=== PATIENT | female | born 1975 | race Two or more races ===

== ENCOUNTER → 2021-05-19 10:06 | Outpatient (BNVA) | payer OTHER, SELFPAY | PROVIDERS: PCP Internal Medicine; Visit Provider Internal Medicine Gastroenterology | DX: K31.84 Gastroparesis (principal) | CPT/HCPCS: 99202 ==

== ENCOUNTER → 2021-05-22 08:07 | Outpatient (REF) | payer OTHER, SELFPAY ==
--- NOTE | ~2021-05-22 | NM_ITS ---
EXAMINATION: WI RADIONUCLIDE SOLID FOOD GASTRIC EMPTYING 4-HOUR STUDY CLINICAL INFORMATION: Early satiety. History of gastric bypass. Abdominal pain and nausea and vomiting. COMPARISON: None TECHNIQUE: A standard meal consisting of 4 oz of Egg Beaters brand tagged with 0.899 mCi Tc-99m Sulfur Colloid, 8 oz water and 2 slices of toast with jelly was administered orally to the patient. Images were obtained using a dual head gamma camera in the anterior and posterior projections over of the stomach immediately post ingestion and at hourly intervals up to 4 hours post ingestion. The anterior and posterior counts at each time interval were averaged using the geometric mean and expressed as percentage of the immediate post ingestion counts. FINDINGS: There is good visualization of activity in the stomach immediately post ingestion. As the study progresses, there is good clearance of activity from the stomach and visualization of progressively increasing small bowel activity. By the end of the study, there is almost no retention noted in the stomach. Retention in the stomach at each time interval was: 1 hour 55% (normal 37%-90%) 2 hours 39% (normal 30%-60%) 3 hours 13% 4 hours 3% (normal 0%-10%) WI/WI gastric emptying study IMPRESSION: Normal 4-hour solid food gastric emptying study.
== END ==
LOC: HO.NUCMED 08:07
PROVIDERS: PCP Internal Medicine; Visit Provider Internal Medicine Gastroenterology
DX: R68.81 Early satiety (principal)
CPT/HCPCS: 78264; A9541

== ENCOUNTER 2021-07-19 09:21 | Day surgery (SDC) | payer OTHER, SELFPAY ==
--- NOTE | 2021-07-18 11:36 | P.CONAN_ITS ---
Documented by User: Billie Stewart NP 07/18/21 11:39 HPI - Anesthesia Eval Consult details Narrative: 45yo F for Upper Endoscopy PMFSH Active Problems Active Problems: All Active Problems (Updated 05/19/21 @ 10:43 by Zeinab Melendez MD) Gastroparesis (Acute) Past Medical History Medical History Diabetes Fatty liver History of kidney cancer HTN (hypertension) Family History Family History (Updated 05/19/21 @ 10:15 by NISREEN Mckeon) Father Septic shock Maternal Uncle Liver cancer Stomach cancer Hepatitis C Maternal Aunt Lupus Mother HTN (hypertension) Diabetes Heart problem Surgical History Surgical History History of esophagogastroduodenoscopy (EGD) History of sleeve gastrectomy Hx laparoscopic cholecystectomy Hx of vaginal surgery Social History Social History (Updated 05/19/21 @ 10:16 by NISREEN Mckeon) Household Members: Spouse and Children Alcohol intake: never Patient Tobacco Use Status: Never used Tobacco Advance Directives: No Advance Directives Information Provided: Yes Meds Allergies Allergy/AdvReac Type Severity Reaction Status Date / Time acetaminophen [From Percocet] Allergy Mild unknown Verified 05/19/21 10:08 oxycodone [From Percocet] Allergy Mild unknown Verified 05/19/21 10:08 tylenol with Codeine Allergy Mild unknown Uncoded 05/19/21 10:08 Home Medications Medication Instructions Recorded Confirmed Last Taken Type amitriptyline 25 mg tablet 25 mg PO BEDTIME 05/19/21 Unknown History blood sugar diagnostic (CallumStyle #10 ea 05/19/21 Unknown History Lite Strips) clotrimazole-betamethasone 1 appl TOPICAL 05/19/21 Unknown History %-0.05 % topical cream estradiol g VAGINAL 05/19/21 Unknown History fluconazole 150 mg tablet 150 mg PO Q3D 05/19/21 Unknown History glipizide 5 mg tablet, extended 5 mg PO DAILY 05/19/21 Unknown History release 24 hr lamotrigine 100 mg tablet 200 mg PO DAILY tab 05/19/21 Unknown History lancets 28 gauge (FreeStyle #100 ea 05/19/21 Unknown History Lancets) lisinopril 2.5 mg tablet 2.5 mg PO DAILY 05/19/21 Unknown History lorazepam 1 mg tablet 1 mg PO QID PRN 05/19/21 Unknown History meclizine 25 mg tablet mg PO 05/19/21 Unknown History nabumetone 500 mg tablet 500 mg PO BID 05/19/21 Unknown History ondansetron 4 mg disintegrating 0 mg PO BEDTIME 05/19/21 Unknown History tablet pantoprazole 40 mg tablet,delayed 40 mg PO BID 05/19/21 Unknown History release perphenazine 16 mg tablet mg PO 05/19/21 Unknown History prazosin 5 mg capsule 0 mg PO 05/19/21 Unknown History simethicone 80 mg chewable tablet 0 mg PO 05/19/21 Unknown History (Mi-Acid Gas Relief (simethicone)) sucralfate 100 mg/mL oral PO 05/19/21 Unknown History suspension terconazole 0.4 % vaginal cream 1 appful VAGINAL BEDTIME 05/19/21 Unknown History tramadol 100 mg capsule 100 mg PO DAILY 05/19/21 Unknown History 24h,extended release(25-75) venlafaxine 150 mg 150 mg PO DAILY 05/19/21 Unknown History capsule,extended release 24 hr venlafaxine 75 mg capsule,extended 75 mg PO DAILY 05/19/21 Unknown History release 24 hr zolpidem 5 mg tablet 5 mg PO BEDTIME PRN 05/19/21 Unknown History Exam Exam Date and Time: July 18, 2021 1136 Assessment and Plan Assessment Anesthesia Assessment: Chart Reviewed Documented by User: Wen Patricio MD 07/19/21 10:34 [facility] Past Medical History Medical History Diabetes Fatty liver History of kidney cancer HTN (hypertension) Functional capacity: independent ambulation Patient : No Family History Family History (Updated 05/19/21 @ 10:15 by NISREEN Mckeon) Father Septic shock Maternal Uncle Liver cancer Stomach cancer Hepatitis C Maternal Aunt Lupus Mother HTN (hypertension) Diabetes Heart problem Family history of problems with anesthesia: No Surgical History Surgical History History of esophagogastroduodenoscopy (EGD) History of sleeve gastrectomy Hx laparoscopic cholecystectomy Hx of vaginal surgery History of Problems with Anesthesia: No Social History Social History (Updated 05/19/21 @ 10:16 by NISREEN Mckeon) Household Members: Spouse and Children Alcohol intake: never Patient Tobacco Use Status: Never used Tobacco Advance Directives: No Advance Directives Information Provided: Yes Meds Allergies Allergy/AdvReac Type Severity Reaction Status Date / Time acetaminophen [From Percocet] Allergy Mild unknown Verified 05/19/21 10:08 oxycodone [From Percocet] Allergy Mild unknown Verified 05/19/21 10:08 tylenol with Codeine Allergy Mild unknown Uncoded 05/19/21 10:08 Home Medications Medication Instructions Recorded Confirmed Last Taken Type amitriptyline 25 mg tablet 25 mg PO BEDTIME 05/19/21 Unknown History blood sugar diagnostic (FreeStyle #10 ea 05/19/21 Unknown History Lite Strips) clotrimazole-betamethasone 1 appl TOPICAL 05/19/21 Unknown History %-0.05 % topical cream estradiol g VAGINAL 05/19/21 Unknown History fluconazole 150 mg tablet 150 mg PO Q3D 05/19/21 Unknown History glipizide 5 mg tablet, extended 5 mg PO DAILY 05/19/21 Unknown History release 24 hr lamotrigine 100 mg tablet 200 mg PO DAILY tab 05/19/21 Unknown History lancets 28 gauge (FreeStyle #100 ea 05/19/21 Unknown History Lancets) lisinopril 2.5 mg tablet 2.5 mg PO DAILY 05/19/21 Unknown History lorazepam 1 mg tablet 1 mg PO QID PRN 05/19/21 Unknown History meclizine 25 mg tablet mg PO 05/19/21 Unknown History nabumetone 500 mg tablet 500 mg PO BID 05/19/21 Unknown History ondansetron 4 mg disintegrating 0 mg PO BEDTIME 05/19/21 Unknown History tablet pantoprazole 40 mg tablet,delayed 40 mg PO BID 05/19/21 Unknown History release perphenazine 16 mg tablet mg PO 05/19/21 Unknown History prazosin 5 mg capsule 0 mg PO 05/19/21 Unknown History simethicone 80 mg chewable tablet 0 mg PO 05/19/21 Unknown History (Mi-Acid Gas Relief (simethicone)) sucralfate 100 mg/mL oral PO 05/19/21 Unknown History suspension terconazole 0.4 % vaginal cream 1 appful VAGINAL BEDTIME 05/19/21 Unknown History tramadol 100 mg capsule 100 mg PO DAILY 05/19/21 Unknown History 24h,extended release(25-75) venlafaxine 150 mg 150 mg PO DAILY 05/19/21 Unknown History capsule,extended release 24 hr venlafaxine 75 mg capsule,extended 75 mg PO DAILY 05/19/21 Unknown History release 24 hr zolpidem 5 mg tablet 5 mg PO BEDTIME PRN 05/19/21 Unknown History Exam Airway Mallampati Class: II TM Dist: >3cm Neck ROM: Full Heart: RRR Lungs: RRR Assessment and Plan Final Anesthetic Review Family History of Problems with Anesthesia: No History of Problems with Anesthesia: No ASA Class: II Final Preanesthetic Review: No Changes in Pt Med Stat, Meds/Allgs Chart Reviewed, Consent Obtained/Reviewed and Anes Risks/Benef Reviewed Patient Risk: Low Procedure Risk: Low Anesthetic Plan Anesthetic Plan: MAC: Disposition: Standard PACU
[2021-07-19 09:56] VITALS: BMI 27.4
--- NOTE | 2021-07-19 10:19 | MHC.SHP ---
Pre-Procedural Eval Section A Date of Service: 07/19/21 Section B Chief Complaint: Epigastric Pain Relevant Family History (Specify if Yes): No Relevant Social History: None Present Medications: see Short Stay Collaborative assessment Medical History: Significant History (Diabetes Fatty liver History of kidney cancer HTN (hypertension)) History of Previous Operations: Relevant previous surgery/procedure and date(s) (History of esophagogastroduodenoscopy (EGD) History of sleeve gastrectomy Hx laparoscopic cholecystectomy Hx of vaginal surgery, nephrectomy) Allergies: Allergies Allergy/AdvReac Type Severity Reaction Status Date / Time acetaminophen [From Percocet] Allergy Mild unknown Verified 05/19/21 10:08 oxycodone [From Percocet] Allergy Mild unknown Verified 05/19/21 10:08 tylenol with Codeine Allergy Mild unknown Uncoded 05/19/21 10:08 Review of Systems Sugical H&P ROS: Negative: Constitution, Cardiovascular, Respiratory, Neurological, Psychiatric, Hem-Onc, Allergic/Immunologic, Gastrointestinal, Genitourinary, Musculoskeletal, Integumentary, Endocrine and Eyes/Ears/Nose/Throat Exam Surgical H&P Exam: Normal: HEENT, Normal: Heart, Normal: Lungs, Normal: Extremities, Normal: Abdomen, Normal: Skin and Normal: Neurological Plan Diagnosis/Plan: Unchanged I have reviewed the history and physical and performed a pertinent physical examination on my patient. No changes have occurred unless specified.
[2021-07-19 10:20] LABS: UPreg QC Valid YES; Urine Pregnancy NEGATIVE (NEGATIVE)
[2021-07-19 10:48] VITALS: BP 120/77; PULSE 85; RESP 15; TEMP 36.3; O2SAT 100; BMI 27.4
[2021-07-19] MEDS: Lactated Ringers 1,000 ML 100 ML IVCONT (10:55)
[2021-07-19] MEDS: ondansetron HCL 4 MG/2 ML VIAL IVPUSH (10:55)
[2021-07-19 11:07] LABS: Glucose, Whole Blood 84 mg/dL (60-115)
[2021-07-19 11:07] LABS: Glucose, Whole Blood 87 mg/dL (60-115)
--- NOTE | 2021-07-19 11:14 | P.BOP_ITS ---
Brief Operative Note Date of Service: 07/19/21 Pre-op diagnosis: epigastric pain Post-op diagnosis: same Procedure: see op note Surgeon: Zeinab Melendez MD Anesthesia: MAC Was an Head Turning Machine Operator used for this Procedure?: No Estimated blood loss (mL): 0 Condition: stable Disposition: PACU
--- NOTE | 2021-07-19 11:14 | W.PM.OPN ---
Operative Note Operative Note Date of Service: 07/19/21 Narrative: Procedure Description: EGD FLEXIBLE TRANSORAL UPPER GASTROINTESTINAL ENDOSCOPY UPPER ENDOSCOPY Consent: Indications for the procedure and potential complications of bleeding, perforation, reaction to medications and missed diagnosis were discussed with the patient and informed consent was obtained. Instrument: Olympus GIF H 190 J mid size upper endoscope Monitoring: Vital signs and clinical assessment, continuous EKG monitoring, Pulse oximetry, Carbon Dioxide monitoring and blood pressure monitoring were done throughout the procedure. Procedure: The patient was placed in the left lateral decubitis position and pre-procedure medications were administered and a bite block was placed. The endoscope was inserted into the mouth and advanced under direct vision to the third part of duodenum. A careful inspection was made as the upper endoscope was withdrawn including a retroflexed examination of the proximal stomach; Findings and interventions are described below. Findings: Larynx:normal Esophagus: GE junction at 34 cm, diaphragm hiatus at 37 cm, small islands of suspected barretts esophagus bx taken from GEJ, 3 cm sliding hiatal hernia noted. Stomach: Normal mucosa, post surgical changes from gastric sleeve noted. Biopsies were obtained. Grade 2 flap valve on retroflexed examination of the cardia. The pylorus was tight and EGD was eventually pushed into the duodenal bulb with pressure. A pyloric balloon was inflated in step richard progression from 15-17 mm-no tears seen. Duodenum: Normal bulb and descending duodenum, bx taken Intervention: Biopsies as noted above, ballon dilation of pylorus Impression/Findings: tight pylorus hiatal hernia possible barretts PLAN: await path assess response to dilation over coming days and weeks, if good response then can repeat with larger balloon at future date if needed
[2021-07-19 11:50] VITALS: BP 91/52; PULSE 76; RESP 16; TEMP 36.1; O2SAT 98
--- NOTE | 2021-07-19 11:59 | HO.POSTANES ---
Post Anesthesia Evaluation Post Anesthesia Evaluation Vital Signs: Vital Signs Temp Pulse Resp BP Pulse Ox 07/19/21 11:50 97.0 F 76 16 91/52 L 98 07/19/21 10:48 97.4 F 85 15 120/77 100 Anesthesia: Monitored Mental Status: Awake Pain Control: Satisfactory Nausea/Vomiting: None Hydration: Adequate Anesthesia-Related Issues: No Anes. Related Issues
[2021-07-19 12:05] VITALS: BP 111/69; PULSE 72; RESP 16; O2SAT 100
[2021-07-19 12:23] VITALS: BP 120/69; PULSE 77; RESP 16; TEMP 36.1; O2SAT 100
== END 2021-07-19 12:47 | disposition home or self-care (01) ==
PROVIDERS: Nurse Practitioner; PCP Internal Medicine; Visit Provider Internal Medicine Gastroenterology
PROC: 0DJ08ZZ Inspection of Upper Intestinal Tract, Via Natural or Artificial Opening Endoscopic (ICD-10-PCS; CPT 43235; principal; 2021-07-19 12:00)
DX: R10.13 Epigastric pain (principal); K31.1 Adult hypertrophic pyloric stenosis; K22.70 Barrett's esophagus without dysplasia; K44.9 Diaphragmatic hernia without obstruction or gangrene; Z98.84 Bariatric surgery status; R68.81 Early satiety; K76.0 Fatty (change of) liver, not elsewhere classified; K31.84 Gastroparesis; I10 Essential (primary) hypertension; C64.2 Malignant neoplasm of left kidney, except renal pelvis; F32.9 Major depressive disorder, single episode, unspecified; E11.9 Type 2 diabetes mellitus without complications; Z79.84 Long term (current) use of oral hypoglycemic drugs; Z79.899 Other long term (current) drug therapy; Z88.8 Allergy status to other drugs, medicaments and biological substances; Z90.49 Acquired absence of other specified parts of digestive tract
CPT/HCPCS: 43245; 43239; 81025; 82947; 88305; 88342; C1726; J2405; J3010

== ENCOUNTER → 2021-08-01 11:06 | Outpatient (BNVA) | payer OTHER, SELFPAY | PROVIDERS: PCP Internal Medicine; Visit Provider Internal Medicine Gastroenterology ==

== ENCOUNTER 2021-08-26 09:54 | Emergency (ER) | payer OTHER, SELFPAY ==
--- NOTE | ~2021-08-26 | CT_ITS ---
EXAMINATION: CT ABDOMEN AND PELVIS WITH CONTRAST CLINICAL INFORMATION: Pain status post partial nephrectomy COMPARISON: None TECHNIQUE: Multidetector volumetric images were obtained from the superior aspect of the liver through the pubic symphysis following administration 85 mL of Omnipaque 350 intravenous contrast. Sagittal and coronal reformatted images were obtained on the technologist's workstation. Oral contrast: No This CT examination was performed using dose optimization techniques as appropriate, variously including the following: *Automated exposure control *Adjustment of mA and/or kV according to patient size (this includes techniques or standardized protocols for targeted exams where dose is matched to indication/reason for exam; i.e. extremities or head) *Use of iterative reconstruction technique FINDINGS: LUNG BASES: The visualized lung bases are unremarkable. LIVER, GALLBLADDER, AND BILIARY TREE: The liver is normal in size, shape, and attenuation. No focal liver lesion seen. Status post cholecystectomy. There is prominence of the common bile duct and intrahepatic bile ducts, not uncommon as chronic sequelae of remote prior cholecystectomy. PANCREAS: Normal. SPLEEN: Spleen is borderline enlarged, measuring 13 cm anterior to posterior but 10.4 cm craniocaudal. No focal splenic lesion seen. ADRENAL GLANDS: Unremarkable. KIDNEYS AND URETERS: There are postoperative changes of the posterior cortex of the left mid kidney consistent with prior left partial nephrectomy. There are some areas of adjacent cortical hypoenhancement, presumably postoperative as well but there are no prior postoperative studies available to assess for subtle differences. No striated nephrogram. No hydronephrosis. 7 mm cyst of the anterior cortex of the upper pole of the left kidney. BLADDER: Unremarkable. GASTROINTESTINAL TRACT: Small hiatal hernia. There is mild circumferential wall thickening of the distal esophagus. There are surgical sutures consistent with prior sleeve gastrectomy. ABDOMINAL WALL: Irregular fluid and fat stranding seen within the left anterior abdominal wall. LYMPH NODES: Normal. VASCULAR: Unremarkable. PELVIC VISCERA: The uterus and adnexa are unremarkable. OSSEOUS STRUCTURES: No acute or suspicious osseous abnormality. CT/CT abdomen pelvis w con IMPRESSION: Postoperative changes consistent with prior left partial nephrectomy. There are some adjacent areas of hypoenhancement which are presumably postoperative. Comparison with prior studies would be helpful to exclude subtle changes. Likely postoperative changes along the left lateral abdominal wall. Again, comparison with priors would be helpful. Small hiatal hernia. Evidence of prior sleeve gastrectomy. Prior right cholecystectomy. Mild wall thickening of the distal esophagus could reflect esophagitis. Fleischner guidelines were followed.
[2021-08-26 10:18] VITALS: BP 99/53; PULSE 82; RESP 19; TEMP 36.6; O2SAT 99; BMI 27.4
--- NOTE | 2021-08-26 12:06 | ED.FEMALEGU ---
HPI - Female Genitourinary General Chief complaint: Urogenital-Female Stated complaint: post kidney surgery 2 months ago pain burning Time Seen by Provider: 08/26/21 10:17 History of Present Illness HPI Narrative: Patient is a 45-year-old female presents today with having left upper quadrant pain. Patient had a nephrectomy done 2 months ago. Having pain localized to that area. There is no fever no chills. No pain on urination. No coughing or congestion or upper respiratory symptoms. No chest pain or diaphoresis. The pain is localized. No change of bowel movement. No nausea no vomiting. No vaginal discharge. Pain is a burning sensation right over the scar. Related Data Home Medications Medication Instructions Recorded Confirmed amitriptyline 25 mg tablet 25 mg PO BEDTIME 05/19/21 08/23/21 blood sugar diagnostic (FreeStyle #10 ea 05/19/21 Lite Strips) clotrimazole-betamethasone 1 1 appl TOPICAL DAILY 05/19/21 08/23/21 %-0.05 % topical cream estradiol 1 appl VAGINAL DAILY 05/19/21 08/23/21 fluconazole 150 mg tablet 150 mg PO Q3D 05/19/21 08/23/21 glipizide 5 mg tablet, extended 5 mg PO DAILY 05/19/21 08/23/21 release 24 hr lamotrigine 100 mg tablet 200 mg PO DAILY tab 05/19/21 08/23/21 lancets 28 gauge (FreeStyle #100 ea 05/19/21 Lancets) lisinopril 2.5 mg tablet 2.5 mg PO DAILY 05/19/21 08/23/21 lorazepam 1 mg tablet 1 mg PO QID PRN 05/19/21 08/23/21 meclizine 25 mg tablet 5 mg PO DAILY PRN 05/19/21 08/23/21 nabumetone 500 mg tablet 500 mg PO BID 05/19/21 08/23/21 ondansetron 4 mg disintegrating 4 mg PO BEDTIME 05/19/21 08/23/21 tablet pantoprazole 40 mg tablet,delayed 40 mg PO BID 05/19/21 08/23/21 release perphenazine 16 mg tablet mg PO 05/19/21 prazosin 5 mg capsule 5 mg PO BEDTIME 05/19/21 08/23/21 simethicone 80 mg chewable tablet 80 mg PO DAILY PRN 05/19/21 08/23/21 (Mi-Acid Gas Relief (simethicone)) sucralfate 100 mg/mL oral 100 mg PO DAILY 05/19/21 08/23/21 suspension terconazole 0.4 % vaginal cream 1 appful VAGINAL BEDTIME 05/19/21 08/23/21 tramadol 100 mg capsule 100 mg PO DAILY 05/19/21 08/23/21 24h,extended release(25-75) venlafaxine 150 mg 150 mg PO DAILY 05/19/21 08/23/21 capsule,extended release 24 hr venlafaxine 75 mg capsule,extended 75 mg PO DAILY 05/19/21 08/23/21 release 24 hr zolpidem 5 mg tablet 5 mg PO BEDTIME PRN 05/19/21 08/23/21 gabapentin 100 mg capsule 300 mg PO TID 08/01/21 08/23/21 Previous Rx's Medication Instructions Recorded hyoscyamine sulfate 0.125 mg 0.125 mg PO QID #90 tab 08/01/21 sublingual tablet (Levsin/SL) ondansetron 4 mg disintegrating 4 mg PO TID PRN 5 Days #10 tab 08/26/21 tablet sulfamethoxazole 800 1 tab PO BID 3 Days #6 tab 08/26/21 mg-trimethoprim 160 mg tablet (Bactrim DS) Allergies Allergy/AdvReac Type Severity Reaction Status Date / Time codeine Allergy Mild Rash Verified 08/23/21 10:59 oxycodone [From Percocet] Allergy Mild Rash Verified 08/23/21 10:59 Review of Systems Review of Systems: Positive left upper quadrant pain No fever no chills no cough no congestion or respiratory symptoms Immunized for COVID All system reviewed otherwise negative [facility] Past Medical History Attestation statement: The following information was validated with the patient. Medical History COVID-19 vaccine series completed Diabetes Fatty liver HTN (hypertension) Renal cancer Surgical History History of esophagogastroduodenoscopy (EGD) History of left nephrectomy History of left oophorectomy History of sleeve gastrectomy Hx laparoscopic cholecystectomy Hx of vaginal surgery Family History Family History Father Septic shock Maternal Uncle Liver cancer Stomach cancer Hepatitis C Maternal Aunt Lupus Mother HTN (hypertension) Diabetes Heart problem Social History Social History Household Members: Spouse and Children Alcohol intake: never Patient Tobacco Use Status: Never used Tobacco Use of substances other than those prescribed or required for medical reasons: No Advance Directives: No Advance Directives Information Provided: No Patient : No Physical Exam Vital Signs: Vital Signs: Last Vital Signs Temp 97.7 F 08/26/21 15:23 Pulse 71 08/26/21 15:23 Resp 18 08/26/21 15:23 BP 153/80 H 08/26/21 15: Pulse Ox 98 08/26/21 15:23 BMI result Body Mass Index 27.4 Appearance: Alert. Oriented X3. No acute distress. Eyes: Pupils equal, round and reactive to light. ENT: Pharynx normal. Neck: Normal inspection. Neck supple. No lymph nodes noted. No crepitus CVS: Normal heart rate and rhythm. Pulses normal. Normal S1 and S2 Respiratory: No respiratory distress. Breath sounds normal. No Wheezing. No rales Abdomen: Soft and nontender. No rigidity. No distention. good BS x4 Skin: Skin warm and dry. Normal skin color. Normal skin turgor. Extremities: No lower extremity edema. Neurovascular intact to all extremities. No Lacerations. No Rash Neuro: Oriented X 3. No motor deficit. No sensory deficit. Moving all extermities. No slurred speech MDM - Female Genitourinary MDM Narrative Medical decision making narrative: Patient is status post gastric sleeve. Status post left partial nephrectomy. Patient's creatinine is normal. CT scan of the abdomen showed no evidence of obstruction, abscess, perforation. Finding consistent with postoperative changes. Unfortunately patient's surgery was done at [facility]. Patient's Arb abdomen is soft nontender. Will discharge patient home. Currently in stable condition. Patient's urine showed a questionable UTI versus contamination will give 3 days of antibiotic as well. Lab Data Attestation: I reviewed the patient's lab results. Result diagrams: 08/26/21 12:54 08/26/21 14:26 Labs: Lab Results 08/26/21 08/26/21 08/26/21 Range/Units 12:18 12:18 12:54 WBC 3.9 L (4.8-10.8) X10*3/uL RBC 4.71 (4.20-5.50) X10*6/uL Hgb 11.4 L (12.0-16.0) g/dl Hct 35.8 L (37.0-47.0) % MCV 76.0 L (80.0-98.0) fL MCH 24.2 L (27.0-33.0) pg MCHC 31.8 (31.0-35.0) g/dl RDW 12.8 (11.0-16.0) % Plt Count 227 (160-400) X10*3/uL MPV 10.7 (9.4-12.3) fL Immature Gran % (Auto) 0.3 (0.0-0.4) % Neut % (Auto) 53.5 (45-73) % Lymph % (Auto) 39.2 (20-40) % Grayson % (Auto) 4.4 (2-11) % Eos % (Auto) 2.1 (0-4) % Baso % (Auto) 0.5 (0-2) % Lymph # (Auto) 1.5 (1.2-4.9) X10*3/uL Grayson # (Auto) 0.2 (0.1-1.2) X10*3/uL Eos # (Auto) 0.1 (0.0-0.4) X10*3/uL Baso # (Auto) 0.0 (0.0-0.2) X10*3/uL Abs Immat Gran (auto) 0.01 (0.00-0.03) X10*3/uL Absolute Neuts (auto) 2.1 (2.0-8.3) x10*3/uL Absolute Nucleated RBC 0.000 (0.0-0.012) X10*3/uL Nucleated RBC % (auto) 0.0 (0.0-0.2) /100WBC Smear Tech's Comments VERIFIED Sodium (135-145) mmol/L Potassium (3.3-5.1) mmol/L Chloride (96-108) mmol/L Carbon Dioxide (22-29) mmol/L Anion Gap (12-20) BUN (9-16) mg/dL Creatinine (0.5-1.4) mg/dL Estim Creat Clear Calc Estimated GFR Random Glucose (60-115) mg/dL Calcium (8.4-10.2) mg/dL Total Bilirubin (0.0-1.0) mg/dL AST (5-31) U/L ALT (0-31) U/L Alkaline Phosphatase (39-117) U/L Total Protein (6.5-8.0) g/dL Albumin (3.5-5.0) g/dL Lipase (8-78) U/L Urine Color YELLOW Urine Appearance CLEAR Urine pH 7.5 (5.0-8.0) Ur Specific Grover 1.015 (1.005-1.025) Urine Protein NEG (NEG-TRACE) MG/DL Urine Glucose (UA) NEG (NEG) MG/DL Urine Ketones NEG (NEG) MG/DL Urine Blood TRACE (NEG) Urine Nitrite NEG (NEG) Ur Leukocyte Esterase 2+ H (NEG) Urine RBC 0-2 (0) /HPF Urine WBC 30-49 H (0-4) /HPF Ur Squamous Epith Cells 3+ /LPF Urine Bacteria TRACE /LPF Urine Test NEGATIVE (NEGATIVE) 08/26/21 Range/Units 14:26 WBC (4.8-10.8) X10*3/uL RBC (4.20-5.50) X10*6/uL Hgb (12.0-16.0) g/dl Hct (37.0-47.0) % MCV (80.0-98.0) fL MCH (27.0-33.0) pg MCHC (31.0-35.0) g/dl RDW (11.0-16.0) % Plt Count (160-400) X10*3/uL MPV (9.4-12.3) fL Immature Gran % (Auto) (0.0-0.4) % Neut % (Auto) (45-73) % Lymph % (Auto) (20-40) % Grayson % (Auto) (2-11) % Eos % (Auto) (0-4) % Baso % (Auto) (0-2) % Lymph # (Auto) (1.2-4.9) X10*3/uL Grayson # (Auto) (0.1-1.2) X10*3/uL Eos # (Auto) (0.0-0.4) X10*3/uL Baso # (Auto) (0.0-0.2) X10*3/uL Abs Immat Gran (auto) (0.00-0.03) X10*3/uL Absolute Neuts (auto) (2.0-8.3) x10*3/uL Absolute Nucleated RBC (0.0-0.012) X10*3/uL Nucleated RBC % (auto) (0.0-0.2) /100WBC Smear Tech's Comments Sodium 138 (135-145) mmol/L Potassium 3.6 (3.3-5.1) mmol/L Chloride 105 (96-108) mmol/L Carbon Dioxide 26 (22-29) mmol/L Anion Gap 11 L (12-20) BUN 9 (9-16) mg/dL Creatinine 0.68 (0.5-1.4) mg/dL Estim Creat Clear Calc 92.4 Estimated GFR > 60 Random Glucose 102 (60-115) mg/dL Calcium 9.1 (8.4-10.2) mg/dL Total Bilirubin 1.4 H (0.0-1.0) mg/dL AST 54 H (5-31) U/L ALT 15 (0-31) U/L Alkaline Phosphatase 109 (39-117) U/L Total Protein 7.4 (6.5-8.0) g/dL Albumin 4.1 (3.5-5.0) g/dL Lipase 33 (8-78) U/L Urine Color Urine Appearance Urine pH (5.0-8.0) Ur Specific Grover (1.005-1.025) Urine Protein (NEG-TRACE) MG/DL Urine Glucose (UA) (NEG) MG/DL Urine Ketones (NEG) MG/DL Urine Blood (NEG) Urine Nitrite (NEG) Ur Leukocyte Esterase (NEG) Urine RBC (0) /HPF Urine WBC (0-4) /HPF Ur Squamous Epith Cells /LPF Urine Bacteria /LPF Urine Test (NEGATIVE) Discharge Plan Discharge Clinical Impression: Abdominal pain, Urinary tract infection Patient Disposition: Home, Self-Care Instructions: Urinary Tract Infection in Women (DC), Abdominal Pain (ED) Prescriptions: New ondansetron 4 mg tablet,disintegrating 4 mg PO TID PRN (Reason: nausea and vomiting) 5 Days Qty: 10 0RF sulfamethoxazole-trimethoprim [Bactrim DS] 800-160 mg tablet 1 tab PO BID 3 Days Qty: 6 0RF No Action ondansetron 4 mg tablet,disintegrating 4 mg PO BEDTIME 0RF meclizine 25 mg tablet 5 mg PO DAILY PRN (Reason: Vertigo) 0RF nabumetone 500 mg tablet 500 mg PO BID 0RF glipizide 5 mg tablet extended release 24hr 5 mg PO DAILY 0RF lamotrigine 100 mg tablet 200 mg PO DAILY 0RF lisinopril 2.5 mg tablet 2.5 mg PO DAILY 0RF clotrimazole-betamethasone 1-0.05 % cream 1 appl topical DAILY 0RF (DME) lancets [FreeStyle Lancets] 28 gauge misc See Rx Instructions ea topical TID Qty: 100 0RF Rx Instructions: As directed (DME) FreeStyle Lite Strips Strip See Rx Instructions strip Not Applicable BID Qty: 10 0RF Rx Instructions: As directed pantoprazole 40 mg tablet,delayed release (DR/EC) 40 mg PO BID 0RF sucralfate 100 mg/mL suspension 100 mg PO DAILY 0RF fluconazole 150 mg tablet 150 mg PO Q3D 0RF terconazole 0.4 % cream 1 appful vaginal BEDTIME 0RF perphenazine 16 mg tablet PO 0RF simethicone [Mi-Acid Gas Relief(simethicon)] 80 mg tablet,chewable 80 mg PO DAILY PRN (Reason: Acid Reflux) 0RF lorazepam 1 mg tablet 1 mg PO QID PRN (Reason: Anxiety) 0RF zolpidem 5 mg tablet 5 mg PO BEDTIME PRN (Reason: Insomnia) 0RF prazosin 5 mg capsule 5 mg PO BEDTIME 0RF venlafaxine 150 mg capsule,extended release 24hr 150 mg PO DAILY 0RF venlafaxine 75 mg capsule,extended release 24hr 75 mg PO DAILY 0RF amitriptyline 25 mg tablet 25 mg PO BEDTIME 0RF estradiol 0.01 % (0.1 mg/gram) cream 1 appl vaginal DAILY 0RF tramadol 100 mg capsule,ER biphase 24 hr 25-75 100 mg PO DAILY 0RF gabapentin 100 mg capsule 300 mg PO TID 0RF hyoscyamine sulfate [Levsin/SL] 0.125 mg tablet, sublingual 0.125 mg PO QID Qty: 90 1RF Referrals: Izabela Ellison MD [Primary Care Provider] - 2 days (Please follow-up with your surgeon as well)
[2021-08-26 12:30] LABS: Appearance Urine CLEAR; Color Urine YELLOW; Glucose Urine UA NEG (NEG); Leukocyte Esterase Urine 2+ (NEG); Nitrite Urine NEG (NEG); PH 7.5 (5.0-8.0); Specific Gravity - Urine 1.015 (1.005-1.025); UACC Culture Trigger YES; Urine Blood TRACE (NEG); Urine Ketones NEG (NEG); Urine Protein NEG (NEG-TRACE)
[2021-08-26 12:31] LABS: UPreg QC Valid YES; Urine Pregnancy NEGATIVE (NEGATIVE)
[2021-08-26 12:44] LABS: WBC Urine 30-49 /HPF (0-4)
[2021-08-26 12:45] LABS: Bacteria Urine TRACE /LPF; RBC Urine 0-2 /HPF (0); Squamous Epithelial Cell Urine 3+ /LPF
--- NOTE | 2021-08-26 12:50 | PC.NURSE ---
patient a&ox3, attempted to obtain iv access, patient difficult stick, additional nurse attempted without success, US trained nurse is now attempting to gain access, will notify provider if no access is obtained.
[2021-08-26] MEDS: 0.9 % Sodium Chloride 1,000 ML 999 ML IV (13:06)
[2021-08-26] MEDS: ondansetron HCL 4 MG/2 ML VIAL IVPUSH ×2 (13:09→15:42)
[2021-08-26] MEDS: HYDROmorphone HCl 0.5 MG/0.5 ML SYRINGE IVPUSH ×2 (13:09→14:00)
--- NOTE | 2021-08-26 13:09 | PC.NURSE ---
iv inserted by us, pt medicated for pain per order, will continue to monitor
[2021-08-26 13:29] LABS: Basophils Percent Auto 0.5 % (0-2); Hematocrit 35.8 % (37.0-47.0); Hemoglobin 11.4 g/dl (12.0-16.0); Mean Corpuscular HGB Conc 31.8 g/dl (31.0-35.0); Mean Corpuscular Hemoglobin 24.2 pg (27.0-33.0); Monocytes Absolute Auto 0.2 X10*3/uL (0.1-1.2); PLT CLUMP 1; Red Blood Count 4.71 X10*6/uL (4.20-5.50); SCAN SMEAR FLAG 1
[2021-08-26 13:30] LABS: Eosinophils Absolute Auto 0.1 X10*3/uL (0.0-0.4); Eosinophils Percent Auto 2.1 % (0-4); Imm Gran Abs Auto 0.01 X10*3/uL (0.00-0.03); Imm Gran Pct Auto 0.3 % (0.0-0.4); Lymphocytes Absolute Auto 1.5 X10*3/uL (1.2-4.9); Lymphocytes Percent Auto 39.2 % (20-40); MANUAL DIFF FLAG SCAN; Mean Platelet Volume 10.7 fL (9.4-12.3); Monocytes Percent Auto 4.4 % (2-11); Neutrophils Absolute Auto 2.1 x10*3/uL (2.0-8.3); Neutrophils Percent Auto 53.5 % (45-73); Red Cell Distribution Width 12.8 % (11.0-16.0)
[2021-08-26 13:42] VITALS: BP 169/87; PULSE 80; RESP 18; TEMP 37.2; O2SAT 100
--- NOTE | 2021-08-26 13:47 | PC.NURSE ---
pt a&ox3, vss, now reporting increased pain on the right side (03/24), provider notified, waiting for lab results/medication orders.
[2021-08-26 13:54] LABS: White Blood Count 3.9 X10*3/uL (4.8-10.8)
[2021-08-26 13:55] LABS: Platelet Count 227 X10*3/uL (160-400); SLIDE REVIEW VERIFIED
--- NOTE | 2021-08-26 14:02 | PC.NURSE ---
additional labs drawn per order, patient medicated for continued 9/10 rt abd pain, ivf running per order, vss, will continue to monitor.
--- NOTE | 2021-08-26 14:26 | PC.NURSE ---
ivf continue to run slowly
[2021-08-26 14:50] LABS: Alanine Aminotransferase 15 U/L (0-31); Albumin Level 4.1 g/dL (3.5-5.0); Alkaline Phosphatase 109 U/L (39-117); Anion Gap 11 (12-20); Aspartate Amino Transferase 54 U/L (5-31); Bilirubin Total 1.4 mg/dL (0.0-1.0); Blood Urea Nitrogen 9 mg/dL (9-16); Calcium 9.1 mg/dL (8.4-10.2); Carbon Dioxide 26 mmol/L (22-29); Chloride 105 mmol/L (96-108); Creatinine Clr Calc Pharmacy 92.4; Estimated Glomerular Filt Rate > 60; Glucose Random 102 mg/dL (60-115); Lipase 33 U/L (8-78); Potassium 3.6 mmol/L (3.3-5.1); Sodium 138 mmol/L (135-145); Total Protein 7.4 g/dL (6.5-8.0)
[2021-08-26] MEDS: iohexoL 350 MG/ML 100 ML INFUS..BTL IV (15:11)
--- NOTE | 2021-08-26 15:20 | PC.NURSE ---
patient c/o ongoing nausea will notify provider and continue to monitor.
[2021-08-26 15:23] VITALS: BP 153/80; PULSE 71; RESP 18; TEMP 36.5; O2SAT 98
--- NOTE | 2021-08-26 15:43 | PC.NURSE ---
patient medicated for nausea per order, pt ivf continues to run
[2021-08-26 16:00] VITALS: BP 137/79; PULSE 84; RESP 18; O2SAT 100
[2021-08-26] MEDS: Sulfamethox/Trimeth 800/160 TABLET 1 TAB PO (16:23)
== END 2021-08-26 16:29 | disposition home or self-care (01) ==
PROVIDERS: Emergency Provider Emergency Medicine Emergency Medical Services; PCP Family Medicine
DX: R10.12 Left upper quadrant pain (principal); N39.0 Urinary tract infection, site not specified; E11.9 Type 2 diabetes mellitus without complications; I10 Essential (primary) hypertension; Z90.5 Acquired absence of kidney; Z90.49 Acquired absence of other specified parts of digestive tract; Z90.721 Acquired absence of ovaries, unilateral; Z98.84 Bariatric surgery status; Z85.53 Personal history of malignant neoplasm of renal pelvis
CPT/HCPCS: 36415; 74177; 80053; 81001; 81025; 83690; 85025; 87086; 87186; 96361; 96374; 96375; 96376; 99284; J1170; J2405; Q9967

== ENCOUNTER 2021-08-29 07:44 | Day surgery (SDC) | payer OTHER, SELFPAY ==
[2021-08-23 11:01] VITALS: BMI 27.4
--- NOTE | 2021-08-28 10:05 | HO.ANESPROP2 ---
Documented by User: Billie Stewart NP 08/28/21 10:06 HPI - Anesthesia Eval Consult details Narrative: 45yo F for Upper Endoscopy with 100 Units Botox and Pyloric Dilation s/p EGD 07/2021 with [facility] PMF[facility] Active Problems Active Problems: All Active Problems (Updated 08/27/21 @ 00:01 by Guillermo Nielsen) Gastroparesis (Acute) Past Medical History Medical History COVID-19 vaccine series completed Diabetes Fatty liver HTN (hypertension) Renal cancer Family History Family History Father Septic shock Maternal Uncle Liver cancer Stomach cancer Hepatitis C Maternal Aunt Lupus Mother HTN (hypertension) Diabetes Heart problem Family history of problems with anesthesia: No Surgical History Surgical History History of esophagogastroduodenoscopy (EGD) History of left nephrectomy History of left oophorectomy History of sleeve gastrectomy Hx laparoscopic cholecystectomy Hx of vaginal surgery History of Problems with Anesthesia: No Social History Social History Household Members: Spouse and Children Alcohol intake: never Patient Tobacco Use Status: Never used Tobacco Use of substances other than those prescribed or required for medical reasons: No Have you been hit, kicked, punched, or otherwise hurt by someone within the past year? If so, by whom?: No Are you DNR?: No Advance Directives: No Advance Directives Information Provided: Yes Advance Directives on File: No Recently lost weight without trying: No Eating poorly because of decreased appetite: No Nutrition Risks: No Nutritional Risk Patient : No Meds Allergies Allergy/AdvReac Type Severity Reaction Status Date / Time codeine Allergy Mild Rash Verified 08/23/21 10:59 oxycodone [From Percocet] Allergy Mild Rash Verified 08/23/21 10:59 Home Medications Medication Instructions Recorded Confirmed Last Taken Type amitriptyline 25 mg tablet 25 mg PO BEDTIME 05/19/21 08/23/21 Unknown History blood sugar diagnostic (FreeStyle #10 ea 05/19/21 Unknown History Lite Strips) clotrimazole-betamethasone 1 1 appl TOPICAL DAILY 05/19/21 08/23/21 Unknown History %-0.05 % topical cream estradiol 1 appl VAGINAL DAILY 05/19/21 08/23/21 Unknown History fluconazole 150 mg tablet 150 mg PO Q3D 05/19/21 08/23/21 Unknown History glipizide 5 mg tablet, extended 5 mg PO DAILY 05/19/21 08/23/21 Unknown History release 24 hr lamotrigine 100 mg tablet 200 mg PO DAILY tab 05/19/21 08/23/21 Unknown History lancets 28 gauge (FreeStyle #100 ea 05/19/21 Unknown History Lancets) lisinopril 2.5 mg tablet 2.5 mg PO DAILY 05/19/21 08/23/21 Unknown History lorazepam 1 mg tablet 1 mg PO QID PRN 05/19/21 08/23/21 Unknown History meclizine 25 mg tablet 5 mg PO DAILY PRN 05/19/21 08/23/21 Unknown History nabumetone 500 mg tablet 500 mg PO BID 05/19/21 08/23/21 Unknown History ondansetron 4 mg disintegrating 4 mg PO BEDTIME 05/19/21 08/23/21 Unknown History tablet pantoprazole 40 mg tablet,delayed 40 mg PO BID 05/19/21 08/23/21 Unknown History release perphenazine 16 mg tablet mg PO 05/19/21 Unknown History prazosin 5 mg capsule 5 mg PO BEDTIME 05/19/21 08/23/21 Unknown History simethicone 80 mg chewable tablet 80 mg PO DAILY PRN 05/19/21 08/23/21 Unknown History (Mi-Acid Gas Relief (simethicone)) sucralfate 100 mg/mL oral 100 mg PO DAILY 05/19/21 08/23/21 Unknown History suspension terconazole 0.4 % vaginal cream 1 appful VAGINAL BEDTIME 05/19/21 08/23/21 Unknown History tramadol 100 mg capsule 100 mg PO DAILY 05/19/21 08/23/21 Unknown History 24h,extended release(25-75) venlafaxine 150 mg 150 mg PO DAILY 05/19/21 08/23/21 Unknown History capsule,extended release 24 hr venlafaxine 75 mg capsule,extended 75 mg PO DAILY 05/19/21 08/23/21 Unknown History release 24 hr zolpidem 5 mg tablet 5 mg PO BEDTIME PRN 05/19/21 08/23/21 Unknown History gabapentin 100 mg capsule 300 mg PO TID 08/01/21 08/23/21 Unknown History Exam Exam Date and Time: August 28, 2021 1005 Height,Weight and Vital Signs: Height 5 ft 2 in Weight 68.039 kg Pertinent Lab Results Pertinent Lab Results: Laboratory Tests 08/26/21 08/26/21 12:54 14:26 WBC 3.9 L Hgb 11.4 L Hct 35.8 L Plt Count 227 Sodium 138 Potassium 3.6 Chloride 105 Carbon Dioxide 26 BUN 9 Creatinine 0.68 Assessment and Plan Assessment Anesthesia Assessment: Chart Reviewed Final Anesthetic Review Family History of Problems with Anesthesia: No History of Problems with Anesthesia: No Documented by User: Jessica Patricio MD 08/29/21 08:12 [facility] Past Medical History Medical History COVID-19 vaccine series completed Diabetes Fatty liver HTN (hypertension) Renal cancer Family History Family History Father Septic shock Maternal Uncle Liver cancer Stomach cancer Hepatitis C Maternal Aunt Lupus Mother HTN (hypertension) Diabetes Heart problem Surgical History Surgical History History of esophagogastroduodenoscopy (EGD) History of left nephrectomy History of left oophorectomy History of sleeve gastrectomy Hx laparoscopic cholecystectomy Hx of vaginal surgery Social History Social History Household Members: Spouse and Children Alcohol intake: never Patient Tobacco Use Status: Never used Tobacco Use of substances other than those prescribed or required for medical reasons: No Have you been hit, kicked, punched, or otherwise hurt by someone within the past year? If so, by whom?: No Are you DNR?: No Advance Directives: No Advance Directives Information Provided: Yes Advance Directives on File: No Recently lost weight without trying: No Eating poorly because of decreased appetite: No Nutrition Risks: No Nutritional Risk Patient : No Meds Allergies Allergy/AdvReac Type Severity Reaction Status Date / Time codeine Allergy Mild Rash Verified 08/23/21 10:59 oxycodone [From Percocet] Allergy Mild Rash Verified 08/23/21 10:59 Home Medications Medication Instructions Recorded Confirmed Last Taken Type amitriptyline 25 mg tablet 25 mg PO BEDTIME 05/19/21 08/23/21 Unknown History blood sugar diagnostic (FreeStyle #10 ea 05/19/21 Unknown History Lite Strips) clotrimazole-betamethasone 1 1 appl TOPICAL DAILY 05/19/21 08/23/21 Unknown History %-0.05 % topical cream estradiol 1 appl VAGINAL DAILY 05/19/21 08/23/21 Unknown History fluconazole 150 mg tablet 150 mg PO Q3D 05/19/21 08/23/21 Unknown History glipizide 5 mg tablet, extended 5 mg PO DAILY 05/19/21 08/23/21 Unknown History release 24 hr lamotrigine 100 mg tablet 200 mg PO DAILY tab 05/19/21 08/23/21 Unknown History lancets 28 gauge (FreeStyle #100 ea 05/19/21 Unknown History Lancets) lisinopril 2.5 mg tablet 2.5 mg PO DAILY 05/19/21 08/23/21 Unknown History lorazepam 1 mg tablet 1 mg PO QID PRN 05/19/21 08/23/21 Unknown History meclizine 25 mg tablet 5 mg PO DAILY PRN 05/19/21 08/23/21 Unknown History nabumetone 500 mg tablet 500 mg PO BID 05/19/21 08/23/21 Unknown History ondansetron 4 mg disintegrating 4 mg PO BEDTIME 05/19/21 08/23/21 Unknown History tablet pantoprazole 40 mg tablet,delayed 40 mg PO BID 05/19/21 08/23/21 Unknown History release perphenazine 16 mg tablet mg PO 05/19/21 Unknown History prazosin 5 mg capsule 5 mg PO BEDTIME 05/19/21 08/23/21 Unknown History simethicone 80 mg chewable tablet 80 mg PO DAILY PRN 05/19/21 08/23/21 Unknown History (Mi-Acid Gas Relief (simethicone)) sucralfate 100 mg/mL oral 100 mg PO DAILY 05/19/21 08/23/21 Unknown History suspension terconazole 0.4 % vaginal cream 1 appful VAGINAL BEDTIME 05/19/21 08/23/21 Unknown History tramadol 100 mg capsule 100 mg PO DAILY 05/19/21 08/23/21 Unknown History 24h,extended release(25-75) venlafaxine 150 mg 150 mg PO DAILY 05/19/21 08/23/21 Unknown History capsule,extended release 24 hr venlafaxine 75 mg capsule,extended 75 mg PO DAILY 05/19/21 08/23/21 Unknown History release 24 hr zolpidem 5 mg tablet 5 mg PO BEDTIME PRN 05/19/21 08/23/21 Unknown History gabapentin 100 mg capsule 300 mg PO TID 08/01/21 08/23/21 Unknown History Exam Airway Mallampati Class: II TM Dist: >3cm Neck ROM: Full Assessment and Plan Assessment Anesthesia Assessment: Anesthesia Plan Discussed Final Anesthetic Review NPO: Yes ASA Class: III Final Preanesthetic Review: No Changes in Pt Med Stat, Meds/Allgs Chart Reviewed, Consent Obtained/Reviewed and Anes Risks/Benef Reviewed Patient Risk: Intermediate Procedure Risk: Low Anesthetic Plan Anesthetic Plan: MAC: Disposition: Standard PACU
[2021-08-29 08:23] VITALS: BP 131/80; PULSE 87; RESP 16; TEMP 36.3; O2SAT 100
[2021-08-29 08:29] LABS: UPreg QC Valid YES; Urine Pregnancy NEGATIVE (NEGATIVE)
[2021-08-29 08:35] LABS: Glucose, Whole Blood 90 mg/dL (60-115)
[2021-08-29] MEDS: Lactated Ringers 1,000 ML 100 ML IVCONT (08:43)
--- NOTE | 2021-08-29 09:02 | MHC.SHP ---
Pre-Procedural Eval Section A Date of Service: 08/29/21 Section B Chief Complaint: Epigastric Pain Details of Present Illness: gastroparesis Relevant Family History (Specify if Yes): No Relevant Social History: None Present Medications: see Short Stay Collaborative assessment Medical History: Significant History (Diabetes Fatty liver HTN (hypertension) Renal cancer) History of Previous Operations: Relevant previous surgery/procedure and date(s) (History of esophagogastroduodenoscopy (EGD) History of left nephrectomy History of left oophorectomy History of sleeve gastrectomy Hx laparoscopic cholecystectomy Hx of vaginal surgery) Allergies: Allergies Allergy/AdvReac Type Severity Reaction Status Date / Time codeine Allergy Mild Anaphylaxis Verified 08/29/21 08:14 oxycodone [From Percocet] Allergy Mild Rash Verified 08/23/21 10:59 Review of Systems Sugical H&P ROS: Negative: Constitution, Cardiovascular, Respiratory, Neurological, Psychiatric, Hem-Onc, Allergic/Immunologic, Gastrointestinal, Genitourinary, Musculoskeletal, Integumentary, Endocrine and Eyes/Ears/Nose/Throat Exam Surgical H&P Exam: Normal: HEENT, Normal: Heart, Normal: Lungs, Normal: Extremities, Normal: Abdomen, Normal: Skin and Normal: Neurological Plan Diagnosis/Plan: Unchanged I have reviewed the history and physical and performed a pertinent physical examination on my patient. No changes have occurred unless specified.
--- NOTE | 2021-08-29 09:04 | PM.OP ---
Brief Operative Note Date of Service: 08/29/21 Pre-op diagnosis: gastroparesis Post-op diagnosis: same Procedure: see op note Surgeon: Zeinab Melendez MD Anesthesia: MAC Was an Newspaper Columnist used for this Procedure?: No Estimated blood loss (mL): 0 Condition: stable Disposition: PACU
--- NOTE | 2021-08-29 09:05 | W.PM.OPN ---
Operative Note Operative Note Date of Service: 08/29/21 Narrative: Procedure Description: EGD FLEXIBLE TRANSORAL UPPER GASTROINTESTINAL ENDOSCOPY UPPER ENDOSCOPY Consent: Indications for the procedure and potential complications of bleeding, perforation, reaction to medications and missed diagnosis were discussed with the patient and informed consent was obtained. Instrument: Olympus GIF H 190 J mid size upper endoscope Monitoring: Vital signs and clinical assessment, continuous EKG monitoring, Pulse oximetry, Carbon Dioxide monitoring and blood pressure monitoring were done throughout the procedure. Procedure: The patient was placed in the left lateral decubitis position and pre-procedure medications were administered and a bite block was placed. The endoscope was inserted into the mouth and advanced under direct vision to the third part of duodenum. A careful inspection was made as the upper endoscope was withdrawn including a retroflexed examination of the proximal stomach; Findings and interventions are described below. Findings: Larynx:normal Esophagus: GE junction at 34? cm, diaphragm hiatus at 37 cm, mild esophagitis, 3 cm sliding hiatal hernia noted. Stomach: Normal mucosa, post surgical changes from gastric sleeve noted. Grade 2 flap valve on retroflexed examination of the cardia. The pylorus did not appear tight. A pyloric balloon was inflated to 18 mm-no tears seen. 100 units of botox was injected around the pylorus Duodenum: Normal bulb and descending duodenum, Intervention: ballon dilation of pylorus and botox injection Impression/Findings: hiatal hernia esophagitis PLAN: assess response to dilation and botox if ongoing sx then may repeat GES and look for other causes incl pancreas evaluation
[2021-08-29 09:42] VITALS: BP 101/62; PULSE 76; RESP 18; TEMP 36.2; O2SAT 100
[2021-08-29 09:57] VITALS: BP 115/76; PULSE 81; RESP 18; TEMP 36.2; O2SAT 100
== END 2021-08-29 10:19 | disposition home or self-care (01) ==
PROVIDERS: Nurse Practitioner; PCP Internal Medicine; Visit Provider Internal Medicine Gastroenterology
PROC: (CPT 43245; principal; 2021-08-29 09:10)
DX: R10.13 Epigastric pain (principal); R11.0 Nausea; Z98.84 Bariatric surgery status; K44.9 Diaphragmatic hernia without obstruction or gangrene; K20.80 Other esophagitis without bleeding; K76.0 Fatty (change of) liver, not elsewhere classified; K31.84 Gastroparesis; I10 Essential (primary) hypertension; E11.9 Type 2 diabetes mellitus without complications; K59.00 Constipation, unspecified; Z79.84 Long term (current) use of oral hypoglycemic drugs; Z79.899 Other long term (current) drug therapy; Z88.8 Allergy status to other drugs, medicaments and biological substances; Z85.528 Personal history of other malignant neoplasm of kidney; Z90.5 Acquired absence of kidney; Z90.49 Acquired absence of other specified parts of digestive tract
CPT/HCPCS: 43245; 43236; 81025; 82947; C1726; J0585; J2405; J2765

== ENCOUNTER → 2021-10-06 11:22 | Outpatient (BNVA) | payer OTHER, SELFPAY | PROVIDERS: PCP Internal Medicine; Visit Provider Internal Medicine Gastroenterology | DX: R10.13 Epigastric pain (principal) | CPT/HCPCS: 99212 ==

== ENCOUNTER → 2021-10-12 12:37 | Outpatient (BNVA) | payer OTHER, SELFPAY | PROVIDERS: Visit Provider Physician Assistant | DX: R10.13 Epigastric pain (principal); E11.9 Type 2 diabetes mellitus without complications; I10 Essential (primary) hypertension; F20.9 Schizophrenia, unspecified; Z98.84 Bariatric surgery status; Z98.890 Other specified postprocedural states; Z87.19 Personal history of other diseases of the digestive system; Z71.3 Dietary counseling and surveillance | CPT/HCPCS: 99202; 99212 ==

== ENCOUNTER 2021-10-26 12:31 | Outpatient (REF) | payer OTHER, SELFPAY ==
[2021-10-26 13:02] LABS: MANUAL DIFF FLAG NO
[2021-10-26 13:25] LABS: Basophils Percent Auto 0.4 % (0-2); Eosinophils Absolute Auto 0.1 X10*3/uL (0.0-0.4); Eosinophils Percent Auto 1.2 % (0-4); Hematocrit 33.9 % (37.0-47.0); Hemoglobin 10.8 g/dl (12.0-16.0); Imm Gran Abs Auto 0.01 X10*3/uL (0.00-0.03); Imm Gran Pct Auto 0.2 % (0.0-0.4); Lymphocytes Absolute Auto 1.7 X10*3/uL (1.2-4.9); Lymphocytes Percent Auto 35.1 % (20-40); Mean Corpuscular HGB Conc 31.9 g/dl (31.0-35.0); Mean Corpuscular Hemoglobin 23.6 pg (27.0-33.0); Mean Platelet Volume 9.5 fL (9.4-12.3); Monocytes Absolute Auto 0.2 X10*3/uL (0.1-1.2); Monocytes Percent Auto 3.9 % (2-11); Neutrophils Absolute Auto 2.9 x10*3/uL (2.0-8.3); Neutrophils Percent Auto 59.2 % (45-73); Platelet Count 282 X10*3/uL (160-400); Red Blood Count 4.58 X10*6/uL (4.20-5.50); Red Cell Distribution Width 14.2 % (11.0-16.0); White Blood Count 4.8 X10*3/uL (4.8-10.8)
[2021-10-26 13:29] LABS: Estimated Average Glucose 114 mg/dL; Hemoglobin A1c % 5.6 %
[2021-10-26 13:54] LABS: Appearance Urine CLOUDY; Color Urine YELLOW; Glucose Urine UA NEG (NEG); Leukocyte Esterase Urine 1+ (NEG); Nitrite Urine NEG (NEG); UACC Culture Trigger YES; Urine Blood TRACE (NEG); Urine Ketones NEG (NEG); Urine Protein NEG (NEG-TRACE)
[2021-10-26 14:02] LABS: Alanine Aminotransferase 9 U/L (0-31); Albumin Level 4.2 g/dL (3.5-5.0); Alkaline Phosphatase 72 U/L (39-117); Anion Gap 15 (12-20); Aspartate Amino Transferase 14 U/L (5-31); Bilirubin Total 1.3 mg/dL (0.0-1.0); Blood Urea Nitrogen 10 mg/dL (9-16); C Reactive Protein 0.33 mg/dL (< or = 0.50); Calcium 9.4 mg/dL (8.4-10.2); Carbon Dioxide 22 mmol/L (22-29); Chloride 107 mmol/L (96-108); Cholesterol 186 mg/dL; Estimated Glomerular Filt Rate > 60; Glucose Random 137 mg/dL (60-115); HDL Cholesterol 44 mg/dL; Iron 36 mcg/dL (30-160); LDL Cholesterol Calculated 118 mg/dl; Lipase 23 U/L (8-78); Percent Iron Saturation 10 % (15-50); Potassium 3.9 mmol/L (3.3-5.1); Sodium 140 mmol/L (135-145); Total Iron Binding Capacity 344 mcg/dL (228-428); Total Protein 7.3 g/dL (6.5-8.0); Triglycerides 124 mg/dL; Unsaturated Iron Binding 308 ug/dL
[2021-10-26 14:16] LABS: Ferritin 12 ng/mL (10-250); Insulin 37 uU/mL (2-29); TSH reflex Free T4 0.45 uIU/mL (0.32-4.0); Vitamin D 25-OH Total 9.4 ng/mL (>30)
[2021-10-26 14:20] LABS: Folate 6.5 ng/mL (> or = 4.0); Vitamin B12 264 pg/mL (200-900)
[2021-10-26 14:39] LABS: Bacteria Urine 1+ /LPF; Squamous Epithelial Cell Urine 4+ /LPF
[2021-10-26 14:40] LABS: Calcium Oxalate Crystals Urine 2+ /LPF
[2021-10-26 14:41] LABS: RBC Urine 0 /HPF (0)
[2021-10-27 14:37] LABS: Calcium (PTHI) 9.2 mg/dL (8.6-10.2); PTHI 65 pg/mL (16-77)
[2021-10-31 06:31] LABS: Zinc 90 mcg/dL (60-130)
[2021-10-31 17:22] LABS: Vitamin B1 11 nmol/L (8-30)
== END 2021-10-26 12:32 | disposition home or self-care (01) ==
LOC: HO.LAB 12:31
PROVIDERS: Absent Provider Physician Assistant; PCP Family Medicine; Visit Provider Internal Medicine Gastroenterology
DX: R10.13 Epigastric pain (principal); E66.3 Overweight; D64.9 Anemia, unspecified; K31.84 Gastroparesis; K75.81 Nonalcoholic steatohepatitis (NASH); Z98.84 Bariatric surgery status
CPT/HCPCS: 36415; 80053; 80061; 81001; 81003; 82306; 82607; 82728; 82746; 83036; 83525; 83540; 83690; 83970; 84425; 84443; 84630; 85025; 86140; 87086

== ENCOUNTER → 2021-11-09 08:21 | Outpatient (BNVA) | payer OTHER, SELFPAY | PROVIDERS: Visit Provider Physician Assistant | DX: R10.13 Epigastric pain (principal); Z87.19 Personal history of other diseases of the digestive system; Z98.84 Bariatric surgery status | CPT/HCPCS: 99212 ==

== ENCOUNTER 2021-11-13 08:01 | Outpatient (REF) | payer OTHER, SELFPAY ==
--- NOTE | ~2021-11-13 | FL_ITS ---
EXAMINATION: XR GI SERIES CLINICAL INFORMATION: Epigastric pain. Preop gastric sleeve procedure and previous esophageal dilatation. COMPARISON: Previous CT of the abdomen and pelvis August 2021. TECHNIQUE: Upper GI was performed using thin and thick barium and effervescent granules. Barium tablet was also administered. Exam is limited as the patient could not tolerate the exam and became nauseous and vomited. FINDINGS: Esophageal motility is normal. There is a small hiatal hernia. There is mild gastroesophageal reflux. There is mucosal irregularity questionable for esophagitis. There is particular irregularity of the left side of the distal thoracic esophagus for example image 11 and 12. Alternatively this could represent changes from previous esophageal dilatation. There are postsurgical changes to the stomach following gastric sleeve procedure. The stomach is otherwise normal appearing. No fold thickening, mass, stricture or ulcer is seen. The barium tablet got stock in the distal thoracic esophagus. FLUOROSCOPY TIME: 1.6 minutes. DOSE AREA PRODUCT: 6.5 hinkle per centimeter squared. SAVED IMAGES: 30 saved fluoroscopic images. FL/FL upper GI series IMPRESSION: Limited exam. Small esophageal hernia and mild gastroesophageal reflux. Mild esophagitis. Irregularity of the left distal thoracic esophagus just proximal to the hernia. It is uncertain whether this represents postprocedural changes following esophageal dilatation. Postsurgical changes to the stomach following gastric sleeve procedure.
== END 2021-11-13 08:02 | disposition home or self-care (01) ==
LOC: HO.XRAY 08:01
PROVIDERS: Visit Provider Internal Medicine Gastroenterology
DX: R10.13 Epigastric pain (principal)
CPT/HCPCS: 74240

== ENCOUNTER → 2021-11-20 08:39 | Outpatient (BNVA) | payer OTHER, SELFPAY | PROVIDERS: Visit Provider Internal Medicine Gastroenterology | DX: Z13.89 Encounter for screening for other disorder (principal) ==

== ENCOUNTER → 2021-12-26 14:05 | Outpatient (BNVA) | payer OTHER, SELFPAY | PROVIDERS: Visit Provider Physician Assistant | DX: R10.13 Epigastric pain (principal); R13.10 Dysphagia, unspecified; I10 Essential (primary) hypertension; E11.9 Type 2 diabetes mellitus without complications; F20.9 Schizophrenia, unspecified; Z87.19 Personal history of other diseases of the digestive system; Z98.84 Bariatric surgery status; Z98.890 Other specified postprocedural states | CPT/HCPCS: 99212 ==

== ENCOUNTER 2022-01-08 06:09 | Day surgery (SDC) | payer OTHER, SELFPAY ==
--- NOTE | 2022-01-05 12:37 | HO.ANESPROP2 ---
Documented by User: Billie Stewart NP 01/05/22 12:40 HPI - Anesthesia Eval Consult details Narrative: 46yo F for Upper Endoscopy s/p EGD 08/2021 with MAC [facility] Active Problems Active Problems: All Active Problems (Updated 11/20/21 @ 09:04 by Zeinab Melendez MD) Dysphagia (Acute) Hiatal hernia (Acute) History of repair of hiatal hernia (Acute) Pituitary adenoma (Acute) Vertigo (Acute) Schizophrenia (Acute) HTN (hypertension), benign (Acute) Diabetes (Acute) Anemia (Acute) Overweight (BMI 25.0-29.9) (Acute) Epigastric abdominal pain (Acute) S/P laparoscopic sleeve gastrectomy (Acute) Epigastric abdominal pain (Acute) Gastroparesis (Acute) Past Medical History Medical History COVID-19 vaccine series completed Fatty liver HTN (hypertension) Renal cancer Family History Family History Father Septic shock Maternal Uncle Liver cancer Stomach cancer Hepatitis C Maternal Aunt Lupus Mother HTN (hypertension) Diabetes Heart problem Son Asthma Acute anxiety Son Autism ADHD (attention deficit hyperactivity disorder) Son No problems noted. Son No problems noted. Son No problems noted. Daughter GERD (gastroesophageal reflux disease) Daughter No problems noted. Daughter No problems noted. Family history of problems with anesthesia: No Surgical History Surgical History History of esophagogastroduodenoscopy (EGD) History of left nephrectomy History of left oophorectomy History of pubovaginal sling History of sleeve gastrectomy Hx laparoscopic cholecystectomy Hx of vaginal surgery History of Problems with Anesthesia: No Social History Social History Household Members: Spouse and Children Alcohol intake: never Patient Tobacco Use Status: Never used Tobacco Are you DNR?: No Advance Directives: No Advance Directives Information Provided: Yes Patient : No Meds Allergies Allergy/AdvReac Type Severity Reaction Status Date / Time codeine Allergy Mild Anaphylaxis Verified 12/26/21 14:22 oxycodone [From Percocet] Allergy Mild Rash Verified 12/26/21 14:22 Home Medications Medication Instructions Recorded Confirmed Last Taken Type blood sugar diagnostic (FreeStyle #10 ea 05/19/21 12/26/21 Unknown History Lite Strips) clotrimazole-betamethasone 1 1 appl topical DAILY 05/19/21 12/26/21 Unknown History %-0.05 % topical cream estradiol 1 appl vaginal DAILY 05/19/21 12/26/21 Unknown History lamotrigine 100 mg tablet 200 mg PO DAILY 05/19/21 12/26/21 Unknown History lancets 28 gauge (FreeStyle #100 ea 05/19/21 12/26/21 Unknown History Lancets) lisinopril 2.5 mg tablet 2.5 mg PO DAILY 05/19/21 12/26/21 Unknown History lorazepam 1 mg tablet 1 mg PO QID PRN Anxiety 05/19/21 12/26/21 Unknown History meclizine 25 mg tablet 5 mg PO DAILY PRN Vertigo 05/19/21 12/26/21 Unknown History nabumetone 500 mg tablet 500 mg PO BID 05/19/21 12/26/21 Unknown History ondansetron 4 mg disintegrating 4 mg PO BEDTIME 05/19/21 12/26/21 Unknown History tablet perphenazine 16 mg tablet mg PO 05/19/21 12/26/21 Unknown History prazosin 5 mg capsule 5 mg PO BEDTIME 05/19/21 12/26/21 Unknown History simethicone 80 mg chewable tablet 80 mg PO DAILY PRN Acid Reflux 05/19/21 12/26/21 Unknown History (Mi-Acid Gas Relief (simethicone)) sucralfate 100 mg/mL oral 100 mg PO DAILY 05/19/21 12/26/21 Unknown History suspension terconazole 0.4 % vaginal cream 1 appful vaginal BEDTIME 05/19/21 12/26/21 Unknown History tramadol 100 mg capsule 100 mg PO DAILY 05/19/21 12/26/21 Unknown History 24h,extended release(25-75) venlafaxine 150 mg 150 mg PO DAILY 05/19/21 12/26/21 Unknown History capsule,extended release 24 hr venlafaxine 75 mg capsule,extended 75 mg PO DAILY 05/19/21 12/26/21 Unknown History release 24 hr zolpidem 5 mg tablet 5 mg PO BEDTIME PRN Insomnia 05/19/21 12/26/21 Unknown History gabapentin 100 mg capsule 300 mg PO TID 08/01/21 12/26/21 Unknown History glipizide 2.5 mg tablet, extended 2.5 mg PO DAILY 10/06/21 12/26/21 Unknown History release 24 hr trazodone 50 mg tablet mg PO 10/06/21 12/26/21 Unknown History Exam Exam Date and Time: January 05, 2022 1237 Pertinent Lab Results Pertinent Lab Results: Laboratory Tests 10/26/21 10/26/21 13:00 13:00 WBC 4.8 Hgb 10.8 L Hct 33.9 L Plt Count 282 Sodium 140 Potassium 3.9 Chloride 107 Carbon Dioxide 22 BUN 10 Creatinine 0.71 Assessment and Plan Assessment Anesthesia Assessment: Chart Reviewed Final Anesthetic Review Family History of Problems with Anesthesia: No History of Problems with Anesthesia: No Documented by User: Micaela Mata MD 01/08/22 07:37 [facility] Past Medical History Medical History COVID-19 vaccine series completed Fatty liver HTN (hypertension) Renal cancer Family History Family History Father Septic shock Maternal Uncle Liver cancer Stomach cancer Hepatitis C Maternal Aunt Lupus Mother HTN (hypertension) Diabetes Heart problem Son Asthma Acute anxiety Son Autism ADHD (attention deficit hyperactivity disorder) Son No problems noted. Son No problems noted. Son No problems noted. Daughter GERD (gastroesophageal reflux disease) Daughter No problems noted. Daughter No problems noted. Surgical History Surgical History History of esophagogastroduodenoscopy (EGD) History of left nephrectomy History of left oophorectomy History of pubovaginal sling History of sleeve gastrectomy Hx laparoscopic cholecystectomy Hx of vaginal surgery Social History Social History Household Members: Spouse and Children Alcohol intake: never Patient Tobacco Use Status: Never used Tobacco Are you DNR?: No Advance Directives: No Advance Directives Information Provided: Yes Patient : No Meds Allergies Allergy/AdvReac Type Severity Reaction Status Date / Time codeine Allergy Mild Anaphylaxis Verified 12/26/21 14:22 oxycodone [From Percocet] Allergy Mild Rash Verified 12/26/21 14:22 Home Medications Medication Instructions Recorded Confirmed Last Taken Type blood sugar diagnostic (FreeStyle #10 ea 05/19/21 12/26/21 Unknown History Lite Strips) clotrimazole-betamethasone 1 1 appl topical DAILY 05/19/21 12/26/21 Unknown History %-0.05 % topical cream estradiol 1 appl vaginal DAILY 05/19/21 12/26/21 Unknown History lamotrigine 100 mg tablet 200 mg PO DAILY 05/19/21 12/26/21 Unknown History lancets 28 gauge (FreeStyle #100 ea 05/19/21 12/26/21 Unknown History Lancets) lisinopril 2.5 mg tablet 2.5 mg PO DAILY 05/19/21 12/26/21 Unknown History lorazepam 1 mg tablet 1 mg PO QID PRN Anxiety 05/19/21 12/26/21 Unknown History meclizine 25 mg tablet 5 mg PO DAILY PRN Vertigo 05/19/21 12/26/21 Unknown History nabumetone 500 mg tablet 500 mg PO BID 05/19/21 12/26/21 Unknown History ondansetron 4 mg disintegrating 4 mg PO BEDTIME 05/19/21 12/26/21 Unknown History tablet perphenazine 16 mg tablet mg PO 05/19/21 12/26/21 Unknown History prazosin 5 mg capsule 5 mg PO BEDTIME 05/19/21 12/26/21 Unknown History simethicone 80 mg chewable tablet 80 mg PO DAILY PRN Acid Reflux 05/19/21 12/26/21 Unknown History (Mi-Acid Gas Relief (simethicone)) sucralfate 100 mg/mL oral 100 mg PO DAILY 05/19/21 12/26/21 Unknown History suspension terconazole 0.4 % vaginal cream 1 appful vaginal BEDTIME 05/19/21 12/26/21 Unknown History tramadol 100 mg capsule 100 mg PO DAILY 05/19/21 12/26/21 Unknown History 24h,extended release(25-75) venlafaxine 150 mg 150 mg PO DAILY 05/19/21 12/26/21 Unknown History capsule,extended release 24 hr venlafaxine 75 mg capsule,extended 75 mg PO DAILY 05/19/21 12/26/21 Unknown History release 24 hr zolpidem 5 mg tablet 5 mg PO BEDTIME PRN Insomnia 05/19/21 12/26/21 Unknown History gabapentin 100 mg capsule 300 mg PO TID 08/01/21 12/26/21 Unknown History glipizide 2.5 mg tablet, extended 2.5 mg PO DAILY 10/06/21 12/26/21 Unknown History release 24 hr trazodone 50 mg tablet mg PO 10/06/21 12/26/21 Unknown History Exam Height,Weight and Vital Signs: Height 5 ft 2 in Weight 68.039 kg Vital Signs Temp Pulse Resp BP Pulse Ox O2 Del Method 01/08/22 06:52 97 F 77 17 138/84 99 Room Air Pertinent Lab Results Pertinent Lab Results: Laboratory Tests 10/26/21 10/26/21 13:00 13:00 WBC 4.8 Hgb 10.8 L Hct 33.9 L Plt Count 282 Sodium 140 Potassium 3.9 Chloride 107 Carbon Dioxide 22 BUN 10 Creatinine 0.71 POC 99 Airway Mallampati Class: II TM Dist: >3cm Neck ROM: Full Loose/Missing/Broken Teeth: No Heart: RRR Lungs: CTAB Assessment and Plan Assessment Anesthesia Assessment: Anesthesia Plan Discussed Final Anesthetic Review NPO: Yes ASA Class: III Final Preanesthetic Review: No Changes in Pt Med Stat, Meds/Allgs Chart Reviewed, Consent Obtained/Reviewed and Anes Risks/Benef Reviewed Patient Risk: Intermediate Procedure Risk: Low Assessment/Block/Sedation in SS: Assess/Block/Sedation-SS Anesthetic Plan Anesthetic Plan: MAC: Disposition: Standard PACU
--- NOTE | 2022-01-06 23:15 | MHC.SHP ---
Pre-Procedural Eval Section A Date of Service: 01/06/22 The patient is an INPATIENT: No The History & Physical has been completed within 30 days and I have reviewed it.: Yes Section B Chief Complaint: Bariatric surgery status,Epigastric pain Relevant Family History (Specify if Yes): No Relevant Social History: None Present Medications: None Medical History: No relevant PMH History of Previous Operations: Relevant previous surgery/procedure and date(s) (sleeve gastrectomy) Allergies: Allergies Allergy/AdvReac Type Severity Reaction Status Date / Time codeine Allergy Mild Anaphylaxis Verified 12/26/21 14:22 oxycodone [From Percocet] Allergy Mild Rash Verified 12/26/21 14:22 Review of Systems Sugical H&P ROS: Negative: Constitution, Cardiovascular, Respiratory, Neurological, Psychiatric, Hem-Onc, Allergic/Immunologic, Gastrointestinal, Genitourinary, Musculoskeletal, Integumentary, Endocrine and Eyes/Ears/Nose/Throat Exam Surgical H&P Exam: Normal: HEENT, Normal: Heart, Normal: Lungs, Normal: Extremities, Normal: Abdomen, Normal: Skin and Normal: Neurological Plan Diagnosis/Plan: Unchanged (EGD to assess for esophagitis and causes of reflux. Risks of bleeding and perforation were discussed. The patient is in agreement with the plan.) I have reviewed the history and physical and performed a pertinent physical examination on my patient. No changes have occurred unless specified.
[2022-01-08 06:52] VITALS: BP 138/84; PULSE 77; RESP 17; TEMP 36.1; O2SAT 99; BMI 27.4
[2022-01-08 06:54] LABS: UPreg QC Valid YES; Urine Pregnancy NEGATIVE (NEGATIVE)
[2022-01-08 06:59] LABS: Glucose, Whole Blood 99 mg/dL (60-115)
[2022-01-08] MEDS: Lactated Ringers 1,000 ML 80 ML IVCONT (07:03)
--- NOTE | 2022-01-08 07:42 | PM.OP ---
Brief Operative Note Date of Service: 01/08/22 Pre-op diagnosis: GERD, s/p sleeve gastrectomy Post-op diagnosis: same (1) small hiatal hernia, 2) bile reflux, 3) redundant proximal sleeve) Procedure: PROCEDURE DATE: 01/08/2022 PREOPERATIVE DIAGNOSIS: GERD, s/p sleeve gastrectomy POSTOPERATIVE DIAGNOSIS: ?Same as above. 1) small hiatal hernia, 2) bile reflux, 3) redundant proximal sleeve PROCEDURE: [id number] with biopsies Surgeon: ?Yuriy Martins M.D.. Ph.D. Back Hoe Machine Operator: None ? Anesthesia: IV sedation Estimated blood loss: ?Minimal FINDINGS AND PROCEDURE: ? OPERATIVE INDICATIONS: ?The patient is a 46 year old female known to me who underwent a laparoscopic sleeve gastrectomy by Dr. Proctor.? The patient has been complaining of GERD. Based on this information I recommended an upper endoscopy to evaluate the patient's symptoms. Risks and complications of the surgery were discussed with the patient in advance particularly the possibility of perforation or bleeding that may require surgical intervention. The patient understood the risks and was in agreement with the plan. ? PROCEDURE: After informed consent was obtained by the patient, the patient was ?transferred to the Operating Room and was placed in the supine position.? After successful induction of IV sedation, a mouth block was inserted and the patient was placed in the left lateral decubitus position. An upper endoscopy was performed next, the oropharynx and esophagus appeared within the normal limits. There was a small hiatal hernia. The z-line was smooth. Two biopsies were obtained from the distal esohagus 2-3 cm proximal to the GE junction and two additional biopsies from the GE junction. The sleeve was entered. There was mild to moderate redundancy to the proximal sleeve which was within the hiatal hernia. The remaining of the sleeve was even in caliber but of large caliber. Biopsies were obtained from the proximal sleeve and antrum. There was no gastritis. There was no stricture or ulcer. Biopsies were obtained from the proximal sleeve as well as the distal antrum. No significant bleeding was noted from any of the biopsy sites. The scope was then advanced into the duodenum which appeared to be normal as well. At that point the duodenum ?and the sleeve were decompressed and the scope was withdrawn from the patient's mouth. The patient extubated and was transferred in stable condition to the Recovery Room for further care. I was present and performed all steps of the procedure. There were no residents to assist with this case. Yuriy Martins M.D., Ph.D. Surgeon: Orestes Martins MD Anesthesia: MAC Was an Back Hoe Machine Operator used for this Procedure?: No Estimated blood loss (mL): 0 IV fluids (mL): 400 Urine output (mL): 0 (No Marcus to record) Pathology: other (1) GEJ x2, distal esophagus x2, antrum x1, proximal sleeve x1) Condition: stable Disposition: PACU
[2022-01-08 08:10] VITALS: BP 108/68; PULSE 81; RESP 18; TEMP 36.8; O2SAT 95
[2022-01-08 08:25] VITALS: BP 113/74; PULSE 73; RESP 14; TEMP 36.6; O2SAT 100
== END 2022-01-08 08:59 | disposition home or self-care (01) ==
PROVIDERS: Nurse Practitioner; PCP Family Medicine; Visit Provider Surgery
PROC: 0DJ08ZZ Inspection of Upper Intestinal Tract, Via Natural or Artificial Opening Endoscopic (ICD-10-PCS; CPT 43235; principal; 2022-01-08 07:30)
DX: K95.89 Other complications of other bariatric procedure (principal); K21.9 Gastro-esophageal reflux disease without esophagitis; Z98.84 Bariatric surgery status; Z90.3 Acquired absence of stomach [part of]; K29.60 Other gastritis without bleeding; K44.9 Diaphragmatic hernia without obstruction or gangrene; K76.0 Fatty (change of) liver, not elsewhere classified; I10 Essential (primary) hypertension; E11.9 Type 2 diabetes mellitus without complications; F20.9 Schizophrenia, unspecified; Z79.84 Long term (current) use of oral hypoglycemic drugs; Z79.899 Other long term (current) drug therapy; Z88.8 Allergy status to other drugs, medicaments and biological substances; Z87.19 Personal history of other diseases of the digestive system; Z85.528 Personal history of other malignant neoplasm of kidney; Z90.5 Acquired absence of kidney
CPT/HCPCS: 43239; 81025; 82947; 88305; 88342; J2405

== ENCOUNTER → 2022-01-10 09:39 | Outpatient (BNVA) | payer OTHER, SELFPAY | PROVIDERS: PCP Family Medicine; Visit Provider Anesthesiology | DX: C64.9 Malignant neoplasm of unspecified kidney, except renal pelvis (principal); R10.9 Unspecified abdominal pain | CPT/HCPCS: 99202 ==

== ENCOUNTER → 2022-01-12 14:28 | Outpatient (BNVA) | payer OTHER, SELFPAY | PROVIDERS: PCP Family Medicine; Referring Provider Family Medicine; Visit Provider Physician Assistant | DX: K21.9 Gastro-esophageal reflux disease without esophagitis (principal); K44.9 Diaphragmatic hernia without obstruction or gangrene; Z85.528 Personal history of other malignant neoplasm of kidney; Z98.84 Bariatric surgery status; Z90.5 Acquired absence of kidney | CPT/HCPCS: 99212 ==

== ENCOUNTER 2022-01-22 12:10 | Outpatient (REF) | payer OTHER, SELFPAY ==
[2022-01-22 14:11] LABS: Appearance Urine CLOUDY; Glucose Urine UA NEG (NEG); Leukocyte Esterase Urine NEG (NEG); Nitrite Urine NEG (NEG); PH 7.5 (5.0-8.0); Urine Blood 3+ (NEG); Urine Ketones NEG (NEG); Urine Protein TRACE MG/DL (NEG-TRACE)
[2022-01-22 14:19] LABS: Color Urine LIGHT RED
[2022-01-22 14:30] LABS: Squamous Epithelial Cell Urine 1+ /LPF
[2022-01-22 14:32] LABS: Bacteria Urine TRACE /LPF
[2022-01-23 03:46] LABS: Alanine Aminotransferase 7 U/L (0-31); Alkaline Phosphatase 72 U/L (39-117); Anion Gap 17 (12-20); Aspartate Amino Transferase 14 U/L (5-31); Bilirubin Total 0.7 mg/dL (0.0-1.0); Blood Urea Nitrogen 7 mg/dL (9-16); Calcium 8.6 mg/dL (8.4-10.2); Carbon Dioxide 17 mmol/L (22-29); Chloride 109 mmol/L (96-108); Estimated Glomerular Filt Rate > 60; Glucose Random 87 mg/dL (60-115); Potassium 4.1 mmol/L (3.3-5.1); Sodium 139 mmol/L (135-145); Total Protein 7.4 g/dL (6.5-8.0)
[2022-01-27 17:02] LABS: Vitamin A 25 mcg/dL (38-98)
== END 2022-01-22 12:11 | disposition home or self-care (01) ==
LOC: HO.LAB 12:10
PROVIDERS: Visit Provider Physician Assistant
DX: R10.13 Epigastric pain (principal); D64.9 Anemia, unspecified; E66.3 Overweight; Z98.84 Bariatric surgery status
CPT/HCPCS: 36415; 80053; 81001; 84590

== ENCOUNTER 2022-01-23 07:39 | Outpatient (REF) | payer OTHER, SELFPAY ==
--- NOTE | ~2022-01-23 | FL_ITS ---
EXAMINATION: XR FLUOROSCOPY WITH IMAGES CLINICAL INFORMATION: Pain COMPARISON: Upper GI series 11/13/2021, CT abdomen and pelvis 08/26/2021 TECHNIQUE: Fluoroscopy performed by Dr. Gonzales Bejarano. Fluoroscopy time: 0.2 minutes. Cumulative Dose: 4.17 mGy. DAP: 0.958 Gycm2. Images: 2. FINDINGS: There is a spinal needle with tip at the L3 interlaminar space. FL/FL guidance in treatment room IMPRESSION: Fluoroscopy for pain management procedure.
== END 2022-01-23 07:40 | disposition home or self-care (01) ==
LOC: HO.RADIR 07:39
PROVIDERS: Visit Provider Anesthesiology
DX: C64.9 Malignant neoplasm of unspecified kidney, except renal pelvis (principal); R10.9 Unspecified abdominal pain
CPT/HCPCS: 62323; J2270

== ENCOUNTER 2022-01-23 21:05 | Emergency (ER) | payer OTHER, SELFPAY | END 2022-01-23 22:20 | disposition left against medical advice (07) | PROVIDERS: Emergency Provider Emergency Medicine; PCP Family Medicine | DX: R11.10 Vomiting, unspecified (principal) ==

== ENCOUNTER 2022-01-29 11:23 | Outpatient (REF) | payer OTHER, SELFPAY ==
--- NOTE | ~2022-01-29 | XR_ITS ---
EXAMINATION: XR CHEST CLINICAL INFORMATION: Gastroesophageal reflux disease. COMPARISON: None TECHNIQUE: 2 views of the chest were obtained. FINDINGS: No significant abnormality is noted involving the heart, lungs, mediastinum, bony thorax or soft tissues. XR/XR chest 2V IMPRESSION: No acute disease.
--- NOTE | 2022-01-29 11:29 | ECG_ITS ---
Test Reason : gerd Blood Pressure : / mmHG Vent. Rate : 075 BPM Atrial Rate : 075 BPM P-R Int : 156 ms QRS Dur : 088 ms QT Int : 390 ms P-R-T Axes : 058 043 062 degrees QTc Int : 435 ms Normal sinus rhythm Normal ECG No previous ECGs available Referred By: Mindy Bauer Electronically Signed By:Abner Pena
== END 2022-01-29 11:24 | disposition home or self-care (01) ==
LOC: HO.MDS 11:23
PROVIDERS: Absent Provider Physician Assistant; PCP Family Medicine; Visit Provider Internal Medicine
DX: D50.9 Iron deficiency anemia, unspecified (principal); C64.9 Malignant neoplasm of unspecified kidney, except renal pelvis; K21.9 Gastro-esophageal reflux disease without esophagitis; Z98.84 Bariatric surgery status
CPT/HCPCS: 71046; 93005; 96365; J1756

== ENCOUNTER 2022-02-09 07:57 | Outpatient (REF) | payer OTHER, SELFPAY | END 2022-02-09 07:58 | disposition home or self-care (01) | LOC: HO.MDS 07:57 | PROVIDERS: Visit Provider Internal Medicine | DX: D50.9 Iron deficiency anemia, unspecified (principal); K44.9 Diaphragmatic hernia without obstruction or gangrene; D64.9 Anemia, unspecified; K31.84 Gastroparesis; E11.9 Type 2 diabetes mellitus without complications; I10 Essential (primary) hypertension; K76.0 Fatty (change of) liver, not elsewhere classified; C64.9 Malignant neoplasm of unspecified kidney, except renal pelvis; Z11.0 Encounter for screening for intestinal infectious diseases; Z98.84 Bariatric surgery status; Z90.5 Acquired absence of kidney; Z90.3 Acquired absence of stomach [part of]; Z90.49 Acquired absence of other specified parts of digestive tract; Z79.84 Long term (current) use of oral hypoglycemic drugs | CPT/HCPCS: 96365; 99211; 99212; J1756 ==

== ENCOUNTER 2022-02-09 16:34 | Outpatient (REF) | payer OTHER, SELFPAY ==
[2022-02-10 13:45] LABS: H Pylori Breath Test Negative (Negative)
== END 2022-02-09 16:35 | disposition home or self-care (01) ==
LOC: HO.LNP 16:34
PROVIDERS: Visit Provider Physician Assistant
DX: K44.9 Diaphragmatic hernia without obstruction or gangrene (principal); K31.84 Gastroparesis; Z98.84 Bariatric surgery status
CPT/HCPCS: 83013

== ENCOUNTER 2022-02-13 07:51 | Outpatient (REF) | payer OTHER, SELFPAY | END 2022-02-13 07:52 | disposition home or self-care (01) | LOC: HO.MDS 07:51 | PROVIDERS: Visit Provider Internal Medicine | DX: D50.9 Iron deficiency anemia, unspecified (principal) | CPT/HCPCS: 96365; J1756 ==

== ENCOUNTER → 2022-02-19 13:30 | Outpatient (BNVA) | payer OTHER, SELFPAY | PROVIDERS: PCP Family Medicine; Referring Provider Physician Assistant; Visit Provider Dietitian, Registered | DX: E66.3 Overweight (principal) | CPT/HCPCS: 97802 ==

== ENCOUNTER 2022-02-21 07:08 | Outpatient (REF) | payer OTHER, SELFPAY | END 2022-02-21 07:09 | disposition home or self-care (01) | LOC: HO.MDS 07:08 | PROVIDERS: Visit Provider Internal Medicine | DX: D50.9 Iron deficiency anemia, unspecified (principal) | CPT/HCPCS: 96365; J1756 ==

== ENCOUNTER 2022-03-02 09:55 | Outpatient (REF) | payer OTHER, SELFPAY ==
--- NOTE | ~2022-03-02 | US_ITS ---
EXAMINATION: US COMPLETE ABDOMEN WITH LIVER ELASTOGRAPHY CLINICAL INFORMATION: Fatty liver COMPARISON: Previous CT of the abdomen and pelvis August 2021 TECHNIQUE: Real-time imaging of the abdominal viscera. Noninvasive ultrasound liver fibrosis assessment is performed using Diane ElastPQ point quantification shear wave elastography (2D-SWE) with a C5-2 MHz transducer. Multiple elastography samples are obtained. FINDINGS: PANCREAS: The visualized pancreatic head and body are normal in appearance. The remainder of the pancreas is obscured from visualization by the overlying bowel gas. ABDOMINAL AORTA: The proximal, middle, and distal aortic segments are normal in caliber. INFERIOR VENA CAVA: Visualized portions are normal. LIVER: Normal. The liver demonstrates normal size, contour and echogenicity. No focal lesion or intrahepatic biliary duct dilatation. The right lobe measures 16.5 cm in length. The left lobe measures 10.4 cm in length. Portal flow is normal/hepatopedal Shear wave liver elastography median stiffness is 1.6 m/s (reference: normal median stiffness is 1.3 m/s or less). IQR/median stiffness to assess sampling precision is 0.11 (reference: good quality data set is IQR/median stiffness of 0.15 or less). GALLBLADDER: Surgically removed COMMON BILE DUCT: Normal in caliber measuring 0.4 cm in diameter. RIGHT KIDNEY: Normal. No hydronephrosis. No renal calculi or focal parenchymal lesions. The kidney measures 10 cm in maximum dimension. LEFT KIDNEY: Normal. No hydronephrosis. No renal calculi or focal parenchymal lesions. The kidney measures 10.6 cm in maximum dimension. SPLEEN: Normal. The spleen measures 10.6 cm in maximum dimension. FREE FLUID: None. US/US abdomen comp w elastography IMPRESSION: 1. Impression: Limited visualization of the tail the pancreas otherwise unremarkable abdominal ultrasound. 2. Liver elastography: Adequate liver sampling. In the absence of other known clinical signs, rules out compensated advanced chronic liver disease. REFERENCE: Society of Radiologists in Ultrasound Liver Stiffness Thresholds (2020): LIVER STIFFNESS THRESHOLDS: *Liver Stiffness equal or less than 1.3 m/s: High probability of being normal. *Liver Stiffness less than 1.7 m/s: In the absence of other known clinical signs, rules out compensated advanced chronic liver disease. *Liver Stiffness 1.7-2.1 m/s: Suggestive of compensated advanced chronic liver disease but need further test for confirmation. *Liver Stiffness over 2.1 m/s: Rules in compensated advanced chronic liver disease. *Liver Stiffness over 2.4 m/s: Suggestive of clinically significant portal hypertension. QUALITY OF DATA SET: *IQR/Median value equal or less than 0.15 implies a quality data set. *IQR/Median value over 0.15 implies a poor quality data set. SIGNIFICANT CHANGE FROM PRIOR EXAM: Significant change if liver stiffness measurement is 10% or greater from prior exam. OTHER CONSIDERATIONS: The stage of liver fibrosis may be overestimated in the setting of acute hepatitis, liver inflammation, elevated liver function tests, hepatic vascular congestion, obstructive cholestasis, non-fasting state, and infiltrative diseases such as amyloidosis and lymphoma. In some patients with NAFLD, the liver stiffness thresholds for compensated advanced chronic liver disease may be lower. In causes other than viral hepatitis and NAFLD, liver stiffness thresholds are not well established.
== END 2022-03-02 09:56 | disposition home or self-care (01) ==
LOC: HO.US 09:55
PROVIDERS: Visit Provider Surgery
DX: Z01.818 Encounter for other preprocedural examination (principal); E66.9 Obesity, unspecified; K21.9 Gastro-esophageal reflux disease without esophagitis; K44.9 Diaphragmatic hernia without obstruction or gangrene; R13.10 Dysphagia, unspecified; C64.9 Malignant neoplasm of unspecified kidney, except renal pelvis; D64.9 Anemia, unspecified; Z98.84 Bariatric surgery status
CPT/HCPCS: 76705; 76981

== ENCOUNTER 2022-03-02 12:04 | Outpatient (REF) | payer OTHER, SELFPAY | END 2022-03-02 12:05 | disposition home or self-care (01) | LOC: HO.MDS 12:04 | PROVIDERS: Visit Provider Internal Medicine | DX: D50.9 Iron deficiency anemia, unspecified (principal) | CPT/HCPCS: 96365; J1756 ==

== ENCOUNTER 2022-03-08 09:14 | Outpatient (REF) | payer OTHER, SELFPAY ==
[2022-03-08 10:40] LABS: MANUAL DIFF FLAG NO
[2022-03-08 11:35] LABS: Basophils Percent Auto 0.5 % (0-2); Eosinophils Absolute Auto 0.1 X10*3/uL (0.0-0.4); Eosinophils Percent Auto 2.5 % (0-4); Hemoglobin 11.3 g/dl (12.0-16.0); Imm Gran Abs Auto 0.01 X10*3/uL (0.00-0.03); Imm Gran Pct Auto 0.3 % (0.0-0.4); Lymphocytes Absolute Auto 1.2 X10*3/uL (1.2-4.9); Lymphocytes Percent Auto 34.1 % (20-40); Mean Corpuscular HGB Conc 32.3 g/dl (31.0-35.0); Mean Corpuscular Hemoglobin 24.6 pg (27.0-33.0); Mean Corpuscular Volume 76.3 fL (80.0-98.0); Mean Platelet Volume 9.4 fL (9.4-12.3); Monocytes Absolute Auto 0.2 X10*3/uL (0.1-1.2); Monocytes Percent Auto 5.5 % (2-11); Neutrophils Absolute Auto 2.1 x10*3/uL (2.0-8.3); Neutrophils Percent Auto 57.1 % (45-73); Platelet Count 224 X10*3/uL (160-400); Red Blood Count 4.59 X10*6/uL (4.20-5.50); Red Cell Distribution Width 17.7 % (11.0-16.0); White Blood Count 3.6 X10*3/uL (4.8-10.8)
[2022-03-08 12:40] LABS: Vitamin B12 258 pg/mL (200-900)
[2022-03-08 16:22] LABS: Appearance Urine Turbid; Color Urine Dark Yellow; Glucose Urine UA Negative (Negative); Leukocyte Esterase Urine Small (1+) (Negative); Nitrite Urine Negative (Negative); PH 5.5 (5.0-8.0); Specific Gravity - Urine 1.025 (1.005-1.025); Urine Blood Negative (Negative); Urine Ketones Trace mg/dL (Negative); Urine Protein Trace mg/dL (Neg-Trace)
[2022-03-08 16:39] LABS: Bacteria Urine 4+ (None Seen); Calcium Oxalate Crystals Urine Present; Hyaline Casts Urine 0-2 /LPF (0-2); Squamous Epithelial Cell Urine >20 /HPF (0-2); UACC Culture Trigger YES
[2022-03-13 19:02] LABS: Vitamin A 32 mcg/dL (38-98)
== END 2022-03-08 09:15 | disposition home or self-care (01) ==
LOC: HO.LAB 09:14
PROVIDERS: PCP Family Medicine; Visit Provider Physician Assistant
DX: K21.9 Gastro-esophageal reflux disease without esophagitis (principal); K44.9 Diaphragmatic hernia without obstruction or gangrene; Z98.890 Other specified postprocedural states; Z87.19 Personal history of other diseases of the digestive system; Z98.84 Bariatric surgery status; Z90.3 Acquired absence of stomach [part of]; Z71.3 Dietary counseling and surveillance
CPT/HCPCS: 36415; 81001; 81003; 82607; 82746; 84590; 85025; 87086; 90791; 99212

== ENCOUNTER 2022-03-13 11:35 | Day surgery (SDC) | payer OTHER, SELFPAY ==
[2022-03-13 11:58] LABS: UPreg QC Valid YES; Urine Pregnancy NEGATIVE (NEGATIVE)
[2022-03-13 12:01] VITALS: BMI 27.4
--- NOTE | 2022-03-13 12:03 | MHC.SHP ---
Pre-Procedural Eval Section A Date of Service: 03/13/22 Section B Chief Complaint: epigastric pain,dysphagia Relevant Family History (Specify if Yes): No Relevant Social History: None Present Medications: see Short Stay Collaborative assessment Medical History: Significant History (Diabetes Fatty liver HTN (hypertension) Renal cancer) History of Previous Operations: Relevant previous surgery/procedure and date(s) (History of esophagogastroduodenoscopy (EGD) History of left nephrectomy History of left oophorectomy History of pubovaginal sling History of sleeve gastrectomy Hx laparoscopic cholecystectomy Hx of vaginal surgery) Allergies: Allergies Allergy/AdvReac Type Severity Reaction Status Date / Time codeine Allergy Mild Anaphylaxis Verified 03/08/22 09:30 oxycodone [From Percocet] Allergy Mild Rash Verified 03/08/22 09:30 morphine AdvReac vomiting Verified 03/08/22 09:30 Review of Systems Sugical H&P ROS: Negative: Constitution, Cardiovascular, Respiratory, Neurological, Psychiatric, Hem-Onc, Allergic/Immunologic, Gastrointestinal, Genitourinary, Musculoskeletal, Integumentary, Endocrine and Eyes/Ears/Nose/Throat Exam Surgical H&P Exam: Normal: HEENT, Normal: Heart, Normal: Lungs, Normal: Extremities, Normal: Abdomen, Normal: Skin and Normal: Neurological Plan Diagnosis/Plan: Unchanged I have reviewed the history and physical and performed a pertinent physical examination on my patient. No changes have occurred unless specified.
[2022-03-13] MEDS: Lactated Ringers 1,000 ML 50 ML IVCONT (12:04)
--- NOTE | 2022-03-13 12:05 | HO.ANESPROP2 ---
HPI - Anesthesia Eval Consult details Narrative: IBS [facility] Active Problems Active Problems: All Active Problems (Updated 03/08/22 @ 13:56 by Hermelinda Sullivan) Unspecified mood [affective] disorder (Acute) Generalized anxiety disorder (Acute) Renal cancer (Acute) GERD (gastroesophageal reflux disease) (Acute) Abdominal pain (Acute) Renal cell carcinoma (Acute) Dysphagia (Acute) Hiatal hernia (Acute) History of repair of hiatal hernia (Acute) Pituitary adenoma (Acute) Vertigo (Acute) Schizophrenia (Acute) HTN (hypertension), benign (Acute) Diabetes (Acute) Anemia (Chronic) Overweight (BMI 25.0-29.9) (Acute) Epigastric abdominal pain (Acute) S/P laparoscopic sleeve gastrectomy (Acute) Epigastric abdominal pain (Acute) Gastroparesis (Acute) Past Medical History Medical History COVID-19 vaccine series completed Diabetes Fatty liver HTN (hypertension) Renal cancer Family History Family History Father Septic shock Maternal Uncle Liver cancer Stomach cancer Hepatitis C Maternal Aunt Lupus Mother HTN (hypertension) Diabetes Heart problem Son Asthma Acute anxiety Son Autism ADHD (attention deficit hyperactivity disorder) Son No problems noted. Son No problems noted. Son No problems noted. Daughter GERD (gastroesophageal reflux disease) Daughter No problems noted. Daughter No problems noted. Family history of problems with anesthesia: No Surgical History Surgical History History of esophagogastroduodenoscopy (EGD) History of left nephrectomy History of left oophorectomy History of pubovaginal sling History of sleeve gastrectomy Hx laparoscopic cholecystectomy Hx of vaginal surgery History of Problems with Anesthesia: No Social History Social History Household Members: Spouse and Children Housing: House Alcohol intake: never Patient Tobacco Use Status: Never used Tobacco Are you DNR?: No Advance Directives: No Advance Directives Information Provided: Yes Advance Directives on File: No Nutrition Risks: No Nutritional Risk FDLMP: 01/30/22 service: No Current occupational status: disabled Meds Allergies Allergy/AdvReac Type Severity Reaction Status Date / Time codeine Allergy Mild Anaphylaxis Verified 03/08/22 09:30 oxycodone [From Percocet] Allergy Mild Rash Verified 03/08/22 09:30 morphine AdvReac vomiting Verified 03/08/22 09:30 Active Medications: Current Medications Lactated Ringer's (Lr) 1,000 mls @ 50 mls/hr IVCONT .Q20H DARRYL Last Admin: 03/13/22 12:04 Dose: 50 mls/hr Scopolamine (Scopolamine 1.5 Mg Patch.Td.3) 1.5 mg EAR-BEHIND ONCE ONE Stop: 03/13/22 12:05 Home Medications Medication Instructions Recorded Confirmed Last Taken Type blood sugar diagnostic (FreeStyle #10 ea 05/19/21 12/26/21 Unknown History Lite Strips) clotrimazole-betamethasone 1 1 appl topical DAILY 05/19/21 12/26/21 Unknown History %-0.05 % topical cream estradiol 0.01% (0.1 mg/gram) 1 appl vaginal DAILY 05/19/21 12/26/21 Unknown History vaginal cream lamotrigine 100 mg tablet 200 mg PO DAILY 05/19/21 12/26/21 Unknown History lancets 28 gauge (FreeStyle #100 ea 05/19/21 12/26/21 Unknown History Lancets) lisinopril 2.5 mg tablet 2.5 mg PO DAILY 05/19/21 12/26/21 Unknown History lorazepam 1 mg tablet 1 mg PO QID PRN Anxiety 05/19/21 12/26/21 Unknown History meclizine 25 mg tablet 5 mg PO DAILY PRN Vertigo 05/19/21 12/26/21 Unknown History nabumetone 500 mg tablet 500 mg PO BID 05/19/21 12/26/21 Unknown History ondansetron 4 mg disintegrating 4 mg PO BEDTIME 05/19/21 12/26/21 Unknown History tablet perphenazine 16 mg tablet mg PO 05/19/21 12/26/21 Unknown History prazosin 5 mg capsule 5 mg PO BEDTIME 05/19/21 12/26/21 Unknown History simethicone 80 mg chewable tablet 80 mg PO DAILY PRN Acid Reflux 05/19/21 12/26/21 Unknown History (Mi-Acid Gas Relief (simethicone)) sucralfate 100 mg/mL oral 100 mg PO DAILY 05/19/21 12/26/21 Unknown History suspension terconazole 0.4 % vaginal cream 1 appful vaginal BEDTIME 05/19/21 12/26/21 Unknown History tramadol 100 mg capsule 100 mg PO DAILY 05/19/21 12/26/21 Unknown History 24h,extended release(25-75) venlafaxine 150 mg 150 mg PO DAILY 05/19/21 12/26/21 Unknown History capsule,extended release 24 hr venlafaxine 75 mg capsule,extended 75 mg PO DAILY 05/19/21 12/26/21 Unknown History release 24 hr zolpidem 5 mg tablet 5 mg PO BEDTIME PRN Insomnia 05/19/21 12/26/21 Unknown History gabapentin 100 mg capsule 300 mg PO TID 08/01/21 12/26/21 Unknown History glipizide 2.5 mg tablet, extended 2.5 mg PO DAILY 10/06/21 12/26/21 Unknown History release 24 hr trazodone 50 mg tablet mg PO 10/06/21 12/26/21 Unknown History aripiprazole 5 mg tablet 5 mg PO DAILY 01/23/22 Unknown History perphenazine 8 mg tablet 8 mg PO BEDTIME 01/23/22 Unknown History Exam Exam Date and Time: March 13, 2022 1205 Height,Weight and Vital Signs: Height 5 ft 2 in Weight 68.039 kg Pertinent Lab Results Pertinent Lab Results: Laboratory Tests 03/13/22 11:48 Urine Test NEGATIVE Airway Mallampati Class: II TM Dist: >3cm Neck ROM: Full Loose/Missing/Broken Teeth: No Heart: [id number] Lungs: cta b/l Assessment and Plan Assessment Anesthesia Assessment: Anesthesia Plan Discussed and Chart Reviewed Final Anesthetic Review Family History of Problems with Anesthesia: No History of Problems with Anesthesia: No NPO: Yes ASA Class: III Final Preanesthetic Review: No Changes in Pt Med Stat, Meds/Allgs Chart Reviewed, Consent Obtained/Reviewed and Anes Risks/Benef Reviewed Patient Risk: Intermediate Procedure Risk: Intermediate Assessment/Block/Sedation in SS: Assess/Block/Sedation-SS Anesthetic Plan Anesthetic Plan: MAC: and Agree w/ Assess. and Plan Disposition: Standard PACU
[2022-03-13] MEDS: Scopolamine 1.5 MG PATCH.TD.3 EAR-BEHIND (12:13)
[2022-03-13 12:24] VITALS: BP 124/76; PULSE 75; RESP 18; TEMP 36.6; O2SAT 99
--- NOTE | 2022-03-13 12:28 | PC.NURSE ---
dr. acse aware of blood sugar of 76 at bedside during bs check. pt states becomes symptomatic in the 50's
[2022-03-13 12:30] LABS: Glucose, Whole Blood 76 mg/dL (60-115)
--- NOTE | 2022-03-13 12:37 | W.PM.OPN ---
Operative Note Operative Note Date of Service: 03/13/22 Narrative: Procedure Description: EGD Indication: dysphagia, abdominal pain Anesthesia: MAC FLEXIBLE TRANSORAL UPPER GASTROINTESTINAL ENDOSCOPY UPPER ENDOSCOPY Consent: Indications for the procedure and potential complications of bleeding, perforation, reaction to medications and missed diagnosis were discussed with the patient and informed consent was obtained. Instrument: Olympus GIF H 190 J mid size upper endoscope Monitoring: Vital signs and clinical assessment, continuous EKG monitoring, Pulse oximetry, Carbon Dioxide monitoring and blood pressure monitoring were done throughout the procedure. Procedure: The patient was placed in the left lateral decubitis position and pre-procedure medications were administered and a bite block was placed. The endoscope was inserted into the mouth and advanced under direct vision to the third part of duodenum. A careful inspection was made as the upper endoscope was withdrawn including a retroflexed examination of the proximal stomach; Findings and interventions are described below. Findings: Larynx:normal Esophagus: GE junction at 33 cm, diaphragm hiatus at 36 cm, consistent with 3 cm hiatal hernia, bx taken from GEJ, distal esophagus and proximal esophagus. Balloon dilation doen to 18 mm UES and LES with resistance noted, but no tears Stomach: Patchy gastric erythema. Biopsies were obtained. Grade 2 flap valve on retroflexed examination of the cardia. In the mid stomach there was a stricture noted, dilated with 20 mm balloon, no tear seen, changes from prior gastric sleeve noted. Duodenum: Normal bulb and descending duodenum, bx taken Intervention: Biopsies as noted above, balloon dilation Impression/Findings: apparent gastric stricture hiatal hernia PLAN: suspect her sx are due to post sleeve gastrectomy stricture, shoudl eat small meals and chew thoroughly, drink fluids with food if sx persist can consider dilation with pneumatic balloon after getting an upper GI series with tablet
[2022-03-13 13:05] VITALS: BP 91/47; PULSE 67; RESP 16; TEMP 36.1; O2SAT 97
[2022-03-13 13:37] VITALS: BP 112/72; PULSE 71; RESP 18; TEMP 36.7; O2SAT 99
[2022-03-13 13:46] VITALS: BP 112/72; PULSE 71; RESP 18; TEMP 36.7; O2SAT 97
[2022-03-13 15:57] LABS: Glucose, Whole Blood 71 mg/dL (60-115)
== END 2022-03-13 14:15 ==
LOC: HO.SSS 11:35
PROVIDERS: Anesthesiology; PCP Family Medicine; Visit Provider Internal Medicine Gastroenterology
PROC: 0DJ08ZZ Inspection of Upper Intestinal Tract, Via Natural or Artificial Opening Endoscopic (ICD-10-PCS; CPT 43235; principal; 2022-03-13 13:10)
DX: R10.13 Epigastric pain (principal); R13.10 Dysphagia, unspecified; K31.89 Other diseases of stomach and duodenum; K44.9 Diaphragmatic hernia without obstruction or gangrene; K76.0 Fatty (change of) liver, not elsewhere classified; I10 Essential (primary) hypertension; Z90.5 Acquired absence of kidney; E11.9 Type 2 diabetes mellitus without complications; Z79.84 Long term (current) use of oral hypoglycemic drugs; Z88.8 Allergy status to other drugs, medicaments and biological substances; Z98.84 Bariatric surgery status; Z90.49 Acquired absence of other specified parts of digestive tract
CPT/HCPCS: 43249; 43245; 43239; 81025; 82947; 88305; 88342; C1726

== ENCOUNTER 2022-03-20 06:20 | Outpatient (REF) | payer OTHER, SELFPAY | END 2022-03-20 06:21 | disposition home or self-care (01) | LOC: HO.RADIR 06:20 | PROVIDERS: Visit Provider Anesthesiology | DX: Z13.89 Encounter for screening for other disorder (principal) | CPT/HCPCS: J3010 ==

== ENCOUNTER → 2022-03-22 12:13 | Outpatient (BNVA) | payer OTHER, SELFPAY | PROVIDERS: PCP Family Medicine; Referring Provider Physician Assistant; Visit Provider Dietitian, Registered | DX: E66.3 Overweight (principal) | CPT/HCPCS: 97803 ==

== ENCOUNTER 2022-04-02 14:48 | Outpatient (REF) | payer OTHER, SELFPAY ==
[2022-04-02 16:08] LABS: Estimated Average Glucose 103 mg/dL; Hemoglobin A1c % 5.2 %
[2022-04-02 16:42] LABS: Vitamin D 25-OH Total 20.7 ng/mL (>30)
[2022-04-05 18:37] LABS: Vitamin A 30 mcg/dL (38-98)
[2022-04-06 03:56] LABS: Zinc 62 mcg/dL (60-130)
[2022-04-06 12:47] LABS: Vitamin B1 16 nmol/L (8-30)
== END 2022-04-02 14:49 | disposition home or self-care (01) ==
LOC: HO.LAB 14:48
PROVIDERS: Physician Assistant; PCP Family Medicine; Visit Provider Psychiatry & Neurology Neurology with Special Qualifications in Child Neurology
DX: Z01.818 Encounter for other preprocedural examination (principal)
CPT/HCPCS: 36415; 82306; 83036; 84425; 84590; 84630

== ENCOUNTER → 2022-04-19 12:30 | Outpatient (BNVA) | payer OTHER, SELFPAY | PROVIDERS: Visit Provider Counselor Mental Health | DX: F41.1 Generalized anxiety disorder (principal); F39 Unspecified mood [affective] disorder | CPT/HCPCS: 90834 ==

== ENCOUNTER 2022-05-08 06:06 | Outpatient (REF) | payer OTHER, SELFPAY | END 2022-05-08 06:07 | disposition home or self-care (01) | LOC: CF 06:06 | PROVIDERS: Visit Provider Anesthesiology | DX: Z13.89 Encounter for screening for other disorder (principal) ==

== ENCOUNTER → 2022-05-29 07:46 | Outpatient (REF) | payer OTHER, SELFPAY ==
--- NOTE | ~2022-05-29 | NM_ITS ---
EXAMINATION: RADIONUCLIDE SOLID FOOD GASTRIC EMPTYING 4-HOUR STUDY CLINICAL INFORMATION: Evaluate for vagal nerve damage and pylorus dysfunction. COMPARISON: A previous gastric emptying study dated 05/22/2021 is available for comparison. TECHNIQUE: A standard meal consisting of 4 oz of Egg Beaters brand tagged with 1.0 microcuries Tc-99m Sulfur Colloid, 8 oz water and 2 slices of toast with jelly was administered orally to the patient. Images were obtained using a dual head gamma camera in the anterior and posterior projections over of the stomach immediately post ingestion and at hourly intervals up to 3 hours post ingestion. Images were not obtained at 4 hours due to the minimal retention at 3 hours. The anterior and posterior counts at each time interval were averaged using the geometric mean and expressed as percentage of the immediate post ingestion counts. FINDINGS: There is good visualization of activity in the stomach immediately post ingestion. As the study progresses, there is good clearance of activity from the stomach and visualization of progressively increasing small bowel activity. By the end of the study, there is almost no retention noted in the stomach. Retention in the stomach at each time interval was: 1 hour 44% (normal 37%-90%) 2 hours 36% (normal 30%-60%) 3 hours 8% 4 hours (Not Obtained) (normal 0%-10%) Compared to the previous study dated 05/22/2021, there has not been a significant change. AL/AL gastric emptying study IMPRESSION: Normal solid food gastric emptying study.
== END ==
LOC: HO.NUCMED 07:46
PROVIDERS: PCP Family Medicine; Visit Provider Surgery
DX: R10.9 Unspecified abdominal pain (principal); Z98.84 Bariatric surgery status
CPT/HCPCS: 78264; A9541

== ENCOUNTER 2022-06-25 11:27 | Outpatient (REF) | payer OTHER, SELFPAY ==
--- NOTE | ~2022-06-25 | XR_ITS ---
EXAMINATION: XR FOOT, LEFT CLINICAL INFORMATION: Fall, trauma, pain COMPARISON: None TECHNIQUE: AP, lateral, and oblique views of the left foot. FINDINGS: No visible fracture or dislocation or arthropathy. Normal bony mineralization. Small spur distal anterior tibia. No visible ankle capsular effusion. The retrocalcaneal recess is preserved. There are borderline calcaneal spurs. XR/XR foot LT min 3V IMPRESSION: 1. No fracture or dislocation. 2. Borderline calcaneal spurs.
== END 2022-06-25 11:28 | disposition home or self-care (01) ==
LOC: HO.XRAY 11:27
PROVIDERS: Visit Provider Emergency Medicine
DX: M79.672 Pain in left foot (principal); Z91.81 History of falling
CPT/HCPCS: 73630

== ENCOUNTER 2022-08-17 10:48 | Day surgery (SDC) | payer OTHER, SELFPAY ==
[2022-08-10 10:29] VITALS: BMI 27.4
--- NOTE | ~2022-08-17 | FL_ITS ---
EXAMINATION: XR FLUOROSCOPY WITH IMAGES CLINICAL INFORMATION: Upper abdominal pain. COMPARISON: None. TECHNIQUE: Fluoroscopy Supervised By: Dr. Melendez. Fluoroscopy Time: 0.3 minutes. Cumulative Dose: 9.03 mGy. DAP: 0.156 Gycm2. Images: 4. FINDINGS: There are 4 digital images obtained. There is an endoscopy device seen in the left upper quadrant with inflated balloon attached catheter extending into the left upper quadrant. No contrast is visualized. FL/FL guidance in OR IMPRESSION: Fluoroscopy was provided to referring physician during endoscopy.
[2022-08-17 11:01] VITALS: BP 135/92; PULSE 69; RESP 16; TEMP 36.1; O2SAT 100
[2022-08-17] MEDS: Lactated Ringers 1,000 ML 50 ML IVCONT (11:21)
[2022-08-17 11:25] LABS: Glucose, Whole Blood 93 mg/dL (60-115)
[2022-08-17 11:25] LABS: UPreg QC Valid YES; Urine Pregnancy NEGATIVE (NEGATIVE)
--- NOTE | 2022-08-17 11:32 | P.CONAN_ITS ---
[facility] Active Problems Active Problems: All Active Problems (Updated 03/30/22 @ 09:44 by Mindy Bauer PA-C) Gastroparesis (Acute) Epigastric abdominal pain (Acute) S/P laparoscopic sleeve gastrectomy (Acute) Epigastric abdominal pain (Acute) Overweight (BMI 25.0-29.9) (Acute) Anemia (Chronic) HTN (hypertension), benign (Acute) Schizophrenia (Acute) Vertigo (Acute) Pituitary adenoma (Acute) History of repair of hiatal hernia (Acute) Hiatal hernia (Acute) Dysphagia (Acute) Renal cell carcinoma (Acute) Abdominal pain (Acute) GERD (gastroesophageal reflux disease) (Acute) Generalized anxiety disorder (Acute) Unspecified mood [affective] disorder (Acute) Pre-op evaluation (Acute) Renal cancer (Acute) Diabetes (Acute) Past Medical History Medical History (Updated 03/30/22 @ 09:44 by Mindy Bauer PA-C) COVID-19 vaccine series completed Diabetes Fatty liver HTN (hypertension) Renal cancer Family History Family History Father Septic shock Maternal Uncle Liver cancer Stomach cancer Hepatitis C Maternal Aunt Lupus Mother HTN (hypertension) Diabetes Heart problem Son Asthma Acute anxiety Son Autism ADHD (attention deficit hyperactivity disorder) Son No problems noted. Son No problems noted. Son No problems noted. Daughter GERD (gastroesophageal reflux disease) Daughter No problems noted. Daughter No problems noted. Family history of problems with anesthesia: No Surgical History Surgical History (Updated 08/10/22 @ 10:17 by Aileen Tilley RN) History of esophagogastroduodenoscopy (EGD) History of left nephrectomy History of left oophorectomy History of pubovaginal sling History of sleeve gastrectomy Hx laparoscopic cholecystectomy Hx of vaginal surgery History of Problems with Anesthesia: No Social History Social History Household Members: Spouse and Children Housing: House Are you a primary career development manager to a significant other at home: No Do you presently have visiting nurse or other home services: No Alcohol intake: never Patient Tobacco Use Status: Never used Tobacco Use of substances other than those prescribed or required for medical reasons: No Have you been hit, kicked, punched, or otherwise hurt by someone within the past year? If so, by whom?: No Are you DNR?: No Advance Directives: No Advance Directives on File: No Recently lost weight without trying: No Eating poorly because of decreased appetite: No Nutrition Risks: No Nutritional Risk service: No Current occupational status: disabled Meds Allergies Allergy/AdvReac Type Severity Reaction Status Date / Time codeine Allergy Mild Anaphylaxis Verified 04/18/22 08:49 oxycodone [From Percocet] Allergy Mild Rash Verified 04/18/22 08:49 morphine AdvReac vomiting Verified 04/18/22 08:49 Active Medications: Current Medications Lactated Ringer's (Lr) 1,000 mls @ 50 mls/hr IVCONT .Q20H DARRYL Lactated Ringer's (Lr) 1,000 mls @ 50 mls/hr IVCONT .Q20H DARRYL Last Admin: 08/17/22 11:21 Dose: 50 mls/hr Home Medications Medication Instructions Recorded Confirmed Last Taken Type blood sugar diagnostic (FreeStyle #10 ea 05/19/21 04/18/22 Unknown History Lite Strips) clotrimazole-betamethasone 1 1 appl topical DAILY 05/19/21 08/10/22 Unknown History %-0.05 % topical cream estradiol 0.01% (0.1 mg/gram) 1 appl vaginal DAILY 05/19/21 08/10/22 Unknown History vaginal cream lamotrigine 100 mg tablet 200 mg PO DAILY 05/19/21 08/10/22 Unknown History lancets 28 gauge (FreeStyle #100 ea 05/19/21 04/18/22 Unknown History Lancets) lisinopril 2.5 mg tablet 2.5 mg PO DAILY 05/19/21 08/10/22 Unknown History lorazepam 1 mg tablet 1 mg PO QID PRN Anxiety 05/19/21 08/10/22 Unknown History meclizine 25 mg tablet 5 mg PO DAILY PRN Vertigo 05/19/21 08/10/22 Unknown History nabumetone 500 mg tablet 500 mg PO BID 05/19/21 08/10/22 Unknown History ondansetron 4 mg disintegrating 4 mg PO BEDTIME 05/19/21 08/10/22 Unknown History tablet perphenazine 16 mg tablet mg PO 05/19/21 04/18/22 Unknown History prazosin 5 mg capsule 5 mg PO BEDTIME 05/19/21 08/10/22 Unknown History simethicone 80 mg chewable tablet 80 mg PO DAILY PRN Acid Reflux 05/19/21 08/10/22 Unknown History (Mi-Acid Gas Relief (simethicone)) sucralfate 100 mg/mL oral 100 mg PO DAILY 05/19/21 08/10/22 Unknown History suspension terconazole 0.4 % vaginal cream 1 appful vaginal BEDTIME 05/19/21 08/10/22 Unknown History tramadol 100 mg capsule 100 mg PO DAILY 05/19/21 08/10/22 Unknown History 24h,extended release(25-75) venlafaxine 150 mg 150 mg PO DAILY 05/19/21 08/10/22 Unknown History capsule,extended release 24 hr venlafaxine 75 mg capsule,extended 75 mg PO DAILY 05/19/21 08/10/22 Unknown History release 24 hr zolpidem 5 mg tablet 5 mg PO BEDTIME PRN Insomnia 05/19/21 08/10/22 Unknown History gabapentin 100 mg capsule 300 mg PO TID 08/01/21 08/10/22 Unknown History glipizide 2.5 mg tablet, extended 2.5 mg PO DAILY 10/06/21 08/10/22 Unknown History release 24 hr trazodone 50 mg tablet 50 mg PO BEDTIME 10/06/21 08/10/22 Unknown History aripiprazole 5 mg tablet 5 mg PO DAILY 01/23/22 08/10/22 Unknown History perphenazine 8 mg tablet 8 mg PO BEDTIME 01/23/22 08/10/22 Unknown History Exam Exam Date and Time: August 17, 2022 1132 Height,Weight and Vital Signs: Height 5 ft 2 in Weight 68.039 kg Last Vital Signs Temp 97.0 F 08/17/22 11:01 Pulse 69 08/17/22 11:01 Resp 16 08/17/22 11:01 BP 135/92 H 08/17/22 11:01 Pulse Ox 100 08/17/22 11:01 O2 Del Method 08/17/22 11:01 Pertinent Lab Results Pertinent Lab Results: Laboratory Tests 08/17/22 08/17/22 10:59 11:20 POC Glucose 93 Urine Test NEGATIVE Airway Mallampati Class: II TM Dist: >3cm Neck ROM: Limited Loose/Missing/Broken Teeth: No Heart: RRR Lungs: CTA Assessment and Plan Final Anesthetic Review Family History of Problems with Anesthesia: No History of Problems with Anesthesia: No NPO: Yes ASA Class: III Final Preanesthetic Review: No Changes in Pt Med Stat, Meds/Allgs Chart Reviewed, Consent Obtained/Reviewed and Anes Risks/Benef Reviewed Patient Risk: Intermediate Procedure Risk: Intermediate Anesthetic Plan Anesthetic Plan: MAC: and Agree w/ Assess. and Plan Disposition: Standard PACU
[2022-08-17] MEDS: Scopolamine 1.5 MG PATCH.TD.3 TRANSDERMA (11:43)
--- NOTE | 2022-08-17 12:09 | MHC.SHP ---
Pre-Procedural Eval Section A Date of Service: 08/17/22 Section B Chief Complaint: Bariatric surgery status,epigastric pain,dysphagia Relevant Family History (Specify if Yes): No Relevant Social History: None Present Medications: see Short Stay Collaborative assessment Medical History: Significant History (Diabetes Fatty liver HTN (hypertension) Renal cancer) History of Previous Operations: Relevant previous surgery/procedure and date(s) (History of esophagogastroduodenoscopy (EGD) History of left nephrectomy History of left oophorectomy History of pubovaginal sling History of sleeve gastrectomy Hx laparoscopic cholecystectomy Hx of vaginal surgery) Allergies: Allergies Allergy/AdvReac Type Severity Reaction Status Date / Time codeine Allergy Mild Anaphylaxis Verified 04/18/22 08:49 oxycodone [From Percocet] Allergy Mild Rash Verified 04/18/22 08:49 morphine AdvReac vomiting Verified 04/18/22 08:49 Review of Systems Sugical H&P ROS: Negative: Constitution, Cardiovascular, Respiratory, Neurological, Psychiatric, Hem-Onc, Allergic/Immunologic, Gastrointestinal, Genitourinary, Musculoskeletal, Integumentary, Endocrine and Eyes/Ears/Nose/Throat Exam Surgical H&P Exam: Normal: HEENT, Normal: Heart, Normal: Lungs, Normal: Extremities, Normal: Abdomen, Normal: Skin and Normal: Neurological Plan Diagnosis/Plan: Unchanged I have reviewed the history and physical and performed a pertinent physical examination on my patient. No changes have occurred unless specified. Time Spent With Patient Time: Total time managing care of this patient today ____ minutes.
--- NOTE | 2022-08-17 12:10 | W.PM.OPN ---
Operative Note Operative Note Date of Service: 08/17/22 Narrative: Procedure Description: EGD Indication: abdo pain and dysphagia Anesthesia: MAC FLEXIBLE TRANSORAL UPPER GASTROINTESTINAL ENDOSCOPY UPPER ENDOSCOPY Consent: Indications for the procedure and potential complications of bleeding, perforation, reaction to medications and missed diagnosis were discussed with the patient and informed consent was obtained. Instrument: Olympus GIF H 190 J mid size upper endoscope Monitoring: Vital signs and clinical assessment, continuous EKG monitoring, Pulse oximetry, Carbon Dioxide monitoring and blood pressure monitoring were done throughout the procedure. Procedure: The patient was placed in the left lateral decubitis position and pre-procedure medications were administered and a bite block was placed. The endoscope was inserted into the mouth and advanced under direct vision to the third part of duodenum. A careful inspection was made as the upper endoscope was withdrawn including a retroflexed examination of the proximal stomach; Findings and interventions are described below. Findings: Larynx:normal Esophagus: GE junction at 33? cm, diaphragm hiatus at 36 cm, consistent with 3 cm hiatal hernia, bx taken from GEJ, distal esophagus and proximal esophagus. Stomach: Granular mucosa. Biopsies were obtained. Grade 2 flap valve on retroflexed examination of the cardia. In the mid stomach there was a stricture noted, dilated with 30 mm pneumatic balloon to 15 psi, no tear seen, changes from prior gastric sleeve noted. Duodenum: Normal bulb and descending duodenum, Intervention: pneumatic balloon dilation Impression/Findings: apparent gastric stricture hiatal hernia PLAN: suspect her sx are due to post sleeve gastrectomy stricture, shoudl eat small meals and chew thoroughly, drink fluids with food if sx persist can consider repeat dilation with pneumatic balloon, or investigate other causes as appropriate
[2022-08-17 13:02] VITALS: BP 102/60; PULSE 51; RESP 16; TEMP 36.3; O2SAT 96
[2022-08-17 13:17] VITALS: BP 119/69; PULSE 85; RESP 18; O2SAT 100
[2022-08-17] MEDS: ondansetron HCL 4 MG/2 ML VIAL IVPUSH (13:26)
[2022-08-17 13:32] VITALS: BP 145/97; PULSE 76; RESP 17; O2SAT 99
[2022-08-17] MEDS: Mag&Al/Sim/Diphenhyd/Lidocaine 10 ML ORAL.SUSP PO (13:34)
[2022-08-17 13:47] VITALS: BP 132/92; PULSE 67; RESP 17; O2SAT 100
[2022-08-17 13:58] VITALS: BP 141/79; PULSE 74; RESP 18; TEMP 36.1; O2SAT 100
== END 2022-08-17 14:02 | disposition home or self-care (01) ==
PROVIDERS: Anesthesiology; PCP Internal Medicine; Visit Provider Internal Medicine Gastroenterology
PROC: 0DJ08ZZ Inspection of Upper Intestinal Tract, Via Natural or Artificial Opening Endoscopic (ICD-10-PCS; CPT 43235; principal; 2022-08-17 12:00)
DX: R10.13 Epigastric pain (principal); K31.89 Other diseases of stomach and duodenum; R13.10 Dysphagia, unspecified; K44.9 Diaphragmatic hernia without obstruction or gangrene; K21.9 Gastro-esophageal reflux disease without esophagitis; I10 Essential (primary) hypertension; E11.9 Type 2 diabetes mellitus without complications; Z98.84 Bariatric surgery status; Z79.899 Other long term (current) drug therapy; Z88.8 Allergy status to other drugs, medicaments and biological substances
CPT/HCPCS: 43245; 81025; 82947; C1726; J2405; Q9967

== ENCOUNTER → 2022-08-31 10:44 | Outpatient (BNVA) | payer OTHER, SELFPAY | PROVIDERS: PCP Internal Medicine; Visit Provider Internal Medicine Gastroenterology | DX: Z13.89 Encounter for screening for other disorder (principal) ==

== ENCOUNTER 2022-10-15 08:25 | Outpatient (REF) | payer OTHER, SELFPAY ==
--- NOTE | ~2022-10-15 | CT_ITS ---
EXAMINATION: CT ABDOMEN AND PELVIS WITH CONTRAST CLINICAL INFORMATION: Epigastric pain. COMPARISON: CT abdomen and pelvis 08/26/2021. TECHNIQUE: Multidetector volumetric images were obtained from the superior aspect of the liver through the pubic symphysis following administration 85 mL of Omnipaque 350 intravenous contrast. Sagittal and coronal reformatted images were obtained on the technologist's workstation. Oral contrast: Gastrografin and juice. Patient cannot tolerate barium drink. This CT examination was performed using dose optimization techniques as appropriate, variously including the following: *Automated exposure control *Adjustment of mA and/or kV according to patient size (this includes techniques or standardized protocols for targeted exams where dose is matched to indication/reason for exam; i.e. extremities or head) *Use of iterative reconstruction technique DLP: 413 mGy-cm FINDINGS: LUNG BASES: The visualized lung bases are unremarkable. There is a small hiatal hernia. LIVER, GALLBLADDER, AND BILIARY TREE: The liver is normal in size, shape, and attenuation. No focal hepatic lesion or biliary ductal dilatation is present. The gallbladder has been surgically removed. PANCREAS: Unremarkable. SPLEEN: The spleen measures 13 cm in AP dimension, borderline size. ADRENAL GLANDS: Unremarkable. KIDNEYS AND URETERS: The kidneys are normal in size, shape, and attenuation. No hydronephrosis, hydroureter, or calculi seen. No perinephric stranding. Postsurgical changes are seen along posterior cortex midpole left kidney. Previous visualized cyst upper pole left kidney is not seen at this time. BLADDER: Unremarkable. GASTROINTESTINAL TRACT: There is a small hiatal hernia with gastric sleeve surgery changes. Contrast-opacified small bowel loops are normal caliber, nondilated. There is scattered stool and gas seen in the colon without distention. Appendix is normal caliber. ABDOMINAL WALL: No significant hernia is appreciated. LYMPH NODES: Normal. VASCULAR: Unremarkable. PELVIC VISCERA: The uterus is anteverted and appears unremarkable. There is no adnexal mass or free fluid. No abnormal inguinal or iliac lymph nodes. A few scattered diverticula in the sigmoid colon without diverticulitis. OSSEOUS STRUCTURES: No aggressive lytic or sclerotic process seen. CT/CT abdomen pelvis w IV con IMPRESSION: Scattered sigmoid diverticulosis without diverticulitis. Evidence of previous gastric sleeve surgery, small hiatal hernia and cholecystectomy. Mild constipation. Fleischner guidelines were followed.
[2022-10-15] MEDS: Diatrizoate Meglumine, Sodium 30 ML SOLUTION PO (10:58)
[2022-10-15] MEDS: iohexoL 350 MG/ML 100 ML INFUS..BTL 85 ML IV (10:59)
== END 2022-10-15 08:26 | disposition home or self-care (01) ==
LOC: HO.CT 08:25
PROVIDERS: Visit Provider Internal Medicine Gastroenterology
DX: R10.13 Epigastric pain (principal)
CPT/HCPCS: 74177; Q9967

== ENCOUNTER 2022-11-01 05:54 | Day surgery (SDC) | payer OTHER, SELFPAY ==
[2022-11-01] VITALS (9 sets, daily range): BP systolic 120–147; BP diastolic 72–96; PULSE 64–83; RESP 16–20; TEMP 36.3–36.7; O2SAT 96–100; BMI 27.4
--- NOTE | ~2022-11-01 | FL_ITS ---
EXAMINATION: XR FLUOROSCOPY WITH IMAGES CLINICAL INFORMATION: Stomach dilation COMPARISON: CT abdomen and pelvis 10/15/2022. TECHNIQUE: Fluoroscopy Supervised By: Dr. Zeinab Melendez. Fluoroscopy Time: 1 minute 7 seconds. Cumulative Dose: 16.4 mGy. Images: 5. FINDINGS: Distal end endoscopy tube is seen overlying mid stomach. There is intraluminal wire is seen within the region of the stomach. A paperclip overlies the mid epigastrium. Bowel gas unremarkable. FL/FL guidance in OR IMPRESSION: Fluoroscopy for GI procedure.
--- NOTE | 2022-11-01 05:59 | P.HPSUR_ITS ---
Pre-Procedural Eval Section A Date of Service: 11/01/22 Section B Chief Complaint: Epigastric pain Relevant Family History (Specify if Yes): No Relevant Social History: None Present Medications: see Short Stay Collaborative assessment Medical History: Significant History (Diabetes Fatty liver HTN (hypertension) Renal cancer) History of Previous Operations: Relevant previous surgery/procedure and date(s) (History of esophagogastroduodenoscopy (EGD) History of left nephrectomy History of left oophorectomy History of pubovaginal sling History of sleeve gastrectomy Hx laparoscopic cholecystectomy Hx of vaginal surgery) Allergies: Allergies Allergy/AdvReac Type Severity Reaction Status Date / Time codeine Allergy Mild Anaphylaxis Verified 08/31/22 10:44 oxycodone [From Percocet] Allergy Mild Rash Verified 08/31/22 10:44 morphine AdvReac vomiting Verified 08/31/22 10:44 Review of Systems Sugical H&P ROS: Negative: Constitution, Cardiovascular, Respiratory, Neurological, Psychiatric, Hem-Onc, Allergic/Immunologic, Gastrointestinal, Genitourinary, Musculoskeletal, Integumentary, Endocrine and Eyes/Ears/Nose/Throat Exam Surgical H&P Exam: Normal: HEENT, Normal: Heart, Normal: Lungs, Normal: Extrem ities, Normal: Abdomen, Normal: Skin and Normal: Neurological Plan I have reviewed the history and physical and performed a pertinent physical examination on my patient. No changes have occurred unless specified. EGD with rigid balloon dilation Time Spent With Patient Time: Total time managing care of this patient today ____ minutes.
[2022-11-01 06:18] LABS: UPreg QC Valid YES; Urine Pregnancy NEGATIVE (NEGATIVE)
[2022-11-01] MEDS: Lactated Ringers 1,000 ML 100 ML IVCONT (06:28)
[2022-11-01 06:40] LABS: Glucose, Whole Blood 119 mg/dL (60-115)
--- NOTE | 2022-11-01 07:29 | P.CONAN_ITS ---
Documented by User: Billie Stewart NP 10/31/22 10:10 HPI - Anesthesia Eval Consult details Narrative: 47yo F for Upper Endoscopy s/p EGD 08/2022 with [facility] Active Problems Active Problems: All Active Problems (Updated 08/21/22 @ 22:11 by Zeinab Melendez MD) SOB (shortness of breath) (Acute) Gastroparesis (Acute) Epigastric abdominal pain (Acute) S/P laparoscopic sleeve gastrectomy (Acute) Epigastric abdominal pain (Acute) Overweight (BMI 25.0-29.9) (Acute) Anemia (Chronic) HTN (hypertension), benign (Acute) Schizophrenia (Acute) Vertigo (Acute) Pituitary adenoma (Acute) History of repair of hiatal hernia (Acute) Hiatal hernia (Acute) Dysphagia (Acute) Renal cell carcinoma (Acute) Abdominal pain (Acute) GERD (gastroesophageal reflux disease) (Acute) Generalized anxiety disorder (Acute) Unspecified mood [affective] disorder (Acute) Pre-op evaluation (Acute) Renal cancer (Acute) Diabetes (Acute) Past Medical History Medical History COVID-19 vaccine series completed Diabetes Fatty liver HTN (hypertension) Renal cancer Family History Family History Father Septic shock Maternal Uncle Liver cancer Stomach cancer Hepatitis C Maternal Aunt Lupus Mother HTN (hypertension) Diabetes Heart problem Son Asthma Acute anxiety Son Autism ADHD (attention deficit hyperactivity disorder) Son No problems noted. Son No problems noted. Son No problems noted. Daughter GERD (gastroesophageal reflux disease) Daughter No problems noted. Daughter No problems noted. Family history of problems with anesthesia: No Surgical History Surgical History History of esophagogastroduodenoscopy (EGD) History of left nephrectomy History of left oophorectomy History of pubovaginal sling History of sleeve gastrectomy Hx laparoscopic cholecystectomy Hx of vaginal surgery History of Problems with Anesthesia: No Social History Social History Household Members: Spouse and Children Housing: House Are you a primary med care manager to a significant other at home: No Do you presently have visiting nurse or other home services: No Alcohol intake: never Patient Tobacco Use Status: Never used Tobacco Are you DNR?: No Advance Directives: No Advance Directives Information Provided: Yes Nutrition Risks: No Nutritional Risk service: No Current occupational status: disabled Meds Allergies Allergy/AdvReac Type Severity Reaction Status Date / Time codeine Allergy Mild Anaphylaxis Verified 11/01/22 06:41 oxycodone [From Percocet] Allergy Mild Rash Verified 11/01/22 06:41 morphine AdvReac vomiting Verified 11/01/22 06:41 Home Medications Medication Instructions Recorded Confirmed Last Taken Type blood sugar diagnostic (FreeStyle #10 ea 05/19/21 04/18/22 Unknown History Lite Strips) clotrimazole-betamethasone 1 1 appl topical DAILY 05/19/21 11/01/22 Unknown History %-0.05 % topical cream estradiol 0.01% (0.1 mg/gram) 1 appl vaginal DAILY 05/19/21 11/01/22 Unknown History vaginal cream lamotrigine 100 mg tablet 200 mg PO DAILY 05/19/21 11/01/22 Unknown History lancets 28 gauge (FreeStyle #100 ea 05/19/21 04/18/22 Unknown History Lancets) lisinopril 2.5 mg tablet 2.5 mg PO DAILY 05/19/21 11/01/22 Unknown History lorazepam 1 mg tablet 1 mg PO QID PRN Anxiety 05/19/21 11/01/22 Unknown History meclizine 25 mg tablet 5 mg PO DAILY PRN Vertigo 05/19/21 11/01/22 Unknown History nabumetone 500 mg tablet 500 mg PO BID 05/19/21 11/01/22 Unknown History ondansetron 4 mg disintegrating 4 mg PO BEDTIME 05/19/21 11/01/22 Unknown History tablet perphenazine 16 mg tablet mg PO 05/19/21 04/18/22 Unknown History prazosin 5 mg capsule 5 mg PO BEDTIME 05/19/21 11/01/22 Unknown History simethicone 80 mg chewable tablet 80 mg PO DAILY PRN Acid Reflux 05/19/21 11/01/22 Unknown History (Mi-Acid Gas Relief (simethicone)) sucralfate 100 mg/mL oral 100 mg PO DAILY 05/19/21 11/01/22 Unknown History suspension terconazole 0.4 % vaginal cream 1 appful vaginal BEDTIME 05/19/21 11/01/22 Unknown History tramadol 100 mg capsule 100 mg PO DAILY 05/19/21 11/01/22 Unknown History 24h,extended release(25-75) venlafaxine 150 mg 150 mg PO DAILY 05/19/21 11/01/22 Unknown History capsule,extended release 24 hr venlafaxine 75 mg capsule,extended 75 mg PO DAILY 05/19/21 11/01/22 Unknown History release 24 hr zolpidem 5 mg tablet 5 mg PO BEDTIME PRN Insomnia 05/19/21 11/01/22 Unknown History gabapentin 100 mg capsule 300 mg PO TID 08/01/21 11/01/22 Unknown History glipizide 2.5 mg tablet, extended 2.5 mg PO DAILY 10/06/21 11/01/22 Unknown History release 24 hr trazodone 50 mg tablet 50 mg PO BEDTIME 10/06/21 11/01/22 Unknown History perphenazine 8 mg tablet 8 mg PO BEDTIME 01/23/22 11/01/22 Unknown History aripiprazole 10 mg tablet 10 mg PO DAILY 08/31/22 11/01/22 Unknown History Exam Exam Date and Time: October 31, 2022 1008 Assessment and Plan Assessment Anesthesia Assessment: Chart Reviewed Final Anesthetic Review Family History of Problems with Anesthesia: No History of Problems with Anesthesia: No Documented by User: Librado Baires MD 11/01/22 07:30 [facility] Past Medical History Medical History COVID-19 vaccine series completed Diabetes Fatty liver HTN (hypertension) Renal cancer Family History Family History Father Septic shock Maternal Uncle Liver cancer Stomach cancer Hepatitis C Maternal Aunt Lupus Mother HTN (hypertension) Diabetes Heart problem Son Asthma Acute anxiety Son Autism ADHD (attention deficit hyperactivity disorder) Son No problems noted. Son No problems noted. Son No problems noted. Daughter GERD (gastroesophageal reflux disease) Daughter No problems noted. Daughter No problems noted. Surgical History Surgical History History of esophagogastroduodenoscopy (EGD) History of left nephrectomy History of left oophorectomy History of pubovaginal sling History of sleeve gastrectomy Hx laparoscopic cholecystectomy Hx of vaginal surgery Social History Social History Household Members: Spouse and Children Housing: House Are you a primary med care manager to a significant other at home: No Do you presently have visiting nurse or other home services: No Alcohol intake: never Patient Tobacco Use Status: Never used Tobacco Are you DNR?: No Advance Directives: No Advance Directives Information Provided: Yes Nutrition Risks: No Nutritional Risk service: No Current occupational status: disabled Meds Allergies Allergy/AdvReac Type Severity Reaction Status Date / Time codeine Allergy Mild Anaphylaxis Verified 11/01/22 06:41 oxycodone [From Percocet] Allergy Mild Rash Verified 11/01/22 06:41 morphine AdvReac vomiting Verified 11/01/22 06:41 Home Medications Medication Instructions Recorded Confirmed Last Taken Type blood sugar diagnostic (FreeStyle #10 ea 05/19/21 04/18/22 Unknown History Lite Strips) clotrimazole-betamethasone 1 1 appl topical DAILY 05/19/21 11/01/22 Unknown History %-0.05 % topical cream estradiol 0.01% (0.1 mg/gram) 1 appl vaginal DAILY 05/19/21 11/01/22 Unknown History vaginal cream lamotrigine 100 mg tablet 200 mg PO DAILY 05/19/21 11/01/22 Unknown History lancets 28 gauge (FreeStyle #100 ea 05/19/21 04/18/22 Unknown History Lancets) lisinopril 2.5 mg tablet 2.5 mg PO DAILY 05/19/21 11/01/22 Unknown History lorazepam 1 mg tablet 1 mg PO QID PRN Anxiety 05/19/21 11/01/22 Unknown History meclizine 25 mg tablet 5 mg PO DAILY PRN Vertigo 05/19/21 11/01/22 Unknown History nabumetone 500 mg tablet 500 mg PO BID 05/19/21 11/01/22 Unknown History ondansetron 4 mg disintegrating 4 mg PO BEDTIME 05/19/21 11/01/22 Unknown History tablet perphenazine 16 mg tablet mg PO 05/19/21 04/18/22 Unknown History prazosin 5 mg capsule 5 mg PO BEDTIME 05/19/21 11/01/22 Unknown History simethicone 80 mg chewable tablet 80 mg PO DAILY PRN Acid Reflux 05/19/21 11/01/22 Unknown History (Mi-Acid Gas Relief (simethicone)) sucralfate 100 mg/mL oral 100 mg PO DAILY 05/19/21 11/01/22 Unknown History suspension terconazole 0.4 % vaginal cream 1 appful vaginal BEDTIME 05/19/21 11/01/22 Unknown History tramadol 100 mg capsule 100 mg PO DAILY 05/19/21 11/01/22 Unknown History 24h,extended release(25-75) venlafaxine 150 mg 150 mg PO DAILY 05/19/21 11/01/22 Unknown History capsule,extended release 24 hr venlafaxine 75 mg capsule,extended 75 mg PO DAILY 05/19/21 11/01/22 Unknown History release 24 hr zolpidem 5 mg tablet 5 mg PO BEDTIME PRN Insomnia 05/19/21 11/01/22 Unknown History gabapentin 100 mg capsule 300 mg PO TID 08/01/21 11/01/22 Unknown History glipizide 2.5 mg tablet, extended 2.5 mg PO DAILY 10/06/21 11/01/22 Unknown History release 24 hr trazodone 50 mg tablet 50 mg PO BEDTIME 10/06/21 11/01/22 Unknown History perphenazine 8 mg tablet 8 mg PO BEDTIME 01/23/22 11/01/22 Unknown History aripiprazole 10 mg tablet 10 mg PO DAILY 08/31/22 11/01/22 Unknown History Exam Airway Mallampati Class: I TM Dist: >3cm Neck ROM: Full Loose/Missing/Broken Teeth: No (rrr) Lungs: clear Assessment and Plan Final Anesthetic Review NPO: Yes ASA Class: III Final Preanesthetic Review: No Changes in Pt Med Stat, Meds/Allgs Chart Reviewed, Consent Obtained/Reviewed and Anes Risks/Benef Reviewed Patient Risk: Intermediate Procedure Risk: Low Anesthetic Plan Anesthetic Plan: MAC: Disposition: Standard PACU
[2022-11-01] MEDS: Scopolamine 1.5 MG PATCH.TD.3 TRANSDERMA (07:39)
--- NOTE | 2022-11-01 07:48 | W.PM.OPN ---
Operative Note Operative Note Date of Service: 11/01/22 Narrative: Procedure Description: EGD Indication: Suspected sleeve stricture (prior dilation helped her for about 3 days) Anesthesia: General anesthesia FLEXIBLE TRANSORAL UPPER GASTROINTESTINAL ENDOSCOPY UPPER ENDOSCOPY Consent: Indications for the procedure and potential complications of bleeding, perforation, reaction to medications and missed diagnosis were discussed with the patient and informed consent was obtained. Instrument: Olympus GIF H 190 J mid size upper endoscope Monitoring: Vital signs and clinical assessment, continuous EKG monitoring, Pulse oximetry, Carbon Dioxide monitoring and blood pressure monitoring were done throughout the procedure. Procedure: The patient was placed in the supine position and pre-procedure medications were administered and a bite block was placed. The endoscope was inserted into the mouth and advanced under direct vision to the third part of duodenum. A careful inspection was made as the upper endoscope was withdrawn including a retroflexed examination of the proximal stomach; Findings and interventions are described below. Findings: Larynx:normal Esophagus: GE junction at 33? cm, diaphragm hiatus at 36 cm, consistent with 3 cm hiatal hernia, Stomach: Granular mucosa. Grade 2 flap valve on retroflexed examination of the cardia. In the mid stomach there was a narrowing noted. This was externally marked using fluoroscopy with a paperclip. A wire was then passed and over the wire a 35 mm pneumatic balloon was passed both with radiologic and endoscopic visualization. The balloon was then inflated to around 10-12 psi with resistance felt and held there for 10 mins. No tears were seen. Duodenum: Normal bulb and descending duodenum, Intervention: pneumatic balloon dilation using fluoroscopy and endoscopic visualization Impression/Findings: apparent gastric stricture hiatal hernia PLAN: suspect her sx are due to post sleeve gastrectomy stricture, shoudl eat small meals and chew thoroughly, drink fluids with food if sx persist can consider repeat dilation with pneumatic balloon, or investigate other causes as appropriate will send her opiate medication for 1 week for expected post procedure pain and discomfort, has carafate at home.
[2022-11-01] MEDS: fentaNYL citrate/PF 100 MCG/2 ML VIAL 25 MCG IVPUSH ×2 (09:14→09:22)
[2022-11-01] MEDS: Acetaminophen 1,000 MG/100 ML PIGGYBACK 400 MG IV (09:15)
[2022-11-01] MEDS: oxyCODONE HCl Immed Release 5 MG TABLET PO (09:47)
== END 2022-11-01 10:22 | disposition home or self-care (01) ==
PROVIDERS: Nurse Practitioner; PCP Family Medicine; Visit Provider Internal Medicine Gastroenterology
PROC: 0DJ08ZZ Inspection of Upper Intestinal Tract, Via Natural or Artificial Opening Endoscopic (ICD-10-PCS; CPT 43235; principal; 2022-11-01 07:30)
DX: R10.13 Epigastric pain (principal); K31.89 Other diseases of stomach and duodenum; Z98.84 Bariatric surgery status; K44.9 Diaphragmatic hernia without obstruction or gangrene; E11.9 Type 2 diabetes mellitus without complications; K76.0 Fatty (change of) liver, not elsewhere classified; I10 Essential (primary) hypertension; Z85.528 Personal history of other malignant neoplasm of kidney; Z90.5 Acquired absence of kidney; Z90.49 Acquired absence of other specified parts of digestive tract; Z79.84 Long term (current) use of oral hypoglycemic drugs; Z79.899 Other long term (current) drug therapy; Z88.8 Allergy status to other drugs, medicaments and biological substances
CPT/HCPCS: 43245; 81025; 82947; C1726; J0131; J0330; J1100; J2250; J2405; J3010; Q9967

== ENCOUNTER 2022-11-30 09:18 | Outpatient (REF) | payer OTHER, SELFPAY ==
--- NOTE | ~2022-11-30 | XR_ITS ---
EXAMINATION: XR ABDOMEN KUB CLINICAL INDICATION: Gastroparesis. COMPARISON: 10/15/2022 TECHNIQUE: 2 views of the abdomen. FINDINGS: Imaged lung bases are clear. Surgical clips project over the right upper quadrant. The bowel gas pattern is nonobstructive. No abnormally dilated loops of small or large bowel are appreciated. Moderate gas and stool throughout the colon and in the rectum. Regional osseous structures intact. XR/XR KUB IMPRESSION: No radiographic evidence of bowel obstruction.
--- NOTE | ~2022-11-30 | XR_ITS ---
EXAMINATION: XR CHEST CLINICAL INFORMATION: Shortness of breath after EGD. COMPARISON: 01/29/2022 TECHNIQUE: 2 views of the chest were obtained. FINDINGS: The lungs are well expanded. No focal consolidation. No pleural effusion. Cardiac silhouette is within normal limits. XR/XR chest 2V IMPRESSION: No acute abnormality.
== END 2022-11-30 09:19 | disposition home or self-care (01) ==
LOC: HO.XRAY 09:18
PROVIDERS: PCP Family Medicine; Visit Provider Internal Medicine Gastroenterology
DX: R10.13 Epigastric pain (principal); K31.84 Gastroparesis; R10.9 Unspecified abdominal pain; R06.02 Shortness of breath
CPT/HCPCS: 71046; 74018

== ENCOUNTER 2022-12-05 09:14 | Outpatient (REF) | payer OTHER, SELFPAY | END 2022-12-05 09:15 | disposition home or self-care (01) | LOC: HO.US 09:14 | PROVIDERS: Visit Provider Internal Medicine Gastroenterology | DX: Z13.89 Encounter for screening for other disorder (principal) ==

== ENCOUNTER 2022-12-07 09:56 | Outpatient (REF) | payer OTHER, SELFPAY ==
[2022-12-07 10:39] LABS: Mean Corpuscular Hemoglobin 27.4 pg (27.0-33.0); Mean Corpuscular Volume 81.5 fL (80.0-98.0); Monocytes Absolute Auto 0.2 X10*3/uL (0.1-1.2); PLT CLUMP 1; SCAN SMEAR FLAG 1
[2022-12-07 10:41] LABS: Basophils Percent Auto 0.9 % (0-2); Eosinophils Absolute Auto 0.1 X10*3/uL (0.0-0.4); Eosinophils Percent Auto 2.1 % (0-4); Hemoglobin 13.8 g/dl (12.0-16.0); Imm Gran Abs Auto 0.01 X10*3/uL (0.00-0.03); Imm Gran Pct Auto 0.3 % (0.0-0.4); Lymphocytes Absolute Auto 1.3 X10*3/uL (1.2-4.9); Lymphocytes Percent Auto 39.6 % (20-40); Mean Corpuscular HGB Conc 33.7 g/dl (31.0-35.0); Mean Platelet Volume 8.9 fL (9.4-12.3); Monocytes Percent Auto 4.5 % (2-11); Neutrophils Absolute Auto 1.8 x10*3/uL (2.0-8.3); Neutrophils Percent Auto 52.6 % (45-73); Red Blood Count 5.03 X10*6/uL (4.20-5.50); Red Cell Distribution Width 12.5 % (11.0-16.0)
[2022-12-07 10:43] LABS: MANUAL DIFF FLAG NO; Platelet Count 246 X10*3/uL (160-400); White Blood Count 3.3 X10*3/uL (4.8-10.8)
[2022-12-07 11:31] LABS: Erythrocyte Sedimentation Rate 14 MM/HR (0-20)
[2022-12-07 11:37] LABS: Alanine Aminotransferase 15 U/L (0-31); Albumin Level 4.1 g/dL (3.5-5.0); Alkaline Phosphatase 93 U/L (39-117); Anion Gap 13 (12-20); Aspartate Amino Transferase 14 U/L (5-31); Bilirubin Total 1.4 mg/dL (0.0-1.0); Blood Urea Nitrogen 13 mg/dL (9-16); C Reactive Protein 0.26 mg/dL (< or = 0.50); Calcium 9.6 mg/dL (8.4-10.2); Carbon Dioxide 26 mmol/L (22-29); Chloride 108 mmol/L (96-108); Estimated Glomerular Filt Rate > 60; Glucose Random 92 mg/dL (60-115); Lipase 27 U/L (8-78); Magnesium 2.2 mg/dL (1.6-2.6); Potassium 4.7 mmol/L (3.3-5.1); Sodium 142 mmol/L (135-145); Total Protein 7.3 g/dL (6.5-8.0)
[2022-12-07 12:10] LABS: Ferritin 84 ng/mL (10-250); Folate 6.3 ng/mL (> or = 4.0); TSH reflex Free T4 0.74 uIU/mL (0.32-4.0); Vitamin B12 314 pg/mL (200-900)
[2022-12-07 12:32] LABS: Appearance Urine Cloudy; Color Urine Yellow; Glucose Urine UA Negative (Negative); Leukocyte Esterase Urine Moderate (2+) (Negative); Nitrite Urine Negative (Negative); PH 6.5 (5.0-9.0); Specific Gravity - Urine 1.025 (1.005-1.025); UMIC TRIGGER UACC YES; Urine Blood Negative (Negative); Urine Ketones Negative (Negative); Urine Protein Negative (Neg-Trace)
[2022-12-07 12:43] LABS: Bacteria Urine 1+ (None Seen); Hyaline Casts Urine 0-2 /LPF (0-2); RBC Urine 0-2 /HPF (0-2); Squamous Epithelial Cell Urine >20 /HPF (0-2); UACC Culture Trigger YES
[2022-12-14 04:14] LABS: Vitamin A 44 mcg/dL (38-98)
[2022-12-14 04:53] LABS: Aldolase 3.9 U/L (<=8.1)
[2022-12-14 12:28] LABS: Metanephrine, Free 41 pg/mL (<=57); Normetanephrines, Free 65 pg/mL (<=148); Total Metanephrine, Free 106 pg/mL (<=205)
[2022-12-14 12:52] LABS: Centromere Protein A Ab <11 SI (<11); Centromere Protein B Ab <11 SI (<11); Fibrillarin Ab <11 SI (<11); PM SCL 100 Ab <11 SI (<11); PM SCL 75 Ab <11 SI (<11); RNA Polymerase III RP11 Ab <11 SI (<11); RNA Polymerase III RP155 Ab <11 SI (<11); SCL-70 Extractable Nuclear Ab <11 SI (<11); Th-To Ab <11 SI (<11); U1 SNRNP RNP 70KD <11 SI (<11); U1 SNRNP RNP A <11 SI (<11); U1 SNRNP RNP C <11 SI (<11)
[2022-12-14 16:14] LABS: Porphyrins, Total Plasma 0.6 mcg/L (1.0-5.6)
[2022-12-14 17:58] LABS: Vitamin B1 10 nmol/L (8-30)
[2022-12-14 18:33] LABS: Histamine Plasma <1.5 ng/mL (< OR = 1.8)
[2022-12-15 12:58] LABS: Anti Nuclear Antibody Screen NEGATIVE (NEGATIVE)
== END 2022-12-07 09:57 | disposition home or self-care (01) ==
LOC: HO.LAB 09:56
PROVIDERS: Physician Assistant; Visit Provider Internal Medicine Gastroenterology
DX: C64.9 Malignant neoplasm of unspecified kidney, except renal pelvis (principal); D64.9 Anemia, unspecified; R79.82 Elevated C-reactive protein (CRP); K31.84 Gastroparesis; R10.13 Epigastric pain; R19.7 Diarrhea, unspecified; K75.81 Nonalcoholic steatohepatitis (NASH); K44.9 Diaphragmatic hernia without obstruction or gangrene; R30.0 Dysuria; Z98.84 Bariatric surgery status
CPT/HCPCS: 36415; 80053; 81001; 82085; 82542; 82550; 82607; 82728; 82746; 83088; 83520; 83690; 83735; 83835; 84182; 84425; 84443; 84590; 85025; 85652; 86038; 86140; 86235; 87086

== ENCOUNTER → 2023-02-06 10:52 | Outpatient (BNVA) | payer OTHER, SELFPAY | PROVIDERS: PCP Family Medicine; Visit Provider Physician Assistant Surgical ==

== ENCOUNTER 2023-02-28 09:28 | Day surgery (SDC) | payer OTHER, SELFPAY ==
[2023-02-26 13:30] VITALS: BMI 27.4
[2023-02-28] VITALS (11 sets, daily range): BP systolic 124–158; BP diastolic 64–81; PULSE 55–65; RESP 15–20; TEMP 36.1–36.3; O2SAT 97–100
--- NOTE | ~2023-02-28 | FL_ITS ---
EXAMINATION: XR FLUOROSCOPY WITH IMAGES CLINICAL INFORMATION: Balloon dilatation with fluoroscopy. COMPARISON: None available. TECHNIQUE: Fluoroscopy Supervised By: Dr. Zeinab Melendez. Fluoroscopy Time: 28.7 seconds. Cumulative Dose: 8.29 mGy. DAP: Not available. Images: 3. FINDINGS: Images demonstrate an endoscopy scope projecting over the distal thoracic esophagus. There is a wire in the distal thoracic esophagus and stomach. There is balloon dilatation in this region. There is an overlying paper clip. FL/FL guidance in OR IMPRESSION: Fluoroscopy guidance for endoscopy procedure
[2023-02-28] MEDS: Lactated Ringers 1,000 ML 100 ML IVCONT (10:17)
[2023-02-28 10:18] LABS: Glucose, Whole Blood 94 mg/dL (60-115)
--- NOTE | 2023-02-28 10:19 | MHC.SHP ---
Pre-Procedural Eval Section A Date of Service: 02/28/23 Section B Chief Complaint: Bariatric surgery status,abdominal pain Relevant Family History (Specify if Yes): No Relevant Social History: None Present Medications: see Short Stay Collaborative assessment Medical History: Significant History (Diabetes Fatty liver HTN (hypertension) Renal cancer) History of Previous Operations: Relevant previous surgery/procedure and date(s) (History of esophagogastroduodenoscopy (EGD) History of left nephrectomy History of left oophorectomy History of pubovaginal sling History of sleeve gastrectomy Hx laparoscopic cholecystectomy Hx of vaginal surgery) Allergies: Allergies Allergy/AdvReac Type Severity Reaction Status Date / Time codeine Allergy Mild Anaphylaxis Verified 02/06/23 10:56 oxycodone [From Percocet] Allergy Mild Rash Verified 02/06/23 10:56 morphine AdvReac vomiting Verified 02/06/23 10:56 Review of Systems Sugical H&P ROS: Negative: Constitution, Cardiovascular, Respiratory, Neurological, Psychiatric, Hem-Onc, Allergic/Immunologic, Gastrointestinal, Genitourinary, Musculoskeletal, Integumentary, Endocrine and Eyes/Ears/Nose/Throat Exam Surgical H&P Exam: Normal: HEENT, Normal: Heart, Normal: Lungs, Normal: Extremities, Normal: Abdomen, Normal: Skin and Normal: Neurological Plan Diagnosis/Plan: Unchanged I have reviewed the history and physical and performed a pertinent physical examination on my patient. No changes have occurred unless specified. EGD with pneumatic dilation of sleeve gastrectomy Time Spent With Patient Time: Total time managing care of this patient today ____ minutes.
[2023-02-28 10:24] LABS: UPreg QC Valid YES; Urine Pregnancy NEGATIVE (NEGATIVE)
--- NOTE | 2023-02-28 10:30 | P.CONAN_ITS ---
Documented by User: Billie Stewart NP 02/27/23 10:33 HPI - Anesthesia Eval Consult details Narrative: 47yo F for Upper Endoscopy with Balloon Dilitation with fluroscopy s/p EGD with dilation 10/2022 with GA-ETT 7.5 Hx renal CA s/p L nephrectomy PMFSH Active Problems Active Problems: All Active Problems (Updated 12/07/22 @ 09:41 by Berna Rodriguez MD) Gastroparesis (Acute) Epigastric abdominal pain (Acute) S/P laparoscopic sleeve gastrectomy (Acute) Epigastric abdominal pain (Acute) Overweight (BMI 25.0-29.9) (Acute) Anemia (Chronic) HTN (hypertension), benign (Acute) Schizophrenia (Acute) Vertigo (Acute) Pituitary adenoma (Acute) History of repair of hiatal hernia (Acute) Hiatal hernia (Acute) Dysphagia (Acute) Renal cell carcinoma (Acute) Abdominal pain (Acute) GERD (gastroesophageal reflux disease) (Acute) Generalized anxiety disorder (Acute) Unspecified mood [affective] disorder (Acute) Pre-op evaluation (Acute) SOB (shortness of breath) (Acute) Renal cancer (Acute) Diabetes (Acute) Past Medical History Medical History COVID-19 vaccine series completed Diabetes Fatty liver HTN (hypertension) Renal cancer Sleep apnea Family History Family History Father Septic shock Maternal Uncle Liver cancer Stomach cancer Hepatitis C Maternal Aunt Lupus Mother HTN (hypertension) Diabetes Heart problem Son Asthma Acute anxiety Son Autism ADHD (attention deficit hyperactivity disorder) Son No problems noted. Son No problems noted. Son No problems noted. Daughter GERD (gastroesophageal reflux disease) Daughter No problems noted. Daughter No problems noted. Family history of problems with anesthesia: No Surgical History Surgical History History of esophagogastroduodenoscopy (EGD) History of left nephrectomy History of left oophorectomy History of pubovaginal sling History of sleeve gastrectomy Hx laparoscopic cholecystectomy Hx of vaginal surgery History of Problems with Anesthesia: No Social History Social History Household Members: Spouse and Children Housing: House Are you a primary healthcare social worker to a significant other at home: No Do you presently have visiting nurse or other home services: No Alcohol intake: never Patient Tobacco Use Status: Never used Tobacco Use of substances other than those prescribed or required for medical reasons: No Are you DNR?: No Advance Directives: No Advance Directives Information Provided: Yes service: No Current occupational status: disabled Meds Allergies Allergy/AdvReac Type Severity Reaction Status Date / Time codeine Allergy Mild Anaphylaxis Verified 02/06/23 10:56 oxycodone [From Percocet] Allergy Mild Rash Verified 02/06/23 10:56 morphine AdvReac vomiting Verified 02/06/23 10:56 Home Medications Medication Instructions Recorded Confirmed Last Taken Type blood sugar diagnostic (FreeStyle #10 ea 05/19/21 12/07/22 Unknown History Lite Strips) clotrimazole-betamethasone 1 1 appl topical DAILY 05/19/21 02/26/23 Unknown History %-0.05 % topical cream estradiol 0.01% (0.1 mg/gram) 1 appl vaginal DAILY 05/19/21 02/26/23 Unknown History vaginal cream lamotrigine 100 mg tablet 200 mg PO DAILY 05/19/21 02/26/23 Unknown History lancets 28 gauge (FreeStyle #100 ea 05/19/21 12/07/22 Unknown History Lancets) lisinopril 2.5 mg tablet 2.5 mg PO DAILY 05/19/21 02/26/23 Unknown History lorazepam 1 mg tablet 1 mg PO QID PRN Anxiety 05/19/21 02/26/23 Unknown History meclizine 25 mg tablet 5 mg PO DAILY PRN Vertigo 05/19/21 02/26/23 Unknown History nabumetone 500 mg tablet 500 mg PO BID 05/19/21 02/26/23 Unknown History ondansetron 4 mg disintegrating 4 mg PO BEDTIME 05/19/21 02/26/23 Unknown History tablet perphenazine 16 mg tablet 16 mg PO BID 05/19/21 02/26/23 Unknown History prazosin 5 mg capsule 5 mg PO BEDTIME 05/19/21 02/26/23 Unknown History simethicone 80 mg chewable tablet 80 mg PO DAILY PRN Acid Reflux 05/19/21 02/26/23 Unknown History (Mi-Acid Gas Relief (simethicone)) sucralfate 100 mg/mL oral 100 mg PO DAILY 05/19/21 02/26/23 Unknown History suspension terconazole 0.4 % vaginal cream 1 appful vaginal BEDTIME 05/19/21 02/26/23 Unknown History tramadol 100 mg capsule 100 mg PO DAILY 05/19/21 02/26/23 Unknown History 24h,extended release(25-75) venlafaxine 150 mg 150 mg PO DAILY 05/19/21 02/26/23 Unknown History capsule,extended release 24 hr venlafaxine 75 mg capsule,extended 75 mg PO DAILY 05/19/21 02/26/23 Unknown History release 24 hr zolpidem 5 mg tablet 5 mg PO BEDTIME PRN Insomnia 05/19/21 02/26/23 Unknown History gabapentin 100 mg capsule 300 mg PO TID 08/01/21 02/26/23 Unknown History glipizide 2.5 mg tablet, extended 2.5 mg PO DAILY 10/06/21 02/26/23 Unknown History release 24 hr trazodone 50 mg tablet 50 mg PO BEDTIME 10/06/21 02/26/23 Unknown History perphenazine 8 mg tablet 8 mg PO BEDTIME 01/23/22 02/26/23 Unknown History aripiprazole 10 mg tablet 10 mg PO DAILY 08/31/22 02/26/23 Unknown History polyethylene glycol 3350 17 17 g PO Q10M PRN Constipation 02/28/23 Unknown History gram/dose oral powder (Miralax) Exam Exam Date and Time: February 27, 2023 1024 Height,Weight and Vital Signs: Height 5 ft 2 in Weight 68.039 kg Pertinent Lab Results Pertinent Lab Results: Laboratory Tests 01/22/22 12/07/22 12/07/22 12:06 10:27 10:27 WBC 3.3 L Hgb 13.8 Hct 41.0 Plt Count 246 Sodium 139 142 Potassium 4.1 4.7 Chloride 108 Carbon Dioxide 26 BUN 13 Creatinine 0.69 Assessment and Plan Assessment Anesthesia Assessment: Chart Reviewed Final Anesthetic Review Family History of Problems with Anesthesia: No History of Problems with Anesthesia: No Documented by User: Charley Kohler DO 02/28/23 10:41 PMF Past Medical History Medical History COVID-19 vaccine series completed Diabetes Fatty liver HTN (hypertension) Renal cancer Sleep apnea Functional capacity: independent ambulation Family History Family History Father Septic shock Maternal Uncle Liver cancer Stomach cancer Hepatitis C Maternal Aunt Lupus Mother HTN (hypertension) Diabetes Heart problem Son Asthma Acute anxiety Son Autism ADHD (attention deficit hyperactivity disorder) Son No problems noted. Son No problems noted. Son No problems noted. Daughter GERD (gastroesophageal reflux disease) Daughter No problems noted. Daughter No problems noted. Family history of problems with anesthesia: No Surgical History Surgical History History of esophagogastroduodenoscopy (EGD) History of left nephrectomy History of left oophorectomy History of pubovaginal sling History of sleeve gastrectomy Hx laparoscopic cholecystectomy Hx of vaginal surgery History of Problems with Anesthesia: Yes (PONV) Social History Social History Household Members: Spouse and Children Housing: House Are you a primary healthcare social worker to a significant other at home: No Do you presently have visiting nurse or other home services: No Alcohol intake: never Patient Tobacco Use Status: Never used Tobacco Use of substances other than those prescribed or required for medical reasons: No Are you DNR?: No Advance Directives: No Advance Directives Information Provided: Yes service: No Current occupational status: disabled Meds Allergies Allergy/AdvReac Type Severity Reaction Status Date / Time codeine Allergy Mild Anaphylaxis Verified 02/06/23 10:56 oxycodone [From Percocet] Allergy Mild Rash Verified 02/06/23 10:56 morphine AdvReac vomiting Verified 02/06/23 10:56 Home Medications Medication Instructions Recorded Confirmed Last Taken Type blood sugar diagnostic (Freeyle #10 ea 05/19/21 12/07/22 Unknown History Lite Strips) clotrimazole-betamethasone 1 1 appl topical DAILY 05/19/21 02/26/23 Unknown History %-0.05 % topical cream estradiol 0.01% (0.1 mg/gram) 1 appl vaginal DAILY 05/19/21 02/26/23 Unknown History vaginal cream lamotrigine 100 mg tablet 200 mg PO DAILY 05/19/21 02/26/23 Unknown History lancets 28 gauge (FreeStyle #100 ea 05/19/21 12/07/22 Unknown History Lancets) lisinopril 2.5 mg tablet 2.5 mg PO DAILY 05/19/21 02/26/23 Unknown History lorazepam 1 mg tablet 1 mg PO QID PRN Anxiety 05/19/21 02/26/23 Unknown History meclizine 25 mg tablet 5 mg PO DAILY PRN Vertigo 05/19/21 02/26/23 Unknown History nabumetone 500 mg tablet 500 mg PO BID 05/19/21 02/26/23 Unknown History ondansetron 4 mg disintegrating 4 mg PO BEDTIME 05/19/21 02/26/23 Unknown History tablet perphenazine 16 mg tablet 16 mg PO BID 05/19/21 02/26/23 Unknown History prazosin 5 mg capsule 5 mg PO BEDTIME 05/19/21 02/26/23 Unknown History simethicone 80 mg chewable tablet 80 mg PO DAILY PRN Acid Reflux 05/19/21 02/26/23 Unknown History (Mi-Acid Gas Relief (simethicone)) sucralfate 100 mg/mL oral 100 mg PO DAILY 05/19/21 02/26/23 Unknown History suspension terconazole 0.4 % vaginal cream 1 appful vaginal BEDTIME 05/19/21 02/26/23 Unkno wn History tramadol 100 mg capsule 100 mg PO DAILY 05/19/21 02/26/23 Unknown History 24h,extended release(25-75) venlafaxine 150 mg 150 mg PO DAILY 05/19/21 02/26/23 Unknown History capsule,extended release 24 hr venlafaxine 75 mg capsule,extended 75 mg PO DAILY 05/19/21 02/26/23 Unknown History release 24 hr zolpidem 5 mg tablet 5 mg PO BEDTIME PRN Insomnia 05/19/21 02/26/23 Unknown History gabapentin 100 mg capsule 300 mg PO TID 08/01/21 02/26/23 Unknown History glipizide 2.5 mg tablet, extended 2.5 mg PO DAILY 10/06/21 02/26/23 Unknown History release 24 hr trazodone 50 mg tablet 50 mg PO BEDTIME 10/06/21 02/26/23 Unknown History perphenazine 8 mg tablet 8 mg PO BEDTIME 01/23/22 02/26/23 Unknown History aripiprazole 10 mg tablet 10 mg PO DAILY 08/31/22 02/26/23 Unknown History polyethylene glycol 3350 17 17 g PO Q10M PRN Constipation 02/28/23 Unknown History gram/dose oral powder (Miralax) Exam Exam Date and Time: February 28, 2023 1030 Height,Weight and Vital Signs: Height 5 ft 2 in Weight 68.039 kg Vital Signs Respiratory Rate 02/28/23 09:48 Oxygen Delivery Method Room Air 02/28/23 09:48 Respiratory Rate 02/28/23 09:48 Oxygen Delivery Method Room Air 02/28/23 09:48 Airway Mallampati Class: II TM Dist: >3cm Neck ROM: Full Loose/Missing/Broken Teeth: No Heart: S1S2 Lungs: CTAB Assessment and Plan Assessment Anesthesia Assessment: Anesthesia Plan Discussed and Chart Reviewed Final Anesthetic Review Family History of Problems with Anesthesia: No History of Problems with Anesthesia: Yes (PONV) NPO: No ASA Class: III Final Preanesthetic Review: No Changes in Pt Med Stat, Meds/Allgs Chart Reviewed, Consent Obtained/Reviewed and Anes Risks/Benef Reviewed Patient Risk: Intermediate Procedure Risk: Low Anesthetic Plan Anesthetic Plan: GA and Agree w/ Assess. and Plan Disposition: Standard PACU
--- NOTE | 2023-02-28 11:41 | W.PM.OPN ---
Operative Note Operative Note Date of Service: 02/28/23 Narrative: Procedure Description: EGD Indication: epigastric pain, prior dilation helped her for 3 weeks Anesthesia: MAC FLEXIBLE TRANSORAL UPPER GASTROINTESTINAL ENDOSCOPY UPPER ENDOSCOPY Consent: Indications for the procedure and potential complications of bleeding, perforation, reaction to medications and missed diagnosis were discussed with the patient and informed consent was obtained. Instrument: Olympus GIF H 190 J mid size upper endoscope Monitoring: Vital signs and clinical assessment, continuous EKG monitoring, Pulse oximetry, Carbon Dioxide monitoring and blood pressure monitoring were done throughout the procedure. Procedure: The patient was placed in the supine position and pre-procedure medications were administered and a bite block was placed. The endoscope was inserted into the mouth and advanced under direct vision to the third part of duodenum. A careful inspection was made as the upper endoscope was withdrawn including a retroflexed examination of the proximal stomach; Findings and interventions are described below. Findings: Larynx:normal Esophagus: GE junction at 33? cm, diaphragm hiatus at 36 cm, consistent with 3 cm hiatal hernia, Stomach: Granular mucosa. Grade 2 flap valve on retroflexed examination of the cardia. In the mid stomach there was a narrowing noted. This was externally marked using fluoroscopy with a paperclip. A wire was then passed and over the wire a 35 mm pneumatic balloon was passed both with radiologic and endoscopic visualization. The balloon was then inflated to around 10-12 psi with resistance felt and held there for 15 mins. No tears were seen. Duodenum: Normal bulb and descending duodenum, Intervention: pneumatic balloon dilation using fluoroscopy and endoscopic visualization Impression/Findings: apparent gastric stricture, may have external adhesions as well hiatal hernia PLAN: suspect her sx are due to post sleeve gastrectomy stricture, should eat small meals and chew thoroughly, drink fluids with food will send her opiate medication for 1 week for expected post procedure pain and discomfort, has carafate at home. referral to [facility] for more definitive management
[2023-02-28] MEDS: fentaNYL citrate/PF 100 MCG/2 ML VIAL 25 MCG IVPUSH ×4 (12:11→12:40)
== END 2023-02-28 13:15 | disposition home or self-care (01) ==
PROVIDERS: Nurse Practitioner; PCP Family Medicine; Visit Provider Internal Medicine Gastroenterology
PROC: (CPT 43249; principal; 2023-02-28 11:00)
DX: K31.2 Hourglass stricture and stenosis of stomach (principal); K44.9 Diaphragmatic hernia without obstruction or gangrene; K76.0 Fatty (change of) liver, not elsewhere classified; E11.9 Type 2 diabetes mellitus without complications; I10 Essential (primary) hypertension; D64.9 Anemia, unspecified; D35.2 Benign neoplasm of pituitary gland; C64.9 Malignant neoplasm of unspecified kidney, except renal pelvis; Z90.49 Acquired absence of other specified parts of digestive tract; Z98.84 Bariatric surgery status; Z79.899 Other long term (current) drug therapy
CPT/HCPCS: 43249; 81025; 82947; C1726; J0330; J1100; J2405; J3010; Q9967

== ENCOUNTER → 2023-02-28 09:28 | Outpatient (BNV) | payer OTHER, SELFPAY | PROVIDERS: PCP Family Medicine; Visit Provider Internal Medicine Gastroenterology | DX: R10.13 Epigastric pain (principal); K44.9 Diaphragmatic hernia without obstruction or gangrene | CPT/HCPCS: 43249 ==

== ENCOUNTER 2023-03-11 09:10 | Outpatient (AMB) | payer OTHER, SELFPAY ==
--- NOTE | 2023-03-11 09:10 | MHC.OFFVIS ---
Intake Intake Visit Reasons: S/p egd dil w/fluoroscopy Allergies codeine Allergy (Mild, Verified 02/06/23 10:56) Anaphylaxis oxycodone [From Percocet] Allergy (Mild, Verified 02/06/23 10:56) Rash morphine Adverse Reaction (Verified 02/06/23 10:56) vomiting HPI S/p egd dil w/fluoroscopy HPI Details 47 yr old f called for f/u for abdominal pain RECAP she had Gastric sleeve 08/2020-- since then she had epigastric pain, every time she eats or drinks she had EGD with stensois and dilation of stomach by Aline she felt better for few weeks sx recurred and she has had several similar endoscopies with stretching with short term relief she had Ct scan at [facility] and found to have left kidney cancer and had left sided nephrectomy, she has nausea, occ vomiting, no blood she has mild constipation denies melena, no rectal bleeding no dysphagia but food can hurt when travelling down her esophagus she does have early satiety as well I ordered GES which was normal Due to ongoing sx I repeated EGD 07/2021 and dilated pylorus to 17 mm, seemed tight at time of EGD UGI series was done, no stenosis of stomahc but tablet got stuck in thoracic esophgaus, refluc noted and small HH Referred to bariatrics at [facility] for second opinion and plan for revision of sleeve and repair of hiatal hernia but this was then determined not to be needed EGD: 02/2022 apparent gastric stricture--dilated, 20 mm, no tear seen hiatal hernia repeat EGD 08/2022--dilation of mid body of stomach with rigid balloon 30 mm further repeat dilation with rigid balloon, 35 mm for 15 mins, using GA INTERIM: she had pain for 1 week after the procedure she feels good, adamant that the stretching is the only thing helping, last for about 4 weeks she has asked for referral to [facility] which has been done, she did not want to see Dr Hoang here for f/u, explained we need a more definitive treatment, perhaps she has adhesions and the stretching is giving relief by temporarily disrupting these? video exam:relaxed, good color A/P: 1/ Epigastric pain, fullness, suspected 2/2 gastric sleeve-possible adhesions- plan was for rigid balloon dilation which seems to have helped some what PLAN: 1/ repeat Ballon dilation with GA q 4 weeks for x3 until she shes the specilaist in [facility] Medical History COVID-19 vaccine series completed Diabetes Fatty liver HTN (hypertension) Renal cancer Sleep apnea Surgical History History of esophagogastroduodenoscopy (EGD) History of left nephrectomy History of left oophorectomy History of pubovaginal sling History of sleeve gastrectomy Hx laparoscopic cholecystectomy Hx of vaginal surgery Family History Father Septic shock Maternal Uncle Liver cancer Stomach cancer Hepatitis C Maternal Aunt Lupus Mother HTN (hypertension) Diabetes Heart problem Son Asthma Acute anxiety Son Autism ADHD (attention deficit hyperactivity disorder) Son No problems noted. Son No problems noted. Son No problems noted. Daughter GERD (gastroesophageal reflux disease) Daughter No problems noted. Daughter No problems noted. Social History Household Members: Spouse and Children Housing: House Are you a primary critical care nurse practitioner to a significant other at home: No Do you presently have visiting nurse or other home services: No Alcohol intake: never Patient Tobacco Use Status: Never used Tobacco service: No Current occupational status: disabled Assessment & Plan Assessment & Plan Medications: Discontinued polyethylene glycol 3350 17 grams PO Q10M 510 grams 0RF Telehealth Telehealth Location of provider rendering services: practice address Location of patient: address on file Patient Identification confirmed using: Name, : Yes Telehealth method: video Patient verbally consented to treatment: Yes Patient verbally consented to billing insurance company: Yes Patient informed of any privacy concerns related to visit: Yes Minutes spent on Phone/Video with Pt.: 9 Coding Level of Care Code Tele Est Pt Level 3 (42563) Diagnoses
== END 2023-03-11 11:07 | disposition home or self-care (01) ==
LOC: HO.HGI 09:10
PROVIDERS: PCP Family Medicine; Visit Provider Internal Medicine Gastroenterology
DX: R10.13 Epigastric pain (principal)
CPT/HCPCS: 99213

== ENCOUNTER → 2023-03-11 09:10 | Outpatient (BNVA) | payer OTHER, SELFPAY | PROVIDERS: PCP Family Medicine; Visit Provider Internal Medicine Gastroenterology ==

== ENCOUNTER 2023-04-16 05:59 | Day surgery (SDC) | payer OTHER, SELFPAY ==
[2023-04-05 11:07] VITALS: BMI 27.4
[2023-04-16] VITALS (11 sets, daily range): BP systolic 104–146; BP diastolic 70–93; PULSE 60–82; RESP 14–16; TEMP 36.3–36.5; O2SAT 96–100
--- NOTE | 2023-04-16 06:47 | MHC.SHP ---
Pre-Procedural Eval Section A Date of Service: 04/16/23 Section B Chief Complaint: Epigastric pain Relevant Family History (Specify if Yes): No Relevant Social History: None Present Medications: see Short Stay Collaborative assessment Medical History: Significant History (Vertigo Depression Anxiety GERD (gastroesophageal reflux disease) Sleep apnea COVID-19 vaccine series completed Renal cancer Fatty liver Diabetes HTN (hypertension)) History of Previous Operations: Relevant previous surgery/procedure and date(s) (History of pubovaginal sling History of left oophorectomy History of left nephrectomy History of esophagogastroduodenoscopy (EGD) Hx of vaginal surgery History of sleeve gastrectomy Hx laparoscopic cholecystectomy) Allergies: Allergies Allergy/AdvReac Type Severity Reaction Status Date / Time codeine Allergy Mild Anaphylaxis Verified 02/06/23 10:56 oxycodone [From Percocet] Allergy Mild Rash Verified 02/06/23 10:56 morphine AdvReac vomiting Verified 02/06/23 10:56 Review of Systems Sugical H&P ROS: Negative: Constitution, Cardiovascular, Respiratory, Neurological, Psychiatric, Hem-Onc, Allergic/Immunologic, Gastrointestinal, Genitourinary, Musculoskeletal, Integumentary, Endocrine and Eyes/Ears/Nose/Throat Exam Surgical H&P Exam: Normal: HEENT, Normal: Heart, Normal: Lungs, Normal: Extremities, Normal: Abdomen, Normal: Skin and Normal: Neurological Plan Diagnosis/Plan: Unchanged I have reviewed the history and physical and performed a pertinent physical examination on my patient. No changes have occurred unless specified. Time Spent With Patient Time: Total time managing care of this patient today ____ minutes.
[2023-04-16 06:54] LABS: UPreg QC Valid YES; Urine Pregnancy NEGATIVE (NEGATIVE)
[2023-04-16] MEDS: Lactated Ringers 1,000 ML 100 ML IVCONT (07:08)
[2023-04-16 07:19] LABS: Glucose, Whole Blood 99 mg/dL (60-115)
--- NOTE | 2023-04-16 07:20 | HO.ANESPROP2 ---
Documented by User: Billie Stewart NP 04/08/23 10:50 HPI - Anesthesia Eval Consult details Narrative: 47yo F for Upper Endoscopy rigiflex Balloon w/fluoro s/p EGD with Dil 02/2023 with GA-ETT 7 s/p L nephrectomy r/t renal ca PMFSH Active Problems Active Problems: All Active Problems (Updated 02/28/23 @ 09:45 by Charley Ontiveros, RN) SOB (shortness of breath) (Acute) Pre-op evaluation (Acute) Unspecified mood [affective] disorder (Acute) Generalized anxiety disorder (Acute) GERD (gastroesophageal reflux disease) (Acute) Abdominal pain (Acute) Renal cell carcinoma (Acute) Dysphagia (Acute) Hiatal hernia (Acute) History of repair of hiatal hernia (Acute) Pituitary adenoma (Acute) Vertigo (Acute) Schizophrenia (Acute) HTN (hypertension), benign (Acute) Anemia (Chronic) Overweight (BMI 25.0-29.9) (Acute) Epigastric abdominal pain (Acute) S/P laparoscopic sleeve gastrectomy (Acute) Epigastric abdominal pain (Acute) Gastroparesis (Acute) Renal cancer (Acute) Diabetes (Acute) Past Medical History Medical History Vertigo Depression Anxiety GERD (gastroesophageal reflux disease) Sleep apnea COVID-19 vaccine series completed Renal cancer Fatty liver Diabetes HTN (hypertension) Family History Family History Father Septic shock Maternal Uncle Liver cancer Stomach cancer Hepatitis C Maternal Aunt Lupus Mother HTN (hypertension) Diabetes Heart problem Son Asthma Acute anxiety Son Autism ADHD (attention deficit hyperactivity disorder) Son No problems noted. Son No problems noted. Son No problems noted. Daughter GERD (gastroesophageal reflux disease) Daughter No problems noted. Daughter No problems noted. Family history of problems with anesthesia: No Surgical History Surgical History History of pubovaginal sling History of left oophorectomy History of left nephrectomy History of esophagogastroduodenoscopy (EGD) Hx of vaginal surgery History of sleeve gastrectomy Hx laparoscopic cholecystectomy History of Problems with Anesthesia: Yes (PONV) Social History Social History Household Members: Spouse and Children Housing: House Are you a primary home health care physician to a significant other at home: No Do you presently have visiting nurse or other home services: No Alcohol intake: never Patient Tobacco Use Status: Never used Tobacco Use of substances other than those prescribed or required for medical reasons: No Are you DNR?: No Advance Directives: No Advance Directives Information Provided: Yes service: No Current occupational status: disabled Meds Allergies Allergy/AdvReac Type Severity Reaction Status Date / Time codeine Allergy Mild Anaphylaxis Verified 02/06/23 10:56 morphine AdvReac vomiting Verified 02/06/23 10:56 Home Medications Medication Instructions Recorded Confirmed Last Taken Type blood sugar diagnostic (FreeStyle #10 ea 05/19/21 12/07/22 Unknown History Lite Strips) clotrimazole-betamethasone 1 1 appl topical DAILY 05/19/21 04/05/23 Unknown History %-0.05 % topical cream estradiol 0.01% (0.1 mg/gram) 1 appl vaginal DAILY 05/19/21 04/05/23 Unknown History vaginal cream lamotrigine 100 mg tablet 200 mg PO DAILY 05/19/21 04/05/23 Unknown History lancets 28 gauge (FreeStyle #100 ea 05/19/21 12/07/22 Unknown History Lancets) lisinopril 2.5 mg tablet 2.5 mg PO DAILY 05/19/21 04/05/23 Unknown History lorazepam 1 mg tablet 1 mg PO QID PRN Anxiety 05/19/21 04/05/23 Unknown History meclizine 25 mg tablet 5 mg PO DAILY PRN Vertigo 05/19/21 04/05/23 Unknown History nabumetone 500 mg tablet 500 mg PO BID 05/19/21 04/05/23 Unknown History perphenazine 16 mg tablet 16 mg PO BID 05/19/21 04/05/23 Unknown History prazosin 5 mg capsule 5 mg PO BEDTIME 05/19/21 04/05/23 Unknown History simethicone 80 mg chewable tablet 80 mg PO DAILY PRN Acid Reflux 05/19/21 04/05/23 Unknown History (Mi-Acid Gas Relief (simethicone)) sucralfate 100 mg/mL oral 100 mg PO DAILY 05/19/21 04/05/23 Unknown History suspension terconazole 0.4 % vaginal cream 1 appful vaginal BEDTIME 05/19/21 04/05/23 Unknown History tramadol 100 mg capsule 100 mg PO DAILY 05/19/21 04/05/23 Unknown History 24h,extended release(25-75) venlafaxine 150 mg 150 mg PO DAILY 05/19/21 04/05/23 Unknown History capsule,extended release 24 hr venlafaxine 75 mg capsule,extended 75 mg PO DAILY 05/19/21 04/05/23 Unknown History release 24 hr zolpidem 5 mg tablet 5 mg PO BEDTIME PRN Insomnia 05/19/21 04/05/23 Unknown History glipizide 2.5 mg tablet, extended 2.5 mg PO DAILY 10/06/21 04/05/23 Unknown History release 24 hr trazodone 50 mg tablet 50 mg PO BEDTIME 10/06/21 04/05/23 Unknown History perphenazine 8 mg tablet 8 mg PO BEDTIME 01/23/22 04/05/23 Unknown History aripiprazole 10 mg tablet 10 mg PO DAILY 08/31/22 04/05/23 Unknown History polyethylene glycol 3350 17 17 g PO Q10M PRN Constipation 02/28/23 Unknown History gram/dose oral powder (Miralax) albuterol sulfate 90 mcg/actuation 2 puff inhalation Q4H PRN wheezing 03/11/23 Unknown History aerosol inhaler (Ventolin HFA) gabapentin 100 mg capsule 500 mg PO TID 03/11/23 Unknown History ibuprofen 800 mg tablet 800 mg PO Q8H PRN pain 03/11/23 Unknown History lamotrigine 200 mg tablet 200 mg PO DAILY 03/11/23 Unknown History pantoprazole 40 mg tablet,delayed 40 mg PO BID 03/11/23 Unknown History release Exam Height,Weight and Vital Signs: Pertinent Lab Results Pertinent Lab Results: Laboratory Tests 01/22/22 12/07/22 12/07/22 12:06 10:27 10:27 WBC 3.3 L Hgb 13.8 Hct 41.0 Plt Count 246 Sodium 139 142 Potassium 4.1 4.7 Chloride 108 Carbon Dioxide 26 BUN 13 Creatinine 0.69 Assessment and Plan Assessment Anesthesia Assessment: Chart Reviewed Final Anesthetic Review Family History of Problems with Anesthesia: No History of Problems with Anesthesia: Yes (PONV) Documented by User: Charley Kohler DO 04/16/23 07:24 [facility] Past Medical History Medical History Vertigo Depression Anxiety GERD (gastroesophageal reflux disease) Sleep apnea COVID-19 vaccine series completed Renal cancer Fatty liver Diabetes HTN (hypertension) Family History Family History Father Septic shock Maternal Uncle Liver cancer Stomach cancer Hepatitis C Maternal Aunt Lupus Mother HTN (hypertension) Diabetes Heart problem Son Asthma Acute anxiety Son Autism ADHD (attention deficit hyperactivity disorder) Son No problems noted. Son No problems noted. Son No problems noted. Daughter GERD (gastroesophageal reflux disease) Daughter No problems noted. Daughter No problems noted. Family history of problems with anesthesia: No Surgical History Surgical History History of pubovaginal sling History of left oophorectomy History of left nephrectomy History of esophagogastroduodenoscopy (EGD) Hx of vaginal surgery History of sleeve gastrectomy Hx laparoscopic cholecystectomy History of Problems with Anesthesia: Yes (PONV) Social History Social History Household Members: Spouse and Children Housing: House Are you a primary home health care physician to a significant other at home: No Do you presently have visiting nurse or other home services: No Alcohol intake: never Patient Tobacco Use Status: Never used Tobacco Use of substances other than those prescribed or required for medical reasons: No Are you DNR?: No Advance Directives: No Advance Directives Information Provided: Yes service: No Current occupational status: disabled Meds Allergies Allergy/AdvReac Type Severity Reaction Status Date / Time codeine Allergy Mild Anaphylaxis Verified 02/06/23 10:56 morphine AdvReac vomiting Verified 02/06/23 10:56 Home Medications Medication Instructions Recorded Confirmed Last Taken Type blood sugar diagnostic (FreeStyle #10 ea 05/19/21 12/07/22 Unknown History Lite Strips) clotrimazole-betamethasone 1 1 appl topical DAILY 05/19/21 04/05/23 Unknown History %-0.05 % topical cream estradiol 0.01% (0.1 mg/gram) 1 appl vaginal DAILY 05/19/21 04/05/23 Unknown History vaginal cream lamotrigine 100 mg tablet 200 mg PO DAILY 05/19/21 04/05/23 Unknown History lancets 28 gauge (FreeStyle #100 ea 05/19/21 12/07/22 Unknown History Lancets) lisinopril 2.5 mg tablet 2.5 mg PO DAILY 05/19/21 04/05/23 Unknown History lorazepam 1 mg tablet 1 mg PO QID PRN Anxiety 05/19/21 04/05/23 Unknown History meclizine 25 mg tablet 5 mg PO DAILY PRN Vertigo 05/19/21 04/05/23 Unknown History nabumetone 500 mg tablet 500 mg PO BID 05/19/21 04/05/23 Unknown History perphenazine 16 mg tablet 16 mg PO BID 05/19/21 04/05/23 Unknown History prazosin 5 mg capsule 5 mg PO BEDTIME 05/19/21 04/05/23 Unknown History simethicone 80 mg chewable tablet 80 mg PO DAILY PRN Acid Reflux 05/19/21 04/05/23 Unknown History (Mi-Acid Gas Relief (simethicone)) sucralfate 100 mg/mL oral 100 mg PO DAILY 05/19/21 04/05/23 Unknown History suspension terconazole 0.4 % vaginal cream 1 appful vaginal BEDTIME 05/19/21 04/05/23 Unknown History tramadol 100 mg capsule 100 mg PO DAILY 05/19/21 04/05/23 Unknown History 24h,extended release(25-75) venlafaxine 150 mg 150 mg PO DAILY 05/19/21 04/05/23 Unknown History capsule,extended release 24 hr venlafaxine 75 mg capsule,extended 75 mg PO DAILY 05/19/21 04/05/23 Unknown History release 24 hr zolpidem 5 mg tablet 5 mg PO BEDTIME PRN Insomnia 05/19/21 04/05/23 Unknown History glipizide 2.5 mg tablet, extended 2.5 mg PO DAILY 10/06/21 04/05/23 Unknown History release 24 hr trazodone 50 mg tablet 50 mg PO BEDTIME 10/06/21 04/05/23 Unknown History perphenazine 8 mg tablet 8 mg PO BEDTIME 01/23/22 04/05/23 Unknown History aripiprazole 10 mg tablet 10 mg PO DAILY 08/31/22 04/05/23 Unknown History polyethylene glycol 3350 17 17 g PO Q10M PRN Constipation 02/28/23 Unknown History gram/dose oral powder (Miralax) albuterol sulfate 90 mcg/actuation 2 puff inhalation Q4H PRN wheezing 03/11/23 Unknown History aerosol inhaler (Ventolin HFA) gabapentin 100 mg capsule 500 mg PO TID 03/11/23 Unknown History ibuprofen 800 mg tablet 800 mg PO Q8H PRN pain 03/11/23 Unknown History lamotrigine 200 mg tablet 200 mg PO DAILY 03/11/23 Unknown History pantoprazole 40 mg tablet,delayed 40 mg PO BID 03/11/23 Unknown History release Exam Exam Date and Time: April 16, 2023 0715 Height,Weight and Vital Signs: Vital Signs Temperature 97.7 F 04/16/23 06:54 Pulse Rate 75 04/16/23 06:54 Respiratory Rate 15 04/16/23 06:54 Blood Pressure 104/72 04/16/23 06:54 Pulse Oximetry 99 04/16/23 06:54 Oxygen Delivery Method Room Air 04/16/23 06:54 Temperature 97.7 F 04/16/23 06:54 Pulse Rate 75 04/16/23 06:54 Respiratory Rate 15 04/16/23 06:54 Blood Pressure 104/72 04/16/23 06:54 Pulse Oximetry 99 04/16/23 06:54 Oxygen Delivery Method Room Air 04/16/23 06:54 Height 5 ft 2 in Weight 68.039 kg Airway Mallampati Class: II TM Dist: >3cm Neck ROM: Full Loose/Missing/Broken Teeth: No Heart: S1S2 Lungs: CTAB Assessment and Plan Assessment Anesthesia Assessment: Anesthesia Plan Discussed and Chart Reviewed Final Anesthetic Review Family History of Problems with Anesthesia: No History of Problems with Anesthesia: Yes (PONV) NPO: Yes ASA Class: III Final Preanesthetic Review: No Changes in Pt Med Stat, Meds/Allgs Chart Reviewed, Consent Obtained/Reviewed and Anes Risks/Benef Reviewed Patient Risk: Intermediate Procedure Risk: Low Anesthetic Plan Anesthetic Plan: GA and Agree w/ Assess. and Plan Disposition: Standard PACU
--- NOTE | 2023-04-16 08:46 | P.OP_ITS ---
Operative Note Operative Note Date of Service: 04/16/23 Narrative: Procedure Description: EGD Indication: epigastric pain, Anesthesia: MAC FLEXIBLE TRANSORAL UPPER GASTROINTESTINAL ENDOSCOPY UPPER ENDOSCOPY Consent: Indications for the procedure and potential complications of bleeding, perforation, reaction to medications and missed diagnosis were discussed with the patient and informed consent was obtained. Instrument: Olympus GIF H 190 J mid size upper endoscope Monitoring: Vital signs and clinical assessment, continuous EKG monitoring, Pulse oximetry, Carbon Dioxide monitoring and blood pressure monitoring were done throughout the procedure. Procedure: The patient was placed in the left lateral decubitis position and pre-procedure medications were administered and a bite block was placed. The endoscope was inserted into the mouth and advanced under direct vision to the third part of duodenum. A careful inspection was made as the upper endoscope was withdrawn including a retroflexed examination of the proximal stomach; Findings and interventions are described below. Findings: Larynx:normal Esophagus: GE junction at 33? cm, diaphragm hiatus at 36 cm, consistent with 3 cm hiatal hernia, Stomach: Granular mucosa. Grade 2 flap valve on retroflexed examination of the cardia. In the mid stomach angulation noted which can be seen s/p sleeve gastrectomy. This was externally marked using fluoroscopy with a marker. A wire was then passed and over the wire a 35 mm pneumatic balloon was passed both with radiologic and endoscopic visualization. The balloon was then inflated to around 10-12 psi with resistance felt and held there for 15 mins. No tears were seen. Duodenum: Normal bulb and descending duodenum, Intervention: pneumatic balloon dilation using fluoroscopy and endoscopic visualization Impression/Findings: sleeve gastrectomy s/p rigid balloon dilation mid stomach, may have external adhesions as well hiatal hernia PLAN: suspect her sx are due to post sleeve gastrectomy external adhesions, should eat small meals and chew thoroughly, drink fluids with food will send her opiate medication for 1 week for expected post procedure pain and discomfort, has carafate at home. she is waiting to see a specialist in [place] for more definitive management
[2023-04-16] MEDS: fentaNYL citrate/PF 100 MCG/2 ML VIAL 25 MCG IVPUSH ×2 (09:05→09:15)
[2023-04-16] MEDS: Mag&Al/Sim/Diphenhyd/Lidocaine 10 ML ORAL.SUSP PO (09:18)
== END 2023-04-16 10:46 | disposition home or self-care (01) ==
PROVIDERS: Nurse Practitioner; PCP Family Medicine; Visit Provider Internal Medicine Gastroenterology
PROC: (CPT 43245; principal; 2023-04-16 07:30)
DX: R10.13 Epigastric pain (principal); K44.9 Diaphragmatic hernia without obstruction or gangrene; Z90.3 Acquired absence of stomach [part of]; Z90.5 Acquired absence of kidney; Z85.528 Personal history of other malignant neoplasm of kidney; Z90.49 Acquired absence of other specified parts of digestive tract; K76.0 Fatty (change of) liver, not elsewhere classified; E11.9 Type 2 diabetes mellitus without complications; G47.33 Obstructive sleep apnea (adult) (pediatric); Z79.84 Long term (current) use of oral hypoglycemic drugs; Z79.1 Long term (current) use of non-steroidal anti-inflammatories (NSAID); Z79.899 Other long term (current) drug therapy; Z88.5 Allergy status to narcotic agent; Z98.890 Other specified postprocedural states
CPT/HCPCS: 43245; 81025; 82947; C1726; J0330; J1100; J2405; J2550; J3010

== ENCOUNTER → 2023-04-16 05:59 | Outpatient (BNV) | payer OTHER, SELFPAY | PROVIDERS: PCP Family Medicine; Visit Provider Internal Medicine Gastroenterology | DX: R10.13 Epigastric pain (principal) | CPT/HCPCS: 43249 ==

== ENCOUNTER 2023-05-23 10:12 | Day surgery (SDC) | payer OTHER, SELFPAY ==
[2023-05-21 14:54] VITALS: BMI 27.4
--- NOTE | 2023-05-22 08:54 | P.CONAN_ITS ---
Documented by User: Billie Stewart NP 05/22/23 09:02 HPI - Anesthesia Eval Consult details Narrative: 47yo F for Upper Endoscopy with Balloon Dilitation with fluoroscopy with riged balloon PMFSH Active Problems Active Problems: All Active Problems (Updated 04/16/23 @ 06:49 by Charley Ontiveros RN) SOB (shortness of breath) (Acute) Pre-op evaluation (Acute) Unspecified mood [affective] disorder (Acute) Generalized anxiety disorder (Acute) GERD (gastroesophageal reflux disease) (Acute) Abdominal pain (Acute) Renal cell carcinoma (Acute) Dysphagia (Acute) Hiatal hernia (Acute) History of repair of hiatal hernia (Acute) Pituitary adenoma (Acute) Vertigo (Acute) Schizophrenia (Acute) HTN (hypertension), benign (Acute) Anemia (Chronic) Overweight (BMI 25.0-29.9) (Acute) Epigastric abdominal pain (Acute) S/P laparoscopic sleeve gastrectomy (Acute) Epigastric abdominal pain (Acute) Gastroparesis (Acute) Renal cancer (Acute) Diabetes (Acute) Past Medical History Medical History Vertigo Depression Anxiety GERD (gastroesophageal reflux disease) Sleep apnea COVID-19 vaccine series completed Renal cancer Fatty liver Diabetes HTN (hypertension) Family History Family History Father Septic shock Maternal Uncle Liver cancer Stomach cancer Hepatitis C Maternal Aunt Lupus Mother HTN (hypertension) Diabetes Heart problem Son Asthma Acute anxiety Son Autism ADHD (attention deficit hyperactivity disorder) Son No problems noted. Son No problems noted. Son No problems noted. Daughter GERD (gastroesophageal reflux disease) Daughter No problems noted. Daughter No problems noted. Family history of problems with anesthesia: No Surgical History Surgical History (Updated 05/21/23 @ 14:47 by Aileen Tilley RN) History of pubovaginal sling History of left oophorectomy History of left nephrectomy History of esophagogastroduodenoscopy (EGD) Hx of vaginal surgery History of sleeve gastrectomy Hx laparoscopic cholecystectomy History of Problems with Anesthesia: Yes (PONV) Social History Social History Household Members: Spouse and Children Housing: House Are you a primary nursing care partner to a significant other at home: No Do you presently have visiting nurse or other home services: No Alcohol intake: never Patient Tobacco Use Status: Never used Tobacco Second Hand Smoke Exposure: No Use of substances other than those prescribed or required for medical reasons: No Are you DNR?: No Advance Directives: No Advance Directives Information Provided: Yes Advance Directives on File: No service: No Current occupational status: disabled Meds Allergies Allergy/AdvReac Type Severity Reaction Status Date / Time codeine Allergy Mild Anaphylaxis Verified 02/06/23 10:56 morphine AdvReac vomiting Verified 02/06/23 10:56 Home Medications Medication Instructions Recorded Confirmed Last Taken Type blood sugar diagnostic (FreeStyle #10 ea 05/19/21 12/07/22 Unknown History Lite Strips) clotrimazole-betamethasone 1 1 appl topical DAILY 05/19/21 05/21/23 Unknown History %-0.05 % topical cream estradiol 0.01% (0.1 mg/gram) 1 appl vaginal DAILY 05/19/21 05/21/23 Unknown History vaginal cream lamotrigine 100 mg tablet 200 mg PO DAILY 05/19/21 04/05/23 Unknown History lancets 28 gauge (FreeStyle #100 ea 05/19/21 12/07/22 Unknown History Lancets) lisinopril 2.5 mg tablet 2.5 mg PO DAILY 05/19/21 05/21/23 Unknown History lorazepam 1 mg tablet 1 mg PO QID PRN Anxiety 05/19/21 05/21/23 Unknown History meclizine 25 mg tablet 5 mg PO DAILY PRN Vertigo 05/19/21 05/21/23 Unknown History nabumetone 500 mg tablet 500 mg PO BID 05/19/21 05/21/23 Unknown History perphenazine 16 mg tablet 16 mg PO BID 05/19/21 04/05/23 Unknown History prazosin 5 mg capsule 5 mg PO BEDTIME 05/19/21 05/21/23 Unknown History simethicone 80 mg chewable tablet 80 mg PO DAILY PRN Acid Reflux 05/19/21 05/21/23 Unknown History (Mi-Acid Gas Relief (simethicone)) sucralfate 100 mg/mL oral 100 mg PO DAILY 05/19/21 05/21/23 Unknown History suspension terconazole 0.4 % vaginal cream 1 appful vaginal BEDTIME 05/19/21 05/21/23 Unknown History tramadol 100 mg capsule 100 mg PO DAILY 05/19/21 05/21/23 Unknown History 24h,extended release(25-75) venlafaxine 150 mg 150 mg PO DAILY 05/19/21 05/21/23 Unknown History capsule,extended release 24 hr venlafaxine 75 mg capsule,extended 75 mg PO DAILY 05/19/21 05/21/23 Unknown History release 24 hr zolpidem 5 mg tablet 5 mg PO BEDTIME PRN Insomnia 05/19/21 05/21/23 Unknown History glipizide 2.5 mg tablet, extended 2.5 mg PO DAILY 10/06/21 05/21/23 Unknown History release 24 hr trazodone 50 mg tablet 50 mg PO BEDTIME 10/06/21 05/21/23 Unknown History perphenazine 8 mg tablet 8 mg PO BEDTIME 01/23/22 05/21/23 Unknown History aripiprazole 10 mg tablet 10 mg PO DAILY 08/31/22 05/21/23 Unknown History polyethylene glycol 3350 17 17 g PO Q10M PRN Constipation 02/28/23 Unknown History gram/dose oral powder (Miralax) albuterol sulfate 90 mcg/actuation 2 puff inhalation Q4H PRN wheezing 03/11/23 Unknown History aerosol inhaler (Ventolin HFA) gabapentin 100 mg capsule 500 mg PO TID 03/11/23 Unknown History ibuprofen 800 mg tablet 800 mg PO Q8H PRN pain 03/11/23 Unknown History lamotrigine 200 mg tablet 200 mg PO DAILY 03/11/23 05/21/23 Unknown History pantoprazole 40 mg tablet,delayed 40 mg PO BID 03/11/23 Unknown History release Exam Exam Date and Time: May 22, 2023 0854 Height,Weight and Vital Signs: Height 5 ft 2 in Weight 68.039 kg Pertinent Lab Results Pertinent Lab Results: Laboratory Tests 12/07/22 10:27 WBC 3.3 L Hgb 13.8 Hct 41.0 Plt Count 246 Sodium 142 Potassium 4.7 Chloride 108 Carbon Dioxide 26 BUN 13 Creatinine 0.69 Assessment and Plan Assessment Anesthesia Assessment: Chart Reviewed Final Anesthetic Review Family History of Problems with Anesthesia: No History of Problems with Anesthesia: Yes (PONV) Documented by User: Hoang Oneil MD 05/23/23 11:13 [facility] Past Medical History Medical History Vertigo Depression Anxiety GERD (gastroesophageal reflux disease) Sleep apnea COVID-19 vaccine series completed Renal cancer Fatty liver Diabetes HTN (hypertension) Family History Family History Father Septic shock Maternal Uncle Liver cancer Stomach cancer Hepatitis C Maternal Aunt Lupus Mother HTN (hypertension) Diabetes Heart problem Son Asthma Acute anxiety Son Autism ADHD (attention deficit hyperactivity disorder) Son No problems noted. Son No problems noted. Son No problems noted. Daughter GERD (gastroesophageal reflux disease) Daughter No problems noted. Daughter No problems noted. Surgical History Surgical History (Updated 05/21/23 @ 14:47 by Aileen Tilley RN) History of pubovaginal sling History of left oophorectomy History of left nephrectomy History of esophagogastroduodenoscopy (EGD) Hx of vaginal surgery History of sleeve gastrectomy Hx laparoscopic cholecystectomy Social History Social History Household Members: Spouse and Children Housing: House Are you a primary nursing care partner to a significant other at home: No Do you presently have visiting nurse or other home services: No Alcohol intake: never Patient Tobacco Use Status: Never used Tobacco Second Hand Smoke Exposure: No Use of substances other than those prescribed or required for medical reasons: No Are you DNR?: No Advance Directives: No Advance Directives Information Provided: Yes Advance Directives on File: No service: No Current occupational status: disabled Meds Allergies Allergy/AdvReac Type Severity Reaction Status Date / Time codeine Allergy Mild Anaphylaxis Verified 02/06/23 10:56 morphine AdvReac vomiting Verified 02/06/23 10:56 Home Medications Medication Instructions Recorded Confirmed Last Taken Type blood sugar diagnostic (FreeStyle #10 ea 05/19/21 12/07/22 Unknown History Lite Strips) clotrimazole-betamethasone 1 1 appl topical DAILY 05/19/21 05/21/23 Unknown History %-0.05 % topical cream estradiol 0.01% (0.1 mg/gram) 1 appl vaginal DAILY 05/19/21 05/21/23 Unknown History vaginal cream lamotrigine 100 mg tablet 200 mg PO DAILY 05/19/21 04/05/23 Unknown History lancets 28 gauge (FreeStyle #100 ea 05/19/21 12/07/22 Unknown History Lancets) lisinopril 2.5 mg tablet 2.5 mg PO DAILY 05/19/21 05/21/23 Unknown History lorazepam 1 mg tablet 1 mg PO QID PRN Anxiety 05/19/21 05/21/23 Unknown History meclizine 25 mg tablet 5 mg PO DAILY PRN Vertigo 05/19/21 05/21/23 Unknown History nabumetone 500 mg tablet 500 mg PO BID 05/19/21 05/21/23 Unknown History perphenazine 16 mg tablet 16 mg PO BID 05/19/21 04/05/23 Unknown History prazosin 5 mg capsule 5 mg PO BEDTIME 05/19/21 05/21/23 Unknown History simethicone 80 mg chewable tablet 80 mg PO DAILY PRN Acid Reflux 05/19/21 05/21/23 Unknown History (Mi-Acid Gas Relief (simethicone)) sucralfate 100 mg/mL oral 100 mg PO DAILY 05/19/21 05/21/23 Unknown History suspension terconazole 0.4 % vaginal cream 1 appful vaginal BEDTIME 05/19/21 05/21/23 Unknown History tramadol 100 mg capsule 100 mg PO DAILY 05/19/21 05/21/23 Unknown History 24h,extended release(25-75) venlafaxine 150 mg 150 mg PO DAILY 05/19/21 05/21/23 Unknown History capsule,extended release 24 hr venlafaxine 75 mg capsule,extended 75 mg PO DAILY 05/19/21 05/21/23 Unknown History release 24 hr zolpidem 5 mg tablet 5 mg PO BEDTIME PRN Insomnia 05/19/21 05/21/23 Unknown History glipizide 2.5 mg tablet, extended 2.5 mg PO DAILY 10/06/21 05/21/23 Unknown History release 24 hr trazodone 50 mg tablet 50 mg PO BEDTIME 10/06/21 05/21/23 Unknown History perphenazine 8 mg tablet 8 mg PO BEDTIME 01/23/22 05/21/23 Unknown History aripiprazole 10 mg tablet 10 mg PO DAILY 08/31/22 05/21/23 Unknown History polyethylene glycol 3350 17 17 g PO Q10M PRN Constipation 02/28/23 Unknown History gram/dose oral powder (Miralax) albuterol sulfate 90 mcg/actuation 2 puff inhalation Q4H PRN wheezing 03/11/23 Unknown History aerosol inhaler (Ventolin HFA) gabapentin 100 mg capsule 500 mg PO TID 03/11/23 Unknown History ibuprofen 800 mg tablet 800 mg PO Q8H PRN pain 03/11/23 Unknown History lamotrigine 200 mg tablet 200 mg PO DAILY 03/11/23 05/21/23 Unknown History pantoprazole 40 mg tablet,delayed 40 mg PO BID 03/11/23 Unknown History release Exam Airway Mallampati Class: II TM Dist: >3cm Neck ROM: Limited Heart: rrr Lungs: cta Assessment and Plan Final Anesthetic Review NPO: Yes ASA Class: III Final Preanesthetic Review: No Changes in Pt Med Stat, Meds/Allgs Chart Reviewed, Consent Obtained/Reviewed and Anes Risks/Benef Reviewed Patient Risk: Intermediate Procedure Risk: Intermediate Anesthetic Plan Anesthetic Plan: MAC: and Agree w/ Assess. and Plan Disposition: Standard PACU
--- NOTE | ~2023-05-23 | FL_ITS ---
EXAMINATION: XR FLUOROSCOPY WITH IMAGES CLINICAL INFORMATION: Upper endoscopy with rigid balloon dilatation. COMPARISON: None available. TECHNIQUE: Fluoroscopy Supervised By: Dr. Zeinab Melendez. Fluoroscopy Time: 28.2 seconds. Cumulative Dose: 10.36 mGy. DAP: Gycm2. Images: 6. FINDINGS: Initial images demonstrate an endoscope in the distal esophagus and stomach. Later images demonstrate a wire and catheter in the distal esophagus and stomach. FL/FL guidance in OR IMPRESSION: Fluoroscopy guidance for esophageal procedure.
[2023-05-23 10:33] VITALS: BP 114/78; PULSE 81; RESP 16; TEMP 36.3; O2SAT 100
--- NOTE | 2023-05-23 10:48 | MHC.SHP ---
Pre-Procedural Eval Section A Date of Service: 05/23/23 Section B Chief Complaint: Dysphagia, unspecified, Bariatric surgery status Relevant Family History (Specify if Yes): No Relevant Social History: None Present Medications: see Short Stay Collaborative assessment Medical History: Significant History (Vertigo Depression Anxiety GERD (gastroesophageal reflux disease) Sleep apnea COVID-19 vaccine series completed Renal cancer Fatty liver Diabetes HTN (hypertension)) History of Previous Operations: Relevant previous surgery/procedure and date(s) (History of pubovaginal sling History of left oophorectomy History of left nephrectomy History of esophagogastroduodenoscopy (EGD) Hx of vaginal surgery History of sleeve gastrectomy Hx laparoscopic cholecystectomy) Allergies: Allergies Allergy/AdvReac Type Severity Reaction Status Date / Time codeine Allergy Mild Anaphylaxis Verified 02/06/23 10:56 morphine AdvReac vomiting Verified 02/06/23 10:56 Review of Systems Sugical H&P ROS: Negative: Constitution, Cardiovascular, Respiratory, Neurological, Psychiatric, Hem-Onc, Allergic/Immunologic, Gastrointestinal, Genitourinary, Musculoskeletal, Integumentary, Endocrine and Eyes/Ears/Nose/Throat Exam Surgical H&P Exam: Normal: HEENT, Normal: Heart, Normal: Lungs, Normal: Extremities, Normal: Abdomen, Normal: Skin and Normal: Neurological Plan Diagnosis/Plan: Unchanged I have reviewed the history and physical and performed a pertinent physical examination on my patient. No changes have occurred unless specified. Time Spent With Patient Time: Total time managing care of this patient today ____ minutes.
[2023-05-23 11:01] LABS: Glucose, Whole Blood 90 mg/dL (60-115)
--- NOTE | 2023-05-23 11:44 | P.OP_ITS ---
Operative Note Operative Note Date of Service: 05/23/23 Narrative: Procedure Description: EGD Indication: epigastric pain Anesthesia: MAC FLEXIBLE TRANSORAL UPPER GASTROINTESTINAL ENDOSCOPY UPPER ENDOSCOPY Consent: Indications for the procedure and potential complications of bleeding, perforation, reaction to medications and missed diagnosis were discussed with the patient and informed consent was obtained. Instrument: Olympus GIF H 190 J mid size upper endoscope Monitoring: Vital signs and clinical assessment, continuous EKG monitoring, Pulse oximetry, Carbon Dioxide monitoring and blood pressure monitoring were done throughout the procedure. Procedure: The patient was placed in the left lateral decubitis position and pre-procedure medications were administered and a bite block was placed. The endoscope was inserted into the mouth and advanced under direct vision to the third part of duodenum. A careful inspection was made as the upper endoscope was withdrawn including a retroflexed examination of the proximal stomach; Findings and interventions are described below. Findings: Larynx:normal Esophagus: GE junction at 33? cm, diaphragm hiatus at 36 cm, consistent with 3 cm hiatal hernia, Stomach: Granular mucosa. Grade 2 flap valve on retroflexed examination of the cardia. In the mid stomach angulation noted which can be seen s/p sleeve gastrectomy. This was externally marked using fluoroscopy with a marker. A wire was then passed and over the wire a 35 mm pneumatic balloon was passed both with radiologic and endoscopic visualization as well as assistance with alligator forceps. The balloon was then inflated to around 10-12 psi with resistance felt and held there for 15 mins. No tears were seen. Duodenum: Normal bulb and descending duodenum, Intervention: pneumatic balloon dilation using fluoroscopy and endoscopic visualization Impression/Findings: sleeve gastrectomy s/p rigid balloon dilation mid stomach, may have external adhesions as well hiatal hernia PLAN: suspect her sx are due to post sleeve gastrectomy external adhesions, should eat small meals and chew thoroughly, drink fluids with food will send her tramadol for 1 week for expected post procedure pain and discomf ort, has carafate at home. she is waiting to see a specialist in [place] for more definitive management - bariatric surgeon
[2023-05-23 11:52] LABS: UPreg QC Valid YES; Urine Pregnancy NEGATIVE (NEGATIVE)
[2023-05-23 12:50] VITALS: BP 105/65; PULSE 84; RESP 16; TEMP 36.4; O2SAT 100
[2023-05-23 13:05] VITALS: BP 121/83; PULSE 70; RESP 14; O2SAT 100
[2023-05-23 13:20] VITALS: BP 125/79; PULSE 76; RESP 16; O2SAT 99
[2023-05-23 13:35] VITALS: BP 129/76; PULSE 69; RESP 17; TEMP 36.2; O2SAT 100
[2023-05-23] MEDS: Mag&Al/Sim/Diphenhyd/Lidocaine 10 ML ORAL.SUSP PO (13:45)
== END 2023-05-23 14:10 | disposition home or self-care (01) ==
PROVIDERS: Nurse Practitioner; PCP Family Medicine; Visit Provider Internal Medicine Gastroenterology
PROC: (CPT 43245; principal; 2023-05-23 11:20)
DX: R10.13 Epigastric pain (principal); R13.10 Dysphagia, unspecified; Z98.84 Bariatric surgery status; K44.9 Diaphragmatic hernia without obstruction or gangrene; K21.9 Gastro-esophageal reflux disease without esophagitis; K76.0 Fatty (change of) liver, not elsewhere classified; I10 Essential (primary) hypertension; E11.9 Type 2 diabetes mellitus without complications; G47.33 Obstructive sleep apnea (adult) (pediatric); F41.8 Other specified anxiety disorders; R42 Dizziness and giddiness; Z85.528 Personal history of other malignant neoplasm of kidney; Z90.5 Acquired absence of kidney; Z79.84 Long term (current) use of oral hypoglycemic drugs; Z79.899 Other long term (current) drug therapy; Z88.5 Allergy status to narcotic agent; Z90.49 Acquired absence of other specified parts of digestive tract; Z98.890 Other specified postprocedural states
CPT/HCPCS: 43245; 81025; 82947; C1726; J2704

== ENCOUNTER → 2023-05-23 10:12 | Outpatient (BNV) | payer OTHER, SELFPAY | PROVIDERS: PCP Family Medicine; Visit Provider Internal Medicine Gastroenterology | DX: R10.13 Epigastric pain (principal) | CPT/HCPCS: 43249 ==

== ENCOUNTER 2023-07-23 10:01 | Day surgery (SDC) | payer OTHER, SELFPAY ==
--- NOTE | 2023-07-22 10:22 | HO.ANESPROP2 ---
Documented by User: Billie Stewart NP 08/01/23 15:00 HPI - Anesthesia Eval Consult details Narrative: 47yo F for Upper Endoscopy rigiflex ballon s/p same 05/2023 s/p L nephrectomy r/t renal ca PMFSH Active Problems Active Problems: All Active Problems (Updated 04/16/23 @ 06:49 by Charley Ontiveros, RN) SOB (shortness of breath) (Acute) Pre-op evaluation (Acute) Unspecified mood [affective] disorder (Acute) Generalized anxiety disorder (Acute) GERD (gastroesophageal reflux disease) (Acute) Abdominal pain (Acute) Renal cell carcinoma (Acute) Dysphagia (Acute) Hiatal hernia (Acute) History of repair of hiatal hernia (Acute) Pituitary adenoma (Acute) Vertigo (Acute) Schizophrenia (Acute) HTN (hypertension), benign (Acute) Anemia (Chronic) Overweight (BMI 25.0-29.9) (Acute) Epigastric abdominal pain (Acute) S/P laparoscopic sleeve gastrectomy (Acute) Epigastric abdominal pain (Acute) Gastroparesis (Acute) Renal cancer (Acute) Diabetes (Acute) Past Medical History Medical History (Updated 07/23/23 @ 11:14 by Beatriz Trevino RN) Menopause History of menopause Vertigo Depression Anxiety GERD (gastroesophageal reflux disease) Sleep apnea COVID-19 vaccine series completed Renal cancer Fatty liver Diabetes HTN (hypertension) Family History Family History Father Septic shock Maternal Uncle Liver cancer Stomach cancer Hepatitis C Maternal Aunt Lupus Mother HTN (hypertension) Diabetes Heart problem Son Asthma Acute anxiety Son Autism ADHD (attention deficit hyperactivity disorder) Son No problems noted. Son No problems noted. Son No problems noted. Daughter GERD (gastroesophageal reflux disease) Daughter No problems noted. Daughter No problems noted. Family history of problems with anesthesia: No Surgical History Surgical History (Updated 05/21/23 @ 14:47 by Aileen Tilley RN) History of pubovaginal sling History of left oophorectomy History of left nephrectomy History of esophagogastroduodenoscopy (EGD) Hx of vaginal surgery History of sleeve gastrectomy Hx laparoscopic cholecystectomy History of Problems with Anesthesia: Yes (PONV) Social History Social History Household Members: Spouse and Children Housing: House Are you a primary wound care specialist to a significant other at home: No Do you presently have visiting nurse or other home services: No Alcohol intake: never Patient Tobacco Use Status: Never used Tobacco Second Hand Smoke Exposure: No service: No Current occupational status: disabled Meds Allergies Allergy/AdvReac Type Severity Reaction Status Date / Time codeine Allergy Mild Anaphylaxis Verified 02/06/23 10:56 morphine AdvReac vomiting Verified 02/06/23 10:56 Home Medications Medication Instructions Recorded Confirmed Last Taken Type blood sugar diagnostic (FreeStyle #10 ea 05/19/21 12/07/22 Unknown History Lite Strips) clotrimazole-betamethasone 1 1 appl topical DAILY 05/19/21 05/21/23 Unknown History %-0.05 % topical cream estradiol 0.01% (0.1 mg/gram) 1 appl vaginal DAILY 05/19/21 05/21/23 Unknown History vaginal cream lamotrigine 100 mg tablet 200 mg PO DAILY 05/19/21 04/05/23 Unknown History lancets 28 gauge (FreeStyle #100 ea 05/19/21 12/07/22 Unknown History Lancets) lisinopril 2.5 mg tablet 2.5 mg PO DAILY 05/19/21 05/21/23 Unknown History lorazepam 1 mg tablet 1 mg PO QID PRN Anxiety 05/19/21 05/21/23 Unknown History meclizine 25 mg tablet 5 mg PO DAILY PRN Vertigo 05/19/21 05/21/23 Unknown History nabumetone 500 mg tablet 500 mg PO BID 05/19/21 05/21/23 Unknown History perphenazine 16 mg tablet 16 mg PO BID 05/19/21 04/05/23 Unknown History prazosin 5 mg capsule 5 mg PO BEDTIME 05/19/21 05/21/23 Unknown History simethicone 80 mg chewable tablet 80 mg PO DAILY PRN Acid Reflux 05/19/21 05/21/23 Unknown History (Mi-Acid Gas Relief (simethicone)) sucralfate 100 mg/mL oral 100 mg PO DAILY 05/19/21 05/21/23 Unknown History suspension terconazole 0.4 % vaginal cream 1 appful vaginal BEDTIME 05/19/21 05/21/23 Unknown History tramadol 100 mg capsule 100 mg PO DAILY 05/19/21 05/21/23 Unknown History 24h,extended release(25-75) venlafaxine 150 mg 150 mg PO DAILY 05/19/21 05/21/23 Unknown History capsule,extended release 24 hr venlafaxine 75 mg capsule,extended 75 mg PO DAILY 05/19/21 05/21/23 Unknown History release 24 hr zolpidem 5 mg tablet 5 mg PO BEDTIME PRN Insomnia 05/19/21 05/21/23 Unknown History glipizide 2.5 mg tablet, extended 2.5 mg PO DAILY 10/06/21 05/21/23 Unknown History release 24 hr trazodone 50 mg tablet 50 mg PO BEDTIME 10/06/21 05/21/23 Unknown History perphenazine 8 mg tablet 8 mg PO BEDTIME 01/23/22 05/21/23 Unknown History aripiprazole 10 mg tablet 10 mg PO DAILY 08/31/22 05/21/23 Unknown History polyethylene glycol 3350 17 17 g PO Q10M PRN Constipation 02/28/23 Unknown History gram/dose oral powder (Miralax) albuterol sulfate 90 mcg/actuation 2 puff inhalation Q4H PRN wheezing 03/11/23 Unknown History aerosol inhaler (Ventolin HFA) gabapentin 100 mg capsule 500 mg PO TID 03/11/23 Unknown History ibuprofen 800 mg tablet 800 mg PO Q8H PRN pain 03/11/23 Unknown History lamotrigine 200 mg tablet 200 mg PO DAILY 03/11/23 05/21/23 Unknown History pantoprazole 40 mg tablet,delayed 40 mg PO BID 03/11/23 Unknown History release Assessment and Plan Assessment Anesthesia Assessment: Chart Reviewed Final Anesthetic Review Family History of Problems with Anesthesia: No History of Problems with Anesthesia: Yes (PONV) Documented by User: Boni Ibrahim MD 08/01/23 15:14 COUNT INCLUDES THE [facility] Past Medical History Medical History (Updated 07/23/23 @ 11:14 by Beatriz Trevino RN) Menopause History of menopause Vertigo Depression Anxiety GERD (gastroesophageal reflux disease) Sleep apnea COVID-19 vaccine series completed Renal cancer Fatty liver Diabetes HTN (hypertension) Family History Family History Father Septic shock Maternal Uncle Liver cancer Stomach cancer Hepatitis C Maternal Aunt Lupus Mother HTN (hypertension) Diabetes Heart problem Son Asthma Acute anxiety Son Autism ADHD (attention deficit hyperactivity disorder) Son No problems noted. Son No problems noted. Son No problems noted. Daughter GERD (gastroesophageal reflux disease) Daughter No problems noted. Daughter No problems noted. Surgical History Surgical History (Updated 05/21/23 @ 14:47 by Aileen Tilley RN) History of pubovaginal sling History of left oophorectomy History of left nephrectomy History of esophagogastroduodenoscopy (EGD) Hx of vaginal surgery History of sleeve gastrectomy Hx laparoscopic cholecystectomy Social History Social History Household Members: Spouse and Children Housing: House Are you a primary wound care specialist to a significant other at home: No Do you presently have visiting nurse or other home services: No Alcohol intake: never Patient Tobacco Use Status: Never used Tobacco Second Hand Smoke Exposure: No service: No Current occupational status: disabled Meds Allergies Allergy/AdvReac Type Severity Reaction Status Date / Time codeine Allergy Mild Anaphylaxis Verified 02/06/23 10:56 morphine AdvReac vomiting Verified 02/06/23 10:56 Home Medications Medication Instructions Recorded Confirmed Last Taken Type blood sugar diagnostic (FreeStyle #10 ea 05/19/21 12/07/22 Unknown History Lite Strips) clotrimazole-betamethasone 1 1 appl topical DAILY 05/19/21 05/21/23 Unknown History %-0.05 % topical cream estradiol 0.01% (0.1 mg/gram) 1 appl vaginal DAILY 05/19/21 05/21/23 Unknown History vaginal cream lamotrigine 100 mg tablet 200 mg PO DAILY 05/19/21 04/05/23 Unknown History lancets 28 gauge (FreeStyle #100 ea 05/19/21 12/07/22 Unknown History Lancets) lisinopril 2.5 mg tablet 2.5 mg PO DAILY 05/19/21 05/21/23 Unknown History lorazepam 1 mg tablet 1 mg PO QID PRN Anxiety 05/19/21 05/21/23 Unknown History meclizine 25 mg tablet 5 mg PO DAILY PRN Vertigo 05/19/21 05/21/23 Unknown History nabumetone 500 mg tablet 500 mg PO BID 05/19/21 05/21/23 Unknown History perphenazine 16 mg tablet 16 mg PO BID 05/19/21 04/05/23 Unknown History prazosin 5 mg capsule 5 mg PO BEDTIME 05/19/21 05/21/23 Unknown History simethicone 80 mg chewable tablet 80 mg PO DAILY PRN Acid Reflux 05/19/21 05/21/23 Unknown History (Mi-Acid Gas Relief (simethicone)) sucralfate 100 mg/mL oral 100 mg PO DAILY 05/19/21 05/21/23 Unknown History suspension terconazole 0.4 % vaginal cream 1 appful vaginal BEDTIME 05/19/21 05/21/23 Unknown History tramadol 100 mg capsule 100 mg PO DAILY 05/19/21 05/21/23 Unknown History 24h,extended release(25-75) venlafaxine 150 mg 150 mg PO DAILY 05/19/21 05/21/23 Unknown History capsule,extended release 24 hr venlafaxine 75 mg capsule,extended 75 mg PO DAILY 05/19/21 05/21/23 Unknown History release 24 hr zolpidem 5 mg tablet 5 mg PO BEDTIME PRN Insomnia 05/19/21 05/21/23 Unknown History glipizide 2.5 mg tablet, extended 2.5 mg PO DAILY 10/06/21 05/21/23 Unknown History release 24 hr trazodone 50 mg tablet 50 mg PO BEDTIME 10/06/21 05/21/23 Unknown History perphenazine 8 mg tablet 8 mg PO BEDTIME 01/23/22 05/21/23 Unknown History aripiprazole 10 mg tablet 10 mg PO DAILY 08/31/22 05/21/23 Unknown History polyethylene glycol 3350 17 17 g PO Q10M PRN Constipation 02/28/23 Unknown History gram/dose oral powder (Miralax) albuterol sulfate 90 mcg/actuation 2 puff inhalation Q4H PRN wheezing 03/11/23 Unknown History aerosol inhaler (Ventolin HFA) gabapentin 100 mg capsule 500 mg PO TID 03/11/23 Unknown History ibuprofen 800 mg tablet 800 mg PO Q8H PRN pain 03/11/23 Unknown History lamotrigine 200 mg tablet 200 mg PO DAILY 03/11/23 05/21/23 Unknown History pantoprazole 40 mg tablet,delayed 40 mg PO BID 03/11/23 Unknown History release Exam Airway Mallampati Class: III TM Dist: >3cm Neck ROM: Full Assessment and Plan Assessment Anesthesia Assessment: Anesthesia Plan Discussed Final Anesthetic Review NPO: Yes ASA Class: III Final Preanesthetic Review: No Changes in Pt Med Stat, Meds/Allgs Chart Reviewed, Consent Obtained/Reviewed and Anes Risks/Benef Reviewed Patient Risk: Intermediate Procedure Risk: Low Anesthetic Plan Anesthetic Plan: GA Disposition: Standard PACU
[2023-07-23] VITALS (8 sets, daily range): BP systolic 116–141; BP diastolic 76–86; PULSE 70–80; RESP 14–20; TEMP 36.4–36.6; O2SAT 99–100; BMI 26.7
--- NOTE | ~2023-07-23 | FL_ITS ---
EXAMINATION: XR FLUOROSCOPY WITH IMAGES CLINICAL INFORMATION: Upper endoscopy COMPARISON: None available. TECHNIQUE: Fluoroscopy Supervised By: Dr. Zeinab Melendez. Fluoroscopy Time: 1.0 minutes. Cumulative Dose: 11.9 mGy. DAP: 0.207 Gycm2. Images: 2. FINDINGS: Technical assistance and equipment were provided by the Department of Radiology during intraoperative fluoroscopy. A total of 2 limited fluoroscopic spot images are submitted for archival purposes. A radiologist was not present during the procedure. The images are available for review on PACS. FL/FL guidance in OR IMPRESSION: Technical assistance and equipment provided by the Department of Radiology during procedural fluoroscopy, as above. Please see procedure report for further details.
[2023-07-23] MEDS: Lactated Ringers 1,000 ML 100 ML IVCONT (10:25)
[2023-07-23 10:46] LABS: Glucose, Whole Blood 89 mg/dL (60-115)
--- NOTE | 2023-07-23 10:52 | MHC.SHP ---
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 Relevant Family History (Specify if Yes): No Relevant Social History: None Present Medications: see Short Stay Collaborative assessment Medical History: Significant History (Vertigo Depression Anxiety GERD (gastroesophageal reflux disease) Sleep apnea COVID-19 vaccine series completed Renal cancer Fatty liver Diabetes HTN (hypertension)) History of Previous Operations: Relevant previous surgery/procedure and date(s) (History of pubovaginal sling History of left oophorectomy History of left nephrectomy History of esophagogastroduodenoscopy (EGD) Hx of vaginal surgery History of sleeve gastrectomy Hx laparoscopic cholecystectomy) Allergies: Allergies Allergy/AdvReac Type Severity Reaction Status Date / Time codeine Allergy Mild Anaphylaxis Verified 02/06/23 10:56 morphine AdvReac vomiting Verified 02/06/23 10:56 Review of Systems Sugical H&P ROS: Negative: Constitution, Cardiovascular, Respiratory, Neurological, Psychiatric, Hem-Onc, Allergic/Immunologic, Gastrointestinal, Genitourinary, Musculoskeletal, Integumentary, Endocrine and Eyes/Ears/Nose/Throat Exam Surgical H&P Exam: Normal: HEENT, Normal: Heart, Normal: Lungs, Normal: Extremities, Normal: Abdomen, Normal: Skin and Normal: Neurological Plan Diagnosis/Plan: Unchanged I have reviewed the history and physical and performed a pertinent physical examination on my patient. No changes have occurred unless specified. Time Spent With Patient Time: Total time managing care of this patient today ____ minutes.
[2023-07-23] MEDS: Scopolamine 1.5 MG PATCH.TD.3 1 MG EAR-BEHIND (11:53)
--- NOTE | 2023-07-23 13:10 | W.PM.OPN ---
Operative Note Operative Note Date of Service: 07/23/23 Narrative: Procedure Description: EGD Indication: [] Anesthesia: MAC FLEXIBLE TRANSORAL UPPER GASTROINTESTINAL ENDOSCOPY UPPER ENDOSCOPY Consent: Indications for the procedure and potential complications of bleeding, perforation, reaction to medications and missed diagnosis were discussed with the patient and informed consent was obtained. Instrument: Olympus GIF H 190 J mid size upper endoscope Monitoring: Vital signs and clinical assessment, continuous EKG monitoring, Pulse oximetry, Carbon Dioxide monitoring and blood pressure monitoring were done throughout the procedure. Procedure: The patient was placed in the left lateral decubitis position and pre-procedure medications were administered and a bite block was placed. The endoscope was inserted into the mouth and advanced under direct vision to the third part of duodenum. A careful inspection was made as the upper endoscope was withdrawn including a retroflexed examination of the proximal stomach; Findings and interventions are described below. Findings: Findings: Larynx:normal Esophagus: GE junction at 33? cm, diaphragm hiatus at 36 cm, consistent with 3 cm hiatal hernia, Stomach: Granular mucosa and erythema in the antrum, bx taken. Grade 2 flap valve on retroflexed examination of the cardia. In the mid stomach angulation noted which can be seen s/p sleeve gastrectomy. This was externally marked using fluoroscopy with a marker. A wire was then passed and over the wire a 35 mm pneumatic balloon was passed both with radiologic and endoscopic visualization. The balloon was then inflated but the sphygomanometer was not pickign up the pressure although the balloon was inflating. The balloon was then injected with contrast and reinflated for 10 mins. No tears were seen. Duodenum: Normal bulb and descending duodenum, Intervention: pneumatic balloon dilation using fluoroscopy and endoscopic visualization Impression/Findings: sleeve gastrectomy s/p rigid balloon dilation mid stomach, may have external adhesions as well hiatal hernia gastritis PLAN: suspect her sx are due to post sleeve gastrectomy external adhesions, should eat small meals and chew thoroughly, drink fluids with food will send her percocet for few days and magic mouthwash for expected post procedure pain and discomfort, has carafate at home. she is waiting to see a specialist in [place] for more definitive management -bariatric surgeon end of Jul 2023
[2023-07-23] MEDS: Mag&Al/Sim/Diphenhyd/Lidocaine 10 ML ORAL.SUSP PO (13:25)
== END 2023-07-23 14:29 | disposition home or self-care (01) ==
PROVIDERS: PCP Family Medicine; Visit Provider Internal Medicine Gastroenterology
PROC: 0DJ08ZZ Inspection of Upper Intestinal Tract, Via Natural or Artificial Opening Endoscopic (ICD-10-PCS; CPT 43235; principal; 2023-07-23 11:40)
DX: K31.2 Hourglass stricture and stenosis of stomach (principal); K29.50 Unspecified chronic gastritis without bleeding; K44.9 Diaphragmatic hernia without obstruction or gangrene; Z98.84 Bariatric surgery status; R68.81 Early satiety; K59.00 Constipation, unspecified; G47.33 Obstructive sleep apnea (adult) (pediatric); K76.0 Fatty (change of) liver, not elsewhere classified; I10 Essential (primary) hypertension; E11.9 Type 2 diabetes mellitus without complications; Z85.528 Personal history of other malignant neoplasm of kidney; Z90.5 Acquired absence of kidney; Z79.1 Long term (current) use of non-steroidal anti-inflammatories (NSAID); Z79.84 Long term (current) use of oral hypoglycemic drugs; Z79.899 Other long term (current) drug therapy; Z88.5 Allergy status to narcotic agent; Z90.49 Acquired absence of other specified parts of digestive tract; Z98.890 Other specified postprocedural states
CPT/HCPCS: 43245; 43239; 82947; 88305; 88342; C1726; J0330; J1100; J2405; J2704; J3010; Q9967

== ENCOUNTER → 2023-07-23 10:01 | Outpatient (BNV) | payer OTHER, SELFPAY | PROVIDERS: PCP Family Medicine; Visit Provider Internal Medicine Gastroenterology | DX: K31.89 Other diseases of stomach and duodenum (principal); Z90.3 Acquired absence of stomach [part of]; Z98.84 Bariatric surgery status | CPT/HCPCS: 43239; 43245 ==

== ENCOUNTER 2023-08-21 10:38 | Day surgery (SDC) | payer OTHER, SELFPAY ==
[2023-08-19 14:34] VITALS: BMI 26.7
[2023-08-21] VITALS (8 sets, daily range): BP systolic 109–155; BP diastolic 74–98; PULSE 63–81; RESP 14–16; TEMP 36.1–36.7; O2SAT 100; BMI 26.5
--- NOTE | ~2023-08-21 | FL_ITS ---
EXAMINATION: XR FLUOROSCOPY WITH IMAGES CLINICAL INFORMATION: EGD with balloon COMPARISON: None available. TECHNIQUE: Fluoroscopy Supervised By: Zeinab Melendez ([phone]). Fluoroscopy Time: 6.7 seconds. Cumulative Dose air kerma,: 1.55 mGy. Images: 4. FINDINGS: Intraoperative fluoroscopy provided, endoscopy tube and balloon. Surgical clips right upper quadrant likely from prior cholecystectomy. FL/FL guidance in OR IMPRESSION: Intraoperative fluoroscopy provided for endoscopy. Please refer to procedure note for full study description and findings.
[2023-08-21] MEDS: Lactated Ringers 1,000 ML 100 ML IVCONT (11:07)
[2023-08-21 11:09] LABS: Glucose, Whole Blood 83 mg/dL (60-115)
[2023-08-21 11:23] LABS: UPreg QC Valid YES; Urine Pregnancy NEGATIVE (NEGATIVE)
--- NOTE | 2023-08-21 11:55 | HO.ANESPROP2 ---
Documented by User: Billie Stewart NP 08/20/23 10:57 HPI - Anesthesia Eval Consult details Narrative: 47yo F for Upper Endoscopy rigiflex ballon s/p same 07/2023 with GA-ETT 7 PMFSH Active Problems Active Problems: All Active Problems (Updated 07/23/23 @ 11:14 by Beatriz Trevino RN) SOB (shortness of breath) (Acute) Pre-op evaluation (Acute) Unspecified mood [affective] disorder (Acute) Generalized anxiety disorder (Acute) GERD (gastroesophageal reflux disease) (Acute) Abdominal pain (Acute) Renal cell carcinoma (Acute) Dysphagia (Acute) Hiatal hernia (Acute) History of repair of hiatal hernia (Acute) Pituitary adenoma (Acute) Vertigo (Acute) Schizophrenia (Acute) HTN (hypertension), benign (Acute) Anemia (Chronic) Overweight (BMI 25.0-29.9) (Acute) Epigastric abdominal pain (Acute) S/P laparoscopic sleeve gastrectomy (Acute) Epigastric abdominal pain (Acute) Gastroparesis (Acute) Renal cancer (Acute) Diabetes (Acute) Past Medical History Medical History (Updated 07/23/23 @ 11:14 by Beatriz Trevino RN) Menopause History of menopause Vertigo Depression Anxiety GERD (gastroesophageal reflux disease) Sleep apnea COVID-19 vaccine series completed Renal cancer Fatty liver Diabetes HTN (hypertension) Family History Family History Father Septic shock Maternal Uncle Liver cancer Stomach cancer Hepatitis C Maternal Aunt Lupus Mother HTN (hypertension) Diabetes Heart problem Son Asthma Acute anxiety Son Autism ADHD (attention deficit hyperactivity disorder) Son No problems noted. Son No problems noted. Son No problems noted. Daughter GERD (gastroesophageal reflux disease) Daughter No problems noted. Daughter No problems noted. Family history of problems with anesthesia: No Surgical History Surgical History (Updated 08/19/23 @ 14:20 by Aileen Tilley RN) History of pubovaginal sling History of left oophorectomy History of left nephrectomy History of esophagogastroduodenoscopy (EGD) Hx of vaginal surgery History of sleeve gastrectomy Hx laparoscopic cholecystectomy History of Problems with Anesthesia: Yes (PONV) Social History Social History Household Members: Spouse and Children Housing: House Are you a primary home health caregiver to a significant other at home: No Do you presently have visiting nurse or other home services: No Alcohol intake: never Patient Tobacco Use Status: Never used Tobacco Second Hand Smoke Exposure: No Use of substances other than those prescribed or required for medical reasons: No Are you DNR?: No Advance Directives: No Advance Directives Information Provided: Yes service: No Current occupational status: disabled Meds Allergies Allergy/AdvReac Type Severity Reaction Status Date / Time codeine Allergy Mild Anaphylaxis Verified 02/06/23 10:56 morphine AdvReac vomiting Verified 02/06/23 10:56 Home Medications Medication Instructions Recorded Confirmed Last Taken Type blood sugar diagnostic (FreeStyle #10 ea 05/19/21 12/07/22 Unknown History Lite Strips) clotrimazole-betamethasone 1 1 appl topical DAILY 05/19/21 05/21/23 Unknown History %-0.05 % topical cream estradiol 0.01% (0.1 mg/gram) 1 appl vaginal DAILY 05/19/21 05/21/23 Unknown History vaginal cream lamotrigine 100 mg tablet 200 mg PO DAILY 05/19/21 08/19/23 Unknown History lancets 28 gauge (FreeStyle #100 ea 05/19/21 12/07/22 Unknown History Lancets) lisinopril 2.5 mg tablet 2.5 mg PO DAILY 05/19/21 05/21/23 Unknown History lorazepam 1 mg tablet 1 mg PO QID PRN Anxiety 05/19/21 08/19/23 Unknown History meclizine 25 mg tablet 5 mg PO DAILY PRN Vertigo 05/19/21 08/19/23 Unknown History nabumetone 500 mg tablet 500 mg PO BID 05/19/21 05/21/23 Unknown History perphenazine 16 mg tablet 16 mg PO BID 05/19/21 08/19/23 Unknown History prazosin 5 mg capsule 5 mg PO BEDTIME 05/19/21 08/19/23 Unknown History simethicone 80 mg chewable tablet 80 mg PO DAILY PRN Acid Reflux 05/19/21 05/21/23 Unknown History (Mi-Acid Gas Relief (simethicone)) sucralfate 100 mg/mL oral 100 mg PO DAILY 05/19/21 05/21/23 Unknown History suspension terconazole 0.4 % vaginal cream 1 appful vaginal BEDTIME 05/19/21 05/21/23 Unknown History venlafaxine 150 mg 150 mg PO DAILY 05/19/21 08/19/23 Unknown History capsule,extended release 24 hr venlafaxine 75 mg capsule,extended 75 mg PO DAILY 05/19/21 08/19/23 Unknown History release 24 hr zolpidem 5 mg tablet 5 mg PO BEDTIME PRN Insomnia 05/19/21 08/19/23 Unknown History glipizide 2.5 mg tablet, extended 2.5 mg PO DAILY 10/06/21 08/19/23 Unknown History release 24 hr trazodone 50 mg tablet 50 mg PO BEDTIME 10/06/21 08/19/23 Unknown History perphenazine 8 mg tablet 8 mg PO BEDTIME 01/23/22 08/19/23 Unknown History aripiprazole 10 mg tablet 10 mg PO DAILY 08/31/22 08/19/23 Unknown History polyethylene glycol 3350 17 17 g PO Q10M PRN Constipation 02/28/23 Unknown History gram/dose oral powder (Miralax) gabapentin 100 mg capsule 500 mg PO TID 03/11/23 Unknown History ibuprofen 800 mg tablet 800 mg PO Q8H PRN pain 03/11/23 08/19/23 Unknown History lamotrigine 200 mg tablet 200 mg PO DAILY 03/11/23 08/19/23 Unknown History pantoprazole 40 mg tablet,delayed 40 mg PO BID 03/11/23 08/19/23 Unknown History release albuterol sulfate 90 mcg/actuation 2 puff inhalation Q4H PRN wheezing 08/19/23 08/19/23 Unknown History aerosol inhaler (Ventolin HFA) Exam Height,Weight and Vital Signs: Height 5 ft 2 in Weight 66.315 kg Assessment and Plan Assessment Anesthesia Assessment: Chart Reviewed Final Anesthetic Review Family History of Problems with Anesthesia: No History of Problems with Anesthesia: Yes (PONV) Documented by User: Charley Kohler DO 08/21/23 12:05 PMFSH Past Medical History Medical History (Updated 07/23/23 @ 11:14 by Beatriz Trevino RN) Menopause History of menopause Vertigo Depression Anxiety GERD (gastroesophageal reflux disease) Sleep apnea COVID-19 vaccine series completed Renal cancer Fatty liver Diabetes HTN (hypertension) Family History Family History Father Septic shock Maternal Uncle Liver cancer Stomach cancer Hepatitis C Maternal Aunt Lupus Mother HTN (hypertension) Diabetes Heart problem Son Asthma Acute anxiety Son Autism ADHD (attention deficit hyperactivity disorder) Son No problems noted. Son No problems noted. Son No problems noted. Daughter GERD (gastroesophageal reflux disease) Daughter No problems noted. Daughter No problems noted. Family history of problems with anesthesia: No Surgical History Surgical History (Updated 08/19/23 @ 14:20 by Aileen Tilley RN) History of pubovaginal sling History of left oophorectomy History of left nephrectomy History of esophagogastroduodenoscopy (EGD) Hx of vaginal surgery History of sleeve gastrectomy Hx laparoscopic cholecystectomy History of Problems with Anesthesia: Yes (PONV) Social History Social History Household Members: Spouse and Children Housing: House Are you a primary home health caregiver to a significant other at home: No Do you presently have visiting nurse or other home services: No Alcohol intake: never Patient Tobacco Use Status: Never used Tobacco Second Hand Smoke Exposure: No Use of substances other than those prescribed or required for medical reasons: No Are you DNR?: No Advance Directives: No Advance Directives Information Provided: Yes service: No Current occupational status: disabled Meds Allergies Allergy/AdvReac Type Severity Reaction Status Date / Time codeine Allergy Mild Anaphylaxis Verified 02/06/23 10:56 morphine AdvReac vomiting Verified 02/06/23 10:56 Home Medications Medication Instructions Recorded Confirmed Last Taken Type blood sugar diagnostic (FreeStyle #10 ea 05/19/21 12/07/22 Unknown History Lite Strips) clotrimazole-betamethasone 1 1 appl topical DAILY 05/19/21 05/21/23 Unknown History %-0.05 % topical cream estradiol 0.01% (0.1 mg/gram) 1 appl vaginal DAILY 05/19/21 05/21/23 Unknown History vaginal cream lamotrigine 100 mg tablet 200 mg PO DAILY 05/19/21 08/19/23 Unknown History lancets 28 gauge (FreeStyle #100 ea 05/19/21 12/07/22 Unknown History Lancets) lisinopril 2.5 mg tablet 2.5 mg PO DAILY 05/19/21 05/21/23 Unknown History lorazepam 1 mg tablet 1 mg PO QID PRN Anxiety 05/19/21 08/19/23 Unknown History meclizine 25 mg tablet 5 mg PO DAILY PRN Vertigo 05/19/21 08/19/23 Unknown History nabumetone 500 mg tablet 500 mg PO BID 05/19/21 05/21/23 Unknown History perphenazine 16 mg tablet 16 mg PO BID 05/19/21 08/19/23 Unknown History prazosin 5 mg capsule 5 mg PO BEDTIME 05/19/21 08/19/23 Unknown History simethicone 80 mg chewable tablet 80 mg PO DAILY PRN Acid Reflux 05/19/21 05/21/23 Unknown History (Mi-Acid Gas Relief (simethicone)) sucralfate 100 mg/mL oral 100 mg PO DAILY 05/19/21 05/21/23 Unknown History suspension terconazole 0.4 % vaginal cream 1 appful vaginal BEDTIME 05/19/21 05/21/23 Unknown History venlafaxine 150 mg 150 mg PO DAILY 05/19/21 08/19/23 Unknown History capsule,extended release 24 hr venlafaxine 75 mg capsule,extended 75 mg PO DAILY 05/19/21 08/19/23 Unknown History release 24 hr zolpidem 5 mg tablet 5 mg PO BEDTIME PRN Insomnia 05/19/21 08/19/23 Unknown History glipizide 2.5 mg tablet, extended 2.5 mg PO DAILY 10/06/21 08/19/23 Unknown History release 24 hr trazodone 50 mg tablet 50 mg PO BEDTIME 10/06/21 08/19/23 Unknown History perphenazine 8 mg tablet 8 mg PO BEDTIME 01/23/22 08/19/23 Unknown History aripiprazole 10 mg tablet 10 mg PO DAILY 08/31/22 08/19/23 Unknown History polyethylene glycol 3350 17 17 g PO Q10M PRN Constipation 02/28/23 Unknown History gram/dose oral powder (Miralax) gabapentin 100 mg capsule 500 mg PO TID 03/11/23 Unknown History ibuprofen 800 mg tablet 800 mg PO Q8H PRN pain 03/11/23 08/19/23 Unknown History lamotrigine 200 mg tablet 200 mg PO DAILY 03/11/23 08/19/23 Unknown History pantoprazole 40 mg tablet,delayed 40 mg PO BID 03/11/23 08/19/23 Unknown History release albuterol sulfate 90 mcg/actuation 2 puff inhalation Q4H PRN wheezing 08/19/23 08/19/23 Unknown History aerosol inhaler (Ventolin HFA) Exam Exam Date and Time: August 21, 2023 1155 Height,Weight and Vital Signs: Height 5 ft 2 in Weight 66.315 kg Height 5 ft 2 in Weight 65.771 kg Vital Signs Temperature 96.9 F 08/21/23 11:06 Pulse Rate 73 08/21/23 11:06 Respiratory Rate 16 08/21/23 11:06 Blood Pressure 109/74 08/21/23 11:06 Pulse Oximetry 100 08/21/23 11:06 Oxygen Delivery Method Room Air 08/21/23 11:06 Temperature 96.9 F 08/21/23 11:06 Pulse Rate 73 08/21/23 11:06 Respiratory Rate 16 08/21/23 11:06 Blood Pressure 109/74 08/21/23 11:06 Pulse Oximetry 100 08/21/23 11:06 Oxygen Delivery Method Room Air 08/21/23 11:06 Airway Mallampati Class: II TM Dist: >3cm Neck ROM: Full Loose/Missing/Broken Teeth: No Heart: S1S2 Lungs: CTAB Assessment and Plan Assessment Anesthesia Assessment: Anesthesia Plan Discussed and Chart Reviewed Final Anesthetic Review Family History of Problems with Anesthesia: No History of Problems with Anesthesia: Yes (PONV) NPO: Yes ASA Class: III Final Preanesthetic Review: No Changes in Pt Med Stat, Meds/Allgs Chart Reviewed, Consent Obtained/Reviewed and Anes Risks/Benef Reviewed Patient Risk: Low Procedure Risk: Low Anesthetic Plan Anesthetic Plan: GA and Agree w/ Assess. and Plan Disposition: Standard PACU
--- NOTE | 2023-08-21 12:43 | MHC.SHP ---
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 Relevant Family History (Specify if Yes): No Relevant Social History: None Present Medications: see Short Stay Collaborative assessment Medical History: Significant History (Menopause History of menopause Vertigo Depression Anxiety GERD (gastroesophageal reflux disease) Sleep apnea COVID-19 vaccine series completed Renal cancer Fatty liver Diabetes HTN (hypertension)) History of Previous Operations: Relevant previous surgery/procedure and date(s) (History of pubovaginal sling History of left oophorectomy History of left nephrectomy History of esophagogastroduodenoscopy (EGD) Hx of vaginal surgery History of sleeve gastrectomy Hx laparoscopic cholecystectomy) Allergies: Allergies Allergy/AdvReac Type Severity Reaction Status Date / Time codeine Allergy Mild Anaphylaxis Verified 02/06/23 10:56 morphine AdvReac vomiting Verified 02/06/23 10:56 Review of Systems Sugical H&P ROS: Negative: Constitution, Cardiovascular, Respiratory, Neurological, Psychiatric, Hem-Onc, Allergic/Immunologic, Gastrointestinal, Genitourinary, Musculoskeletal, Integumentary, Endocrine and Eyes/Ears/Nose/Throat Exam Surgical H&P Exam: Normal: HEENT, Normal: Heart, Normal: Lungs, Normal: Extremities, Normal: Abdomen, Normal: Skin and Normal: Neurological Plan Diagnosis/Plan: Unchanged I have reviewed the history and physical and performed a pertinent physical examination on my patient. No changes have occurred unless specified. EGD with rigid balloon dilation Time Spent With Patient Time: Total time managing care of this patient today ____ minutes.
--- NOTE | 2023-08-21 12:44 | W.PM.OPN ---
Operative Note Operative Note Date of Service: 08/21/23 Narrative: Procedure Description: EGD Indication: gastric stricture Anesthesia: GA FLEXIBLE TRANSORAL UPPER GASTROINTESTINAL ENDOSCOPY UPPER ENDOSCOPY Consent: Indications for the procedure and potential complications of bleeding, perforation, reaction to medications and missed diagnosis were discussed with the patient and informed consent was obtained. Instrument: Olympus GIF H 190 J mid size upper endoscope Monitoring: Vital signs and clinical assessment, continuous EKG monitoring, Pulse oximetry, Carbon Dioxide monitoring and blood pressure monitoring were done throughout the procedure. Procedure: The patient was placed in the left lateral decubitis position and pre-procedure medications were administered and a bite block was placed. The endoscope was inserted into the mouth and advanced under direct vision to the third part of duodenum. A careful inspection was made as the upper endoscope was withdrawn including a retroflexed examination of the proximal stomach; Findings and interventions are described below. Findings: Larynx:normal Esophagus: GE junction at 33? cm, diaphragm hiatus at 36 cm, consistent with 3 cm hiatal hernia, Stomach: Normal appearing mucosa. Grade 2 flap valve on retroflexed examination of the cardia. In the mid stomach angulation noted which can be seen s/p sleeve gastrectomy. This was externally marked using fluoroscopy with a marker. A wire was then passed and over the wire a 35 mm pneumatic balloon was passed both with radiologic and endoscopic visualization. The balloon was then inflated to 12 psi at which point resistance was felt. Placement confirmed with fluoroscopy. Duodenum: Normal bulb and descending duodenum, Intervention: pneumatic balloon dilation using fluoroscopy and endoscopic visualization Impression/Findings: sleeve gastrectomy s/p rigid balloon dilation mid stomach, may have external adhesions as well hiatal hernia PLAN: suspect her sx are due to post sleeve gastrectomy external adhesions, should eat small meals and chew thoroughly, drink fluids with food will send her percocet for few days and magic mouthwash for expected post procedure pain and discomfort, she saw bariatric surgeon in [place] and plan is for conversion to RYGB
[2023-08-21] MEDS: Mag&Al/Sim/Diphenhyd/Lidocaine 10 ML ORAL.SUSP PO (14:47)
== END 2023-08-21 15:54 | disposition home or self-care (01) ==
PROVIDERS: Nurse Practitioner; PCP Family Medicine; Visit Provider Internal Medicine Gastroenterology
PROC: 0DJ08ZZ Inspection of Upper Intestinal Tract, Via Natural or Artificial Opening Endoscopic (ICD-10-PCS; CPT 43235; principal; 2023-08-21 12:40)
DX: K44.9 Diaphragmatic hernia without obstruction or gangrene (principal); K31.2 Hourglass stricture and stenosis of stomach; Z98.84 Bariatric surgery status; E11.9 Type 2 diabetes mellitus without complications; I10 Essential (primary) hypertension; Z79.4 Long term (current) use of insulin; Z79.899 Other long term (current) drug therapy
CPT/HCPCS: 43245; 81025; 82947; C1726; J0330; J1100; J2405; J2704; J3010; Q9967

== ENCOUNTER → 2023-08-21 10:38 | Outpatient (BNV) | payer OTHER, SELFPAY | PROVIDERS: PCP Family Medicine; Visit Provider Internal Medicine Gastroenterology | DX: K31.89 Other diseases of stomach and duodenum (principal); Z90.3 Acquired absence of stomach [part of]; Z98.84 Bariatric surgery status | CPT/HCPCS: 43245 ==

== ENCOUNTER 2023-10-08 08:40 | Day surgery (SDC) | payer OTHER, SELFPAY ==
[2023-10-04 10:23] VITALS: BMI 26.5
--- NOTE | 2023-10-07 13:04 | HO.ANESPROP2 ---
HPI - Anesthesia Eval Consult details Narrative: 47yo F for Upper Endoscopy with Balloon Dilitation,rigid balloon s/p same 08/2023 with GA-ETT 7 PMFSH Active Problems Active Problems: All Active Problems (Updated 07/23/23 @ 11:14 by Beatriz Trevino RN) SOB (shortness of breath) (Acute) Pre-op evaluation (Acute) Unspecified mood [affective] disorder (Acute) Generalized anxiety disorder (Acute) GERD (gastroesophageal reflux disease) (Acute) Abdominal pain (Acute) Renal cell carcinoma (Acute) Dysphagia (Acute) Hiatal hernia (Acute) History of repair of hiatal hernia (Acute) Pituitary adenoma (Acute) Vertigo (Acute) Schizophrenia (Acute) HTN (hypertension), benign (Acute) Anemia (Chronic) Overweight (BMI 25.0-29.9) (Acute) Epigastric abdominal pain (Acute) S/P laparoscopic sleeve gastrectomy (Acute) Epigastric abdominal pain (Acute) Gastroparesis (Acute) Renal cancer (Acute) Diabetes (Acute) Past Medical History Medical History Menopause History of menopause Vertigo Depression Anxiety GERD (gastroesophageal reflux disease) Sleep apnea COVID-19 vaccine series completed Renal cancer Fatty liver Diabetes HTN (hypertension) Family History Family History Father Septic shock Maternal Uncle Liver cancer Stomach cancer Hepatitis C Maternal Aunt Lupus Mother HTN (hypertension) Diabetes Heart problem Son Asthma Acute anxiety Son Autism ADHD (attention deficit hyperactivity disorder) Son No problems noted. Son No problems noted. Son No problems noted. Daughter GERD (gastroesophageal reflux disease) Daughter No problems noted. Daughter No problems noted. Family history of problems with anesthesia: No Surgical History Surgical History History of pubovaginal sling History of left oophorectomy History of left nephrectomy History of esophagogastroduodenoscopy (EGD) Hx of vaginal surgery History of sleeve gastrectomy Hx laparoscopic cholecystectomy History of Problems with Anesthesia: Yes (PONV) Social History Social History Household Members: Spouse and Children Housing: House Are you a primary child care team lead to a significant other at home: No Do you presently have visiting nurse or other home services: No Alcohol intake: never Patient Tobacco Use Status: Never used Tobacco Second Hand Smoke Exposure: No service: No Current occupational status: disabled Meds Allergies Allergy/AdvReac Type Severity Reaction Status Date / Time codeine Allergy Mild Anaphylaxis Verified 10/08/23 09:42 morphine AdvReac vomiting Verified 10/08/23 09:42 Home Medications Medication Instructions Recorded Confirmed Last Taken Type blood sugar diagnostic (FreeStyle #10 ea 05/19/21 10/08/23 Unknown History Lite Strips) clotrimazole-betamethasone 1 1 appl topical DAILY 05/19/21 10/08/23 Unknown History %-0.05 % topical cream estradiol 0.01% (0.1 mg/gram) 1 appl vaginal DAILY 05/19/21 10/08/23 Unknown History vaginal cream lancets 28 gauge (FreeStyle #100 ea 05/19/21 10/08/23 Unknown History Lancets) lisinopril 2.5 mg tablet 2.5 mg PO DAILY 05/19/21 10/08/23 Unknown History lorazepam 1 mg tablet 1 mg PO QID PRN Anxiety 05/19/21 10/08/23 Unknown History meclizine 25 mg tablet 5 mg PO DAILY PRN Vertigo 05/19/21 10/08/23 Unknown History nabumetone 500 mg tablet 500 mg PO BID 05/19/21 10/08/23 Unknown History perphenazine 16 mg tablet 16 mg PO BID 05/19/21 10/08/23 Unknown History prazosin 5 mg capsule 5 mg PO BEDTIME 05/19/21 10/08/23 Unknown History simethicone 80 mg chewable tablet 80 mg PO DAILY PRN Acid Reflux 05/19/21 10/08/23 Unknown History (Mi-Acid Gas Relief (simethicone)) sucralfate 100 mg/mL oral 100 mg PO DAILY 05/19/21 10/08/23 Unknown History suspension terconazole 0.4 % vaginal cream 1 appful vaginal BEDTIME 05/19/21 10/08/23 Unknown History venlafaxine 150 mg 150 mg PO DAILY 05/19/21 10/08/23 Unknown History capsule,extended release 24 hr venlafaxine 75 mg capsule,extended 75 mg PO DAILY 05/19/21 10/08/23 Unknown History release 24 hr zolpidem 5 mg tablet 5 mg PO BEDTIME PRN Insomnia 05/19/21 10/08/23 Unknown History glipizide 2.5 mg tablet, extended 2.5 mg PO DAILY 10/06/21 10/08/23 Unknown History release 24 hr trazodone 50 mg tablet 50 mg PO BEDTIME 10/06/21 10/08/23 Unknown History perphenazine 8 mg tablet 8 mg PO BEDTIME 01/23/22 10/08/23 Unknown History polyethylene glycol 3350 17 17 g PO Q10M PRN Constipation 02/28/23 10/08/23 Unknown History gram/dose oral powder (Miralax) ibuprofen 800 mg tablet 800 mg PO Q8H PRN pain 03/11/23 10/08/23 Unknown History pantoprazole 40 mg tablet,delayed 40 mg PO BID 03/11/23 10/08/23 Unknown History release albuterol sulfate 90 mcg/actuation 2 puff inhalation Q4H PRN wheezing 08/19/23 10/08/23 Unknown History aerosol inhaler (Ventolin HFA) Exam Height,Weight and Vital Signs: Height 5 ft 2 in Weight 65.771 kg Assessment and Plan Assessment Anesthesia Assessment: Chart Reviewed Final Anesthetic Review Family History of Problems with Anesthesia: No History of Problems with Anesthesia: Yes (PONV)
[2023-10-08 09:35] VITALS: BMI 26.9
[2023-10-08 09:36] VITALS: BP 115/74; PULSE 80; RESP 16; TEMP 36.6; O2SAT 100
--- NOTE | 2023-10-08 09:39 | MHC.SHP ---
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 Relevant Family History (Specify if Yes): No Relevant Social History: None Present Medications: see Short Stay Collaborative assessment Medical History: Significant History (Menopause History of menopause Vertigo Depression Anxiety GERD (gastroesophageal reflux disease) Sleep apnea COVID-19 vaccine series completed Renal cancer Fatty liver Diabetes HTN (hypertension)) History of Previous Operations: Relevant previous surgery/procedure and date(s) (History of pubovaginal sling History of left oophorectomy History of left nephrectomy History of esophagogastroduodenoscopy (EGD) Hx of vaginal surgery History of sleeve gastrectomy Hx laparoscopic cholecystectomy) Allergies: Allergies Allergy/AdvReac Type Severity Reaction Status Date / Time codeine Allergy Mild Anaphylaxis Verified 02/06/23 10:56 morphine AdvReac vomiting Verified 02/06/23 10:56 Review of Systems Sugical H&P ROS: Negative: Constitution, Cardiovascular, Respiratory, Neurological, Psychiatric, Hem-Onc, Allergic/Immunologic, Gastrointestinal, Genitourinary, Musculoskeletal, Integumentary, Endocrine and Eyes/Ears/Nose/Throat Exam Surgical H&P Exam: Normal: HEENT, Normal: Heart, Normal: Lungs, Normal: Extremities, Normal: Abdomen, Normal: Skin and Normal: Neurological Plan Diagnosis/Plan: Unchanged I have reviewed the history and physical and performed a pertinent physical examination on my patient. No changes have occurred unless specified. Time Spent With Patient Time: Total time managing care of this patient today ____ minutes.
--- NOTE | 2023-10-08 09:41 | W.PM.OPN ---
Operative Note Operative Note Date of Service: 10/08/23 Narrative: Procedure Description: EGD Indication: stricture Anesthesia: GA FLEXIBLE TRANSORAL UPPER GASTROINTESTINAL ENDOSCOPY UPPER ENDOSCOPY Consent: Indications for the procedure and potential complications of bleeding, perforation, reaction to medications and missed diagnosis were discussed with the patient and informed consent was obtained. Instrument: Olympus GIF H 190 J mid size upper endoscope Monitoring: Vital signs and clinical assessment, continuous EKG monitoring, Pulse oximetry, Carbon Dioxide monitoring and blood pressure monitoring were done throughout the procedure. Procedure: The patient was placed in the left lateral decubitis position and pre-procedure medications were administered and a bite block was placed. The endoscope was inserted into the mouth and advanced under direct vision to the third part of duodenum. A careful inspection was made as the upper endoscope was withdrawn including a retroflexed examination of the proximal stomach; Findings and interventions are described below. Findings: Larynx:normal Esophagus: GE junction at 33? cm, diaphragm hiatus at 36 cm, consistent with 3 cm hiatal hernia, Stomach: Normal appearing mucosa. Grade 2 flap valve on retroflexed examination of the cardia. In the mid stomach angulation noted which can be seen s/p sleeve gastrectomy. A wire was then passed and over the wire a 35 mm pneumatic balloon was passed both with endoscopic visualization. The balloon was then inflated to 10 psi at which point resistance was felt. Placement confirmed endoscopically. Duodenum: Normal bulb and descending duodenum, Intervention: pneumatic balloon dilation using endoscopic visualization Impression/Findings: sleeve gastrectomy s/p rigid balloon dilation mid stomach, may have external adhesions as well hiatal hernia PLAN: suspect her sx are due to post sleeve gastrectomy external adhesions as before, should eat small meals and chew thoroughly, drink fluids with food will send her magic mouthwash for expected post procedure pain and discomfort, she has upcoming appointments with a bariatric surgeon in [place] and plan is for conversion to RYGB
[2023-10-08 10:05] LABS: Glucose, Whole Blood 96 mg/dL (60-115)
[2023-10-08 10:44] LABS: UPreg QC Valid YES; Urine Pregnancy NEGATIVE (NEGATIVE)
[2023-10-08] MEDS: Acetaminophen 1,000 MG/100 ML PIGGYBACK 400 MG IV (11:40)
[2023-10-08] MEDS: Scopolamine 1.5 MG PATCH.TD.3 EAR-BEHIND (12:34)
[2023-10-08 13:11] LABS: Glucose, Whole Blood 81 mg/dL (60-115)
[2023-10-08 14:13] VITALS: BP 155/80; PULSE 83; RESP 14; TEMP 36.6; O2SAT 100
[2023-10-08 14:18] VITALS: BP 144/79; PULSE 83; RESP 14; O2SAT 99
[2023-10-08] MEDS: Mag&Al/Sim/Diphenhyd/Lidocaine 10 ML ORAL.SUSP PO (14:21)
[2023-10-08 14:23] VITALS: BP 128/93; PULSE 82; RESP 16; O2SAT 99
[2023-10-08 14:28] VITALS: BP 136/89; PULSE 79; RESP 16; O2SAT 99
== END 2023-10-08 15:00 | disposition home or self-care (01) ==
PROVIDERS: Anesthesiology; PCP Family Medicine; Visit Provider Internal Medicine Gastroenterology
PROC: (CPT 43196; principal; 2023-10-08 13:30)
DX: K31.2 Hourglass stricture and stenosis of stomach (principal); K44.9 Diaphragmatic hernia without obstruction or gangrene; K21.9 Gastro-esophageal reflux disease without esophagitis; Z98.84 Bariatric surgery status; C64.2 Malignant neoplasm of left kidney, except renal pelvis; Z90.5 Acquired absence of kidney; I10 Essential (primary) hypertension; K76.0 Fatty (change of) liver, not elsewhere classified; E11.9 Type 2 diabetes mellitus without complications; F32.A Depression, unspecified; G47.33 Obstructive sleep apnea (adult) (pediatric); Z79.1 Long term (current) use of non-steroidal anti-inflammatories (NSAID); Z79.84 Long term (current) use of oral hypoglycemic drugs; Z79.899 Other long term (current) drug therapy; Z88.5 Allergy status to narcotic agent; Z90.49 Acquired absence of other specified parts of digestive tract
CPT/HCPCS: 43196; 81025; 82947; C1726; J0131; J0330; J1100; J2405; J2704

== ENCOUNTER → 2023-10-08 08:40 | Outpatient (BNV) | payer OTHER, SELFPAY | PROVIDERS: PCP Family Medicine; Visit Provider Internal Medicine Gastroenterology | DX: K31.2 Hourglass stricture and stenosis of stomach (principal); Z90.3 Acquired absence of stomach [part of]; Z98.84 Bariatric surgery status | CPT/HCPCS: 43245 ==

== ENCOUNTER 2023-11-12 12:28 | Day surgery (SDC) | payer OTHER, SELFPAY ==
--- NOTE | ~2023-11-12 | FL_ITS ---
EXAMINATION: XR FLUOROSCOPY WITH IMAGES CLINICAL INFORMATION: Upper endoscopy. COMPARISON: None available. TECHNIQUE: Fluoroscopy Supervised By: Dr. Zeinab Melendez. Fluoroscopy Time: 16.5 sec. Cumulative Dose: 3.228 mGy. DAP: 1.404 Gycm2. Images: 1. FINDINGS: Intraoperative fluoroscopy and spot films were performed during a procedure in the OR. The tip of the wire is noted at the GE junction. A rectangular metallic density is seen overlying the left upper quadrant. Please see Dr. Zeinab Melendez's report for complete details. FL/FL guidance in OR IMPRESSION: Intraoperative fluoroscopy and spot films were obtained. Please see Dr. Zeinab Melendez's report for complete details.
[2023-11-12 12:39] VITALS: BMI 26.5
[2023-11-12 12:42] VITALS: BP 108/73; PULSE 74; RESP 15; TEMP 36.2; O2SAT 99
[2023-11-12] MEDS: Scopolamine 1.5 MG PATCH.TD.3 EAR-BEHIND (12:55)
--- NOTE | 2023-11-12 12:56 | MHC.SHP ---
Pre-Procedural Eval Section A - 24 Hr Update-Section A only Date of Service: 11/12/23 Section B - Complete if H&P > 30 days Chief Complaint: Hourglass stricture and stenosis of stomach Relevant Family History (Specify if Yes): No Relevant Social History: None Present Medications: see Short Stay Collaborative assessment Medical History: Significant History (Menopause History of menopause Vertigo Depression Anxiety GERD (gastroesophageal reflux disease) Sleep apnea COVID-19 vaccine series completed Renal cancer Fatty liver Diabetes HTN (hypertension)) History of Previous Operations: Relevant previous surgery/procedure and date(s) (History of pubovaginal sling History of left oophorectomy History of left nephrectomy History of esophagogastroduodenoscopy (EGD) Hx of vaginal surgery History of sleeve gastrectomy Hx laparoscopic cholecystectomy) Allergies: Allergies Allergy/AdvReac Type Severity Reaction Status Date / Time codeine Allergy Mild Anaphylaxis Verified 10/08/23 09:42 morphine AdvReac vomiting Verified 10/08/23 09:42 Review of Systems Sugical H&P ROS: Negative: Constitution, Cardiovascular, Respiratory, Neurological, Psychiatric, Hem-Onc, Allergic/Immunologic, Gastrointestinal, Genitourinary, Musculoskeletal, Integumentary, Endocrine and Eyes/Ears/Nose/Throat Exam Surgical H&P Exam: Normal: HEENT, Normal: Heart, Normal: Lungs, Normal: Extremities, Normal: Abdomen, Normal: Skin and Normal: Neurological Plan Diagnosis/Plan: Unchanged I have reviewed the history and physical and performed a pertinent physical examination on my patient. No changes have occurred unless specified. Time Spent With Patient Time: Total time managing care of this patient today ____ minutes.
[2023-11-12] MEDS: Lactated Ringers 1,000 ML 50 ML IVCONT (13:16)
[2023-11-12 13:25] LABS: Glucose, Whole Blood 73 mg/dL (60-115)
--- NOTE | 2023-11-12 14:17 | P.OP_ITS ---
Operative Note Operative Note Date of Service: 11/12/23 Narrative: Procedure Description: EGD Indication: gastric stricture Anesthesia: MAC FLEXIBLE TRANSORAL UPPER GASTROINTESTINAL ENDOSCOPY UPPER ENDOSCOPY Consent: Indications for the procedure and potential complications of bleeding, perforation, reaction to medications and missed diagnosis were discussed with the patient and informed consent was obtained. Instrument: Olympus GIF H 190 J mid size upper endoscope Monitoring: Vital signs and clinical assessment, continuous EKG monitoring, Pulse oximetry, Carbon Dioxide monitoring and blood pressure monitoring were done throughout the procedure. Procedure: The patient was placed in the left lateral decubitis position and pre-procedure medications were administered and a bite block was placed. The endoscope was inserted into the mouth and advanced under direct vision to the third part of duodenum. A careful inspection was made as the upper endoscope was withdrawn including a retroflexed examination of the proximal stomach; Findings and interventions are described below. Findings: Larynx:normal Esophagus: GE junction at 33? cm, diaphragm hiatus at 36 cm, consistent with 3 cm hiatal hernia, Stomach: Normal appearing mucosa. Grade 2 flap valve on retroflexed examination of the cardia. In the mid stomach angulation noted which can be seen s/p sleeve gastrectomy. A wire was then passed and over the wire a 35 mm pneumatic balloon was passed both with endoscopic visualization. The balloon was then inflated to 10 psi at which point resistance was felt. Placement confirmed endoscopically and radiologically. Duodenum: Normal bulb and descending duodenum, Intervention: pneumatic balloon dilation using endoscopic and fluroscopic visualization Impression/Findings: sleeve gastrectomy s/p rigid balloon dilation mid stomach, may have external adhesions as well hiatal hernia PLAN: suspect her sx are due to post sleeve gastrectomy external adhesions as before, should eat small meals and chew thoroughly, drink fluids with food will send her magic mouthwash for expected post procedure pain and discomfort, she has upcoming appointments with a bariatric surgeon in [place] and plan is for possible conversion to RYGB
[2023-11-12 14:22] VITALS: BP 135/80; PULSE 82; RESP 20; TEMP 36.2; O2SAT 100
[2023-11-12 14:27] VITALS: BP 143/72; PULSE 78; RESP 20; O2SAT 99
[2023-11-12 14:32] VITALS: BP 139/79; PULSE 77; RESP 18; O2SAT 99
[2023-11-12 14:37] VITALS: BP 123/76; PULSE 70; RESP 18; O2SAT 100
[2023-11-12] MEDS: Mag&Al/Sim/Diphenhyd/Lidocaine 10 ML ORAL.SUSP PO (14:44)
[2023-11-12 14:52] VITALS: BP 130/78; PULSE 74; RESP 18; TEMP 36.3; O2SAT 100
== END 2023-11-12 15:27 | disposition home or self-care (01) ==
PROVIDERS: PCP Orthopaedic Surgery; Visit Provider Internal Medicine Gastroenterology
PROC: (CPT 43245; principal; 2023-11-12 14:10)
DX: K31.89 Other diseases of stomach and duodenum (principal); I10 Essential (primary) hypertension; E11.9 Type 2 diabetes mellitus without complications; Z98.84 Bariatric surgery status; Z88.5 Allergy status to narcotic agent
CPT/HCPCS: 43245; 82947; C1726; Q9965; Q9967

== ENCOUNTER → 2023-11-12 12:28 | Outpatient (BNV) | payer OTHER, SELFPAY | PROVIDERS: PCP Orthopaedic Surgery; Visit Provider Internal Medicine Gastroenterology | DX: K22.2 Esophageal obstruction (principal); Z90.3 Acquired absence of stomach [part of]; Z98.84 Bariatric surgery status | CPT/HCPCS: 43245 ==

== ENCOUNTER 2024-05-01 09:37 | Outpatient (AMB) | payer OTHER, SELFPAY ==
--- NOTE | 2024-05-01 09:38 | MHC.OFFVIS ---
Intake Visit Reasons: abdominal pains Intake Note: eli presents as a telehealth today. CC: pains in the stomach, constipation and diarrhea but mostly constipation. Everything she eats and drinks she is throwing up. She has the revision of the gastric sleeve January 28. IT was done at [facility]. Rug Sample Beveler Required: No Allergies codeine Allergy (Mild, Verified 05/01/24 09:39) Anaphylaxis morphine Adverse Reaction (Verified 05/01/24 09:39) vomiting HPI HPI abdominal pains: Details: 48 yr old f called for f/u for abdominal pain RECAP she had Gastric sleeve 08/2020-- since then she had epigastric pain, every time she eats or drinks she had EGD with stensois and dilation of stomach by Aline she felt better for few weeks sx recurred and she has had several similar endoscopies with stretching with short term relief she had Ct scan at [facility] and found to have left kidney cancer and had left sided nephrectomy, she has nausea, occ vomiting, no blood she has mild constipation denies melena, no rectal bleeding no dysphagia but food can hurt when travelling down her esophagus she does have early satiety as well I ordered GES which was normal Due to ongoing sx I repeated EGD 07/2021 and dilated pylorus to 17 mm, seemed tight at time of EGD UGI series was done, no stenosis of stomahc but tablet got stuck in thoracic esophgaus, refluc noted and small HH Referred to bariatrics at [facility] for second opinion and plan for revision of sleeve and repair of hiatal hernia but this was then determined not to be needed EGD: 02/2022 apparent gastric stricture--dilated, 20 mm, no tear seen hiatal hernia repeat EGD 08/2022--dilation of mid body of stomach with rigid balloon 30 mm further repeat dilation with rigid balloon, 35 mm for 15 mins, using GA She had several further dilations and finally had revision of the sleeve to a gastric bypass recently INTERIM: she had a stormy post op course she has nausea she has constipation feels food getting stuck, hard to eat, Video: good color, relaxed, talking easily A/P: 1/ Epigastric pain, fullness, suspected 2/2 gastric sleeve-possible adhesions- now revised to a gastric bypass, having sx with nausea and regurgitation, concern would be stricture or ulceration PLAN: 1/ Will order ba swallow with follow thru with pill study, depending on results might need EGD --possible dilation PFSH Medical History Menopause History of menopause Vertigo Depression Anxiety GERD (gastroesophageal reflux disease) Sleep apnea COVID-19 vaccine series completed Renal cancer Fatty liver Diabetes HTN (hypertension) Surgical History (Updated 05/01/24 @ 09:38 by NISREEN Jernigan) Hx of resection of stomach History of pubovaginal sling History of left oophorectomy History of left nephrectomy History of esophagogastroduodenoscopy (EGD) Hx of vaginal surgery History of sleeve gastrectomy Hx laparoscopic cholecystectomy Family History Father Septic shock Maternal Uncle Liver cancer Stomach cancer Hepatitis C Maternal Aunt Lupus Mother HTN (hypertension) Diabetes Heart problem Son Asthma Acute anxiety Son Autism ADHD (attention deficit hyperactivity disorder) Son No problems noted. Son No problems noted. Son No problems noted. Daughter GERD (gastroesophageal reflux disease) Daughter No problems noted. Daughter No problems noted. Social History Household Members: Spouse and Children Housing: House Are you a primary health care facility administrator to a significant other at home: No Do you presently have visiting nurse or other home services: No Alcohol intake: never Patient Tobacco Use Status: Never used Tobacco Second Hand Smoke Exposure: No service: No Current occupational status: disabled Telehealth Telehealth Telehealth Platform: [facility] Location of provider rendering services: practice address Location of patient: address on file Patient Identification confirmed using: Name, : Yes Telehealth method: video Patient verbally consented to treatment: Yes Patient verbally consented to billing insurance company: Yes Patient informed of any privacy concerns related to visit: Yes Minutes spent on Phone/Video with Pt.: 19 Assessment & Plan Assessment & Plan (1) GERD (gastroesophageal reflux disease): Code(s): K21.9 - Gastro-esophageal reflux disease without esophagitis Category: Medical Plan: see above Orders: Orders FL upper GI series Today K21.9 - Gastro-esophageal reflux disease without esophagitis Medications: New ondansetron 8 mg PO Q8H PRN 90 tabs 0RF nausea and vomiting Coding Level of Care Code Tele Est Pt Level 3 (92367) Diagnoses GERD (gastroesophageal reflux disease) K21.9
== END 2024-05-01 11:21 | disposition home or self-care (01) ==
LOC: HO.HGI 09:37
PROVIDERS: PCP Family Medicine; Visit Provider Internal Medicine Gastroenterology
DX: K21.9 Gastro-esophageal reflux disease without esophagitis (principal)
CPT/HCPCS: 99213

== ENCOUNTER → 2024-05-01 09:37 | Outpatient (BNVA) | payer OTHER, SELFPAY | PROVIDERS: PCP Family Medicine; Visit Provider Internal Medicine Gastroenterology ==

== ENCOUNTER 2024-06-23 12:31 | Outpatient (AMB) | payer OTHER, SELFPAY ==
--- NOTE | 2024-06-23 13:03 | MHC.PC.OV ---
Vital Signs 06/23/24 13:09 Height 5 ft 1 in Weight 131 lb 2 oz BMI 24.8 BP 110/66 Blood Pressure Location Rt brachial Position Sitting Pulse 66 Pulse Source Pulse Oximeter Pulse Oximetry (%) 99 Oxygen Delivery Method Room Air Intake Visit Reasons: New Patient Visit Intake Note: New patient visit Cottonseed Meat Presser Required: No Allergies codeine Allergy (Mild, Verified 06/23/24 13:03) Anaphylaxis morphine Adverse Reaction (Verified 06/23/24 13:03) vomiting Tobacco use date assessed: 06/23/24 Dental Screening Dental Screen Date: 06/23/24 Did you have a dental visit in the last 12 months?: Yes Did you have a dental problem in the last 6 months where you did not have access to dental care?: No Was dental information given to patient?: Patient has dentist HPI HPI Comments History of Present Illness Details The patient is a 48 year old female with past medical history of diabetes, RCC, htn, hld, anxiety, depression, insomnia presenting to [facility]. Transferring from [facility]. Underwent surgery in January by Dr Sism in [facility]-correction of prior sleeve gastrectomy and hernia repair. Still gets chronic back and upper abdominal pain. She is on chronic opioid therapy though reports poor pain control. On chronic PPI. BH: On effexor, zolpidem, trazodone, prazosin, perphenazine Urology: Follows with Dr Lozano for h/o RCC. Says she has not been seen in awhile Diabetes: After surgery in January has been eating very little. She is having frequent hypoglycemia. Says numbers often drop into 40s. Not following with endocrine. ROS CONSTITUTIONAL: Denies weight loss, fever and chills. HEENT: Denies changes in vision and hearing. RESPIRATORY: Denies SOB and cough. CV: Denies palpitations and CP GI: Denies abdominal pain, nausea, vomiting and diarrhea. : Denies dysuria and urinary frequency. MSK: Denies new myalgia and joint pain. SKIN: Denies rash and pruritus. NEUROLOGICAL: Denies headache PSYCHIATRIC: Denies recent changes in mood. PHYSICAL EXAM: GENERAL: Alert and oriented x 3. NAD EYES: EOMI. Anicteric. HENT: Moist mucous membranes. No scleral icterus. No cervical lymphadenopathy. LUNGS: Clear to auscultation bilaterally. CARDIOVASCULAR: Regular rate and rhythm. No murmur. No JVD. ABDOMEN: Soft, non-tender +bs EXTREMITIES: No edema. Non-tender. SKIN: No rashes or lesions. Warm. NEUROLOGIC: No focal neurological deficits. CN II-XII grossly intact PSYCHIATRIC: Cooperative. Appropriate mood and affect [facility] Medical History Menopause History of menopause Vertigo Depression Anxiety GERD (gastroesophageal reflux disease) Sleep apnea COVID-19 vaccine series completed Renal cancer Fatty liver Diabetes HTN (hypertension) Surgical History Hx of resection of stomach History of pubovaginal sling History of left oophorectomy History of left nephrectomy History of esophagogastroduodenoscopy (EGD) Hx of vaginal surgery History of sleeve gastrectomy Hx laparoscopic cholecystectomy Family History Father Septic shock Maternal Uncle Liver cancer Stomach cancer Hepatitis C Maternal Aunt Lupus Mother HTN (hypertension) Diabetes Heart problem Son Asthma Acute anxiety Son Autism ADHD (attention deficit hyperactivity disorder) Son No problems noted. Son No problems noted. Son No problems noted. Daughter GERD (gastroesophageal reflux disease) Daughter No problems noted. Daughter No problems noted. Other Substance abuse Social History Household Members: Spouse and Children Housing: House Are you a primary school childcare attendant to a significant other at home: No Do you presently have visiting nurse or other home services: No Alcohol intake: never Patient Tobacco Use Status: Never used Tobacco e-Cigarette/Vaping Use: Never Used Second Hand Smoke Exposure: No service: No Current occupational status: disabled Cognitive needs: No Hearing needs: No Vision needs: No Questionnaire PHQ-9 Over the last 2 weeks, how often have you been bothered by any of the following problems? 1. Little interest or pleasure in doing things: more than half the days 2. Feeling down, depressed, or hopeless: more than half the days 3. Trouble falling or staying asleep, or sleeping too much: more than half the days Source: Developed by Drs. Emmanuel Puga, Lisandra Lowe, Eliecer Saha and colleagues, with an educational franklin from [employer]. Thrive Questionnaire Date Thrive assessed: 06/23/24 I am a: Patient What is your living situation today?: I have a steady place to live Within the past 12 months, did the food you bought not last and you didn't have the money to get more?: Often true Within the past 12 months, did you worry whether your food would run out before you got money to buy more?: Often true Do you have trouble paying for medicines?: Yes Do you have trouble getting transportation to medical appointments?: No Do you have trouble paying your heating and electricity bill?: Yes Do you have trouble taking care of your child, family member or friend?: No Do you have trouble with day-to-day activities such as bathing, preparing meals, shopping, managing finances, etc.?: I choose not to answer this question Are you currently unemployed and looking for a job?: No Are you interested in more education?: Yes Please select the resources that you would like help with: Food, Paying for medicine and Utilities Currently or been in a relationship where the following occur: I choose not to answer THRIVE Score: 3 AUDIT C Alcohol Use Questionnaire (AUDIT-C) 1. How often do you have a drink containing alcohol?: Never 3. How often do you have six or more drinks on one occasion?: Never Total Score: 0 SYLVAIN-7 AMB Questionnaire SYLVAIN-7 Feeling nervous, anxious, or on edge: 2 = More than half the days Not being able to stop or control worryin = More than half the days Worrying too much about different things: 3 = Nearly every day Trouble relaxin = More than half the days Being so restless that it is hard to sit still: 3 = Nearly every day Becoming easily annoyed or irritable: 1 = Several days Feeling afraid as if something awful might happen: 2 = More than half the days Total SYLVAIN-7 score (0-4 normal; 5-9 mild; 10-14 moderate; 15-21 severe): 15 Source: Developed by Drs. Emmanuel Puga, Lisandra Lowe, Eliecer Saha and colleagues, with an educational franklin from [employer]. Physical exam (Primary Care) Vital Signs: Last Vital Signs Pulse 66 06/23/24 13:09 BP 110/66 06/23/24 13:09 Pulse Ox 99 06/23/24 13:09 Oxygen Delivery Method Room Air 06/23/24 13:09 BMI result Body Mass Index 24.8 Tobacco/Smoking Status: Tobacco use Status Tobacco use date assessed 06/23/24 06/23/24 13:09 Patient Tobacco Use Status Never used Tobacco 06/23/24 13:09 e-Cigarette/Vaping Use Never Used 06/23/24 13:09 Thrive Assessment: Date of Thrive Assessment Date Thrive assessed 06/23/24 06/23/24 13:09 Currently or been in a relationship where the following occur: I choose not to answer Coding Level of Care Code New Pt Level 4 (81148) Complex EM visit Add On G2211 Diagnoses 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 Chronic pain type: other chronic postprocedural pain Hypoglycemia E16.2 Schizophrenia, unspecified type F20.9 Schizophrenia type: unspecified Assessment & Plan Assessment & Plan (1) Chronic pain: Code(s): G89.29 - Other chronic pain Category: Medical Qualifiers: Chronic pain type: other chronic postprocedural pain Qualified Code(s): G89.28 - Other chronic postprocedural pain Plan: Start xtampza Limit oxycodone IR use Narcan sent Contract at next visit (2) Hypoglycemia: Code(s): E16.2 - Hypoglycemia, unspecified Category: Medical Plan: referral to endocrinology start acarbose (3) Schizophrenia: Code(s): F20.9 - Schizophrenia, unspecified Category: Medical Qualifiers: Schizophrenia type: unspecified Qualified Code(s): F20.9 - Schizophrenia, unspecified Plan: notes compliance medications Plan 48 y/o to establish care. Past medical, surgical, social and family history reviewed. Orders: Orders Comprehensive Met. Panel Today E11.9 - Type 2 diabetes mellitus without complications, E16.2 - Hypoglycemia, unspecified, F41.1 - Generalized anxiety disorder, K21.9 - Gastro-esophageal reflux disease without esophagitis, Z13.0 - Encounter for screening for diseases of the blood and blood-forming organs and certain disorders involving the immune mechanism Microalbumin, Random (w Creat) Today E11.9 - Type 2 diabetes mellitus without complications, E16.2 - Hypoglycemia, unspecified, F41.1 - Generalized anxiety disorder, K21.9 - Gastro-esophageal reflux disease without esophagitis, Z13.0 - Encounter for screening for diseases of the blood and blood-forming organs and certain disorders involving the immune mechanism Complete Blood Count Auto Diff Today E11.9 - Type 2 diabetes mellitus without complications, E16.2 - Hypoglycemia, unspecified, F41.1 - Generalized anxiety disorder, K21.9 - Gastro-esophageal reflux disease without esophagitis, Z13.0 - Encounter for screening for diseases of the blood and blood-forming organs and certain disorders involving the immune mechanism Lipid Panel Today E11.9 - Type 2 diabetes mellitus without complications, E16.2 - Hypoglycemia, unspecified, F41.1 - Generalized anxiety disorder, K21.9 - Gastro-esophageal reflux disease without esophagitis, Z13.0 - Encounter for screening for diseases of the blood and blood-forming organs and certain disorders involving the immune mechanism Hemoglobin A1c Today E11.9 - Type 2 diabetes mellitus without complications, E16.2 - Hypoglycemia, unspecified, F41.1 - Generalized anxiety disorder, K21.9 - Gastro-esophageal reflux disease without esophagitis, Z13.0 - Encounter for screening for diseases of the blood and blood-forming organs and certain disorders involving the immune mechanism Referrals Urology Referral E11.9 - Type 2 diabetes mellitus without complications, E16.2 - Hypoglycemia, unspecified, F41.1 - Generalized anxiety disorder, K21.9 - Gastro-esophageal reflux disease without esophagitis, Z13.0 - Encounter for screening for diseases of the blood and blood-forming organs and certain disorders involving the immune mechanism Endocrinology Referral E11.9 - Type 2 diabetes mellitus without complications, E16.2 - Hypoglycemia, unspecified, F41.1 - Generalized anxiety disorder, K21.9 - Gastro-esophageal reflux disease without esophagitis, Z13.0 - Encounter for screening for diseases of the blood and blood-forming organs and certain disorders involving the immune mechanism Medications: New acarbose 25 mg PO TID 270 tabs 3RF oxycodone myristate CR-ER (Xtampza ER) must administer with a meal/food; Partial Fill upon patient request. 9 mg PO BID 60 caps 0RF FreeStyle Lite Strips (blood sugar diagnostic) As directed 100 ea 3RF NS E11.9 - Type 2 diabetes mellitus without complications, E16.2 - Hypoglycemia, unspecified naloxone 4 mg/actuation (Narcan) spray 1 dose into ONE nostril; alternate nostrils w each dose until help arrives 4 mg intranasal Q2M PRN 2 ea 0RF opioid overdose FreeStyle Lancets (lancets) once daily and as needed 100 ea 3RF NS E16.2 - Hypoglycemia, unspecified Changed From oxycodone-acetaminophen 5-325 mg (Percocet) Partial Fill upon patient request. 1 tab PO Q8H PRN 10 tabs 0RF pain G89.29 - Other chronic pain To oxycodone-acetaminophen 5-325 mg (Percocet) Partial Fill upon patient request. 1 tab PO Q8H 30 days PRN 30 tabs 0RF pain G89.29 - Other chronic pain Discontinued tramadol Discontinued Reason: Doctor's Order 50 mg PO BID PRN 14 tabs 0RF pain
[2024-06-23 13:09] VITALS: BP 110/66; PULSE 66; O2SAT 99; BMI 24.8
== END 2024-06-23 13:57 | disposition home or self-care (01) ==
PROVIDERS: PCP Family Medicine; Visit Provider Internal Medicine
DX: G89.28 Other chronic postprocedural pain (principal); E16.2 Hypoglycemia, unspecified; F20.9 Schizophrenia, unspecified

== ENCOUNTER → 2024-06-23 12:31 | Outpatient (BNVA) | payer OTHER, SELFPAY | PROVIDERS: PCP Family Medicine; Visit Provider Internal Medicine | DX: G89.28 Other chronic postprocedural pain (principal); E16.2 Hypoglycemia, unspecified; F20.9 Schizophrenia, unspecified; E11.9 Type 2 diabetes mellitus without complications; I10 Essential (primary) hypertension; Z79.899 Other long term (current) drug therapy | CPT/HCPCS: 99202 ==

== ENCOUNTER 2024-07-09 11:35 | Day surgery (SDC) | payer OTHER, SELFPAY ==
--- NOTE | 2024-07-09 11:46 | MHC.SHP ---
Pre-Procedural Eval Section A - 24 Hr Update-Section A only Date of Service: 07/09/24 Section B - Complete if H&P > 30 days Chief Complaint: Generalized abdominal pain Details of Present Illness: dysphagia as well Relevant Family History (Specify if Yes): No Relevant Social History: None Present Medications: see Short Stay Collaborative assessment Medical History: Significant History (Menopause History of menopause Vertigo Depression Anxiety GERD (gastroesophageal reflux disease) Sleep apnea COVID-19 vaccine series completed Renal cancer Fatty liver Diabetes HTN (hypertension)) History of Previous Operations: Relevant previous surgery/procedure and date(s) (Hx of resection of stomach History of pubovaginal sling History of left oophorectomy History of left nephrectomy History of esophagogastroduodenoscopy (EGD) Hx of vaginal surgery History of sleeve gastrectomy Hx laparoscopic cholecystectomy) Allergies: Allergies Allergy/AdvReac Type Severity Reaction Status Date / Time codeine Allergy Mild Anaphylaxis Verified 07/09/24 11:44 morphine AdvReac vomiting Verified 07/09/24 11:44 Review of Systems Sugical H&P ROS: Negative: Constitution, Cardiovascular, Respiratory, Neurological, Psychiatric, Hem-Onc, Allergic/Immunologic, Gastrointestinal, Genitourinary, Musculoskeletal, Integumentary, Endocrine and Eyes/Ears/Nose/Throat Exam Surgical H&P Exam: Normal: HEENT, Normal: Heart, Normal: Lungs, Normal: Extremities, Normal: Abdomen, Normal: Skin and Normal: Neurological Plan Diagnosis/Plan: Unchanged I have reviewed the history and physical and performed a pertinent physical examination on my patient. No changes have occurred unless specified. Time Spent With Patient Time: Total time managing care of this patient today ____ minutes.
[2024-07-09 11:56] LABS: UPreg QC Valid YES
[2024-07-09 11:57] LABS: Urine Pregnancy NEGATIVE (NEGATIVE)
[2024-07-09 11:59] LABS: Glucose, Whole Blood 87 mg/dL (60-115)
--- NOTE | 2024-07-09 11:59 | P.CONAN_ITS ---
HPI - Anesthesia Eval Consult details Narrative: 48 yo F presenting for EGD. PONV. PMFSH Active Problems Active Problems: All Active Problems Screening, deficiency anemia, iron (Acute) Chronic pain (Acute) Hypoglycemia (Acute) SOB (shortness of breath) (Acute) Pre-op evaluation (Acute) Unspecified mood [affective] disorder (Acute) Generalized anxiety disorder (Acute) GERD (gastroesophageal reflux disease) (Acute) Abdominal pain (Acute) Renal cell carcinoma (Acute) Dysphagia (Acute) Hiatal hernia (Acute) History of repair of hiatal hernia (Acute) Pituitary adenoma (Acute) Vertigo (Acute) Schizophrenia (Acute) HTN (hypertension), benign (Acute) Anemia (Chronic) Overweight (BMI 25.0-29.9) (Acute) Epigastric abdominal pain (Acute) S/P laparoscopic sleeve gastrectomy (Acute) Epigastric abdominal pain (Acute) Gastroparesis (Acute) Renal cancer (Acute) Diabetes (Acute) Past Medical History Medical History Menopause History of menopause Vertigo Depression Anxiety GERD (gastroesophageal reflux disease) Sleep apnea COVID-19 vaccine series completed Renal cancer Fatty liver Diabetes HTN (hypertension) Family History Family History Father Septic shock Maternal Uncle Liver cancer Stomach cancer Hepatitis C Maternal Aunt Lupus Mother HTN (hypertension) Diabetes Heart problem Son Asthma Acute anxiety Son Autism ADHD (attention deficit hyperactivity disorder) Son No problems noted. Son No problems noted. Son No problems noted. Daughter GERD (gastroesophageal reflux disease) Daughter No problems noted. Daughter No problems noted. Other Substance abuse Family history of problems with anesthesia: No Surgical History Surgical History Hx of resection of stomach History of pubovaginal sling History of left oophorectomy History of left nephrectomy History of esophagogastroduodenoscopy (EGD) Hx of vaginal surgery History of sleeve gastrectomy Hx laparoscopic cholecystectomy History of Problems with Anesthesia: Yes (PONV) Social History Social History Household Members: Spouse and Children Housing: House Are you a primary director of career resources to a significant other at home: No Do you presently have visiting nurse or other home services: No Alcohol intake: never Patient Tobacco Use Status: Never used Tobacco e-Cigarette/Vaping Use: Never Used Second Hand Smoke Exposure: No Advance Directives: No Advance Directives Information Provided: Yes service: No Current occupational status: disabled Cognitive needs: No Hearing needs: No Vision needs: No Meds Allergies Allergy/AdvReac Type Severity Reaction Status Date / Time codeine Allergy Mild Anaphylaxis Verified 07/09/24 11:44 morphine AdvReac vomiting Verified 07/09/24 11:44 Active Medications: Current Medications Lactated Ringer's (Lr) 1,000 mls @ 50 mls/hr IVCONT .Q20H DARRYL Scopolamine (Scopolamine 1.5 Mg Patch.Td.3) 1.5 mg EAR-BEHIND ONCE ONE Stop: 07/09/24 11:59 Home Medications ?Medication ?Instructions ?Recorded ?Confirmed ?Last Taken ?Type blood sugar diagnostic (FreeStyle #10 ea 05/19/21 07/09/24 Unknown History Lite Strips) clotrimazole-betamethasone 1 1 appl topical DAILY 05/19/21 07/09/24 Unknown History %-0.05 % topical cream estradiol 0.01% (0.1 mg/gram) 1 appl vaginal DAILY 05/19/21 07/09/24 Unknown History vaginal cream lancets 28 gauge (FreeStyle #100 ea 05/19/21 07/09/24 Unknown History Lancets) lisinopril 2.5 mg tablet 2.5 mg PO DAILY 05/19/21 07/09/24 Unknown History lorazepam 1 mg tablet 1 mg PO QID PRN Anxiety 05/19/21 07/09/24 Unknown History meclizine 25 mg tablet 5 mg PO DAILY PRN Vertigo 05/19/21 07/09/24 Unknown History nabumetone 500 mg tablet 500 mg PO BID 05/19/21 07/09/24 Unknown History perphenazine 16 mg tablet 16 mg PO BID 05/19/21 07/09/24 Unknown History prazosin 5 mg capsule 5 mg PO BEDTIME 05/19/21 07/09/24 Unknown History simethicone 80 mg chewable tablet 80 mg PO DAILY PRN Acid Reflux 05/19/21 07/09/24 Unknown History (Mi-Acid Gas Relief (simethicone)) sucralfate 100 mg/mL oral 100 mg PO DAILY 05/19/21 07/09/24 Unknown History suspension terconazole 0.4 % vaginal cream 1 appful vaginal BEDTIME 05/19/21 07/09/24 Unknown History venlafaxine 150 mg 150 mg PO DAILY 05/19/21 07/09/24 Unknown History capsule,extended release 24 hr venlafaxine 75 mg capsule,extended 75 mg PO DAILY 05/19/21 07/09/24 Unknown History release 24 hr trazodone 50 mg tablet 50 mg PO BEDTIME 10/06/21 07/09/24 Unknown History perphenazine 8 mg tablet 8 mg PO BEDTIME 01/23/22 07/09/24 Unknown History polyethylene glycol 3350 17 17 g PO Q10M PRN Constipation 02/28/23 07/09/24 Unknown History gram/dose oral powder (Miralax) ibuprofen 800 mg tablet 800 mg PO Q8H PRN pain 03/11/23 07/09/24 Unknown History pantoprazole 40 mg tablet,delayed 40 mg PO BID 03/11/23 07/09/24 Unknown History release albuterol sulfate 90 mcg/actuation 2 puff inhalation Q4H PRN wheezing 08/19/23 07/09/24 Unknown History aerosol inhaler (Ventolin HFA) baclofen 5 mg tablet 5 mg PO DAILY 05/01/24 07/09/24 Unknown History omeprazole 20 mg capsule,delayed 20 mg PO DAILY 05/01/24 07/09/24 Unknown History release ursodiol 300 mg capsule 300 mg PO BID 05/01/24 07/09/24 Unknown History zolpidem 10 mg tablet 10 mg PO BEDTIME PRN Insomnia 05/01/24 07/09/24 Unknown History Exam Exam Date and Time: 07/09/24 1200 Pertinent Lab Results Pertinent Lab Results: Laboratory Tests 07/09/24 07/09/24 11:43 11:56 POC Glucose 87 Urine Test NEGATIVE Airway Mallampati Class: II TM Dist: >3cm Neck ROM: Full Loose/Missing/Broken Teeth: No (patient denies any loose or broken teeth) Heart: S1S2 Lungs: CTAB Assessment and Plan Assessment Anesthesia Assessment: Anesthesia Plan Discussed and Chart Reviewed Final Anesthetic Review Family History of Problems with Anesthesia: No History of Problems with Anesthesia: Yes (PONV) NPO: Yes ASA Class: III Final Preanesthetic Review: No Changes in Pt Med Stat, Meds/Allgs Chart Reviewed, Consent Obtained/Reviewed and Anes Risks/Benef Reviewed Patient Risk: Low Procedure Risk: Low Anesthetic Plan Anesthetic Plan: MAC: and Agree w/ Assess. and Plan Disposition: Standard PACU
[2024-07-09 12:00] VITALS: BP 142/76; PULSE 74; RESP 16; TEMP 36.8; O2SAT 100
[2024-07-09 12:06] VITALS: BMI 23.6
[2024-07-09] MEDS: Lactated Ringers 1,000 ML 50 ML IVCONT (12:16)
[2024-07-09] MEDS: Scopolamine 1.5 MG PATCH.TD.3 EAR-BEHIND (12:18)
--- NOTE | 2024-07-09 12:54 | W.PM.OPN ---
Operative Note Operative Note Date of Service: 07/09/24 Narrative: Procedure Description: EGD Indication: dysphagia and epigastric pain Anesthesia: MAC FLEXIBLE TRANSORAL UPPER GASTROINTESTINAL ENDOSCOPY UPPER ENDOSCOPY Consent: Indications for the procedure and potential complications of bleeding, perforation, reaction to medications and missed diagnosis were discussed with the patient and informed consent was obtained. Instrument: Olympus GIF H 190 J mid size upper endoscope Monitoring: Vital signs and clinical assessment, continuous EKG monitoring, Pulse oximetry, Carbon Dioxide monitoring and blood pressure monitoring were done throughout the procedure. Procedure: The patient was placed in the left lateral decubitis position and pre-procedure medications were administered and a bite block was placed. The endoscope was inserted into the mouth and advanced under direct vision to the jejunum. A careful inspection was made as the upper endoscope was withdrawn including a retroflexed examination of the proximal stomach; Findings and interventions are described below. Hx of gastric bypass Findings: Larynx:normal Esophagus: GE junction at 32 cm, diaphragm hiatus at 32 cm, normal mucosa- bx taken from distal and proximal esophagus, balloon dilation to 20 mm at UES and distal esophagus. The LES was lax. Stomach pouch: normal, retained agustin noted . Biopsies were obtained. Grade 2 flap valve on retroflexed examination of the cardia. Jejunum: Normal Intervention: Biopsies as noted above, balloon dilation Impression/Findings: lax LES PLAN: consider increasing PPI dose, open capsule and mix with apple sauce GERD precautions
[2024-07-09 12:57] VITALS: BP 93/51; PULSE 80; RESP 12; TEMP 36.1; O2SAT 97
[2024-07-09 13:12] VITALS: BP 108/66; PULSE 74; RESP 17; O2SAT 100
[2024-07-09 13:20] VITALS: BP 108/66; PULSE 75; RESP 17; TEMP 36.1; O2SAT 100
== END 2024-07-09 13:47 | disposition home or self-care (01) ==
PROVIDERS: Anesthesiology; PCP Internal Medicine; Visit Provider Internal Medicine Gastroenterology
PROC: 0DJ08ZZ Inspection of Upper Intestinal Tract, Via Natural or Artificial Opening Endoscopic (ICD-10-PCS; CPT 43235; principal; 2024-07-09 12:50)
DX: K22.4 Dyskinesia of esophagus (principal); R13.10 Dysphagia, unspecified; K21.9 Gastro-esophageal reflux disease without esophagitis; K76.0 Fatty (change of) liver, not elsewhere classified; E11.9 Type 2 diabetes mellitus without complications; I10 Essential (primary) hypertension; G47.33 Obstructive sleep apnea (adult) (pediatric); Z98.84 Bariatric surgery status; Z85.53 Personal history of malignant neoplasm of renal pelvis; Z79.899 Other long term (current) drug therapy
CPT/HCPCS: 43249; 43239; 81025; 82947; 88305; 88342; C1726; J2003; J2704

== ENCOUNTER → 2024-07-09 11:35 | Outpatient (BNV) | payer OTHER, SELFPAY | PROVIDERS: PCP Internal Medicine; Visit Provider Internal Medicine Gastroenterology | DX: R10.13 Epigastric pain (principal); R13.10 Dysphagia, unspecified | CPT/HCPCS: 43239; 43249 ==

== ENCOUNTER 2024-07-20 08:52 | Outpatient (AMB) | payer OTHER, SELFPAY ==
--- NOTE | 2024-07-20 09:31 | MHC.PC.OV ---
Vital Signs 07/20/24 09:33 Height 5 ft 2 in Weight 129 lb 2 oz BMI 23.6 BP 114/68 Blood Pressure Location Lt brachial Position Sitting Pulse 66 Pulse Source Pulse Oximeter Pulse Oximetry (%) 100 Oxygen Delivery Method Room Air Intake Visit Reasons: Discuss pain management. Intake Note: Discuss pain management Pediatric Sports Medicine Specialist Required: No Allergies codeine Allergy (Mild, Verified 07/20/24 09:32) Anaphylaxis morphine Adverse Reaction (Verified 07/20/24 09:32) vomiting Tobacco use date assessed: 06/23/24 Dental Screening Dental Screen Date: 06/23/24 HPI HPI Comments History of Present Illness Details The patient is a 48 year old female with past medical history of diabetes, RCC, htn, hld, anxiety, depression, insomnia presenting for follow up Underwent surgery in January by Dr Sims in [facility]-correction of prior sleeve gastrectomy and hernia repair. Still gets chronic back and upper abdominal pain. She is on chronic opioid therapy-added xtampza and she has become much better controlled overall pain control. Still using IR oxycodone. Has narcan. On chronic PPI. Here to sign contract today BH: On effexor, zolpidem, trazodone, prazosin, perphenazine Urology: Follows with Dr Lozano for h/o RCC. Says she has not been seen in awhile Diabetes: After surgery in January has been eating very little. She is having frequent hypoglycemia. Says numbers often drop into 40s. Not following with endocrine. ROS CONSTITUTIONAL: Denies weight loss, fever and chills. HEENT: Denies changes in vision and hearing. RESPIRATORY: Denies SOB and cough. CV: Denies palpitations and CP GI: Denies abdominal pain, nausea, vomiting and diarrhea. : Denies dysuria and urinary frequency. MSK: Denies new myalgia and joint pain. SKIN: Denies rash and pruritus. NEUROLOGICAL: Denies headache PSYCHIATRIC: Denies recent changes in mood. PHYSICAL EXAM: GENERAL: Alert and oriented x 3. NAD EYES: EOMI. Anicteric. HENT: Moist mucous membranes. No scleral icterus. No cervical lymphadenopathy. LUNGS: Clear to auscultation bilaterally. CARDIOVASCULAR: Regular rate and rhythm. No murmur. No JVD. ABDOMEN: Soft, non-tender +bs EXTREMITIES: No edema. Non-tender. SKIN: No rashes or lesions. Warm. NEUROLOGIC: No focal neurological deficits. CN II-XII grossly intact PSYCHIATRIC: Cooperative. Appropriate mood and affect [facility] Medical History Menopause History of menopause Vertigo Depression Anxiety GERD (gastroesophageal reflux disease) Sleep apnea COVID-19 vaccine series completed Renal cancer Fatty liver Diabetes HTN (hypertension) Surgical History Hx of resection of stomach History of pubovaginal sling History of left oophorectomy History of left nephrectomy History of esophagogastroduodenoscopy (EGD) Hx of vaginal surgery History of sleeve gastrectomy Hx laparoscopic cholecystectomy Family History Father Septic shock Maternal Uncle Liver cancer Stomach cancer Hepatitis C Maternal Aunt Lupus Mother HTN (hypertension) Diabetes Heart problem Son Asthma Acute anxiety Son Autism ADHD (attention deficit hyperactivity disorder) Son No problems noted. Son No problems noted. Son No problems noted. Daughter GERD (gastroesophageal reflux disease) Daughter No problems noted. Daughter No problems noted. Other Substance abuse Social History (Updated 07/20/24 @ 09:32 by Sailaja Colbert CMA) Household Members: Spouse and Children Housing: House Are you a primary assurance services manager health care to a significant other at home: No Do you presently have visiting nurse or other home services: No Alcohol intake: never Patient Tobacco Use Status: Never used Tobacco e-Cigarette/Vaping Use: Never Used Second Hand Smoke Exposure: No service: No Current occupational status: disabled Cognitive needs: No Hearing needs: No Vision needs: No Questionnaire PHQ-9 Over the last 2 weeks, how often have you been bothered by any of the following problems? 1. Little interest or pleasure in doing things: several days 2. Feeling down, depressed, or hopeless: more than half the days 3. Trouble falling or staying asleep, or sleeping too much: several days 4. Feeling tired or having little energy: more than half the days 5. Poor appetite or overeating: more than half the days 6. Feeling bad about yourself - or that you are a failure or have let yourself or your family down: nearly every day 7. Trouble concentrating on things, such as reading the newspaper or watching television: several days 8. Moving or speaking so slowly that other people could have noticed. Or the opposite - being so fidgety or restless that you have been moving around a lot more than usual: not at all Source: Developed by Drs. Emmanuel Puga, Lisandra Lowe, Eliecer Saha and colleagues, with an educational franklin from [employer]. Thrive Questionnaire Date Thrive assessed: 06/23/24 I am a: Patient What is your living situation today?: I have a steady place to live Within the past 12 months, did the food you bought not last and you didn't have the money to get more?: Often true Within the past 12 months, did you worry whether your food would run out before you got money to buy more?: Often true Do you have trouble paying for medicines?: I choose not to answer this question Do you have trouble getting transportation to medical appointments?: I choose not to answer this question Do you have trouble paying your heating and electricity bill?: Yes Do you have trouble taking care of your child, family member or friend?: I choose not to answer this question Do you have trouble with day-to-day activities such as bathing, preparing meals, shopping, managing finances, etc.?: I choose not to answer this question Are you currently unemployed and looking for a job?: I choose not to answer this question Are you interested in more education?: I choose not to answer this question Please select the resources that you would like help with: None Currently or been in a relationship where the following occur: I choose not to answer THRIVE Score: 3 AUDIT C Alcohol Use Questionnaire (AUDIT-C) 1. How often do you have a drink containing alcohol?: Never Total Score: 0 SYLVAIN-7 AMB Questionnaire SYLVAIN-7 Feeling nervous, anxious, or on edge: 1 = Several days Not being able to stop or control worryin = More than half the days Worrying too much about different things: 2 = More than half the days Trouble relaxin = More than half the days Being so restless that it is hard to sit still: 2 = More than half the days Becoming easily annoyed or irritable: 1 = Several days Feeling afraid as if something awful might happen: 2 = More than half the days Total SYLVAIN-7 score (0-4 normal; 5-9 mild; 10-14 moderate; 15-21 severe): 12 Source: Developed by Drs. Emmanuel Puga, Lisandra Lowe, Eliecer Saha and colleagues, with an educational franklin from [employer]. Physical exam (Primary Care) Vital Signs: Last Vital Signs Pulse 66 07/20/24 09:33 BP 114/68 07/20/24 09:33 Pulse Ox 100 07/20/24 09:33 Oxygen Delivery Method Room Air 07/20/24 09:33 BMI result Body Mass Index 23.6 Tobacco/Smoking Status: Tobacco use Status Tobacco use date assessed 06/23/24 07/20/24 09:35 Patient Tobacco Use Status Never used Tobacco 07/20/24 09:35 e-Cigarette/Vaping Use Never Used 07/20/24 09:35 Thrive Assessment: Date of Thrive Assessment Date Thrive assessed 06/23/24 07/20/24 09:35 Currently or been in a relationship where the following occur: I choose not to answer Coding Level of Care Code Est Pt Level 4 (56348) Diagnoses 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 Chronic pain type: other chronic postprocedural pain Assessment & Plan Assessment & Plan (1) Chronic pain: Code(s): G89.29 - Other chronic pain Category: Medical Qualifiers: Chronic pain type: other chronic postprocedural pain Qualified Code(s): G89.28 - Other chronic postprocedural pain Plan: CSC reviewed and signed She will follow up every 3 months for med monitoring Medications: Refilled oxycodone myristate CR-ER (Xtampza ER) must administer with a meal/food; Partial Fill upon patient request. 9 mg PO BID 60 caps 0RF oxycodone-acetaminophen 5-325 mg (Percocet) Partial Fill upon patient request. 1 tab PO Q8H PRN 30 tabs 0RF pain 30 days G89.29 - Other chronic pain
[2024-07-20 09:33] VITALS: BP 114/68; PULSE 66; O2SAT 100; BMI 23.6
== END 2024-07-20 09:53 | disposition home or self-care (01) ==
PROVIDERS: PCP Internal Medicine; Visit Provider Internal Medicine
DX: G89.28 Other chronic postprocedural pain (principal)

== ENCOUNTER → 2024-07-20 08:52 | Outpatient (BNVA) | payer OTHER, SELFPAY | PROVIDERS: PCP Internal Medicine; Visit Provider Internal Medicine | DX: G89.28 Other chronic postprocedural pain (principal); Z79.891 Long term (current) use of opiate analgesic | CPT/HCPCS: 99212 ==

== ENCOUNTER 2024-07-30 09:56 | Outpatient (REF) | payer OTHER, SELFPAY ==
[2024-07-30 11:28] LABS: MANUAL DIFF FLAG NO
[2024-07-30 12:08] LABS: Basophils Percent Auto 0.6 % (0-2); Eosinophils Absolute Auto 0.1 X10*3/uL (0.0-0.4); Eosinophils Percent Auto 2.9 % (0-4); Hematocrit 38.4 % (37.0-47.0); Hemoglobin 12.9 g/dl (12.0-16.0); Lymphocytes Absolute Auto 1.3 X10*3/uL (1.2-4.9); Lymphocytes Percent Auto 38.6 % (20-40); Mean Corpuscular HGB Conc 33.6 g/dl (31.0-35.0); Mean Corpuscular Volume 83.3 fL (80.0-98.0); Mean Platelet Volume 9.1 fL (9.4-12.3); Monocytes Absolute Auto 0.1 X10*3/uL (0.1-1.2); Monocytes Percent Auto 3.7 % (2-11); Neutrophils Absolute Auto 1.9 x10*3/uL (2.0-8.3); Neutrophils Percent Auto 54.2 % (45-73); Platelet Count 230 X10*3/uL (160-400); Red Blood Count 4.61 X10*6/uL (4.20-5.50); Red Cell Distribution Width 12.7 % (11.0-16.0); White Blood Count 3.5 X10*3/uL (4.8-10.8)
[2024-07-30 12:18] LABS: Estimated Average Glucose 97 mg/dL; Hemoglobin A1C 106.6783 umol/L
[2024-07-30 12:32] LABS: Glucose Fasting 81 mg/dL (60-99)
[2024-07-30 12:51] LABS: Cortisol Random 10.5 ug/dL
[2024-07-30 12:52] LABS: Creatinine Urine 131.35 mg/dL; Microalbum/Creatinine Ratio Ur 6.8 ug/mg cr (<30)
[2024-07-30 12:54] LABS: Alanine Aminotransferase 53 U/L (0-31); Albumin Level 4.3 g/dL (3.5-5.0); Alkaline Phosphatase 95 U/L (39-117); Anion Gap 10 (12-20); Aspartate Amino Transferase 38 U/L (5-31); Bilirubin Total 1.5 mg/dL (0.0-1.0); Blood Urea Nitrogen 13 mg/dL (9-16); Calcium 9.3 mg/dL (8.4-10.2); Carbon Dioxide 25 mmol/L (22-29); Chloride 110 mmol/L (96-108); Cholesterol 165 mg/dL (<200); Estimated Glomerular Filt Rate > 60; Glucose Random 81 mg/dL (60-115); HDL Cholesterol 44 mg/dL (>40); Insulin 4 uU/mL (2-29); LDL Cholesterol Calculated 104 mg/dL (<100); Sodium 141 mmol/L (135-145); Total Protein 7.8 g/dL (6.5-8.0); Triglycerides 87 mg/dL (<150)
[2024-08-02 04:28] LABS: C Peptide 1.95 ng/mL (0.80-3.85)
[2024-08-06 00:14] LABS: Proinsulin 4.2 pmol/L (< OR = 18.8)
[2024-08-07 07:23] LABS: Chlorpropamide None Detected; Glimepiride None Detected; Glipizide None Detected; Glyburide None Detected; Nateglinide None Detected; Pioglitazone None Detected; Repaglinide None Detected; Rosiglitazone None Detected; Tolazamide None Detected; Tolbutamide None Detected
== END 2024-07-30 09:57 | disposition home or self-care (01) ==
LOC: HO.LAB 09:56
PROVIDERS: Absent Provider Internal Medicine; PCP Internal Medicine; Visit Provider Nurse Practitioner Adult Health
DX: E11.9 Type 2 diabetes mellitus without complications (principal); E16.2 Hypoglycemia, unspecified; K21.9 Gastro-esophageal reflux disease without esophagitis; F41.1 Generalized anxiety disorder; Z13.0 Encounter for screening for diseases of the blood and blood-forming organs and certain disorders involving the immune mechanism
CPT/HCPCS: 36415; 80053; 80061; 80337; 82043; 82533; 82570; 82947; 83036; 83525; 84206; 84681; 85025; 99212

== ENCOUNTER 2024-07-30 09:56 | Outpatient (AMB) | payer OTHER, SELFPAY ==
[2024-07-30 10:02] VITALS: BP 102/66; PULSE 85; BMI 23.8
--- NOTE | 2024-07-30 10:02 | A.OFFVIS_ITS ---
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 Sims) she presents today at the request of her PCP to evaluate hypoglycemia.She had an initial sleeve gastrectomy in 2002 Prior to sleeve gastrectomy she was on medications for diabetes. After surgery all medications were discontinued. She has a very low appetite and 24 hour recall reflects p.o. intake not adequate. For breakfast she has half a piece of toast and an egg or nothing. For supper she has mashed potatoes. She may or may not eat later in the day. She is scheduled to see her bariatric surgeon later this month. She reports her glucose readings can drop as low as 39 and she does feel symptomatic. She treats with orange juice and sometimes has a improvement of symptoms at other times does not. Her symptoms include weakness shakiness feeling like she might pass out. On presentation to the clinic today her glucoses 69 and she does feel shaky. Denies presyncope. We attempted to have her blood work drawn in our building but they were unable to due to the type of labs required. I recommended that she consumes 15 carbohydrate g of joão rohit and we continue with her visit. 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 She has a family history of type 2 diabetes in her mother, maternal grandmother and multiple other relatives. [facility] Medical History Menopause History of menopause Vertigo Depression Anxiety GERD (gastroesophageal reflux disease) Sleep apnea COVID-19 vaccine series completed Renal cancer Fatty liver Diabetes HTN (hypertension) Surgical History Hx of resection of stomach History of pubovaginal sling History of left oophorectomy History of left nephrectomy History of esophagogastroduodenoscopy (EGD) Hx of vaginal surgery History of sleeve gastrectomy Hx laparoscopic cholecystectomy Family History Father Septic shock Maternal Uncle Liver cancer Stomach cancer Hepatitis C Maternal Aunt Lupus Mother HTN (hypertension) Diabetes Heart problem Son Asthma Acute anxiety Son Autism ADHD (attention deficit hyperactivity disorder) Son No problems noted. Son No problems noted. Son No problems noted. Daughter GERD (gastroesophageal reflux disease) Daughter No problems noted. Daughter No problems noted. Other Substance abuse Social History (Updated 07/20/24 @ 09:32 by Sailaja Colbert CMA) Household Members: Spouse and Children Housing: House Are you a primary director long term care to a significant other at home: No Do you presently have visiting nurse or other home services: No Alcohol intake: never Patient Tobacco Use Status: Never used Tobacco e-Cigarette/Vaping Use: Never Used Second Hand Smoke Exposure: No service: No Current occupational status: disabled Cognitive needs: No Hearing needs: No Vision needs: No Physical Exam Vital Signs: Last Vital Signs Pulse 85 07/30/24 10:02 BP 102/66 07/30/24 10:02 BMI result Body Mass Index 23.8 Const Other: Absence of Cushingoid features. Absence of acromegalic features. Neck exam reveals nl size thyroid about 15 gms. No thyroid nodules palpable. No carotid bruits present. Lungs CTA. Heart S1 S2, Reg R/R. No M/R G. Skin exam reveals absence of vitiligo or acanthosis nigricans. No edema Results AMB Hemoglobin A1c AMB Hemoglobin A1c 5.0 % Last Edit by NISREEN Garcia on 07/30/24 10:29 Results Reviewed Results Reviewed: Laboratory Last Values Glucose (Clinic) 66 mg/dL (60-115) 07/30/24 11:36 Hgb A1c (Clinic) 5.0 % (4.0-6.0) 07/30/24 10:28 Assessment & Plan Assessment & Plan (1) Hypoglycemia: Code(s): E16.2 - Hypoglycemia, unspecified Category: Medical Plan: 48 year old female s/p revision of gastric sleeve, hernia repair 02/04. Initially had surgery 2002 but was having pain and went to [facility] for evaluation who presents for eval of hypglycemia. She had diabetes prior to [facility]. Weight before first surgery 2002 195, weight before second surgery 130's Obtain labs when syptomatic (done this morning) P.o. intake is not adequate. She will follow up with bariatric surgeon later this month and was advised to eat frequent small meals including both a carbohydrate and protein. She decline appt with our catering director but will see [facility] catering director. If sh eis not able to eat a full meal she can break up a protein bar in quarters and eat it over 30-45 min advised to carry a sugar/protein source at all times Orders: Orders Hypoglycemic Panel Today E11.9 - Type 2 diabetes mellitus without complications Proinsulin Today E11.9 - Type 2 diabetes mellitus without complications Glucose Fasting Today E11.9 - Type 2 diabetes mellitus without complications Insulin Today E11.9 - Type 2 diabetes mellitus without complications C Peptide Today E11.9 - Type 2 diabetes mellitus without complications AMB Hemoglobin A1c Today Z13.1 - Encounter for screening for diabetes mellitus Cortisol Random Today E16.2 - Hypoglycemia, unspecified Coding Level of Care Code Est Pt Level 4 (50888) Complex EM visit Add On G2211 Diagnoses Hypoglycemia E16.2 Time Spent (min) 35 Comment Time spent reviewing labs/provider notes, face to face, chart doc
[2024-07-30 10:22] LABS: Glucose, Whole Blood 69 mg/dL (60-115)
[2024-07-30 11:39] LABS: Glucose, Whole Blood 66 mg/dL (60-115)
== END 2024-07-30 15:27 | disposition home or self-care (01) ==
PROVIDERS: PCP Internal Medicine; Visit Provider Nurse Practitioner Adult Health
DX: Z13.1 Encounter for screening for diabetes mellitus (principal); E16.2 Hypoglycemia, unspecified
CPT/HCPCS: 99214; G2211

== ENCOUNTER 2024-08-13 12:11 | Outpatient (REF) | payer OTHER, SELFPAY ==
[2024-08-13 14:39] LABS: Glucose Random 68 mg/dL (60-115)
[2024-08-13 14:49] LABS: Insulin 4 uU/mL (2-29)
--- OUTSIDE RECORDS SUMMARY | 2024-08-13 16:56 | XMS_ITS | Clinical Summary ---
Author Organization [employer] [facility] Address [address] [place] [address] Care Team Providers Care Sales Representative Livestock Name Role Phone Unavailable Primary Care Provider [...]
--- OUTSIDE RECORDS SUMMARY | 2024-08-13 16:56 | XMS_ITS | Clinical Summary ---
Author Organization [facility] Address [address] [place] [address] Care Team Providers Care Milk Pickup Truck Driver Name Role Phone Izabela Ellison MD Primary Care Provider [phone] Surgical History Surgery Date Site/Laterality Comments CHOLECYSTECTOMY [...] care for your loved ones. For example, children's entertainer or elderly care for an older adult? [...] RESULTING AGENCY - 09/07/2021 7:46 AM EST [id number] THINPREP PAP, IMAGED: NEGATIVE FOR SQUAMOUS INTRAEPITHELIAL [...] Recently Relevant to Health Maintenance Care Teams Milk Pickup Truck Driver Relationship Specialty Start Date End Date Izabela Ellison MD [address] [place] [address] PCP - General 05/12/21
[2024-08-20 00:28] LABS: Proinsulin 9.1 pmol/L (< OR = 18.8)
== END 2024-08-13 12:12 | disposition home or self-care (01) ==
LOC: HO.LAB 12:11
PROVIDERS: PCP Internal Medicine; Visit Provider Nurse Practitioner Adult Health
DX: E11.649 Type 2 diabetes mellitus with hypoglycemia without coma (principal); Z98.84 Bariatric surgery status
CPT/HCPCS: 36415; 82947; 83525; 84206; 99212

== ENCOUNTER 2024-08-13 12:11 | Outpatient (AMB) | payer OTHER, SELFPAY ==
--- NOTE | 2024-08-13 08:55 | A.OFFVIS_ITS ---
Vital Signs 08/13/24 12:36 Height 5 ft 2 in Weight 127 lb 13.89 oz BMI 23.4 BP 145/81 H Blood Pressure Location Rt brachial Position Sitting Pulse 72 Pulse Source Pulse Oximeter Intake Visit Reasons: Type 2 diabetes mellitus without complications Intake Note: Patient presents today for a follow-up on Type 2 Diabetes Mellitus: Last Diabetic eye exam was on: DUE Last Podiatry exam was on: Patient does not see a Seafood Harvester Most recent HbA1c: DUE Random Glucose- 62 mg/dL, Today, Patient declined to be treated for the low blood sugar Allergies codeine Allergy (Mild, Verified 07/30/24 10:05) Anaphylaxis morphine Adverse Reaction (Verified 07/30/24 10:05) vomiting HPI Comments Details: 48 year old female status post re do sleeve gastrectomy and hernia repair January 31 at [facility] (Dr. Sims) presents for f/u to evaluate hypoglycemia. She had an initial sleeve gastrectomy in 2002. Hypoglycemia started after her second surgery. At the time of her initial consult two weeks ago, her fingerstick glucose was 66 and she felt symptomatic. She went to the lab and her glucose was 81. She did recently repeat blood work i the lab and it was 62. She has been taking acarbose and initially thought that was helping but reports this is not of any help. Prior to sleeve gastrectomy she was on medications for diabetes. After surgery all medications were discontinued. She has a very low appetite and 24 hour recall reflects p.o. intake not adequate. For breakfast she has half a piece of toast and an egg or nothing. For supper she has mashed potatoes. She may or may not eat later in the day. She is scheduled to see her bariatric surgeon later this month. She reports her glucose readings can drop as low as 39 and she does feel symptomatic. She treats with orange juice and sometimes has a improvement of symptoms at other times does not. Her symptoms include weakness shakiness feeling like she might pass out. On presentation to the clinic today her glucoses 69 and she does feel shaky. Denies presyncope. We attempted to have her blood work drawn in our building but they were unable to due to the type of labs required. I recommended that she consumes 15 carbohydrate g of joão rohit and we continue with her visit. 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 She has a family history of type 2 diabetes in her mother, maternal grandmother and multiple other relatives. [facility] Medical History (Updated 08/19/24 @ 11:10 by Shari Lainez MD) Menopause History of menopause Vertigo Depression Anxiety GERD (gastroesophageal reflux disease) Sleep apnea COVID-19 vaccine series completed Renal cancer Fatty liver Diabetes HTN (hypertension) Surgical History Hx of resection of stomach History of pubovaginal sling History of left oophorectomy History of left nephrectomy History of esophagogastroduodenoscopy (EGD) Hx of vaginal surgery History of sleeve gastrectomy Hx laparoscopic cholecystectomy Family History Father Septic shock Maternal Uncle Liver cancer Stomach cancer Hepatitis C Maternal Aunt Lupus Mother HTN (hypertension) Diabetes Heart problem Son Asthma Acute anxiety Son Autism ADHD (attention deficit hyperactivity disorder) Son No problems noted. Son No problems noted. Son No problems noted. Daughter GERD (gastroesophageal reflux disease) Daughter No problems noted. Daughter No problems noted. Other Substance abuse Social History (Updated 07/20/24 @ 09:32 by Sailaja Colbert CMA) Household Members: Spouse and Children Housing: House Are you a primary child care center assistant director to a significant other at home: No Do you presently have visiting nurse or other home services: No Alcohol intake: never Patient Tobacco Use Status: Never used Tobacco e-Cigarette/Vaping Use: Never Used Second Hand Smoke Exposure: No service: No Current occupational status: disabled Cognitive needs: No Hearing needs: No Vision needs: No Physical Exam Vital Signs: Last Vital Signs Pulse 72 08/13/24 12:36 BP 145/81 H 08/13/24 12:36 BMI result Body Mass Index 23.4 Const Other: Absence of Cushingoid features. Absence of acromegalic features. Neck exam reveals nl size thyroid about 15 gms. No thyroid nodules palpable. No carotid bruits present. Lungs CTA. Heart S1 S2, Reg R/R. No M/R G. Skin exam reveals absence of vitiligo or acanthosis nigricans. No edema Results Reviewed Results Reviewed: Laboratory Last Values Glucose (Clinic) 62 mg/dL (60-115) 08/13/24 12:39 Assessment & Plan Assessment & Plan (1) Hypoglycemia: Code(s): E16.2 - Hypoglycemia, unspecified Category: Medical Plan: hypoglycemia confirmed with whipples triad. Will refer to hypoglycemia clinic at [place]. Orders: Orders Insulin 08/13/24 E11.9 - Type 2 diabetes mellitus without complications Proinsulin 08/13/24 E11.9 - Type 2 diabetes mellitus without complications Glucose Random 08/13/24 E11.9 - Type 2 diabetes mellitus without complications Medications: New blood-glucose sensor (FreeStyle Navarro 3 Sensor device) continous glucose sensor every 15 days 2 ea 11RF Coding Level of Care Code Est Pt Level 4 (29573) Complex EM visit Add On G2211 Diagnoses Hypoglycemia E16.2 Time Spent (min) 30 Comment Time spent reviewing labs/provider notes, face to face, chart doc
[2024-08-13 12:36] VITALS: BP 145/81; PULSE 72; BMI 23.4
[2024-08-13 12:44] LABS: Glucose, Whole Blood 62 mg/dL (60-115)
--- OUTSIDE RECORDS SUMMARY | 2024-08-13 16:03 | XMS_ITS | Clinical Summary ---
Author Organization [facility] Address [address] [place] [address] Care Team Providers Care Dealership Manager Name Role Phone Unavailable Primary Care Provider Unavailabl e Allergies Active Allergy Reactions Criticality Noted Date Comments Oxycodone-Acetaminophen Itching Medium 11/22/2022 Acetaminophen-Codeine Anaphylaxis High 11/22/2022 Swells up throat Medications Medication Sig Dispensed Refills Start Date End Date Status diazePAM (VALIUM) tablet 5 mg Take 1 tablet (5 mg total) by mouth once as needed for anxiety (for 30 minutes prior to procedure) for up to 1 dose. 1 tablet 0 11/28/2023 Active Family History Medical History Relation Name Comments Cancer Father Diabetes Father Heart disease Father Liver disease Father Heart disease Mother Relation Name Status Comments Father Mother Alive Social History Tobacco Use Types Packs/Day Years Used Date Smoking Tobacco: Never Passive Smoke Exposure: Never Smokeless Tobacco: Never Tobacco Cessation:Counseling Given: Not Answered Alcohol Use Standard Drinks/Week Comments Never 0 (1 standard drink = 0.6 oz pur e alcohol) Sex and Gender Information Value Date Recorded Sex Assigned at Not on file Gender Identity Not on file Sexual Orientation Not on file Job Start Date Occupation Industry Not on file Not on file Not on file Last Filed Vital Signs Vital Sign Reading Time Taken Comments Blood Pressure 133/84 11/28/2023 9:00 AM EDT Pulse 62 11/28/2023 9:00 AM EDT Temperature 36.5 ??C (97.7 ??F) 11/28/2023 9:00 AM ED T Respiratory Rate - - Oxygen Saturation 100% 11/28/2023 9:00 AM EDT Inhaled Oxygen Concentration - - Weight 70 kg (154 lb 5.2 oz) 11/22/2022 10:24 AM EDT Height 157.5 cm (5' 2 ) 11/22/2022 10:24 AM EDT Body Mass Index 28.23 11/22/2022 10:24 AM EDT Plan of Treatment Health Maintenance Due Date Last Done Comments Hepatitis B Vaccines (1 of 3 - 3-dose series) 1973 Hepatitis C Screening 1973 COVID-19 Vaccine (#1) 04/24/1974 Depression Screening 1985 Preventative Health Evaluation 10/24/1991 Cervical Cancer Screening (Pap Smear) 1994 Colon Cancer Screening (Colonoscopy) 2018 Breast Cancer Screening (Mammogram) 10/24/2023 Shingrix-Zoster Vaccine (1 of 2) 10/24/2023 Influenza Vaccine (#1) 2024 04/20/2013 DTap / Tdap / Td (4 - Td or Tdap) 12/05/2027 12/04/2017, 08/06/2013, 08/10/2012, Additional history exists Pneumococcal Vaccine Aged Out 12/04/2017 No long er eligible based on patient's age to complete this topic RSV Ped < 20 months Aged Out No longe r eligible based on patient's age to complete this topic
--- OUTSIDE RECORDS SUMMARY | 2024-08-13 16:03 | XMS_ITS | Clinical Summary ---
Author Organization [facility] Address [address] [place] [address] Care Team Providers Care Assembly Line Worker Name Role Phone Izabela Ellison MD Primary Care Provider [phone] Surgical History Surgery Date Site/Laterality Comments CHOLECYSTECTOMY 2002 PROCEDURE: HISTORICAL CHOLECYSTECTOMY EYE SURGERY 11/2017 Left PROCEDURE: HISTORICAL EYE SURGERY; COMMENT: glaucoma OTHER SURGICAL HISTORY 08/17/2020 PROCEDURE: ---- OTHER ----; COMMENT: Laparoscopic sleeve gastrectomy and repair of hiatal hernia OTHER SURGICAL HISTORY 11/30/2020 PROCEDURE: HISTORY OTHER; COMMENT: Laparoscopic revision of repair of hiatal hernia OTHER SURGICAL HISTORY 10/11/2021 PROCEDURE: HISTORY OTHER; COMMENT: hysteroscopy, D&C, removal of cervical polyp - Medical History Medical History Date Comments Diabetes type 2, uncontrolled 11/15/2015 DX :Diabetes type 2, uncontrolled GERD (gastroesophageal reflux disease) 04/01/2017 DX:GERD (gastroesophageal reflux disease) Diabetic gastroparesis (CMS/HCC) 08/20/2017 DX:Diabetic gastroparesis (HCC) NAFLD (nonalcoholic fatty li porfirio disease) 08/20/2017 DX:NAFLD (nonalcoholic fatty liver disease) Obesity, Class II, BMI 35-39.9 05/21/2014 D X:Obesity, Class II, BMI 35-39.9 Family History Medical History Relation Name Comments Hypertension Father Liver cancer Father Other: septic shock Father Breast cancer Maternal Grandmother Diabetes Mother Hypertension Mother Other: cardiac disease Mother Stroke Mother Other: Gastric cancer Uncle matern al Coronary artery disease Neg Hx Relation Name Status Comments Father Maternal Grandmother Alive Mother Alive Uncle Social History Tobacco Use Types Packs/Day Years Used Date Smoking Tobacco: Never Smokeless Tobacco: Never Alcohol Use Standard Drinks/Week Comments No 0 (1 standard drink = 0.6 oz pur e alcohol) Housing Instability Answer Date Recorde d Are you worried that in the next 2 months you may not have stable housing? No 11/21/2023 Food Access & Nutrition Answer Date Rec orded Do you have access to a vari ety of food including fruits and vegetables? No 11/21/2023 Health Literacy Answer Date Recorded How often do you need to hav e someone help you when you read instructions, pamphlets, or other written material from your doctor or pharmacy? Patient declined 11/21/2023 Caregiver: How often do you need to have someone help you when you read instructions, pamphlets, or other written material from your doctor or pharmacy? Not on file Financial Risk Answer Date Recorded How hard is it for you to pa y for the very basics like food, housing, medical care, and air conditioning / heating? Somewhat hard 11/21/2023 Transportation Answer Date Recorded Has the lack of transportati on kept you from meetings, work, or from getting things needed for daily living? No Has the lack of transportati on kept you from medical appointments or from getting medications? No 11/21/2023 Social Isolation Answer Date Recorded How often do you feel lonely or isolated from those around you? Not asked 11/21/2023 Food Risk Answer Date Recorded Within the past 12 months we worried whether our food would run out before we got money to buy more. Not asked Within the past 12 months th e food we bought just didn't last and we didn't have money to get more. Patient declined 03/2024 Dependent Care Answer Date Recorded Do you need help finding or paying for care for your loved ones. For example, director of early childhood education or elderly care for an older adult? Patient declined 11/21/2023 Education Answer Date Recorded Do you think completing more education or training, like finishing a GED, going to college, or learning a trade, would be helpful for you? Yes 11/21/2023 Employment and Income Answer Date Recor ded During the last four weeks, have you been actively looking for work? Patient declined 11/21/2023 Living Situation Answer Date Recorded What is your living situation? 0 11/21/2023 Sex and Gender Information Value Date Recorded Sex Assigned at Not on file Gender Identity Not on file Sexual Orientation Not on file Obstetrics History Last Filed Vital Signs Vital Sign Reading Time Taken Comments Blood Pressure 116/75 03/23/2024 10:55 AM EDT Pulse 76 03/23/2024 10:55 AM EDT Temperature - - Respiratory Rate - - Oxygen Saturation - - Inhaled Oxygen Concentration - - Weight 60.6 kg (133 lb 9.6 oz) 03/23/2024 10:55 AM EDT Height 157.5 cm (5' 2 ) 03/23/2024 10:55 AM EDT Body Mass Index 24.44 03/23/2024 10:55 AM EDT Plan of Treatment Health Maintenance Due Date Last Done Comments Breast Cancer Screening 1973 Diabetes: Annual Foot Exam 10/24/1983 Diabetes: Annual Retina Eye Exam 10/24/1983 Hepatitis A Vaccines (1 of 2 - Risk 2-dose series) 1992 Hepatitis B Vaccines (1 of 3 - 19+ 3-dose series) 1992 Zoster Vaccines (1 of 2) 1992 Pneumococcal Vaccine: Pediatrics (0 to 5 Years) and At-Risk Patients (6 to 64 Years) (2 of 2 - PCV) 12/04/2018 12/04/2017 Cholesterol Screening (Lipid Panel) 09/26/2021 Colorectal Cancer Screening: Colonoscopy 09/26/2021 Hepatitis C Screening 09/26/2021 Diabetes: Annual Urine Albumin-Creatinine Ratio (uACR) 02/07/2024 COVID-19 Vaccine ( season) 2024 01/03/2021, 12/29/2020, 12/07/2020, Additional history exists Diabetes: Blood Sugar Control Test (HGBA1C) 05/12/2024 11/11/2023 Cervical Cancer Screening: Pap Smear 08/22/2024 08/22/2021, 12/12/2017 Depression Screening 11/20/2024 11/21/2023 Social Influencers of Health Screening 11/20/2024 11/21/2023 Diabetes: Annual GFR (Glomerular Filtration Rate) 01/30/2025 01/31/2024 DTaP,Tdap,and Td Vaccines (2 - Td or Tdap) 12/05/2027 12/04/2017 HIV Screening Completed 11/11/2023 Influenza Vaccine Completed 05/04/2024 HIB Vaccines Aged Out No longer eligi ble based on patient's age to complete this topic HPV Vaccines Aged Out No longer eligi ble based on patient's age to complete this topic IPV Vaccines Aged Out No longer eligi ble based on patient's age to complete this topic MMR Vaccines Aged Out No longer eligi ble based on patient's age to complete this topic Meningococcal ACWY Vaccine Aged Out N o longer eligible based on patient's age to complete this topic RSV Immunization Patients Under 20 months Aged Out No longer eligible based on patient's age to complete this topic Varicella Vaccines Aged Out No longer eligible based on patient's age to complete this topic Procedures Procedure Name Priority Date/Time Associated Diagnosis Comments PAP SMEAR Routine 08/22/2021 from Last 3 Months or Most Recently Relevant to Health Maintenance Results * Pap smear (08/22/2021) 08/22/2021 Narrative HISTORICAL TESTING LAB RESULTING AGENCY - 09/07/2021 7:46 AM EST [id number] THINPREP PAP, IMAGED: NEGATIVE FOR SQUAMOUS INTRAEPITHELIAL LESION AND MALIGNANCY . NOTE: THE PAP TEST IS A SCREENING TEST WITH AN INHERENT FALSE NEGATIVE RATE. AUTOMATED PRESCREENING OF ALL LIQUID BASED SPECIMENS IS PERFORMED BY THE THINPREP IMAGING SYSTEM UNLESS OTHERWISE STATED. KIMBERLY ASKEW(ASCP) (CASE ELECTRONICALLY SIGNED 09 06 2021) RESULT OF APTIMA HIGH RISK HPV ASSAY: HIGH RISK HPV: ??NEGATIVE (SEROTYPES 16,18,31,33,35,39,45,51,52,56,58,59,66,68) COMPLETED ON 2021-08-24 ADEQUACY: SATISFACTORY ENDOCERVICAL/TRANSFORMATION ZONE COMPONENT ABSENT. SOURCE: THINPREP PAP HPV ANY DX: ??REFLEX 16 AND 18, CERVICAL, IMAGED CLINICAL INFORMATION: HPV ANY DIAGNOSIS. HORMONES, PAP HX NEG, LMP 08/08/2021, Z12.4 Dasia Monroe DO LAB CYTOLOGY ORD ERABLES HISTORICAL TESTING LAB RESULTING AGENCY from Last 3 Months or Most Recently Relevant to Health Maintenance Care Teams Assembly Line Worker Relationship Specialty Start Date End Date Izabela Ellison MD [address] [place] [address] PCP - General 05/12/21
== END 2024-08-13 13:06 | disposition home or self-care (01) ==
PROVIDERS: PCP Internal Medicine; Visit Provider Nurse Practitioner Adult Health
DX: E16.2 Hypoglycemia, unspecified (principal)
CPT/HCPCS: 99214; G2211

== ENCOUNTER 2024-09-04 09:19 | Outpatient (AMB) | payer OTHER, SELFPAY ==
--- NOTE | 2024-09-04 09:19 | A.OFFVIS_ITS ---
Intake Visit Reasons: S/P EGD; Dr. Melendez Intake Note: Patient had a EGD and she states that she is till having pains when she eats and drinks. Allergies codeine Allergy (Mild, Verified 07/30/24 10:05) Anaphylaxis morphine Adverse Reaction (Verified 07/30/24 10:05) vomiting HPI HPI S/P EGD; Dr. Melendez: Details: 48 yr old f called for f/u for abdominal pain RECAP she had Gastric sleeve 08/2020-- since then she had epigastric pain, every time she eats or drinks she had EGD with stensois and dilation of stomach by Aline she felt better for few weeks sx recurred and she has had several similar endoscopies with stretching with short term relief she had Ct scan at [facility] and found to have left kidney cancer and had left sided nephrectomy, she has nausea, occ vomiting, no blood she has mild constipation denies melena, no rectal bleeding no dysphagia but food can hurt when travelling down her esophagus she does have early satiety as well I ordered GES which was normal Due to ongoing sx I repeated EGD 07/2021 and dilated pylorus to 17 mm, seemed tight at time of EGD UGI series was done, no stenosis of stomahc but tablet got stuck in thoracic esophgaus, refluc noted and small HH Ref[place] [facility] [place] and plan for revision of sleeve and repair of hiatal hernia but this was then determined not to be needed EGD: 02/2022 apparent gastric stricture--dilated, 20 mm, no tear seen hiatal hernia repeat EGD 08/2022--dilation of mid body of stomach with rigid balloon 30 mm further repeat dilation with rigid balloon, 35 mm for 15 mins, using GA She had several further dilations and finally had revision of the sleeve to a gastric bypass recently EGD 07/07 due to dysphagia balloon dilation, mild gastritis INTERIM: she had another EGD at [place], not much difference she denies issues with swallowing, just pain in the peigastrium and lower esophagus which is helped by dilation she has tried a friends meperidine and it helped a lot Video: good color, relaxed, talking easily A/P: 1/ Epigastric pain, fullness, suspected 2/2 gastric sleeve-possible adhesions- now revised to a gastric bypass, having sx with painful swallowing helped by dilation and meperidine, 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 PLAN: 1/ hold on EGD for now unless sx get worse, see if PCP will order meperidine and opiate contract process COUNTS INCLUDE 234 BEDS AT THE [facility] Medical History (Updated 08/19/24 @ 11:10 by Shari Lainez MD) Menopause History of menopause Vertigo Depression Anxiety GERD (gastroesophageal reflux disease) Sleep apnea COVID-19 vaccine series completed Renal cancer Fatty liver Diabetes HTN (hypertension) Surgical History Hx of resection of stomach History of pubovaginal sling History of left oophorectomy History of left nephrectomy History of esophagogastroduodenoscopy (EGD) Hx of vaginal surgery History of sleeve gastrectomy Hx laparoscopic cholecystectomy Family History Father Septic shock Maternal Uncle Liver cancer Stomach cancer Hepatitis C Maternal Aunt Lupus Mother HTN (hypertension) Diabetes Heart problem Son Asthma Acute anxiety Son Autism ADHD (attention deficit hyperactivity disorder) Son No problems noted. Son No problems noted. Son No problems noted. Daughter GERD (gastroesophageal reflux disease) Daughter No problems noted. Daughter No problems noted. Other Substance abuse Social History (Updated 07/20/24 @ 09:32 by Sailaja Colbert CMA) Household Members: Spouse and Children Housing: House Are you a primary urgent care nurse practitioner to a significant other at home: No Do you presently have visiting nurse or other home services: No Alcohol intake: never Patient Tobacco Use Status: Never used Tobacco e-Cigarette/Vaping Use: Never Used Second Hand Smoke Exposure: No service: No Current occupational status: disabled Cognitive needs: No Hearing needs: No Vision needs: No Telehealth Telehealth Telehealth Platform: [facility] Location of provider rendering services: practice address Location of patient: address on file Patient Identification confirmed using: Name, : Yes Telehealth method: video Patient verbally consented to treatment: Yes Patient verbally consented to billing insurance company: Yes Patient informed of any privacy concerns related to visit: Yes Minutes spent on Phone/Video with Pt.: 22 Assessment & Plan Assessment & Plan (1) Epigastric abdominal pain: Code(s): R10.13 - Epigastric pain Category: Medical Plan see above Coding Level of Care Code Tele Est Pt Level 3 (81883) Diagnoses Epigastric abdominal pain R10.13
--- OUTSIDE RECORDS SUMMARY | 2024-09-04 09:45 | XMS_ITS | Clinical Summary ---
Author Organization Patient [facility] Address [address] [place] [address] Care Team Providers Care General Farmer Name Role Phone Shari Lainez MD Primary Care Provider [phone] Medications ibuprofen (ADVIL,MOTRIN) 800 mg tablet TAKE 1 TABLET BY MOUTH EVERY 8 HOURS NEEDED FOR PAIN FOR UP TO 30 DAYS. 06/22/2024 Active Surgical History Surgery Date Site/Laterality Comments CHOLECYSTECTOMY [...] got money to buy more. Not asked 024 Within the past 12 months th e food we bought just didn't last and we didn't have money to get more. Patient declined 03/2024 Dependent Care Answer Date Recorded Do you need help finding or paying for care for your loved ones. For example, child care provider or elderly care for an older adult? [...] What is your living situation? 0 11/21/2023 Comments Unknown Sex and Gender Information Value Date Recorded Sex Assigned at Not on file Legal Sex Female 5:44 PM EDT Gender Identity Not on file Sexual Orientation [...] Vaccines (1 of 2) 1992 Pneumococcal Vaccine: 50+ Years (2 of 2 - PCV) 12/04/2018 12/04/2017 Pneumococcal Vaccine: Pediatrics (0 to 5 Years) [...] patient's age to complete this topic Meningococcal B Vacine Aged Out No lo nger eligible based on patient's age to complete [...] RESULTING AGENCY - 09/07/2021 7:46 AM EST [id number] THINPREP PAP, IMAGED: NEGATIVE FOR SQUAMOUS INTRAEPITHELIAL [...] 08/08/2021, Z12.4 Dasia Monroe DO LAB CYTOLOGY ORDERABLES Final Result HISTORICAL TESTING LAB RESULTING AGENCY from Last 3 Months or Most Recently Relevant to Health Maintenance Care Teams General Farmer Relationship Specialty Start Date End Date Shari Lainez MD [address] [place] [address] PCP - General Endocrinology 08/25/24
--- OUTSIDE RECORDS SUMMARY | 2024-09-04 09:45 | XMS_ITS | Clinical Summary ---
Author Organization [email or web address] [facility] Address [address] [place] [address] Care Team Providers Care Chemical Engraver Name Role Phone Unavailable Primary Care Provider [...]
== END 2024-09-04 16:36 | disposition home or self-care (01) ==
LOC: HO.HGI 09:19
PROVIDERS: PCP Internal Medicine; Visit Provider Internal Medicine Gastroenterology
DX: R10.13 Epigastric pain (principal)
CPT/HCPCS: 99213

== ENCOUNTER → 2024-09-04 09:19 | Outpatient (BNVA) | payer OTHER, SELFPAY | PROVIDERS: PCP Internal Medicine; Visit Provider Internal Medicine Gastroenterology ==

== ENCOUNTER 2024-09-22 09:11 | Outpatient (AMB) | payer OTHER, SELFPAY ==
--- NOTE | 2024-09-22 09:24 | MHC.PC.OV ---
Vital Signs 09/22/24 09:25 Height 5 ft 2 in Weight 127 lb BMI 23.2 BP 112/72 Blood Pressure Location Rt brachial Position Sitting Respiration 12 Pulse 66 Pulse Source Pulse Oximeter Pulse Oximetry (%) 99 Oxygen Delivery Method Room Air Intake Visit Reasons: meds 1/2 hour Intake Note: Follow up medication and MRI abdomen and pelvis results. Web Production Assistant Required: No Allergies codeine Allergy (Mild, Verified 09/22/24 09:25) Anaphylaxis morphine Adverse Reaction (Verified 09/22/24 09:25) vomiting Tobacco use date assessed: 06/23/24 Dental Screening Dental Screen Date: 06/23/24 HPI HPI Comments History of Present Illness Details The patient is a 48 year old female with past medical history of diabetes, left kidney cancer, RCC, htn, hld, anxiety, depression, insomnia presenting for follow up Underwent surgery in January by Dr Sims in [facility]-correction of prior sleeve gastrectomy and hernia repair. Still gets chronic back and upper abdominal pain. She is on chronic opioid therapy-the xtampza and percocet are not working as well as demerol which she has had in the past. Has narcan. On chronic PPI. Has recent MR abdomen which shows a small hiatal hernia. Says her pain is starting in the lateral left mid back wrapping around the flank to upper abdomen. BH: On effexor, zolpidem, trazodone, prazosin, perphenazine Urology: Follows with Dr Lozano for h/o RCC. Says she has not been seen in awhile Diabetes: After surgery in January has been eating very little. She is having frequent hypoglycemia. Says numbers often drop into 40s. Not following with endocrine. ROS CONSTITUTIONAL: Denies weight loss, fever and chills. HEENT: Denies changes in vision and hearing. RESPIRATORY: Denies SOB and cough. CV: Denies palpitations and CP GI: Denies abdominal pain, nausea, vomiting and diarrhea. : Denies dysuria and urinary frequency. MSK: Denies new myalgia and joint pain. SKIN: Denies rash and pruritus. NEUROLOGICAL: Denies headache PSYCHIATRIC: Denies recent changes in mood. PHYSICAL EXAM: GENERAL: Alert and oriented x 3. NAD EYES: EOMI. Anicteric. HENT: Moist mucous membranes. No scleral icterus. No cervical lymphadenopathy. LUNGS: Clear to auscultation bilaterally. CARDIOVASCULAR: Regular rate and rhythm. No murmur. No JVD. ABDOMEN: Soft, non-tender +bs EXTREMITIES: No edema. Non-tender. SKIN: No rashes or lesions. Warm. NEUROLOGIC: No focal neurological deficits. CN II-XII grossly intact PSYCHIATRIC: Cooperative. Appropriate mood and affect [facility] Medical History Menopause History of menopause Vertigo Depression Anxiety GERD (gastroesophageal reflux disease) Sleep apnea COVID-19 vaccine series completed Renal cancer Fatty liver Diabetes HTN (hypertension) Surgical History Hx of resection of stomach History of pubovaginal sling History of left oophorectomy History of left nephrectomy History of esophagogastroduodenoscopy (EGD) Hx of vaginal surgery History of sleeve gastrectomy Hx laparoscopic cholecystectomy Family History Father Septic shock Maternal Uncle Liver cancer Stomach cancer Hepatitis C Maternal Aunt Lupus Mother HTN (hypertension) Diabetes Heart problem Son Asthma Acute anxiety Son Autism ADHD (attention deficit hyperactivity disorder) Son No problems noted. Son No problems noted. Son No problems noted. Daughter GERD (gastroesophageal reflux disease) Daughter No problems noted. Daughter No problems noted. Other Substance abuse Social History Household Members: Spouse and Children Housing: House Are you a primary managed care analyst to a significant other at home: No Do you presently have visiting nurse or other home services: No Alcohol intake: never Patient Tobacco Use Status: Never used Tobacco e-Cigarette/Vaping Use: Never Used Second Hand Smoke Exposure: No service: No Current occupational status: disabled Cognitive needs: No Hearing needs: No Vision needs: No Questionnaire Thrive Questionnaire Date Thrive assessed: 07/20/24 I am a: Patient What is your living situation today?: I have a steady place to live Within the past 12 months, did the food you bought not last and you didn't have the money to get more?: Often true Within the past 12 months, did you worry whether your food would run out before you got money to buy more?: Often true Do you have trouble paying for medicines?: I choose not to answer this question Do you have trouble getting transportation to medical appointments?: I choose not to answer this question Do you have trouble paying your heating and electricity bill?: Yes Do you have trouble taking care of your child, family member or friend?: I choose not to answer this question Do you have trouble with day-to-day activities such as bathing, preparing meals, shopping, managing finances, etc.?: I choose not to answer this question Are you currently unemployed and looking for a job?: I choose not to answer this question Are you interested in more education?: I choose not to answer this question Please select the resources that you would like help with: None Currently or been in a relationship where the following occur: I choose not to answer THRIVE Score: 3 Physical exam (Primary Care) Vital Signs: Last Vital Signs Pulse 66 09/22/24 09:25 Resp 12 09/22/24 09:25 BP 112/72 09/22/24 09:25 Pulse Ox 99 09/22/24 09:25 Oxygen Delivery Method Room Air 09/22/24 09:25 BMI result Body Mass Index 23.2 Tobacco/Smoking Status: Tobacco use Status Tobacco use date assessed 06/23/24 09/22/24 09:29 Patient Tobacco Use Status Never used Tobacco 09/22/24 09:29 e-Cigarette/Vaping Use Never Used 09/22/24 09:29 Thrive Assessment: Date of Thrive Assessment Date Thrive assessed 07/20/24 09/22/24 09:29 Currently or been in a relationship where the following occur: I choose not to answer Coding Level of Care Code Est Pt Level 4 (21026) Diagnoses Chronic abdominal pain R10.9; G89.29 Thoracic radiculopathy M54.14 Assessment & Plan Assessment & Plan (1) Chronic abdominal pain: Code(s): R10.9 - Unspecified abdominal pain; G89.29 - Other chronic pain Category: Medical Plan: Reviewed MR with patient No cause of pain identified Discussed possibility of surgical adhesions versus thoracic radiculopathy versus other causes (2) Thoracic radiculopathy: Code(s): M54.14 - Radiculopathy, thoracic region Category: Medical Plan: xray ordered Orders: Orders XR thoracic spine 3V Today G89.29 - Other chronic pain, M54.14 - Radiculopathy, thoracic region, R10.9 - Unspecified abdominal pain Medications: New meperidine Partial Fill upon patient request. May pay out of pocket 50 mg PO Q6H 28 days PRN 112 tabs 0RF pain Discontinued oxycodone myristate CR-ER (Xtampza ER) must administer with a meal/food; Partial Fill upon patient request. Discontinued Reason: Doctor's Order 9 mg PO BID 60 caps 0RF oxycodone-acetaminophen 5-325 mg (Percocet) Partial Fill upon patient request. Discontinued Reason: Doctor's Order 1 tab PO Q8H 30 days PRN 30 tabs 0RF pain G89.29 - Other chronic pain
[2024-09-22 09:25] VITALS: BP 112/72; PULSE 66; RESP 12; O2SAT 99; BMI 23.2
--- OUTSIDE RECORDS SUMMARY | 2024-09-22 10:14 | XMS_ITS | Clinical Summary ---
Author Organization [facility] Address [address] [place] [address] Care Team Providers Care Manufacturing Process Technician Name Role Phone Unavailable Primary Care Provider [...]
--- OUTSIDE RECORDS SUMMARY | 2024-09-22 10:14 | XMS_ITS | Clinical Summary ---
Author Organization Patient Business [facility] Address [address] [place] [address] Care Team Providers Care Manager Mortgage Name Role Phone Shari Lainez MD Primary Care Provider [phone] Medications ibuprofen (ADVIL,MOTRIN) 800 mg tablet TAKE [...] for your loved ones. For example, child support investigator or elderly care for an older adult? [...] RESULTING AGENCY - 09/07/2021 7:46 AM EST [id number] THINPREP PAP, IMAGED: NEGATIVE FOR SQUAMOUS INTRAEPITHELIAL [...] Recently Relevant to Health Maintenance Care Teams Manager Mortgage Relationship Specialty Start Date End Date Shari Lainez MD PCP - General Endocrinology 08/25/24
== END 2024-09-22 09:50 | disposition home or self-care (01) ==
LOC: HO.HMCFM 09:12
PROVIDERS: PCP Internal Medicine; Visit Provider Internal Medicine
DX: R10.9 Unspecified abdominal pain (principal); G89.29 Other chronic pain; M54.14 Radiculopathy, thoracic region

== ENCOUNTER → 2024-09-22 09:11 | Outpatient (BNVA) | payer OTHER, SELFPAY | PROVIDERS: PCP Internal Medicine; Visit Provider Internal Medicine | DX: R10.9 Unspecified abdominal pain (principal); G89.29 Other chronic pain; M54.14 Radiculopathy, thoracic region; E11.9 Type 2 diabetes mellitus without complications; I10 Essential (primary) hypertension; E78.5 Hyperlipidemia, unspecified; F41.9 Anxiety disorder, unspecified; F32.A Depression, unspecified; Z79.899 Other long term (current) drug therapy | CPT/HCPCS: 99212 ==

== ENCOUNTER 2024-11-09 08:48 | Outpatient (AMB) | payer OTHER, SELFPAY ==
--- NOTE | 2024-11-09 08:58 | MHC.PC.OV ---
Vital Signs 11/09/24 09:00 Height 5 ft 2 in Weight 128 lb 8 oz BMI 23.5 BP 120/70 Blood Pressure Location Rt brachial Position Sitting Respiration 12 Pulse 72 Pulse Source Pulse Oximeter Pulse Oximetry (%) 100 Oxygen Delivery Method Room Air Intake Visit Reasons: F/U Meds Intake Note: Medication follow up. Has been having a rash aroung the neck after taking a bath. Tried dove soap sensitive, but it is still happening. Cyber Reverse Engineer Required: No Allergies codeine Allergy (Mild, Verified 11/09/24 08:59) Anaphylaxis morphine Adverse Reaction (Verified 11/09/24 08:59) vomiting Tobacco use date assessed: 06/23/24 Dental Screening Dental Screen Date: 06/23/24 HPI HPI Comments History of Present Illness Details The patient is a 49 year old female with past medical history of diabetes, left kidney cancer, RCC, htn, hld, anxiety, depression, insomnia presenting for follow up Underwent surgery last January by Dr Sims in [facility]-correction of prior sleeve gastrectomy and hernia repair. Still has chronic back and upper abdominal pain. She is on chronic opioid therapy-the xtampza and percocet were not working and had nausea as side effect-she transitioned to demerol which has been more effective. Recently has had a spike in intermittent severe epigastric pains. Has narcan. On chronic PPI. Has recent MR abdomen which shows a small hiatal hernia. Says her pain is starting in the lateral left mid back wrapping around the flank to upper abdomen. She has seen GI locally but was recommended to follow up at [facility] where her surgery was done BH: On effexor, zolpidem, trazodone, prazosin, perphenazine Urology: Follows with Dr Lozano for h/o RCC. Says she is not having periods but has frequent pain that feels like she is ovulating. After her surgery last year had vaginal bleeding for one month. She has history of pelvic sling. Diabetes: After surgery last summer has been eating very little. She is having frequent hypoglycemia. Says numbers often drop into 40s. Not following with endocrine. She is maintained on acarbose. On BRIONNA Mammo: Colonoscopy: ROS see HPI PHYSICAL EXAM: GENERAL: Alert and oriented x 3. NAD EYES: EOMI. Anicteric. HENT: Moist mucous membranes. No scleral icterus. No cervical lymphadenopathy. LUNGS: Clear to auscultation bilaterally. CARDIOVASCULAR: Regular rate and rhythm. No murmur. No JVD. ABDOMEN: Soft, non-tender +bs EXTREMITIES: No edema. Non-tender. SKIN: No rashes or lesions. Warm. NEUROLOGIC: No focal neurological deficits. CN II-XII grossly intact PSYCHIATRIC: Cooperative. Appropriate mood and affect [facility] Medical History Menopause History of menopause Vertigo Depression Anxiety GERD (gastroesophageal reflux disease) Sleep apnea COVID-19 vaccine series completed Renal cancer Fatty liver Diabetes HTN (hypertension) Surgical History Hx of resection of stomach History of pubovaginal sling History of left oophorectomy History of left nephrectomy History of esophagogastroduodenoscopy (EGD) Hx of vaginal surgery History of sleeve gastrectomy Hx laparoscopic cholecystectomy Family History Father Septic shock Maternal Uncle Liver cancer Stomach cancer Hepatitis C Maternal Aunt Lupus Mother HTN (hypertension) Diabetes Heart problem Son Asthma Acute anxiety Son Autism ADHD (attention deficit hyperactivity disorder) Son No problems noted. Son No problems noted. Son No problems noted. Daughter GERD (gastroesophageal reflux disease) Daughter No problems noted. Daughter No problems noted. Other Substance abuse Social History Household Members: Spouse and Children Housing: House Are you a primary care mgr to a significant other at home: No Do you presently have visiting nurse or other home services: No Alcohol intake: never Patient Tobacco Use Status: Never used Tobacco e-Cigarette/Vaping Use: Never Used Second Hand Smoke Exposure: No service: No Current occupational status: disabled Cognitive needs: No Hearing needs: No Vision needs: No Questionnaire PHQ-9 Over the last 2 weeks, how often have you been bothered by any of the following problems? 9. Thoughts that you would be better off or of hurting yourself in some way: not at all Source: Developed by Drs. Emmanuel Puga, Lisandra Lowe, Eliecer Saha and colleagues, with an educational franklin from [employer]. Thrive Questionnaire Date Thrive assessed: 11/09/24 I am a: Patient What is your living situation today?: I have a steady place to live Within the past 12 months, did the food you bought not last and you didn't have the money to get more?: Often true Within the past 12 months, did you worry whether your food would run out before you got money to buy more?: Often true Do you have trouble paying for medicines?: I choose not to answer this question Do you have trouble getting transportation to medical appointments?: I choose not to answer this question Do you have trouble paying your heating and electricity bill?: Yes Do you have trouble taking care of your child, family member or friend?: I choose not to answer this question Do you have trouble with day-to-day activities such as bathing, preparing meals, shopping, managing finances, etc.?: I choose not to answer this question Are you currently unemployed and looking for a job?: I choose not to answer this question Are you interested in more education?: I choose not to answer this question Please select the resources that you would like help with: None Currently or been in a relationship where the following occur: I choose not to answer THRIVE Score: 3 Physical exam (Primary Care) Vital Signs: Last Vital Signs Pulse 72 11/09/24 09:00 Resp 12 11/09/24 09:00 BP 120/70 11/09/24 09:00 Pulse Ox 100 11/09/24 09:00 Oxygen Delivery Method Room Air 11/09/24 09:00 BMI result Body Mass Index 23.5 Tobacco/Smoking Status: Tobacco use Status Tobacco use date assessed 06/23/24 11/09/24 09:06 Patient Tobacco Use Status Never used Tobacco 11/09/24 09:06 e-Cigarette/Vaping Use Never Used 11/09/24 09:06 Thrive Assessment: Date of Thrive Assessment Date Thrive assessed 11/09/24 11/09/24 10:36 Currently or been in a relationship where the following occur: I choose not to answer Coding Level of Care Code Est Pt Level 4 (45971) Diagnoses Chronic abdominal pain R10.9; G89.29 Thoracic radiculopathy M54.14 Pelvic pain R10.2 Unspecified mood [affective] disorder F39 Assessment & Plan Assessment & Plan (1) Chronic abdominal pain: Code(s): R10.9 - Unspecified abdominal pain; G89.29 - Other chronic pain Category: Medical (2) Thoracic radiculopathy: Code(s): M54.14 - Radiculopathy, thoracic region Category: Medical (3) Pelvic pain: Code(s): R10.2 - Pelvic and perineal pain Category: Medical (4) Unspecified mood [affective] disorder: Code(s): F39 - Unspecified mood [affective] disorder Category: Medical Plan Epigastric pain-referral placed to [facility]. continue current medications Pelvic pain-sees urology. Referral placed to urogynecology Hypoglycemia-continue acarbose. Follow up endocrine Orders: Referrals Pain Management Referral G89.28 - Other chronic postprocedural pain, G89.29 - Other chronic pain, M54.14 - Radiculopathy, thoracic region, R10.9 - Unspecified abdominal pain Urogynecology Referral R10.2 - Pelvic and perineal pain Gastroenterology Referral G89.29 - Other chronic pain, R10.9 - Unspecified abdominal pain, Z87.19 - Personal history of other diseases of the digestive system, Z98.890 - Other specified postprocedural states Medications: New pantoprazole 40 mg PO BID 180 tabs 3RF Refilled FreeStyle Lancets (lancets) once daily and as needed 100 ea 3RF NS E16.2 - Hypoglycemia, unspecified
[2024-11-09 09:00] VITALS: BP 120/70; PULSE 72; RESP 12; O2SAT 100; BMI 23.5
--- OUTSIDE RECORDS SUMMARY | 2024-11-09 09:25 | XMS_ITS ---
Author Name [facility] Organization Unknown Encounters Encounter Type Encounter Reason Primary Diagnosis Location Date Ambulatory [facility] 04/24/2024 Care Team Organization Name Specialty Phone Email Start Date End Da te [facility] 2024
--- OUTSIDE RECORDS SUMMARY | 2024-11-09 09:25 | XMS_ITS | Clinical Summary ---
Author Organization Patient Business Ser [facility] Address [address] [place] [address] Care Team Providers Care Apns Name Role Phone Shari Lainez MD Primary Care Provider [phone] Medications ibuprofen (ADVIL,MOTRIN) 800 mg tablet TAKE [...] 04/01/2017 DX:GERD (gastroesophageal reflux disease) Diabetic gastroparesis (CMS/ HCC V24, CMS/HCC V28) 08/20/2017 DX:Diabetic gastroparesis (H CC) NAFLD (nonalcoholic fatty li porfirio disease) 08/20/2017 [...] your loved ones. For example, child care supervisor or elderly care for an older adult? [...] Urine Albumin-Creatinine Ratio (uACR) 02/07/2024 COVID-19 Vaccine () 03/15/2024 01/03/2021, 12/29/2020, 12/07/2020, Additional history exists Diabetes: [...] age to complete this topic Meningococcal B Vaccine Aged Out No l onger eligible based on patient's age to complete [...] RESULTING AGENCY - 09/07/2021 7:46 AM EST [id number] THINPREP PAP, IMAGED: NEGATIVE FOR SQUAMOUS INTRAEPITHELIAL [...] Recently Relevant to Health Maintenance Care Teams Apns Relationship Specialty Start Date End Date Shari Lainez MD PCP - General Endocrinology 08/25/24
--- OUTSIDE RECORDS SUMMARY | 2024-11-09 09:25 | XMS_ITS | Clinical Summary ---
Author Organization [employer] [facility] Address [address] [place] [address] Care Team Providers Care Power Plant Technician Name Role Phone Unavailable Primary Care [...]
== END 2024-11-09 09:28 | disposition home or self-care (01) ==
LOC: HO.HMCFM 08:48
PROVIDERS: PCP Internal Medicine; Visit Provider Internal Medicine
DX: R10.9 Unspecified abdominal pain (principal); G89.29 Other chronic pain; M54.14 Radiculopathy, thoracic region; R10.2 Pelvic and perineal pain; F39 Unspecified mood [affective] disorder

== ENCOUNTER → 2024-11-09 08:48 | Outpatient (BNVA) | payer OTHER, SELFPAY | PROVIDERS: PCP Internal Medicine; Visit Provider Internal Medicine | DX: E11.9 Type 2 diabetes mellitus without complications (principal); E16.2 Hypoglycemia, unspecified; E78.5 Hyperlipidemia, unspecified; I10 Essential (primary) hypertension; F41.9 Anxiety disorder, unspecified; R10.9 Unspecified abdominal pain; G89.29 Other chronic pain; M54.14 Radiculopathy, thoracic region; R10.2 Pelvic and perineal pain; F39 Unspecified mood [affective] disorder; G89.28 Other chronic postprocedural pain; Z87.19 Personal history of other diseases of the digestive system; Z98.890 Other specified postprocedural states | CPT/HCPCS: 99212 ==

== ENCOUNTER 2024-12-09 13:08 | Outpatient (AMB) | payer OTHER, SELFPAY ==
--- NOTE | 2024-12-09 13:01 | A.OFFVIS_ITS ---
Vital Signs 12/09/24 13:15 Height 5 ft 2 in Weight 127 lb 13.89 oz BMI 23.4 BP 134/74 Blood Pressure Location Rt brachial Position Sitting Pulse 75 Pulse Source Pulse Oximeter Pulse Oximetry (%) 98 Oxygen Delivery Method Room Air Intake Visit Reasons: Type 2 diabetes mellitus without complications Intake Note: Patient presents today for a follow-up on Hypoglycemia: Last Diabetic eye exam was on: DUE Last Podiatry exam was on: Patient does not see a Staff Nurse [facility] Resource Team Random Glucose- 80 mg/dL, Today Carton Liner Required: No Accompanied by: Self / Same As Patient Allergies codeine Allergy (Mild, Verified 12/09/24 13:15) Anaphylaxis morphine Adverse Reaction (Verified 12/09/24 13:15) vomiting HPI Comments Details: 49 year old female status post re do sleeve gastrectomy and hernia repair January 2024 at [facility] (Dr. Sims) presents for f/u to evaluate hypoglycemia. She had an initial sleeve gastrectomy in 2002. Hypoglycemia started after her second surgery. At the time of her initial consult in July 2024, her fingerstick glucose was 66 and she felt symptomatic. She went to the lab and her glucose was 81. She has been taking acarbose once daily in the am and initially thought that was helping but reports this is not of any help. Insurance did approve a Cirrascale 3 which she tried to get to work with her phone but it did not. She is requesting a reader. Prior to sleeve gastrectomy she was on medications for diabetes. After surgery all medications were discontinued. She has a very low appetite and 24 hour recall reflects p.o. intake not adequate. For breakfast: she does not eat Lunch: 2 small spoonfuls of tuna, 2 small sponfuls of macaroni salad. She recently saw her bariatric surgeon Dr. Sims recommended that she increase her p.o. intake. She does not have any appetite. Her weight in July was 129. Today's visit:127 14 oz She reports her glucose readings can drop as low as the 30' s and she does feel symptomatic. She treats with orange juice and sometimes has a improvement of symptoms at other times does not. She does not have her meter with her today for review. Her symptoms include weakness shakiness feeling like she might pass out. She has a family history of type 2 diabetes in her mother, maternal grandmother and multiple other relatives [facility] Medical History Menopause History of menopause Vertigo Depression Anxiety GERD (gastroesophageal reflux disease) Sleep apnea COVID-19 vaccine series completed Renal cancer Fatty liver Diabetes HTN (hypertension) Surgical History Hx of resection of stomach History of pubovaginal sling History of left oophorectomy History of left nephrectomy History of esophagogastroduodenoscopy (EGD) Hx of vaginal surgery History of sleeve gastrectomy Hx laparoscopic cholecystectomy Family History Father Septic shock Maternal Uncle Liver cancer Stomach cancer Hepatitis C Maternal Aunt Lupus Mother HTN (hypertension) Diabetes Heart problem Son Asthma Acute anxiety Son Autism ADHD (attention deficit hyperactivity disorder) Son No problems noted. Son No problems noted. Son No problems noted. Daughter GERD (gastroesophageal reflux disease) Daughter No problems noted. Daughter No problems noted. Other Substance abuse Social History Household Members: Spouse and Children Housing: House Are you a primary memory care program resident to a significant other at home: No Do you presently have visiting nurse or other home services: No Alcohol intake: never Patient Tobacco Use Status: Never used Tobacco e-Cigarette/Vaping Use: Never Used Second Hand Smoke Exposure: No service: No Current occupational status: disabled Cognitive needs: No Hearing needs: No Vision needs: No Physical Exam Vital Signs: Last Vital Signs Pulse 75 12/09/24 13:15 BP 134/74 12/09/24 13:15 Pulse Ox 98 12/09/24 13:15 Oxygen Delivery Method Room Air 12/09/24 13:15 BMI result Body Mass Index 23.4 Const Other: Absence of Cushingoid features. Absence of acromegalic features. Neck exam reveals nl size thyroid about 15 gms. No thyroid nodules palpable. Heart S1 S2, Reg R/R. No M/R G. Skin exam reveals absence of vitiligo or acanthosis nigrican s. No edema. Well-appearing Results Reviewed Results Reviewed: Laboratory Last Values Glucose (Clinic) 80 mg/dL (60-115) 12/09/24 13:21 Laboratory Tests 07/30/24 07/30/24 08/13/24 11:27 11:36 12:39 Glucose (Clinic) 66 62 Random Glucose Insulin Level Proinsulin Random Cortisol 10.5 08/13/24 13:27 Glucose (Clinic) Random Glucose 68 Insulin Level 4 Proinsulin 9.1 Random Cortisol Assessment & Plan Assessment & Plan (1) Hypoglycemia: Code(s): E16.2 - Hypoglycemia, unspecified Category: Medical Plan: see below (2) Pituitary adenoma: Code(s): D35.2 - Benign neoplasm of pituitary gland Category: Medical Plan: She reports a history of pituitary tumor. MRI was done at [facility] and she was seen by an parboiler there. Patient will sign record release in an MRI we will be ordered here. She will follow up with Dr. Londono. Plan 49-year-old post bariatric surgery with hypoglycemia. She is currently eating such a tiny volume of food that this is most likely the reason for the occurrence. She was asked to follow the recommendations from her bariatric surgeon and escort blind. We will order a CGM in attempt to confirm hypoglycemia. The patient had an opportunity to ask questions regarding treatment plan. The patient expressed understanding and agreement with the above treatment plan. The patient is aware they should contact our office by phone for worsening glucose readings or for any low blood sugars which may warrant a change in diabetes medication. Compliance is encouraged with medications and any followup testing/consults which may have been ordered. Medications: New blood-glucose,therapeutic sales specialist,cont (FreeStyle [place] 3 [place]) As directed for use with reader 1 ea 0RF Coding Level of Care Code Est Pt Level 3 (69080) Complex EM visit Add On G2211 Diagnoses Hypoglycemia E16.2 Pituitary adenoma D35.2 Time Spent (min) 20 Comment Time spent reviewing labs/provider notes, face to face, chart doc
[2024-12-09 13:15] VITALS: BP 134/74; PULSE 75; O2SAT 98; BMI 23.4
[2024-12-09 13:25] LABS: Glucose, Whole Blood 80 mg/dL (60-115)
--- OUTSIDE RECORDS SUMMARY | 2024-12-09 13:56 | XMS_ITS | Clinical Summary ---
Author Organization Patient Business Ser [facility] Address [address] [place] [address] Care Team Providers Care Hydrologic Modeler Name Role Phone Shari Lainez MD Primary Care Provider [phone] Medications ibuprofen (ADVIL,MOTRIN) 800 mg tablet TAKE [...] for your loved ones. For example, child life assistant or elderly care for an older adult? [...] Screening: Colonoscopy 09/26/2021 Hepatitis C Screening 09/26/2021 Social Influencers of Health Screening 09/26/2021 Diabetes: Annual Urine Albumin-Creatinine Ratio (uACR) 02/07/2024 COVID-19 Vaccine ( season) 2024 01/03/2021, 12/29/2020, 12/07/2020, Additional history exists Diabetes: Blood Sugar Control Test (HGBA1C) 05/12/2024 11/11/2023 Cervical Cancer Screening: Pap Smear 08/22/2024 08/22/2021, 12/12/2017 Depression Screening 11/20/2024 11/21/2023 Diabetes: Annual GFR (Glomerular Filtration Rate) 01/30/2025 01/31/2024 DTaP,Tdap,and Td Vaccines (5 - Td or Tdap) 12/05/2027 12/04/2017, 08/06/2013, 08/10/2012, Additional history exists HIV Screening Completed 11/11/2023 Influenza Vaccine Completed 05/04/2024, 04/20/2013 HIB Vaccines Aged Out No longer eligi [...] RESULTING AGENCY - 09/07/2021 7:46 AM EST [id number] THINPREP PAP, IMAGED: NEGATIVE FOR SQUAMOUS INTRAEPITHELIAL [...] Recently Relevant to Health Maintenance Care Teams Hydrologic Modeler Relationship Specialty Start Date End Date Shari Lainez MD PCP - General Endocrinology 08/25/24
== END 2024-12-09 13:31 | disposition home or self-care (01) ==
LOC: HO.ENCR 13:09
PROVIDERS: PCP Internal Medicine; Visit Provider Nurse Practitioner Adult Health
DX: E16.2 Hypoglycemia, unspecified (principal); D35.2 Benign neoplasm of pituitary gland
CPT/HCPCS: 99213; G2211

== ENCOUNTER → 2024-12-09 13:08 | Outpatient (BNVA) | payer OTHER, SELFPAY | PROVIDERS: PCP Internal Medicine; Visit Provider Nurse Practitioner Adult Health | DX: E16.2 Hypoglycemia, unspecified (principal); D35.2 Benign neoplasm of pituitary gland; Z98.84 Bariatric surgery status | CPT/HCPCS: 82947; 99212 ==

== ENCOUNTER 2024-12-21 14:03 | Outpatient (AMB) | payer OTHER, SELFPAY ==
--- NOTE | 2024-12-21 14:08 | A.OFFVIS_ITS ---
Vital Signs 12/21/24 14:09 Height 5 ft 2 in Weight 125 lb 10.616 oz BMI 23.0 BP 120/76 Blood Pressure Location Lt brachial Position Sitting Pulse 80 Intake Visit Reasons: GERD / chest Pains Intake Note: Марина presents in the office as a follow up GERD and chest pains. CC: She states that chest pains is not acid reflux. She states she was referred to [facility] and they did the reconstructive surgery of the stomach a year ago. Food does not digest and she gets shortness of breath. Polisher Sand Required: No Allergies codeine Allergy (Mild, Verified 12/09/24 13:15) Anaphylaxis morphine Adverse Reaction (Verified 12/09/24 13:15) vomiting HPI HPI GERD / chest Pains: Details: 49 yr old f called for f/u for abdominal pain RECAP she had Gastric sleeve 08/2020-- since then she had epigastric pain, every time she eats or drinks she had EGD with stensois and dilation of stomach by Aline she felt better for few weeks sx recurred and she has had several similar endoscopies with stretching with short term relief she had Ct scan at [facility] and found to have left kidney cancer and had left sided nephrectomy, she has nausea, occ vomiting, no blood she has mild constipation denies melena, no rectal bleeding no dysphagia but food can hurt when travelling down her esophagus she does have early satiety as well I ordered GES which was normal Due to ongoing sx I repeated EGD 07/2021 and dilated pylorus to 17 mm, seemed tight at time of EGD UGI series was done, no stenosis of stomahc but tablet got stuck in thoracic esophgaus, refluc noted and small HH Referred to bariatrics at [facility] for second opinion and plan for revision of sleeve and repair of hiatal hernia but this was then determined not to be needed EGD: 02/2022 apparent gastric stricture--dilated, 20 mm, no tear seen hiatal hernia repeat EGD 08/2022--dilation of mid body of stomach with rigid balloon 30 mm further repeat dilation with rigid balloon, 35 mm for 15 mins, using GA She had several further dilations and finally had revision of the sleeve to a gastric bypass recently EGD 07/07 due to dysphagia balloon dilation, mild gastritis INTERIM: 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 VITAL SIGNS:see workflow HEENT: Nonicteric sclerae, PERRLA, EOMI. Oropharynx clear. Moist mucous membra kandi. Conjunctivae appear well perfused. No thyroid mass. CHEST: Chest wall is nontender. HEART: Regular rate and rhythm without murmurs. LUNGS: Clear to auscultation bilaterally. ABDOMEN: Soft, positive bowel sounds, nontender, no organomegaly.no flank tenderness SKIN: No rash, no excessive bruising, petechiae, or purpura. NEUROLOGIC: Cranial nerves II-XII intact without motor/sensory deficit. 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 PLAN: 1/ cardiac assessment 2/ ba swallow, and egd with dilation 3/ trial of nifedipine for HH< maybe octerotide or diazoxide PFSH Medical History Menopause History of menopause Vertigo Depression Anxiety GERD (gastroesophageal reflux disease) Sleep apnea COVID-19 vaccine series completed Renal cancer Fatty liver Diabetes HTN (hypertension) Surgical History Hx of resection of stomach History of pubovaginal sling History of left oophorectomy History of left nephrectomy History of esophagogastroduodenoscopy (EGD) Hx of vaginal surgery History of sleeve gastrectomy Hx laparoscopic cholecystectomy Family History Father Septic shock Maternal Uncle Liver cancer Stomach cancer Hepatitis C Maternal Aunt Lupus Mother HTN (hypertension) Diabetes Heart problem Son Asthma Acute anxiety Son Autism ADHD (attention deficit hyperactivity disorder) Son No problems noted. Son No problems noted. Son No problems noted. Daughter GERD (gastroesophageal reflux disease) Daughter No problems noted. Daughter No problems noted. Other Substance abuse Social History Household Members: Spouse and Children Housing: House Are you a primary day care home provider to a significant other at home: No Do you presently have visiting nurse or other home services: No Alcohol intake: never Patient Tobacco Use Status: Never used Tobacco e-Cigarette/Vaping Use: Never Used Second Hand Smoke Exposure: No service: No Current occupational status: disabled Cognitive needs: No Hearing needs: No Vision needs: No Physical Exam Vital Signs: Last Vital Signs Pulse 80 12/21/24 14:09 BP 120/76 12/21/24 14:09 BMI result Body Mass Index 23.0 Assessment & Plan Assessment & Plan (1) Chest pain: Code(s): R07.9 - Chest pain, unspecified Category: Medical Plan: as above Orders: Orders FL upper GI series Today R07.9 - Chest pain, unspecified Referrals Cardiology Referral R07.9 - Chest pain, unspecified Medications: New nifedipine ER 30 mg PO DAILY 10 tabs 0RF Coding Level of Care Code Est Pt Level 4 (23000) Diagnoses Chest pain R07.9
[2024-12-21 14:09] VITALS: BP 120/76; PULSE 80; BMI 23.0
--- OUTSIDE RECORDS SUMMARY | 2024-12-21 16:01 | XMS_ITS | Clinical Summary ---
Author Organization Patient Business Ser [facility] Address [address] [place] [address] Care Team Providers Care Cooker Operator Name Role Phone Shari Lainez MD Primary Care Provider [phone] Medications ibuprofen (ADVIL,MOTRIN) 800 mg tablet TAKE [...] for your loved ones. For example, child day care teacher or elderly care for an older adult? [...] RESULTING AGENCY - 09/07/2021 7:46 AM EST [id number] THINPREP PAP, IMAGED: NEGATIVE FOR SQUAMOUS INTRAEPITHELIAL [...] Recently Relevant to Health Maintenance Care Teams Cooker Operator Relationship Specialty Start Date End Date Shari Lainez MD PCP - General Endocrinology 08/25/24
== END 2024-12-21 15:20 | disposition home or self-care (01) ==
PROVIDERS: PCP Internal Medicine; Visit Provider Internal Medicine Gastroenterology
DX: R07.9 Chest pain, unspecified (principal)
CPT/HCPCS: 99214

== ENCOUNTER → 2024-12-21 14:03 | Outpatient (BNVA) | payer OTHER, SELFPAY | PROVIDERS: PCP Internal Medicine; Visit Provider Internal Medicine Gastroenterology | DX: R07.9 Chest pain, unspecified (principal); K21.9 Gastro-esophageal reflux disease without esophagitis; R06.02 Shortness of breath; Z90.49 Acquired absence of other specified parts of digestive tract; Z90.3 Acquired absence of stomach [part of] | CPT/HCPCS: 99212 ==

== ENCOUNTER 2025-02-04 08:55 | Outpatient (AMB) | payer OTHER, SELFPAY ==
[2025-02-04 08:58] VITALS: BP 110/76; PULSE 71; O2SAT 99; BMI 23.7
--- NOTE | 2025-02-04 08:58 | A.OFFVIS_ITS ---
Vital Signs 02/04/25 08:58 Height 5 ft 2 in Weight 129 lb 10.109 oz BMI 23.7 BP 110/76 Blood Pressure Location Lt brachial Position Sitting Pulse 71 Pulse Source Pulse Oximeter Pulse Oximetry (%) 99 Oxygen Delivery Method Room Air Intake Visit Reasons: T2DM Intake Note: Patient present today for hypoglycemia Last Diabetic eye exam: About 1 and a half years ago Last Podiatry Visit: Doesn't have one. Random Glucose: 92 mg/dl HgA1C: 5.4% Digester Operator Required: No Accompanied by: Self / Same As Patient Allergies codeine Allergy (Mild, Verified 02/04/25 09:10) Anaphylaxis morphine Adverse Reaction (Verified 02/04/25 09:10) vomiting HPI Comments Details: 49 year old female status post re do sleeve gastrectomy and hernia repair January 2024 at [facility] (Dr. Sims) presents for f/u to evaluate hypoglycemia. HPI She had an initial sleeve gastrectomy in 2002. then second one in 2021. status post re do sleeve gastrectomy and hernia repair January 2024 at [facility] (Dr. Sims) Gest DM in 1992 managed with insulin , then resolved , was prediabetic for some years , then developed gestational diabetes in 2014 managed with diet, then had persistent Type 2 DM , managed with metformin , then another sleeve gastrectomy in 2021 after [facility] came off metformin. Hypoglycemia started 2023, week after surgery. a1c : 5.4 % 02/04/25 POC At the time of her initial consult in July 2024, her fingerstick glucose was 66 and she felt symptomatic. She went to the lab and her glucose was 81. She has been taking acarbose once daily in the am 15 mins before breakfast and initially thought that was helping but reports this is not of any help. Feels symptoms when sugars drop to 80s, symptoms include shaking , trembling, blurry vision, palpitations ,sweating. Wakes up at night as well. sweating with symptoms. She has a very low appetite and 24 hour recall reflects p.o. intake not adequate. For breakfast: she does not eat Lunch: 2 small spoonfuls of tuna, 2 small sponfuls of macaroni salad. She has made some improvements to the above regimen. Trying to incorporate more food. She saw her bariatric surgeon Dr. Sims recommended that she increase her p.o. intake. She does not have any appetite. next appoitnment 02/11/25 She reports her glucose readings can drop as low as the 30' s and she does feel symptomatic. She treats with orange juice and sometimes has a improvement of symptoms at other times does not. She does not have her meter with her today for review. Insurance did approve a freestyle Navarro 3 and she has sesnor and reader but the alarms were scaring her so she has not been wearing it She now has a freestyle lite meter, last week January 2025 she had hypoglycemia down to 50s Her symptoms include weakness shakiness feeling like she might pass out. She has a family history of type 2 diabetes in her mother, maternal grandmother and multiple other relatives Interval history 02/04/2025 weight: in July was 129. Today's visit: 129 oz Physical exam General: sitting comfortably in no acute distress HEENT: normocephalic/atraumatic, Neck: supple, symmetrical Cardiac: normal heart sounds Pulm: normal breath sounds B/L, no added breath sounds Abd: not distended, no tenderness Extremities: no edema, no signs of myxedema Neuro: AAO x3, Speech: normal, no facial droop, moving all 4 extremities Laboratory Tests 07/30/24 07/30/24 07/30/24 10:28 11:27 11:36 Hgb 12.9 Hct 38.4 Plt Count 230 Sodium 141 Potassium 4.0 Creatinine 0.73 Estimated GFR > 60 Glucose (Clinic) 66 Random Glucose 81 Hgb A1c (Clinic) 5.0 Hemoglobin A1c % 5.0 Insulin Level 4 Proinsulin 4.2 C-Peptide 1.95 Random Cortisol 10.5 08/13/24 08/13/24 12/09/24 12:39 13:27 13:21 Hgb Hct Plt Count Sodium Potassium Creatinine Estimated GFR Glucose (Clinic) 62 80 Random Glucose 68 Hgb A1c (Clinic) Hemoglobin A1c % Insulin Level 4 Proinsulin 9.1 C-Peptide Random Cortisol PFSH Medical History Menopause History of menopause Vertigo Depression Anxiety GERD (gastroesophageal reflux disease) Sleep apnea COVID-19 vaccine series completed Renal cancer Fatty liver Diabetes HTN (hypertension) Surgical History Hx of resection of stomach History of pubovaginal sling History of left oophorectomy History of left nephrectomy History of esophagogastroduodenoscopy (EGD) Hx of vaginal surgery History of sleeve gastrectomy Hx laparoscopic cholecystectomy Family History Father Septic shock Maternal Uncle Liver cancer Stomach cancer Hepatitis C Maternal Aunt Lupus Mother HTN (hypertension) Diabetes Heart problem Son Asthma Acute anxiety Son Autism ADHD (attention deficit hyperactivity disorder) Son No problems noted. Son No problems noted. Son No problems noted. Daughter GERD (gastroesophageal reflux disease) Daughter No problems noted. Daughter No problems noted. Other Substance abuse Social History Household Members: Spouse and Children Housing: House Are you a primary rn home care to a significant other at home: No Do you presently have visiting nurse or other home services: No Alcohol intake: never Patient Tobacco Use Status: Never used Tobacco e-Cigarette/Vaping Use: Never Used Second Hand Smoke Exposure: No service: No Current occupational status: disabled Cognitive needs: No Hearing needs: No Vision needs: No Physical Exam Vital Signs: Last Vital Signs Pulse 71 02/04/25 08:58 BP 110/76 02/04/25 08:58 Pulse Ox 99 02/04/25 08:58 Oxygen Delivery Method Room Air 02/04/25 08:58 BMI result Body Mass Index 23.7 Results AMB Hemoglobin A1c AMB Hemoglobin A1c 5.4 % Last Edit by NISREEN Ramos on 02/04/25 09:24 Results Reviewed Results Reviewed: Laboratory Last Values Glucose (Clinic) 92 mg/dL (60-115) 02/04/25 09:14 Assessment & Plan Assessment & Plan (1) Hypoglycemia: Code(s): E16.2 - Hypoglycemia, unspecified Category: Medical Plan: 49-year-old female coming in today for evaluation of hypoglycemia. I am seeing her for the 1st time today, she was initially seen by my colleague Joann Novak APRN. She has a history of sleeve gastrectomy X 3, with 1st surgery in 2002, then she had a 2nd 1 in 2021, and a 3rd 1 recently in 2023. She started developing hypoglycemic episodes after her surgery in 2023. Develop within a week or 2 of surgery. Mostly her episodes happen a few hours after food. But sometimes she also wakes up overnight with the hypoglycemia. 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 She does not have any medication on her list which would cause hypoglycemia, no alcohol intake, no drug use, no kidney or liver disease. She has a history of diabetes in the past and she was on metformin up until 2021 prior to her 2nd sleeve gastrectomy after which her diabetes resolved. A1c most recently today 02/04/2025 at 5.4%. She does not have diabetes mellitus. This result after sec sleeve gastrectomy. Today we discussed lifestyle modification in detail, for management of post bariatric hypoglycemia. I am also going to increase her acarbose from 25 mg daily to t.i.d. prior to all 3 meals. See nutritional education done in detail as mentioned below. She does have a [employer] Navarro 3 sensor. Plan: -nutritional education done as below -increase acarbose to 25 mg t.i.d. pre meals -glucose monitoring with continuous glucose monitor, provided pamphlets for how to put it on -continue checking blood sugars with fingersticks otherwise, bring glucose meter to next visit -follow up in 8 weeks -hypoglycemia education done (2) Pituitary adenoma: Code(s): D35.2 - Benign neoplasm of pituitary gland Category: Medical Plan: 49-year-old female with a history of pituitary adenoma diagnosed in 2013, we are going to follow up after. No recent imaging or labs done. Plan: -have ordered MRI of the brain for pituitary evaluation -ordered pituitary panel -follow up in 8 weeks to discuss results Plan I spent 45 minutes in reviewing the record, seeing the patient and documenting in the medical record. Orders: Orders AMB Hemoglobin A1c Today E11.9 - Type 2 diabetes mellitus without complications, Z13.9 - Encounter for screening, unspecified Lutenizing Hormone Today D35.2 - Benign neoplasm of pituitary gland Prolactin Today D35.2 - Benign neoplasm of pituitary gland Estradiol Ultra Sensitive Today D35.2 - Benign neoplasm of pituitary gland MR head/brain wo/w con Today D35.2 - Benign neoplasm of pituitary gland Adrenocorticotropic Hormone Today D35.2 - Benign neoplasm of pituitary gland Cortisol Random Today D35.2 - Benign neoplasm of pituitary gland Follicle Stimulating Hormone Today D35.2 - Benign neoplasm of pituitary gland Basic Metabolic Panel Today D35.2 - Benign neoplasm of pituitary gland Thyroid Stimulating Hormone Today D35.2 - Benign neoplasm of pituitary gland IGF-1 (Somatomedin C) Today D35.2 - Benign neoplasm of pituitary gland Human Growth Hormone Today D35.2 - Benign neoplasm of pituitary gland Free T4 (Free Thyroxine) Today D35.2 - Benign neoplasm of pituitary gland Medications: Refilled acarbose 25 mg PO TID 270 tabs 3RF Patient Instructions: Medical nutritional therapy is the first line of treatment. A strategy of consuming small portions of low glycemic index carbohydrates (30 grams of carbohydrates?per meal, 15 grams per snack), adequate protein consumption (30 grams per meal and total of 60?to 80 grams/day), adequate fat consumption (15 grams/meal, 5 grams/snack), spacing meals 3?to 4 hours apart, avoidance of alcohol, caffeine, and fluids with meals is recommended.? Avoiding high glycemic index foods is essential because a sudden rise in glucose can trigger more insulin release after meals and contribute to significant post- prandial hypoglycemia. High glycemic foods are digested quickly, whereas low glycemic foods are digested relatively slowly and cause a relatively slow rise in glucose levels Maintain a log of your episodes including time, meal taken before or after , symptoms Please bring this log along with your glucometer to next appointment Start glucose sensor increase acarbose to 25 mg three times a day with your meals, 15 mins before Correction of hypoglycemia Rule of 15 Treatment for Hypoglycemia (Low blood sugar) If your blood glucose is low (70 and below)*, follow the steps below to treat: Eat or drink something from the list below equal to 15 grams of carbohydrate (carb). Rest for 15 minutes Re-check your blood glucose. If it is still low, (below 70), repeat step 1 above. ? If your next meal is more than an hour away, you will need to eat one carbohydrate choice as a snack to keep your blood glucose from going low again. ?If you can't figure out why you have low blood glucose, call your healthcare provider, as your medicine may need to be adjusted. ?Always carry something with you to treat an insulin reaction. Use food from the list below. ? Foods equal to One Carbohydrate Choice (15 grams of carbohydrate): 3 Glucose ?tablets or 4 Dextrose tablets 4 ounces of fruit juice 5-6 ounces (about 1/2 can) of regular soda such as Coke or Pepsi ? 7-8 gummy or regular Life Savers ? 1 Tbsp. of sugar or jelly NOTE: If your blood sugar is less than 50, double the portion above for a total of 30 gm. ?Carbohydrate. ? Follow meal plan of 45-60 g of consistent carbohydrates at 3 meals each day and 15 g of carbohydrate at 1-2 snacks each day. Do 8 AM blood work Do MRI brain Coding Level of Care Code Est Pt Level 5 (98552) Diagnoses Hypoglycemia E16.2 Pituitary adenoma D35.2 Time Spent (min) 45
[2025-02-04 09:18] LABS: Glucose, Whole Blood 92 mg/dL (60-115)
--- OUTSIDE RECORDS SUMMARY | 2025-02-04 09:23 | XMS_ITS ---
Author Name [facility] Organization Unknown Encounters Encounter Type Encounter Reason Primary Diagnosis Location Date Ambulatory [facility] 04/24/2024 Care Team Organization Name Specialty Phone Email Start Date End Da te [facility] 11/07/2024 [facility] Izabela [facility] 05/22/20222023
--- OUTSIDE RECORDS SUMMARY | 2025-02-04 09:23 | XMS_ITS | Clinical Summary ---
Author Organization [facility] Address [address] [place] [address] Care Team Providers Care Real Time Trader Name Role Phone Unavailable Primary Care Provider [...] 62 11/28/2023 9:00 AM EDT Temperature 36.5 C (97.7 F) 11/28/2023 9:00 AM EDT Respiratory Rate - - Oxygen Saturation 100% [...] (1 of 2) 10/24/2023 Influenza Vaccine (#1) 2025 04/20/2013 DTap / Tdap / Td (4 - Td or Tdap) 12/05/2027 12/04/2017, 08/06/2013, 08/10/2012, Additional history exists Pneumococcal Vaccine Aged Out 12/04/2017 No long er eligible based on patient's age to complete this topic RSV Ped < 20 months Aged Out No longe r eligible based on patient's age to complete this topic
--- OUTSIDE RECORDS SUMMARY | 2025-02-04 09:23 | XMS_ITS | Clinical Summary ---
Author Organization [facility] Address [address] [place], [place] [id number] Phone Care Team Providers Care University Relations Recruiter Name Role Phone Izabela Ellison MD Primary Care Provider Allergies Active Allergy Reactions Criticality Noted Date Comments Acetaminophen-Codein e Unknown 01/23/2022 Other reaction(s): throat swelling and nausea Oxycodone-Acetaminop hen Nausea and/or Vomiting,Anaphylaxis High 01/23/2022 Medications No known medications Social History Tobacco Use Types Packs/Day Years Used Date Smoking Tobacco: Never Alcohol Use Standard Drinks/Week Comments Not Currently 0 (1 standard drink = 0.6 oz pur e alcohol) Education Answer Date Recorded Are you interested in more education? Not on shirley e 11/10/2022 Are you concerned about learning? Not on file 11/10/2022 No 11/10/2022 No 11/10/2022 Digital Access Answer Date Recorded No 12/09/2022 No 12/09/2022 Reliable internet access at home? Not on file 12/09/2022 Device with a working camera? Not on file Intimate Partner Violence Answer Date R ecorded Are you denied basic needs s uch as food, clothing, or medical care? No 02/17/2024 In the past 12 months have y ou been in a relationship with a person who hurts, threatens, or tries to control you? No 02/17/2024 Are you denied basic needs s uch as food, clothing, or medical care? No 02/17/2024 In the past 12 months have y ou been in a relationship with a person who hurts, threatens, or tries to control you? No 02/17/2024 Comments Unknown Sex and Gender Information Value Date Recorded Sex Assigned at Female 01/23/2022 10:38 PM EDT Legal Sex Female 2:06 PM EDT Gender Identity Female 01/23/2022 10:38 PM EDT Sexual Orientation Straight 01/23/2022 10 :38 PM EDT Last Filed Vital Signs Vital Sign Reading Time Taken Comments Blood Pressure 115/71 02/17/2024 6:10 PM EDT Pulse 72 02/17/2024 6:10 PM EDT Temperature 35.9 C (96.6 F) 02/17/2024 6:10 PM EDT Respiratory Rate 18 02/17/2024 6:10 PM EDT Oxygen Saturation 100% 02/17/2024 6:10 PM EDT Inhaled Oxygen Concentration - - Weight 70.3 kg (155 lb) 02/17/2024 2:45 PM EDT Height 154.9 cm (5' 1 ) 02/17/2024 2:45 PM EDT Body Mass Index 29.29 02/17/2024 2:45 PM EDT Plan of Treatment Health Maintenance Due Date Last Done Comments LIPID PANEL 1973 DEPRESSION SCREENING 1985 HEPATITIS C SCREENING 10/24/1991 HIV ONE-TIME SCREENING (18-65 YEARS) 10/24/1991 SMOKING STATUS SCREENING (Once After 26 Yrs) 10/24/1999 MAMMOGRAM 2013 COLOGUARD 2018 COLONOSCOPY 2018 COLORECTAL CANCER SCREENING 2018 FIT TEST 2018 FOBT 2018 SIGMOIDOSCOPY 2018 VIRTUAL COLONOSCOPY 2018 PNEUMOCOCCAL VACCINES (50+ years) (2 of 2 - PCV) 10/24/2023 12/04/2017 ZOSTER VACCINES (1 of 2) 10/24/2023 COVID-19 VACCINE (3 - season) 2024 01/03/2021, 12/07/2020 PAP SMEAR 08/22/2024 08/22/2021 SCREENING FOR DIABETES 02/16/2027 02/17/2024 Adult Td,Tdap Booster 12/05/2027 12/04/2017 , 08/06/2013, 08/10/2012, Additional history exists HEPATITIS A VACCINES Aged Out No long er eligible based on patient's age to complete this topic HIB VACCINES Aged Out No longer eligi ble based on patient's age to complete this topic MENINGOCOCCAL VACCINES (ACWY) Aged Out No longer eligible based on patient's age to complete this topic MENINGOCOCCAL VACCINES (B) Aged Out N o longer eligible based on patient's age to complete this topic Medical Devices Not on file Insurance [employer] [address] [address] [place] [address] [place] [address] [place] [address] [address] [address] [address] [employer] [address] [place], [place] [address] A[employer] [facility] [employer] Care Teams University Relations Recruiter Relationship Specialty Start Date End Date Izabela Ellison MD PCP - General Family Medicine 01/23/22 Additional Source Comments The information contained in this document represents components of the legal health record. It is not the complete legal health record.[facility]
--- OUTSIDE RECORDS SUMMARY | 2025-02-04 09:23 | XMS_ITS | Clinical Summary ---
Author Organization [employer] [facility] Address [address] [place] [address] Care Team Providers Care Dispute Specialist Name Role Phone Shari Lainez MD Primary Care Provider [phone] Medications ibuprofen (ADVIL,MOTRIN) 800 mg tablet TAKE [...] your loved ones. For example, child care center assistant director or elderly care for an older adult? [...] Blood Sugar Control Test (HGBA1C) 05/12/2024 11/11/2023 Depression Screening 07/15/2024 11/21/2023 Cervical Cancer Screening: Pap Smear 08/22/2024 08/22/2021, 12/12/2017 Diabetes: Annual GFR (Glomerular Filtration Rate) 01/30/2025 01/31/2024 Influenza Vaccine (#1) 2025 05/04/2024, 2012 DTaP,Tdap,and Td Vaccines (5 - Td or Tdap) 12/05/2027 12/04/2017, 08/06/2013, 08/10/2012, Additional history exists HIV Screening Completed 11/11/2023 HIB Vaccines Aged Out No longer eligi [...] RESULTING AGENCY - 09/07/2021 7:46 AM EST [id number] THINPREP PAP, IMAGED: NEGATIVE FOR SQUAMOUS INTRAEPITHELIAL LESION AND MALIGNANCY . NOTE: THE PAP TEST IS A SCREENING TEST WITH AN INHERENT FALSE NEGATIVE RATE. AUTOMATED PRESCREENING OF ALL LIQUID BASED SPECIMENS IS PERFORMED BY THE THINPREP IMAGING SYSTEM UNLESS OTHERWISE STATED. KIMBERLY ASKEW(ASCP) (CASE ELECTRONICALLY SIGNED 09 06 2021) RESULT OF APTIMA HIGH RISK HPV ASSAY: HIGH RISK HPV: NEGATIVE (SEROTYPES 16,18,31,33,35,39,45,51,52,56,58,59,66,68) COMPLETED ON 2021-08-24 ADEQUACY: SATISFACTORY ENDOCERVICAL/TRANSFORMATION ZONE COMPONENT ABSENT. SOURCE: THINPREP PAP HPV ANY DX: REFLEX 16 AND 18, CERVICAL, IMAGED CLINICAL INFORMATION: HPV ANY DIAGNOSIS. HORMONES, PAP HX NEG, LMP 08/08/2021, Z12.4 Dasia Monroe DO LAB CYTOLOGY ORDERABLES Final Result HISTORICAL TESTING LAB RESULTING AGENCY from Last 3 Months or Most Recently Relevant to Health Maintenance Care Teams Dispute Specialist Relationship Specialty Start Date End Date Shari Lainez MD PCP - General Endocrinology 08/25/24
== END 2025-02-04 09:58 | disposition home or self-care (01) ==
LOC: HO.ENCR 08:56
PROVIDERS: PCP Internal Medicine; Visit Provider Student in an Organized Health Care Education/Training Program
DX: E16.2 Hypoglycemia, unspecified (principal); D35.2 Benign neoplasm of pituitary gland; E11.9 Type 2 diabetes mellitus without complications; Z13.9 Encounter for screening, unspecified
CPT/HCPCS: 99215

== ENCOUNTER → 2025-02-04 08:55 | Outpatient (BNVA) | payer OTHER, SELFPAY | PROVIDERS: PCP Internal Medicine; Visit Provider Student in an Organized Health Care Education/Training Program | DX: E16.2 Hypoglycemia, unspecified (principal); D35.2 Benign neoplasm of pituitary gland; Z90.3 Acquired absence of stomach [part of]; Z87.19 Personal history of other diseases of the digestive system; Z98.890 Other specified postprocedural states | CPT/HCPCS: 82947; 83036; 99212 ==

== ENCOUNTER 2025-02-28 17:10 | Outpatient (REF) | payer OTHER, SELFPAY ==
--- NOTE | ~2025-02-28 | MR_ITS ---
EXAMINATION: MR BRAIN AND SELLA WITHOUT AND WITH CONTRAST CLINICAL INFORMATION: Please evaluate pituitary gland; benign neoplasm pituitary gland. COMPARISON: None available. TECHNIQUE: Multiplanar, multisequence MRI of the brain and sella was obtained before and after the intravenous administration of 2 mL Gadavist. Examination performed on 1.5 Sofia Siemens high-field unit. FINDINGS: SELLA: There is no sellar expansion. The pituitary has a normal concave superior border. Normal posterior pituitary bright spot. No areas of abnormal or delayed enhancement within the gland itself. The infundibulum is midline, and is normal in thickness and enhancement. The suprasellar structures are normal. The optic apparatus is unimpinged. Normal flow voids in the cavernous carotid arteries bilaterally. Normal enhancement in both cavernous sinuses. BRAIN: There is no diffusion restriction. There is no intracranial hemorrhage, acute infarction, mass effect, or edema. Ventricles, sulci, and cisterns are normal in size and configuration for patient age. No shift of midline. There are no focal white matter signal abnormalities. Midline structures appear normally formed. The pituitary gland appears normal. Posterior fossa structures appear normal. Cerebellar tonsils are appropriately located. Major flow voids are preserved within the skull base. The globes and orbital contents demonstrate no abnormalities. Moderate sized mucus retention cyst in the dependent right maxillary sinus. Paranasal sinuses are otherwise clear bilaterally. The mastoids and tympanic cavities are normally aerated. Extracranial soft tissues demonstrate no abnormalities. No suspicious bone marrow changes are evident. There are degenerative changes in the right TM joint. Atlantoaxial joint is normal. MR/MR head/brain wo/w con IMPRESSION: 1. Normal examination of the pituitary gland. No lesion identified. 2. No evidence of intracranial hemorrhage, acute infarction, mass effect, or edema. No abnormal contrast enhancement. Electronically signed by: Wan Edouard MD 03/01/2025 08:53 AM EDT
--- OUTSIDE RECORDS SUMMARY | 2025-02-28 17:12 | XMS_ITS | Clinical Summary ---
Author Organization [facility] [employer] [facility] Address [address] [place] [address] Care Team Providers Care Fire Production Operator Name Role Phone Shari Lainez MD Primary Care Provider [phone] Medications ibuprofen (ADVIL,MOTRIN) 800 mg tablet TAKE [...] loved ones. For example, child care center administrator or elderly care for an older adult? [...] RESULTING AGENCY - 09/07/2021 7:46 AM EST [id number] THINPREP PAP, IMAGED: NEGATIVE FOR SQUAMOUS INTRAEPITHELIAL [...] Recently Relevant to Health Maintenance Care Teams Fire Production Operator Relationship Specialty Start Date End Date Shari Lainez MD PCP - General Endocrinology 08/25/24
--- OUTSIDE RECORDS SUMMARY | 2025-02-28 17:12 | XMS_ITS | Clinical Summary ---
Author Organization [employer] [facility] Address [address] [place] [address] Care Team Providers Care Home Coordinator Name Role Phone Unavailable Primary Care Provider [...]
== END 2025-02-28 17:11 | disposition home or self-care (01) ==
LOC: HO.MRI 17:10
PROVIDERS: PCP Internal Medicine; Visit Provider Student in an Organized Health Care Education/Training Program
DX: D35.2 Benign neoplasm of pituitary gland (principal)
CPT/HCPCS: 70553; A9585

== ENCOUNTER → 2025-02-28 17:16 | Outpatient (BNV) | payer OTHER, SELFPAY | PROVIDERS: PCP Internal Medicine; Visit Provider Radiology Diagnostic Radiology | DX: D35.2 Benign neoplasm of pituitary gland (principal) | CPT/HCPCS: 70553 ==

== ENCOUNTER 2025-04-09 14:25 | Outpatient (AMB) | payer OTHER, SELFPAY ==
--- NOTE | 2025-04-09 15:08 | A.OFFPC_ITS ---
Vital Signs 04/09/25 15:11 Height 5 ft 2 in Weight 129 lb 2 oz BMI 23.6 BP 124/81 Blood Pressure Location Lt brachial Position Sitting Respiration 12 Pulse 74 Pulse Source Pulse Oximeter Temp 98.1 F Temp Source Oral Pulse Oximetry (%) 98 Oxygen Delivery Method Room Air Intake Visit Reasons: F/U pain / Rescheduled from 02/28 Intake Note: Follow up. Has upper endoscopy next week. Barrel Cutter Required: No Allergies codeine Allergy (Mild, Verified 04/09/25 15:09) Anaphylaxis morphine Adverse Reaction (Verified 04/09/25 15:09) vomiting Tobacco use date assessed: 06/23/24 Dental Screening Dental Screen Date: 06/23/24 HPI HPI Comments History of Present Illness Details The patient is a 49 year old female with past medical history of diabetes, left kidney cancer, RCC, htn, hld, anxiety, depression, insomnia presenting for follow up GI: Following with GI Underwent surgery last January by Dr Sims in [facility]-correction of prior sleeve gastrectomy and hernia repair. Still has chronic back and upper abdominal pain. She is on chronic opioid therapy-the xtampza and percocet were not working and had nausea as side effect-she transitioned to demerol which has been more effective. Recently has had a spike in intermittent severe epigastric pains. Has narcan. On chronic PPI. MR abdomen which shows a small hiatal hernia. Says her pain is starting in the lateral left mid back wrapping around the flank to upper abdomen. She has seen GI locally but was recommended to follow up at [facility] where her surgery was done MSK: Has chronic back pain. Has been trying to call Dr De Oliveira for follow up BH: On effexor, zolpidem, trazodone, prazosin, perphenazine Urology: Follows with Dr Lozano for h/o RCC. Says she is not having periods for the past two years but has frequent pain that feels like she is ovulating. After her surgery last year had vaginal bleeding for one month. She has history of pelvic sling. She was referred to the urogynecologist Endocrine Diabetes: After surgery last summer has been eating very little. She is having frequent hypoglycemia. Still having readings into 40s despite increase of acarbose from 25 once daily to TID. She has a history of pituitary adenoma. Her recent MRI was normal. Labs are ordered but not performed. She tells me she sometimes has whitish nipple discharge ROS see HPI PHYSICAL EXAM: GENERAL: Alert and oriented x 3. NAD EYES: EOMI. Anicteric. HENT: Moist mucous membranes. No scleral icterus. No cervical lymphadenopathy. LUNGS: Clear to auscultation bilaterally. CARDIOVASCULAR: Regular rate and rhythm. No murmur. No JVD. ABDOMEN: Soft, non-tender +bs EXTREMITIES: No edema. Non-tender. SKIN: No rashes or lesions. Warm. NEUROLOGIC: No focal neurological deficits. CN II-XII grossly intact PSYCHIATRIC: Cooperative. Appropriate mood and affect [facility] Medical History Menopause History of menopause Vertigo Depression Anxiety GERD (gastroesophageal reflux disease) Sleep apnea COVID-19 vaccine series completed Renal cancer Fatty liver Diabetes HTN (hypertension) Surgical History Hx of resection of stomach History of pubovaginal sling History of left oophorectomy History of left nephrectomy History of esophagogastroduodenoscopy (EGD) Hx of vaginal surgery History of sleeve gastrectomy Hx laparoscopic cholecystectomy Family History Father Septic shock Maternal Uncle Liver cancer Stomach cancer Hepatitis C Maternal Aunt Lupus Mother HTN (hypertension) Diabetes Heart problem Son Asthma Acute anxiety Son Autism ADHD (attention deficit hyperactivity disorder) Son No problems noted. Son No problems noted. Son No problems noted. Daughter GERD (gastroesophageal reflux disease) Daughter No problems noted. Daughter No problems noted. Other Substance abuse Social History Household Members: Spouse and Children Housing: House Are you a primary child care giver to a significant other at home: No Do you presently have visiting nurse or other home services: No Alcohol intake: never Patient Tobacco Use Status: Never used Tobacco e-Cigarette/Vaping Use: Never Used Second Hand Smoke Exposure: No service: No Current occupational status: disabled Cognitive needs: No Hearing needs: No Vision needs: No Questionnaire Thrive Questionnaire Date Thrive assessed: 07/20/24 I am a: Patient What is your living situation today?: I have a steady place to live Within the past 12 months, did the food you bought not last and you didn't have the money to get more?: Often true Within the past 12 months, did you worry whether your food would run out before you got money to buy more?: Often true Do you have trouble paying for medicines?: I choose not to answer this question Do you have trouble getting transportation to medical appointments?: I choose not to answer this question Do you have trouble paying your heating and electricity bill?: Yes Do you have trouble taking care of your child, family member or friend?: I choose not to answer this question Do you have trouble with day-to-day activities such as bathing, preparing meals, shopping, managing finances, etc.?: I choose not to answer this question Are you currently unemployed and looking for a job?: I choose not to answer this question Are you interested in more education?: I choose not to answer this question Please select the resources that you would like help with: None Currently or been in a relationship where the following occur: I choose not to answer THRIVE Score: 3 Physical exam (Primary Care) Vital Signs: Last Vital Signs Temp 98.1 F 04/09/25 15:11 Pulse 74 04/09/25 15:11 Resp 12 04/09/25 15:11 BP 124/81 04/09/25 15:11 Pulse Ox 98 04/09/25 15:11 Oxygen Delivery Method Room Air 04/09/25 15:11 BMI result Body Mass Index 23.6 Tobacco/Smoking Status: Tobacco use Status Tobacco use date assessed 06/23/24 04/09/25 15:17 Patient Tobacco Use Status Never used Tobacco 04/09/25 15:17 e-Cigarette/Vaping Use Never Used 04/09/25 15:17 Thrive Assessment: Date of Thrive Assessment Date Thrive assessed 07/20/24 04/09/25 15:17 Currently or been in a relationship where the following occur: I choose not to answer Office Procedures Flu Questionnaire Does the patient have a severe egg allergy?: No Does the patient have severe life threatening allergies?: No Does the patient have a fever or illness today?: No Has the patient ever had Guillain-Forsyth Syndrome?: No Has the patient ever had any past reaction to a flu shot?: No Immunizations Fluarix (PF) 45 mcg (15 mcg x 3)/0.5 mL IM syringe Performing Provider: Shari Lainez MD Performing Location: [facility] Administered by: Sailaja Colbert CMA on 04/09/25 15:20 Dose Route Admin Location Dispensed Lot Number Expiration Date NDC Oxygen Equipment Preparer 0.5 mL IM Left Deltoid 0.5 mL [id number] 01/11/26 [id number] [employer] VIS Given Date VIS Provided VIS Publication Date 04/09/25 Single Vaccine 24 Eligibility Eligibility Date Funding Source Not [facility] Eligible 04/09/25 Private Coding Level of Care Code Est Pt Level 4 (84419) Complex EM visit Add On G2211 Diagnoses Chronic abdominal pain R10.9; G89.29 Hypoglycemia E16.2 HTN (hypertension), benign I10 Renal cell carcinoma, unspecified laterality C64.9 Laterality: unspecified laterality Leukopenia, unspecified type D72.819 Leukopenia type: unspecified 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 Chronic pain type: other chronic postprocedural pain Assessment & Plan Assessment & Plan (1) Chronic abdominal pain: Code(s): R10.9 - Unspecified abdominal pain; G89.29 - Other chronic pain Category: Medical (2) Hypoglycemia: Code(s): E16.2 - Hypoglycemia, unspecified Category: Medical (3) HTN (hypertension), benign: Code(s): I10 - Essential (primary) hypertension Category: Medical (4) Renal cell carcinoma: Code(s): C64.9 - Malignant neoplasm of unspecified kidney, except renal pelvis Category: Medical Qualifiers: Laterality: unspecified laterality Qualified Code(s): C64.9 - Malignant neoplasm of unspecified kidney, except renal pelvis (5) Leukopenia: Code(s): D72.819 - Decreased white blood cell count, unspecified Category: Medical Qualifiers: Leukopenia type: unspecified Qualified Code(s): D72.819 - Decreased white blood cell count, unspecified (6) Chronic pain: Code(s): G89.29 - Other chronic pain Category: Medical Qualifiers: Chronic pain type: other chronic postprocedural pain Qualified Code(s): G89.28 - Other chronic postprocedural pain Plan Chronic pain-stable on current regimen Back pain-awaiting call from pain management Pelvic pain-she will call urogynecology Hypoglycemia-increase acarbose to 50 TID. Call endo for follow up. Do their labs prior to appt Leukopenia-check ROHINI Orders: Orders ROHINI Reflex Titer and Pattern Today D72.819 - Decreased white blood cell count, unspecified Influenza [id number] Immunization Today Z23 - Encounter for immunization MM tomosynthesis screening BI Today Z12.31 - Encounter for screening mammogram for malignant neoplasm of breast Medications: New acarbose 50 mg PO TID 270 tabs 3RF Refilled blood sugar diagnostic (FreeStyle Lite Strips) DIRECTED TO CHECK BLOOD SUGARS WHEN HYPOGLYCEMIC UPTO 3 TIMES A DAY 100 strips 2RF meperidine Partial Fill upon patient request. May pay out of pocket 50 mg PO Q6H PRN 112 tabs 0RF pain 28 days On Hold acarbose Hold Comment: Doctor's Order 25 mg PO TID 270 tabs 7RF
[2025-04-09 15:11] VITALS: BP 124/81; PULSE 74; RESP 12; TEMP 36.7; O2SAT 98; BMI 23.6
--- OUTSIDE RECORDS SUMMARY | 2025-04-09 15:22 | XMS_ITS | Clinical Summary ---
Author Organization [employer] [facility] Address [address] [place] [address] Care Team Providers Care Watch Engine Operator Name Role Phone Unavailable Primary Care Provider [...]
--- OUTSIDE RECORDS SUMMARY | 2025-04-09 15:22 | XMS_ITS | Clinical Summary ---
Author Organization [facility] [employer] [facility] Address [address] [place] [address] Care Team Providers Care Second Worker Name Role Phone Shari Lainez MD Primary Care Provider [phone] Medications ibuprofen (ADVIL,MOTRIN) 800 mg tablet TAKE [...] your loved ones. For example, child care group leader or elderly care for an older adult? [...] Diabetes: Annual Urine Albumin-Creatinine Ratio (uACR) 02/07/2024 Diabetes: Blood Sugar Control Test (HGBA1C) 05/12/2024 11/11/2023 Depression Screening 07/15/2024 11/21/2023 Cervical Cancer Screening: Pap Smear 08/22/2024 08/22/2021, 12/12/2017 Diabetes: Annual GFR (Glomerular Filtration Rate) 01/30/2025 01/31/2024 COVID-19 Vaccine ( season) 2025 01/03/2021, 12/29/2020, 12/07/2020, Additional history exists Influenza Vaccine (#1) 2025 05/04/2024, 2012 DTaP,Tdap,and Td Vaccines (5 - Td or Tdap) 12/05/2027 12/04/2017, 08/06/2013, 08/10/2012, Additional history exists RSV Immunization Adult Patients (1 - 1-dose 75+ series) 2048 HIV Screening Completed 11/11/2023 HIB Vaccines Aged [...] RESULTING AGENCY - 09/07/2021 7:46 AM EST [id number] THINPREP PAP, IMAGED: NEGATIVE FOR SQUAMOUS INTRAEPITHELIAL [...] Recently Relevant to Health Maintenance Care Teams Second Worker Relationship Specialty Start Date End Date Shari Lainez MD PCP - General Endocrinology 08/25/24
--- OUTSIDE RECORDS SUMMARY | 2025-04-09 15:22 | XMS_ITS | Encounter Summary ---
Author Organization [facility] Address [address] [facility] [address] [place] [address] Phone Care Team Providers Care Retail Performance Specialist Name Role Phone Ganesh Haley MD Primary Care Provider [phone] Izabela Ellison MD Primary Care Provider Encounter Details Date Type Department Care Team (Latest Contact Info) Description 05/10/2021 Transcribe Orders Virtual Department [address] [place] [address] Addi Leon MD [address] [facility] [address] [place] [address] [email or web address] Abdominal pain, unspecified abdominal location (Primary Dx) Social History Tobacco Use Types Packs/Day Years Used Date Smoking Tobacco: Never Assessed Comments Unknown Sex and Gender Information Value Date Recorded Sex Assigned at Female 01/23/2022 10:38 PM EDT Legal Sex Female 2:06 PM EDT Gender Identity Female 01/23/2022 10:38 PM EDT Sexual Orientation Straight 01/23/2022 10 :38 PM EDT documented as of this encounter Plan of Treatment Not on file documented as of this encounter Visit Diagnoses Diagnosis Abdominal pain, unspecified abdominal location- Primary documented in this encounter Additional Health Concerns Infection Onset Date Last Indicated Resolved Time CoV-Risk 01/25/2022 01/25/2022 02/05/2022 1:22 AM EDT documented as of this encounter Care Teams Retail Performance Specialist Relationship Specialty Start Date End Date Ganesh Haley MD [address] [place] [address] PCP - General Internal Medicine 05/11/21 01/22/22 Izabela Ellison MD [address] [place], [place] [id number] PCP - General Family Medicine 01/23/22 documented as of this encounter Additional Source Comments The information contained in this document represents components of the legal health record. It is not the complete legal health record.[facility]
--- OUTSIDE RECORDS SUMMARY | 2025-04-09 15:22 | XMS_ITS | Clinical Summary ---
Author Organization [facility] Address [address] [place], [place] [address] Phone Care Team Providers Care Unhairer Name Role Phone Izabela Ellison MD Primary [...] 12/04/2017 ZOSTER VACCINES (1 of 2) 10/24/2023 PAP SMEAR 08/22/2024 08/22/2021 INFLUENZA VACCINE (#1) 2025 04/20/2013 COVID-19 VACCINE (3 - season) 2025 01/03/2021, 12/07/2020 SCREENING FOR DIABETES 02/16/2027 02/17/2024 Adult Td,Tdap [...] topic Medical Devices Not on file Insurance [employer] [address] [place] [address] [employer] [address] [place] [address] [facility] [place] [address] [place] [address] [employer] [place], [place] [address]Y [employer] [address] [place], [place] [address] Care Teams Unhairer Relationship Specialty Start Date End Date Izabela Ellison MD PCP - General Family Medicine 01/23/22 Additional Source Comments The information contained in this document represents components of the legal health record. It is not the complete legal health record.[facility]
== END 2025-04-09 15:37 | disposition home or self-care (01) ==
LOC: HO.HMCFM 14:25
PROVIDERS: PCP Internal Medicine; Visit Provider Internal Medicine
DX: R10.9 Unspecified abdominal pain (principal); G89.29 Other chronic pain; C64.9 Malignant neoplasm of unspecified kidney, except renal pelvis; E16.2 Hypoglycemia, unspecified; I10 Essential (primary) hypertension; D72.819 Decreased white blood cell count, unspecified; G89.28 Other chronic postprocedural pain; Z23 Encounter for immunization

== ENCOUNTER → 2025-04-09 14:25 | Outpatient (BNVA) | payer OTHER, SELFPAY | PROVIDERS: PCP Internal Medicine; Visit Provider Internal Medicine | DX: R10.9 Unspecified abdominal pain (principal); G89.29 Other chronic pain; Z23 Encounter for immunization; E11.649 Type 2 diabetes mellitus with hypoglycemia without coma; I10 Essential (primary) hypertension; C64.2 Malignant neoplasm of left kidney, except renal pelvis; D72.819 Decreased white blood cell count, unspecified; G89.28 Other chronic postprocedural pain; Z79.891 Long term (current) use of opiate analgesic; Z79.899 Other long term (current) drug therapy | CPT/HCPCS: 90471; 90656; 99212 ==

== ENCOUNTER 2025-04-21 12:48 | Outpatient (AMB) | payer OTHER, SELFPAY ==
--- NOTE | 2025-04-21 12:51 | A.OFFVIS_ITS ---
Vital Signs 04/21/25 12:53 Height 5 ft 2 in Weight 130 lb 1.164 oz BMI 23.8 BP 106/60 Blood Pressure Location Lt brachial Position Sitting Pulse 73 Pulse Source Monitor Intake Visit Reasons: pre-op gastro/chest pain Allergies codeine Allergy (Mild, Verified 04/09/25 15:09) Anaphylaxis morphine Adverse Reaction (Verified 04/09/25 15:09) vomiting Medication List - Last Reconciled 04/21/25 by Jose J Barron MD acarbose 25 mg PO TID Held on 04/09/25. Instructions: Doctor's Order acarbose 50 mg PO TID albuterol sulfate 90 mcg/actuation (Ventolin HFA) 2 puffs inhalation Q4H PRN aripiprazole 10 mg PO DAILY baclofen 5 mg PO DAILY blood sugar diagnostic (FreeStyle Lite Strips) DIRECTED TO CHECK BLOOD SUGARS WHEN HYPOGLYCEMIC UPTO 3 TIMES A DAY blood-glucose meter (FreeStyle Lite Meter kit) As directed to check blood sugar when having symptoms of hypoglycemia up to 3 times a day blood-glucose sensor (FreeStyle Navarro 3 Sensor device) continous glucose sensor every 15 days blood-glucose,land reclamation specialist,cont (FreeStyle Navarro 3 [place]) As directed for use with reader cholecalciferol (vitamin D3) 50 mcg PO DAILY clotrimazole-betamethasone 1-0.05 % 1 appl topical DAILY cyanocobalamin (vitamin B-12) 500 mcg PO DAILY dicyclomine 10 mg PO BID estradiol 0.01%(0.1mg/gram) 1 appl vaginal DAILY FreeStyle Lancets (lancets) once daily and as needed NS FreeStyle Lite Strips (blood sugar diagnostic) As directed NS hyoscyamine sulfate 0.125 mg sublingual QID ibuprofen 800 mg PO Q8H PRN inulin (Fiber Gummies) 2 grams PO BID iron,carbonyl-vitamin C 65 mg iron- 125 mg (Vitron-C) 1 tab PO DAILY ketorolac 10 mg PO Q8H PRN lamotrigine 100 mg PO DAILY lamotrigine 200 mg PO DAILY lancets (FreeStyle Lancets) As directed lancets (FreeStyle Lancets) As directed to check blood sugars when hypoglycemic symptoms happen up to 3 times a day lisinopril 2.5 mg PO DAILY lorazepam 1 mg PO QID PRN Magic Mouthwash Diphen/Lido/Antacid 1:1:1 10 mL PO QID meclizine 5 mg PO DAILY PRN meperidine 50 mg PO Q6H PRN 28 days nabumetone 500 mg PO BID naloxone 4 mg/actuation (Narcan) 4 mg intranasal Q2M PRN nifedipine ER 30 mg PO DAILY nortriptyline 10 mg PO BEDTIME ondansetron 8 mg PO Q8H PRN pantoprazole 40 mg PO BID perphenazine 8 mg PO BEDTIME perphenazine 16 mg PO BID polyethylene glycol 3350 (Miralax) 17 grams PO Q10M PRN prazosin 5 mg PO BEDTIME simethicone (Mi-Acid Gas Relief (simethicone)) 80 mg PO DAILY PRN sucralfate 100 mg PO DAILY terconazole 0.4% 1 appful vaginal BEDTIME trazodone 50 mg PO BEDTIME ursodiol 300 mg PO BID venlafaxine ER 150 mg PO DAILY venlafaxine ER 75 mg PO DAILY vitamin A palmitate 20,000 units PO DAILY zolpidem 10 mg PO BEDTIME PRN HPI Comments Details: Марина has been referred for cardiac consultation. It seems that she has been having chest pains but she also has lot of gastrointestinal issues. She has had EGDs with dilatation of stomach. Because of chest pain concerns, she has been referred to us. She describes the discomfort that starts in the epigastric region and goes up requested relief. No clear exertional components. It can happen any time. Sometimes with food. Overall, not convincing for angina. 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 Medical History Menopause History of menopause Vertigo Depression Anxiety GERD (gastroesophageal reflux disease) Sleep apnea COVID-19 vaccine series completed Renal cancer Fatty liver Diabetes HTN (hypertension) Surgical History Hx of resection of stomach History of pubovaginal sling History of left oophorectomy History of left nephrectomy History of esophagogastroduodenoscopy (EGD) Hx of vaginal surgery History of sleeve gastrectomy Hx laparoscopic cholecystectomy Family History Father Septic shock Maternal Uncle Liver cancer Stomach cancer Hepatitis C Maternal Aunt Lupus Mother HTN (hypertension) Diabetes Heart problem Son Asthma Acute anxiety Son Autism ADHD (attention deficit hyperactivity disorder) Son No problems noted. Son No problems noted. Son No problems noted. Daughter GERD (gastroesophageal reflux disease) Daughter No problems noted. Daughter No problems noted. Other Substance abuse Social History Household Members: Spouse and Children Housing: House Are you a primary infant childcare provider to a significant other at home: No Do you presently have visiting nurse or other home services: No Alcohol intake: never Patient Tobacco Use Status: Never used Tobacco e-Cigarette/Vaping Use: Never Used Second Hand Smoke Exposure: No service: No Current occupational status: disabled Cognitive needs: No Hearing needs: No Vision needs: No Review of Systems Const Denies weakness ENT Reports dizziness Card Reports chest pain, Reports chest pain with activity, Denies syncope, Denies rapid heart rate, Denies pedal edema, Denies edema, Denies leg edema, Denies lig htheadedness, Reports palpitations, Denies dyspnea, Reports dyspnea on exertion and Denies orthopnea Resp Denies cough, Denies dyspnea and Reports dyspnea on exertion GI Denies hematochezia, Denies change in stool character and Reports excessive flatus Musc Denies abnormal gait, Denies muscle cramps, Denies muscle weakness, Denies numbness, Denies radiating pain into limb and Denies tingling Neuro Denies abnormal gait, Reports dizziness, Denies syncope, Denies numbness, Denies tingling and Denies weakness Endo Reports palpitations Physical Exam Vital Signs: Last Vital Signs Pulse 73 04/21/25 12:53 BP 106/60 04/21/25 12:53 BMI result Body Mass Index 23.8 Const General: comfortable and no acute distress Orientation/consciousness: patient oriented x3 HEENT Other: Unremarkable Head: Yes normal to inspection Neck Neck: Yes normal visual inspection Chest Chest palpation & inspection: normal inspection of the chest Resp Auscultation: clear to auscultation bilaterally Cardio Palpation: normal PMI Heart sounds: S1 normal heart sound present, S2 normal heart sound present, no gallops, no murmurs and no rubs GI Palpation (GI): Soft to palpation Back/Spine/Pelvis Other: unremarkable Skin General skin exam: no rashes or lesions noted Neuro General: patient oriented x3 Extrem General: Yes normal to inspection Psych Mental Status: mental status grossly normal Office Procedures EKG Details: EKG with underlying sinus rhythm at 73/Min; no ischemic changes; [place] [id number], Complete Assessment & Plan Assessment & Plan (1) Chest pain: Code(s): R07.9 - Chest pain, unspecified Category: Medical Plan Atypical sounding chest pain, probably more so of GI origin. We can do an echocardiogram and stress test and unless any clear abnormalities, pursue further GI workup. Patient agrees with this. Orders: Orders CA echo transthoracic complete Today R07.9 - Chest pain, unspecified CA stress test Today R07.9 - Chest pain, unspecified Coding Level of Care Code New Pt Level 4 (49613) Diagnoses Chest pain R07.9 CPT Codes EKG - CPT: 34745-[id number], Complete ([id number])
[2025-04-21 12:53] VITALS: BP 106/60; PULSE 73; BMI 23.8
== END 2025-04-21 13:37 | disposition home or self-care (01) ==
LOC: HO.HCS 12:48
PROVIDERS: PCP Internal Medicine; Visit Provider Internal Medicine
DX: R07.9 Chest pain, unspecified (principal)
CPT/HCPCS: 93010; 99204

== ENCOUNTER → 2025-04-21 12:48 | Outpatient (BNVA) | payer OTHER, SELFPAY | PROVIDERS: PCP Internal Medicine; Visit Provider Internal Medicine | DX: R10.13 Epigastric pain (principal); R07.9 Chest pain, unspecified | CPT/HCPCS: 93005; 99202 ==

== ENCOUNTER → 2025-05-28 07:47 | Outpatient (REF) | payer OTHER, SELFPAY ==
--- OUTSIDE RECORDS SUMMARY | 2025-05-28 07:48 | XMS_ITS | Clinical Summary ---
Author Organization [facility] Address [address] [place], [place] [id number] Phone Care Team Providers Care Director [facility] Sclerosis [facility] Name Role Phone Izabela Ellison MD Primary [...] you interested in more education? Not on shriley e 11/10/2022 Are you concerned about learning? [...] 12/04/2017 , 08/06/2013, 08/10/2012, Additional history exists RSV VACCINE (1 - 1-dose 75+ series) 2048 HEPATITIS A VACCINES Aged Out No long er eligible based on patient's age to complete this topic HIB VACCINES Aged Out No longer eligi ble based on patient's age to complete this topic IPV VACCINES Aged Out No longer eligi ble based on patient's age to complete this topic MENINGOCOCCAL VACCINES (ACWY) Aged Out No longer eligible based on patient's age to complete this topic MENINGOCOCCAL VACCINES (B) Aged Out N o longer eligible based on patient's age to complete this topic Medical Devices Not on file Insurance [employer] [place] [employer] [place] [employer] [place] [employer] [place] [address] [place] [address] [address] [place] [address] [address] [place], [place] [address] [facility] Care Teams Director Multiple Sclerosis Center Relationship Specialty Start Date End Date Izabela Ellison MD PCP - General Family Medicine 01/23/22 Additional Source Comments The information contained in this document represents components of the legal health record. It is not the complete legal health record.[facility]
--- OUTSIDE RECORDS SUMMARY | 2025-05-28 07:48 | XMS_ITS | Clinical Summary ---
Author Organization [facility] Address [address] [place] [address] Care Team Providers Care Civil Rights Investigator Name Role Phone Unavailable Primary Care Provider [...]
--- OUTSIDE RECORDS SUMMARY | 2025-05-28 07:48 | XMS_ITS | Encounter Summary ---
Author Organization [facility] Address [address] [facility] [address] [place] [phone] Phone Care Team Providers Care Spray Worker Name Role Phone Ganesh Haley MD Primary Care Provider [phone] Izabela Ellison MD Primary Care Provider Encounter Details Date Type Department Care Team (Latest Contact Info) Description 05/10/2021 Transcribe Orders Virtual Department [address] [place] [address] Addi Leon MD [address] [facility] [address] [place] [address] [email or web address] Abdominal pain, unspecified abdominal location (Primary [...] documented as of this encounter Care Teams Spray Worker Relationship Specialty Start Date End Date Ganesh Haley MD [address] [place] [address] PCP - General Internal Medicine 05/11/21 01/22/22 Izabela Ellison MD [address] [place], [place] [id number] PCP - General Family Medicine 01/23/22 documented as of this encounter Additional Source Comments The information contained in this document represents components of the legal health record. It is not the complete legal health record.[facility]
--- OUTSIDE RECORDS SUMMARY | 2025-05-28 07:48 | XMS_ITS | Clinical Summary ---
Author Organization Patient Business Ser [facility] Address [address] [place] [address] Care Team Providers Care Receiving And Processing Supervisor Name Role Phone Shari Lainez MD Primary Care Provider [phone] Medications ibuprofen (ADVIL,MOTRIN) 800 mg tablet TAKE [...] your loved ones. For example, child support agent or elderly care for an older adult? [...] Date Recorded What is your living situation? Unrecognized valu e 11/21/2023 Comments Unknown Sex and Gender Information [...] Last Done Comments Breast Cancer Screening 1973 Colorectal Cancer Screening: Colonoscopy 1973 Diabetes: Annual Foot Exam 10/24/1983 Diabetes: Annual Retina Eye Exam 10/24/1983 Hepatitis A Vaccines (1 of 2 - Risk 2-dose series) 1992 Hepatitis B Vaccines (1 of 3 - 19+ 3-dose series) 1992 Zoster Vaccines (1 of 2) 1992 Pneumococcal Vaccine: 50+ Years (2 of 2 - PCV) 12/04/2018 12/04/2017 Cholesterol Screening (Lipid Panel) 09/26/2021 Hepatitis C Screening 09/26/2021 Social Influencers of Health Screening 09/26/2021 RSV Immunization Adult Patients (1 - Risk 50-74 years 1-dose series) 10/24/2023 Diabetes: Annual Urine Albumin-Creatinine Ratio (uACR) 02/07/2024 [...] RESULTING AGENCY - 09/07/2021 7:46 AM EST [id number] THINPREP PAP, IMAGED: NEGATIVE FOR SQUAMOUS INTRAEPITHELIAL [...] Recently Relevant to Health Maintenance Care Teams Receiving And Processing Supervisor Relationship Specialty Start Date End Date Shari Lainez MD PCP - General Endocrinology 08/25/24
--- NOTE | 2025-05-28 07:50 | CA_ITS ---
Acquisition Time: 2025-05-28 08:47:08 Total Exercise Time: 00:06:35 Test Indications: CP Medications: SEE H&P Protocol: CLEMENTE Max HR: 146 BPM 86% of Pred: 169 BPM Max BP: 148/70 mmHG Max Work Load: 7.9 METS Exercise stress test with exercise 6 mins 35 secs of Clemente Protocol, achieving 86% MPHR, with reports of SOB, and dizziness after stopping the treadmill, denied any chest pain or pressure, without any arrythmias, with normotensive response to exercise, Without any EKG changes meeting criteria for ischemia. In recovery, breathing improved and dizziness resolved. Test reviewed with Dr. Garcia. Referred By: Jose J Barron Electronically Signed By: Jairo North
--- NOTE | 2025-05-28 07:50 | CA_ITS ---
Transthoracic Echocardiogram Patient (Last, First, Middle): Марина Vasquez, Gender: Female Date of : 1975 Age: 49 Procedure Date: 05/28/2025 Procedure Type: Transthoracic Echocardiogram Location: OP Height: 157.48 cm Weight: 58.97 kg BSA: 1.59 m2 Heart Rate: bpm BP: 100 / 64 mmHg Audio Visual Manager: TO Referring MD: Jose J Barron MD Hat Blocking Operator: Ramírez Garcia MD Symptoms: R07.9 - Chest pain, unspecified Study Quality: Adequate ECG Rhythm: Sinus Conclusions: - Normal study Findings Left Ventricle Normal left ventricular size, thickness, and systolic function. The visually estimated ejection fraction is between 60-65%. Diastolic function is normal for age. Right Ventricle Normal right ventricular cavity size and systolic function. Atria Both atria are normal in size. There is no evidence of interatrial shunt. Aortic Valve Normal aortic valve structure and function. There is no aortic valve stenosis. There is no aortic valve regurgitation. Mitral Valve Normal mitral valve structure and function. There is trace mitral valve regurgitation. There is no mitral valve stenosis. Pulmonic Valve The pulmonic valve is likely normal. There is trace pulmonic valve regurgitation. Tricuspid Valve Normal tricuspid valve structure. There is trace tricuspid valve regurgitation. The right ventricular systolic pressure is normal. The right ventricular systolic pressure is 23 mmHg. Normal right atrial pressure. There is no evidence of pulmonary hypertension. Great Vessels All visible segments of the aorta are normal in size. The visualized portions of the pulmonary artery and branches are normal. Venous The inferior vena cava is normal in size and collapses greater than 50% with inspiration. Pericardium/Pleural There is no evidence of pericardial effusion. Prior Study Comparison No prior study available for comparison. Measurements 2D Linear Measurements IVSd: 0.92 0.6-0.9/0.6-1.0 cm LVIDd: 4.26 3.9-5.3/4.2-5.9 cm LVIDd Index: 2.68 2.4-3.2/2.2-3.1 cm/m2 LVIDs: 2.51 2.0-3.6 cm LVPWd: 0.80 0.7-1.1 cm LA Diam: 3.00 2.7-3.8/3.0-4.0 cm LAIDs Index: 1.89 1.5-2.3 cm/m2 LV Mass: 142.33 67-162/88-224 g LV Mass Index: 89.52 43-95/49-115 g/m2 LVOT Diam: 1.90 3.0+(-)1.3 cm 2D Systolic Function EF 4C: 63.20 >55% EF 2C: 59.60 >55% EF BiP: 59.40 >55% Mitral Valve MV Pk E: 0.61 MV PK A: 0.41 MV Decel Time: 163.00 E/A: 1.50 E'Lateral: 9.46 E'Medial: 7.40 E/E' Med: 8.20 E/E' Lat: 6.40 PHT: 48.00 MVA PHT: 4.58 Decel Falls: 3.71 Aortic Valve AoV Pk Ronaldo: 1.12 AoV Mn Ronaldo: 0.83 AoV VTI: 0.26 AoV Pk Grad: 5.00 Aov Mn Grad: 3.00 SAQIB Cont.VTI: 1.90 LVOT LVOT Pk Ronaldo: 0.86 LVOT Mn Ronaldo: 0.57 LVOT VTI: 0.17 LVOT Pk Grad: 3.00 LVOT Mn Grad: 1.00 LVOT Diam: 1.90 LVOT Area: 2.84 Diastolic Function MV Pk E: 0.61 MV Pk A: 0.41 E/A: 1.50 E'Medial: 7.40 E/E' Med: 8.20 E' Laterial: 9.46 E/E' Lat: 6.40 Right Ventricle TAPSE (mm): 19.30 TVS' Ronaldo: 11.70 Tricuspid Valve TR Pk Ronaldo: 2.21 TR Pk Grad: 20.00 RA Press: 3.00 RVSP: 23.00 Great Vessels Aorta Sinus of Valsalva: 2.96 2.0-3.5 cm Ao Asc: 3.20 2.1-3.4 cm Ao Arch: 2.70 Updated in Other Vendor System with Status of Final Ramírez Garcia MD electronically signed on 05/28/2025 5:50:08 PM with status of Final
== END ==
LOC: HO.CARD 07:47
PROVIDERS: Visit Provider Internal Medicine
DX: R07.9 Chest pain, unspecified (principal)
CPT/HCPCS: 93017; 93306

== ENCOUNTER → 2025-05-28 07:50 | Outpatient (BNV) | payer OTHER, SELFPAY | DX: R07.9 Chest pain, unspecified (principal); R06.02 Shortness of breath; R42 Dizziness and giddiness | CPT/HCPCS: 93016; 93018; 93306 ==